=== PATIENT | female | born 1985 | race Caucasian/White ===

== ENCOUNTER 2018-01-29 09:06 | Emergency (ER) | payer MEDICAID, SELFPAY ==
[2018-01-29 09:11] VITALS: BP 133/94; PULSE 80; RESP 15; TEMP 37.1; O2SAT 98
--- NOTE | 2018-01-29 09:29 | W.ED.GENAD ---
Discharge Plan Disposition Patient Disposition: HOME Condition: Stable Discharge Details Chief Complaint: DentalOral Clinical Impression: Dental infection, Dental caries, Left facial swelling Primary Care Provider: Renetta Flores ED Provider: Ghada Romero Home Meds and New Rx's Prescriptions: New penicillin V potassium 500 mg tablet 500 mg PO QID 7 Days Qty: 28 RF: 0 Continue acetaminophen [Mapap Extra Strength] 500 MG tablet 1,000 mg PO Q6H PRN PRNRF: 0 Discharge Instructions Instructions: Dental Caries (ED) Additional Instructions: You appear to have a dental infection related to cavities and/or missing tooth filling. You do not appear to have an abscess at this time. If you develop any worsening symptoms such as fever, increased facial swelling or pain, return immediately to the emergency department. Call [facility] tomorrow morning to schedule follow-up appointment for reevaluation. Take the antibiotics until finished. Alternate Tylenol and Motrin as needed and directed for pain. Do not take the Tylenol with codeine with additional Tylenol. Do not take more than 3 g of Tylenol daily. Discharge Data Discharge Physician: Ghada Romero Medical Decision Making 32-year-old female who presents with left upper dental pain and left-sided facial swelling for the past 2 days. Relates she lost a filling in this tooth and has had a dental fracture in this tooth 1 year ago. Was being followed at [facility] but missed a recent appointment and was told she needed to follow-up somewhere else. She denies fever, difficulty swallowing, difficulty breathing. Pressure mildly hypertensive but otherwise vitals within normal limits. Afebrile. She appears nontoxic. Airway intact and speaking in full sentences. She is mildly tearful due to pain with exam. She has multiple dental caries and missing teeth throughout with tenderness to palpation near tooth #13 or 14. She has mild left-sided facial swelling. No dental abscess noted. No submandibular swelling or evidence of Fracisco's angina. She denies any recent antibiotics. Will place on a prescription for penicillin. Patient states she can go directly to pharmacy to fill this. Will send home with 2 tabs of Tylenol with codeine to take for pain. She is instructed to not take with additional Tylenol. She is instructed to call a [facility] tomorrow morning to schedule follow-up appointment for reevaluation. She is instructed to return immediately to the emergency department with any worsening or new concerning symptoms such as fever, difficulty swallowing or breathing. HPI General Mode of arrival: ambulatory. Date/Time Provider Initiated Documentation: 01/29/18 09:21. Limitations to Documentation: no limitations. Information obtained by: patient. HPI Narrative: Patient is a 32-year-old female who presents with left upper dental pain and facial swelling for the past 2 days. Patient states she lost a filling in this area proximally 1 year ago. States the tooth is fractured. She states she has been eating and drinking but mainly soft foods over the past few days. She denies any known fever, difficulty swallowing, or difficulty breathing. She has been taking Tylenol and Motrin for pain which has been helping somewhat. She denies any recent antibiotics. She states she was being seen by [facility] but recently missed an appointment and was told she could not follow-up there. States she plans on seeing eye lump on dental. Past medical history: Depression, anxiety, migraines Surgical history: , cholecystectomy, myringotomy, adenoidectomy Social history: Smokes tobacco, daily marijuana use, denies alcohol use. Medications: Denies Allergy: Denies PCP: Renetta Benjamin Related Data Home Medications Medication Instructions Recorded Confirmed acetaminophen [Mapap Extra 1,000 mg PO Q6H PRN PRN tab 06/29/16 01/29/18 Strength] penicillin V potassium 500 mg PO QID 7 Days #28 tab 01/29/18 Previous Rx's Medication Instructions Recorded acetaminophen [Mapap Extra 1,000 mg PO Q6H PRN PRN tab 06/29/16 Strength] penicillin V potassium 500 mg PO QID 7 Days #28 tab 01/29/18 Allergies Allergy/AdvReac Type Severity Reaction Status Date / Time No Known Drug Allergies Allergy Unknown none Unverified 01/29/18 09:25 General Stated Complaint: DentalOral ELISHA: 4 Review of Systems Review of Systems All systems reviewed & are unremarkable except as noted in HPI and below PFSH Medical History Anxiety Depression Migraine Social History Smoking/Tobacco Use Status: Current every day Surgical History Adenoidectomy section Cholecystectomy (06/24/16) myringotomy Exam Const General: cooperative and healthy appearing Orientation: alert and awake [facility] Head: normal to inspection Ears: hearing grossly normal bilaterally, external ears normal and TM's normal bilaterally General nose exam: external nose normal Face and sinus: edema on the left (There is mild edema noted to the left mid face and left mandible area. Edema is noted to be soft without induration or fluctuance or erythema. ) Mouth: oral mucosae normal Teeth and gingiva: poor dentition (Multiple dental caries throughout. Multiple missing teeth throughout. Area of pain is around tooth #13 or 14. There is the base of the tooth still present with large filling in center missing. There is surrounding tenderness palpation of mucosa but no discrete abscess noted. There is no bleedin) Throat: posterior oropharynx normal Eyes General: appearance normal, both eyes and all related structures Eyelids: eyelids normal Pupils: PERRL EOM: EOM intact bilaterally Neck Neck: normal visual inspection and No submandibular swelling Lymphatic: no lymphadenopathy noted Chest Chest: normal inspection of the chest Resp Effort & Inspection: normal respiratory effort and able to speak in complete sentences Cardio Rate: regular rate Skin General skin exam: no rashes or lesions noted Neuro General: alert and awake Cognition: normal cognition Speech: speech normal Gait: normal gait Motor: muscle tone normal throughout Extrem General: normal to inspection and full ROM Psych Appearance: grossly normal Mental Status: mental status grossly normal Speech and Movement: speech and movement normal Affect: normal affect Thought Process: normal Course Vital Signs Temperature 98.8 F 01/29/18 09:11 Pulse 80 01/29/18 09:11 Respiratory Rate 15 01/29/18 09:11 Blood Pressure 133/94 H 01/29/18 09:11 Pulse Oximetry 98 01/29/18 09:11 Temperature 98.8 F 01/29/18 09:11 Temperature Source Temporal Artery Scan 01/29/18 09:11 Pulse 80 01/29/18 09:11 Respiratory Rate 15 01/29/18 09:11 Respiratory Effort 01/29/18 09:19 Blood Pressure 133/94 H 01/29/18 09:11 Blood Pressure Position Sitting 01/29/18 09:11 Pulse Oximetry 98 01/29/18 09:11 Oxygen Delivery Method Room Air 01/29/18 09:11 Oxygen Flow Rate 0 01/29/18 09:11 Pain Level 6 01/29/18 09:11
--- NOTE | 2018-01-29 09:38 | ED.GENADUL_ITS ---
Discharge Plan Disposition Patient Disposition: HOME Condition: Stable Discharge Details Chief Complaint: DentalOral Clinical Impression: Dental infection, Dental caries, Left facial swelling Primary Care Provider: Renetta Flores ED Provider: Ghada Romero Home Meds and New Rx's Prescriptions: New penicillin V potassium 500 mg tablet 500 mg PO QID 7 Days Qty: 28 RF: 0 Continue acetaminophen [Mapap Extra Strength] 500 MG tablet 1,000 mg PO Q6H PRN PRNRF: 0 Discharge Instructions Instructions: Dental Caries (ED) Additional Instructions: You appear to have a dental infection related to cavities and/or missing tooth filling. You do not appear to have an abscess at this time. If you develop any worsening symptoms such as fever, increased facial swelling or pain, return immediately to the emergency department. Call [facility] tomorrow morning to schedule follow-up appointment for reevaluation. Take the antibiotics until finished. Alternate Tylenol and Motrin as needed and directed for pain. Do not take the Tylenol with codeine with additional Tylenol. Do not take more than 3 g of Tylenol daily. Discharge Data Discharge Physician: Ghada Romero Medical Decision Making 32-year-old female who presents with left upper dental pain and left-sided facial swelling for the past 2 days. Relates she lost a filling in this tooth and has had a dental fracture in this tooth 1 year ago. Was being followed at [facility] but missed a recent appointment and was told she needed to follow-up somewhere else. She denies fever, difficulty swallowing, difficulty breathing. Pressure mildly hypertensive but otherwise vitals within normal limits. Afebrile. She appears nontoxic. Airway intact and speaking in full sentences. She is mildly tearful due to pain with exam. She has multiple dental caries and missing teeth throughout with tenderness to palpation near tooth #13 or 14. She has mild left-sided facial swelling. No dental abscess noted. No submandibular swelling or evidence of Fracisco's angina. She denies any recent antibiotics. Will place on a prescription for penicillin. Patient states she can go directly to pharmacy to fill this. Will send home with 2 tabs of Tylenol with codeine to take for pain. She is instructed to not take with additional Tylenol. She is instructed to call a [facility] tomorrow morning to schedule follow- up appointment for reevaluation. She is instructed to return immediately to the emergency department with any worsening or new concerning symptoms such as fever, difficulty swallowing or breathing. HPI General Mode of arrival: ambulatory . Date/Time Provider Initiated Documentation: 01/29/18 09:21 . Limitations to Documentation: no limitations . Information obtained by: patient . HPI Narrative: Patient is a 32-year-old female who presents with left upper dental pain and facial swelling for the past 2 days. Patient states she lost a filling in this area proximally 1 year ago. States the tooth is fractured. She states she has been eating and drinking but mainly soft foods over the past few days. She denies any known fever, difficulty swallowing, or difficulty breathing. She has been taking Tylenol and Motrin for pain which has been helping somewhat. She denies any recent antibiotics. She states she was being seen by [facility] but recently missed an appointment and was told she could not follow-up there. States she plans on seeing eye lump on dental. Past medical history: Depression, anxiety, migraines Surgical history: , cholecystectomy, myringotomy, adenoidectomy Social history: Smokes tobacco, daily marijuana use, denies alcohol use. Medications: Denies Allergy: Denies PCP: Renetta Benjamin Related Data Home Medications Medication Instructions Recorded Confirmed acetaminophen [Mapap Extra 1,000 mg PO Q6H PRN PRN tab 06/29/16 01/29/18 Strength] penicillin V potassium 500 mg PO QID 7 Days #28 tab 01/29/18 Previous Rx's Medication Instructions Recorded acetaminophen [Mapap Extra 1,000 mg PO Q6H PRN PRN tab 06/29/16 Strength] penicillin V potassium 500 mg PO QID 7 Days #28 tab 01/29/18 Allergies Allergy/AdvReac Type Severity Reaction Status Date / Time No Known Drug Allergies Allergy Unknown none Unverified 01/29/18 09:25 General Stated Complaint: DentalOral ELISHA: 4 Review of Systems Review of Systems All systems reviewed & are unremarkable except as noted in HPI and below PFSH Medical History Anxiety Depression Migraine Social History Smoking/Tobacco Use Status: Current every day Surgical History Adenoidectomy section Cholecystectomy (06/24/16) myringotomy Exam Const General: cooperative and healthy appearing Orientation: alert and awake [facility] Head: normal to inspection Ears: hearing grossly normal bilaterally, external ears normal and TM's normal bilaterally General nose exam: external nose normal Face and sinus: edema on the left (There is mild edema noted to the left mid face and left mandible area. Edema is noted to be soft without induration or fluctuance or erythema. ) Mouth: oral mucosae normal Teeth and gingiva: poor dentition (Multiple dental caries throughout. Multiple missing teeth throughout. Area of pain is around tooth #13 or 14. There is the base of the tooth still present with large filling in center missing. There is surrounding tenderness palpation of mucosa but no discrete abscess noted. There is no bleedin) Throat: posterior oropharynx normal Eyes General: appearance normal, both eyes and all related structures Eyelids: eyelids normal Pupils: PERRL EOM: EOM intact bilaterally Neck Neck: normal visual inspection and No submandibular swelling Lymphatic: no lymphadenopathy noted Chest Chest: normal inspection of the chest Resp Effort & Inspection: normal respiratory effort and able to speak in complete sentences Cardio Rate: regular rate Skin General skin exam: no rashes or lesions noted Neuro General: alert and awake Cognition: normal cognition Speech: speech normal Gait: normal gait Motor: muscle tone normal throughout Extrem General: normal to inspection and full ROM Psych Appearance: grossly normal Mental Status: mental status grossly normal Speech and Movement: speech and movement normal Affect: normal affect Thought Process: normal Course Vital Signs Temperature 98.8 F 01/29/18 09:11 Pulse 80 01/29/18 09:11 Respiratory Rate 15 01/29/18 09:11 Blood Pressure 133/94 H 01/29/18 09:11 Pulse Oximetry 98 01/29/18 09:11 Temperature 98.8 F 01/29/18 09:11 Temperature Source Temporal Artery Scan 01/29/18 09:11 Pulse 80 01/29/18 09:11 Respiratory Rate 15 01/29/18 09:11 Respiratory Effort 01/29/18 09:19 Blood Pressure 133/94 H 01/29/18 09:11 Blood Pressure Position Sitting 01/29/18 09:11 Pulse Oximetry 98 01/29/18 09:11 Oxygen Delivery Method Room Air 01/29/18 09:11 Oxygen Flow Rate 0 01/29/18 09:11 Pain Level 6 01/29/18 09:11
[2018-01-29 09:46] VITALS: TEMP 37.1
== END 2018-01-29 09:55 | disposition home or self-care (01) ==
PROVIDERS: Emergency Provider Physician Assistant; PCP Nurse Practitioner
DX: R22.0 Localized swelling, mass and lump, head (principal); K04.7 Periapical abscess without sinus; K02.9 Dental caries, unspecified
CPT/HCPCS: 99283

== ENCOUNTER 2018-03-01 07:41 | Emergency (ER) | payer MEDICAID, SELFPAY ==
[2018-03-01 07:51] VITALS: BP 120/90; PULSE 69; RESP 16; TEMP 36.7; O2SAT 99
--- NOTE | 2018-03-01 08:14 | W.ED.GENAD ---
Discharge Plan Disposition Patient Disposition: HOME Condition: Good Discharge Details Chief Complaint: EarProblem Clinical Impression: Otitis media Primary Care Provider: Renetta Flores ED Provider: Scott Smallwood Home Meds and New Rx's Prescriptions: New acetaminophen [Mapap Extra Strength] 500 MG tablet 1,000 mg PO Q6H 5 Days Qty: 60 RF: 0 ibuprofen [Motrin IB] 200 MG tablet 600 mg PO Q6H 5 Days Qty: 60 RF: 0 amoxicillin 500 mg capsule 1,000 mg PO TID 7 Days Qty: 42 RF: 0 No Action acetaminophen [Mapap Extra Strength] 500 MG tablet 1,000 mg PO Q6H PRN PRNRF: 0 Discharge Instructions Instructions: Otitis Media (ED) Additional Instructions: Please take the antibiotic as directed. If you notice any worsening of your symptoms, or any new symptoms such as drainage from your ear, vomiting, diarrhea, fever, chills, shortness of breath, chest pain, numbness, weakness, or fainting , please return immediately to the emergency department for reevaluation. Please follow up with your primary care provider as soon as possible for reassessment and reevaluation. As always, it was a pleasure participating in your medical care today. Referrals: Renetta Flores [Primary Care Provider] - Medical Decision Making This is a pleasant 32-year-old female who presents with symptoms of a cough for 1 week, she does smoke, however over the last 1-2 days she has developed right ear pain slight decrease in hearing. Physical exam demonstrates notable right sided otitis media, no evidence of perforation or drainage. Lung exam is normal, vital signs are stable, no hypoxemia, tachypnea, or tachycardia. This time I feel that the patient is suffering from right otitis media, and we will start antibiotics for treatment of this. We discussed red flags for which to return the patient understands I have extensively reviewed the treatment plan and discharge instructions with the patient. I have addressed all patient concerns at this time. The patient was made aware of what symptoms to monitor for that would warrant a return to the emergency department. Discussed the plan with the patient, they demonstrate verbal understanding and agreement with our assessment and plan at this time. HPI General Date/Time Provider Initiated Documentation: 03/01/18 08:01. HPI Narrative: This is a 32-year-old female with no significant past medical history except for smoking use, no recent surgeries who presents today for evaluation of right ear pain. Patient states that she has had mild upper respiratory symptoms for the last week, with very mild cough and runny nose and congestion however over the last 1-2 days she has developed right-sided ear pain, and slight muffling of hearing in the right. She has taken ibuprofen this is slightly improved her symptoms. She denies any drainage from her ear, she denies any hemoptysis, fever, chills, chest pain, shortness of breath, headache, vision changes. She denies any other associated complaints. She denies any trauma. She denies any history of diabetes, or recent swimming. Patient denies any other complaints at this time Related Data Home Medications Medication Instructions Recorded Confirmed acetaminophen [Mapap Extra 1,000 mg PO Q6H PRN PRN tab 06/29/16 03/01/18 Strength] acetaminophen [Mapap Extra 1,000 mg PO Q6H 5 Days #60 tab 03/01/18 Strength] amoxicillin 1,000 mg PO TID 7 Days #42 cap 03/01/18 ibuprofen [Motrin Ib] 600 mg PO Q6H 5 Days #60 tab 03/01/18 Previous Rx's Medication Instructions Recorded acetaminophen [Mapap Extra 1,000 mg PO Q6H PRN PRN tab 06/29/16 Strength] acetaminophen [Mapap Extra 1,000 mg PO Q6H 5 Days #60 tab 03/01/18 Strength] amoxicillin 1,000 mg PO TID 7 Days #42 cap 03/01/18 ibuprofen [Motrin Ib] 600 mg PO Q6H 5 Days #60 tab 03/01/18 Allergies Allergy/AdvReac Type Severity Reaction Status Date / Time No Known Drug Allergies Allergy Unknown none Unverified 03/01/18 07:54 General Stated Complaint: EarProblem ELISHA: 4 Review of Systems Review of Systems All systems reviewed & are unremarkable except as noted in HPI and below Exam Narrative Exam Narrative: 1.Const: Well-nourished, Well-developed, appearing stated age 2.Eyes: PERRL, no conjunctival injection, and symmetrical lids. 3.ENT: Atraumatic external nose and ears. Moist MM. Neck: Symmetric, trachea midline, No thyromegaly. Patient demonstrates notable bulging and purulent effusion behind the right tympanic membrane, left tympanic membrane was normal. Oropharynx demonstrates no signs of erythema, edema, or tonsillar exudate. Minimal cervical lymphadenopathy. Minimal drainage in the nares, no sinus tenderness 4.CVS: +S1/S2, No murmurs or gallops. Peripheral pulses 2+ and equal in all extremities. Brisk capillary refill in all extremities. 5.RESP: Unlabored respiratory effort. Clear to auscultation bilaterally. No wheezes rales or rhonchi. No ausculatory abnormalities. 6.GI: Soft, Nontender/Nondistended, No hepatosplenomegaly. No guarding or rebound. 7.MSK: Normocephalic/Atraumatic, Extremities w/o deformity or ttp No cyanosis or clubbing, Normal movement of all extremities 8.Skin: Warm, Dry. No rashes or lesions. 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 Sensation grossly intact, no focal neurologic deficits. 10.Psych: (AAO) x3. Appropriate mood and affect Course Vital Signs Temperature 36.7 C 03/01/18 07:51 Pulse 69 03/01/18 07:51 Respiratory Rate 16 03/01/18 07:51 Blood Pressure 120/90 03/01/18 07:51 Pulse Oximetry 99 03/01/18 07:51 Temperature 36.7 C 03/01/18 07:51 Temperature Source Skin 03/01/18 07:51 Pulse 69 03/01/18 07:51 Respiratory Rate 16 03/01/18 07:51 Respiratory Effort 03/01/18 07:51 Blood Pressure 120/90 03/01/18 07:51 Blood Pressure Position Sitting 03/01/18 07:51 Pulse Oximetry 99 03/01/18 07:51 Oxygen Delivery Method Room Air 03/01/18 07:51 Oxygen Flow Rate 0 03/01/18 07:51 Pain Level 8 03/01/18 07:55
--- NOTE | 2018-03-01 08:18 | ED.GENADUL_ITS ---
Discharge Plan Disposition Patient Disposition: HOME Condition: Good Discharge Details Chief Complaint: EarProblem Clinical Impression: Otitis media Primary Care Provider: Renetta Flores ED Provider: Scott Smallwood Home Meds and New Rx's Prescriptions: New acetaminophen [Mapap Extra Strength] 500 MG tablet 1,000 mg PO Q6H 5 Days Qty: 60 RF: 0 ibuprofen [Motrin IB] 200 MG tablet 600 mg PO Q6H 5 Days Qty: 60 RF: 0 amoxicillin 500 mg capsule 1,000 mg PO TID 7 Days Qty: 42 RF: 0 No Action acetaminophen [Mapap Extra Strength] 500 MG tablet 1,000 mg PO Q6H PRN PRNRF: 0 Discharge Instructions Instructions: Otitis Media (ED) Additional Instructions: Please take the antibiotic as directed. If you notice any worsening of your symptoms, or any new symptoms such as drainage from your ear, vomiting, diarrhea , fever, chills, shortness of breath, chest pain, numbness, weakness, or fainting , please return immediately to the emergency department for reevaluation. Please follow up with your primary care provider as soon as possible for reassessment and reevaluation. As always, it was a pleasure participating in your medical care today. Referrals: Renetta Flores [Primary Care Provider] - Medical Decision Making This is a pleasant 32-year-old female who presents with symptoms of a cough for 1 week, she does smoke, however over the last 1-2 days she has developed right ear pain slight decrease in hearing. Physical exam demonstrates notable right sided otitis media, no evidence of perforation or drainage. Lung exam is normal, vital signs are stable, no hypoxemia, tachypnea , or tachycardia. This time I feel that the patient is suffering from right otitis media, and we will start antibiotics for treatment of this. We discussed red flags for which to return the patient understands I have extensively reviewed the treatment plan and discharge instructions with the patient. I have addressed all patient concerns at this time. The patient was made aware of what symptoms to monitor for that would warrant a return to the emergency department. Discussed the plan with the patient, they demonstrate verbal understanding and agreement with our assessment and plan at this time. HPI General Date/Time Provider Initiated Documentation: 03/01/18 08:01 . HPI Narrative: This is a 32-year-old female with no significant past medical history except for smoking use, no recent surgeries who presents today for evaluation of right ear pain. Patient states that she has had mild upper respiratory symptoms for the last week, with very mild cough and runny nose and congestion however over the last 1-2 days she has developed right-sided ear pain , and slight muffling of hearing in the right. She has taken ibuprofen this is slightly improved her symptoms. She denies any drainage from her ear, she denies any hemoptysis, fever, chills, chest pain, shortness of breath, headache , vision changes. She denies any other associated complaints. She denies any trauma. She denies any history of diabetes, or recent swimming. Patient denies any other complaints at this time Related Data Home Medications Medication Instructions Recorded Confirmed acetaminophen [Mapap Extra 1,000 mg PO Q6H PRN PRN tab 06/29/16 03/01/18 Strength] acetaminophen [Mapap Extra 1,000 mg PO Q6H 5 Days #60 tab 03/01/18 Strength] amoxicillin 1,000 mg PO TID 7 Days #42 cap 03/01/18 ibuprofen [Motrin Ib] 600 mg PO Q6H 5 Days #60 tab 03/01/18 Previous Rx's Medication Instructions Recorded acetaminophen [Mapap Extra 1,000 mg PO Q6H PRN PRN tab 06/29/16 Strength] acetaminophen [Mapap Extra 1,000 mg PO Q6H 5 Days #60 tab 03/01/18 Strength] amoxicillin 1,000 mg PO TID 7 Days #42 cap 03/01/18 ibuprofen [Motrin Ib] 600 mg PO Q6H 5 Days #60 tab 03/01/18 Allergies Allergy/AdvReac Type Severity Reaction Status Date / Time No Known Drug Allergies Allergy Unknown none Unverified 03/01/18 07:54 General Stated Complaint: EarProblem ELISHA: 4 Review of Systems Review of Systems All systems reviewed & are unremarkable except as noted in HPI and below Exam Narrative Exam Narrative: 1.Const: Well-nourished, Well-developed, appearing stated age 2.Eyes: PERRL, no conjunctival injection, and symmetrical lids. 3.ENT: Atraumatic external nose and ears. Moist MM. Neck: Symmetric, trachea midline, No thyromegaly. Patient demonstrates notable bulging and purulent effusion behind the right tympanic membrane, left tympanic membrane was normal. Oropharynx demonstrates no signs of erythema, edema, or tonsillar exudate. Minimal cervical lymphadenopathy. Minimal drainage in the nares, no sinus tenderness 4.CVS: +S1/S2, No murmurs or gallops. Peripheral pulses 2+ and equal in all extremities. Brisk capillary refill in all extremities. 5.RESP: Unlabored respiratory effort. Clear to auscultation bilaterally. No wheezes rales or rhonchi. No ausculatory abnormalities. 6.GI: Soft, Nontender/Nondistended, No hepatosplenomegaly. No guarding or rebound. 7.MSK: Normocephalic/Atraumatic, Extremities w/o deformity or ttp No cyanosis or clubbing, Normal movement of all extremities 8.Skin: Warm, Dry. No rashes or lesions. 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 Sensation grossly intact, no focal neurologic deficits. 10.Psych: (AAO) x3. Appropriate mood and affect Course Vital Signs Temperature 36.7 C 03/01/18 07:51 Pulse 69 03/01/18 07:51 Respiratory Rate 16 03/01/18 07:51 Blood Pressure 120/90 03/01/18 07:51 Pulse Oximetry 99 03/01/18 07:51 Temperature 36.7 C 03/01/18 07:51 Temperature Source Skin 03/01/18 07:51 Pulse 69 03/01/18 07:51 Respiratory Rate 16 03/01/18 07:51 Respiratory Effort 03/01/18 07:51 Blood Pressure 120/90 03/01/18 07:51 Blood Pressure Position Sitting 03/01/18 07:51 Pulse Oximetry 99 03/01/18 07:51 Oxygen Delivery Method Room Air 03/01/18 07:51 Oxygen Flow Rate 0 03/01/18 07:51 Pain Level 8 03/01/18 07:55
== END 2018-03-01 08:22 | disposition home or self-care (01) ==
PROVIDERS: Emergency Provider Student in an Organized Health Care Education/Training Program; PCP Nurse Practitioner
DX: H66.91 Otitis media, unspecified, right ear (principal)
CPT/HCPCS: 99283

== ENCOUNTER 2019-02-17 08:37 | Emergency (ER) | payer MEDICAID, SELFPAY ==
[2019-02-17 08:40] VITALS: BP 145/101; PULSE 65; RESP 16; TEMP 37.1; O2SAT 95
--- NOTE | 2019-02-17 08:50 | W.ED.GENAD ---
Discharge Plan Disposition Patient Disposition: HOME Condition: Good Discharge Details Chief Complaint: GenMedical Clinical Impression: Epicondylitis, lateral, Tendinitis Primary Care Provider: Renetta Flores ED Provider: Leila Denson Home Meds and New Rx's Prescriptions: New albuterol sulfate [Proventil HFA] 90 mcg/actuation HFA aerosol inhaler 2 puff IH Q6H PRN (Reason: shortness of breath or wheezing) Qty: 8 RF: 0 No Action acetaminophen [Mapap Extra Strength] 500 MG tablet 1,000 mg PO Q6H PRN PRNRF: 0 Discharge Instructions Instructions: Tendinitis (ED) Additional Instructions: Rest. Activities as tolerated. Elevate injury to prevent swelling. Ice to the area of discomfort for 15 min. 3-5 times daily. Or ice massage for 5 minutes 3-5 times daily as discussed Motrin every 8 hours with food or Tylenol every 6 hours for soreness if needed over the counter for comfort. Consider [id number] tennis elbow strap. Use wrist splint at night for 1 week as discussed Followup with orthopedic doctor as discussed if not improving in one week. Return for any worsening or concerns sooner if needed. Referrals: Indio Thapa MD [ [facility] STAFF PHYSICIAN] - Discharge Data Discharge Date/Time-TO BE ENTERED AT DEPARTURE: 02/17/19 09:13 Medical Decision Making 33-year-old patient who presents for complaints of bilateral arm pain significantly worse on the right associated with intermittent tingling and numbness worse with range of motion of the arm, relieved with rest. 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 Patient reports she is now done trimming so she will not continue the repetitive hand movements however on exam has clear findings of lateral epicondylitis with tenderness through the forearm with palpation consistent with tendinitis. Patient is counseled regarding appropriate management and care including ice massage, use of tennis elbow strap. Will provide a wrist splint for nighttime use. Patient consents only to right arm splinting. Patient encouraged follow-up with orthopedic doctor if not improving in approximately 1 week as discussed. Rice encouraged. Patient also has a cough which is been present for a few months. Patient denies any ill feeling or infectious symptoms but does have obvious wheezing on her breath sounds. Patient consents to use of an inhaler and conservative treatments at this time. Does not feel she needs any nebulizer treatments at this time. Patient advised to follow-up if not improving. The patient was stable and requested discharge. Prior to discharge, my usual and customary return precautions were reviewed with the patient - this included follow-up instructions and reasons to return to the Emergency Department if conditions worsens, does not improve as expected, or other new concerns arise. HPI General Date/Time Provider Initiated Documentation: 02/17/19 08:39. HPI Narrative: 33-year-old woman presents the ER for complaints of right arm pain and numbness. Patient reports pain and numbness from the right elbow to the fingers. Patient reports onset of symptoms approximately 1 week ago worse in the last few days. Patient also reports mild left forearm symptoms. Patient denies any injury or trauma to the arm. Patient reports she has been trimming hemp for the last 2 weeks. Patient denies neck pain associated. Patient denies pain with range of motion of neck. No ill feeling whatsoever. Patient denies any history of similar. Patient reports the numbness and tingling she is experienced in the right arm is intermittent. None at present. No swelling of the arm. No chest pain, difficulty breathing shortness of breath. Patient also complaining of a mild cough which she has had for the last 2 months which resulted after a viral cough and cold. Patient denies fever, chills or ill feeling. She reports persistent cough and occasional wheezing. No associated chest pain. Denies nasal congestion sore throat or ear pain at this time. Eating and drinking without difficulty. Related Data Home Medications Medication Instructions Recorded Confirmed acetaminophen [Mapap Extra 1,000 mg PO Q6H PRN PRN tab 06/29/16 02/17/19 Strength] albuterol sulfate [Proventil HFA] 2 puff IH Q6H PRN #8 gm 02/17/19 Previous Rx's Medication Instructions Recorded acetaminophen [Mapap Extra 1,000 mg PO Q6H PRN PRN tab 06/29/16 Strength] albuterol sulfate [Proventil HFA] 2 puff IH Q6H PRN #8 gm 02/17/19 Allergies Allergy/AdvReac Type Severity Reaction Status Date / Time No Known Drug Allergies Allergy Unknown none Unverified 02/17/19 08:51 General Stated Complaint: GenMedical ELISHA: 4 Review of Systems All systems reviewed & are unremarkable except as noted in HPI and below Constitutional Constitutional: Denies chills, Denies fever(s) and Denies headache(s) ENT Ears, Nose, Mouth, and Throat: Denies vertigo, Denies dizziness, Denies otalgia, Denies headache(s), Denies sinus pain, Denies sinus pressure and Denies sore throat Respiratory Respiratory: Reports cough and Reports wheezing Musculoskeletal Musculoskeletal: Denies joint swelling, Reports numbness and Reports radiating pain into limb Neurologic Neurologic: Denies vertigo, Denies dizziness, Denies headache(s) and Reports numbness Allergic/Immunologic Allergic/Immunologic: Reports wheezing [facility] Medical History Anxiety treated with Paroxitine. restarted 05/06/14 for recurrence of anxiety Depression Rx with Trazadone to assist sleep. Migraine after of second child. vision changes prior to H/A. On triptans prior to current preg. followed by neurology. Surgical History Adenoidectomy section X 2 Cholecystectomy (06/24/16) myringotomy Social History Smoking/Tobacco Use Status: Current every day Alcohol Intake: never Substance use type: does not use Do you feel safe at home: Yes Do you feel safe in your relationship?: Yes Exam Narrative Exam Narrative: CONST: Healthy appearing patient, in no acute distress. Well hydrated. Alert and alert. HENMT: Head nomocephalic, normal to inspection. Atraumatic. Hearing grossly normal. Right TM intact with no erythema or effusion, left TM with mild effusion no associated erythema. Mild pharyngeal erythema. EYES: General normal appearance. Alignment normal. Eyelids normal. Conjunctiva normal. NECK: Normal visual inspection. FROM. Trachea midline. No Midline tenderness. No cervical lymphadenopathy present. CHEST: Normal insepection of the chest. RESP: Normal respiratory effort. Speaking full sentences. No cough. No audible wheezing. No retractions. Breath sounds present and equal. Wheezing scattered. No rhonchi or rales. CARDIO: No JVD. No murmurs, regular rate and rhythm. MUSCULOSKELETAL: Normal Gait. FROM of all extremities. Right arm; no shoulder pain or humeral pain with palpation. Moderate tenderness at the lateral epicondyle with palpation. Mild medial epicondyle tenderness. Moderate form tenderness along the muscle. Patient with flexion extension of the wrist. Distal neurovascularly intact. Pulses intact. No open wounds. No obvious swelling. Mild left arm pain with palpation of the lateral epicondyle. Strength intact bilaterally. SKIN: Normal. Dry. No rashes. NEURO: Alert and awake. Speech clear. PSYCH: Normal affect. Cooperative. Course Vital Signs Vital signs: Vital Signs Temperature 37.1 C 02/17/19 08:40 Pulse 65 02/17/19 08:40 Respiratory Rate 16 02/17/19 08:40 Blood Pressure 145/101 H 02/17/19 08:40 Pulse Oximetry 95 02/17/19 08:40 Temperature 37.1 C 02/17/19 08:40 Temperature Source Temporal Artery Scan 02/17/19 08:40 Pulse 65 02/17/19 08:40 Respiratory Rate 16 02/17/19 08:40 Respiratory Effort Non-Labored 02/17/19 08:40 Blood Pressure 145/101 H 02/17/19 08:40 Pulse Oximetry 95 02/17/19 08:40 Oxygen Delivery Method Room Air 02/17/19 08:40 Oxygen Flow Rate 0 02/17/19 08:40 Pain Level 7 02/17/19 08:40
[2019-02-17 09:13] VITALS: RESP 20
== END 2019-02-17 09:13 | disposition home or self-care (01) ==
PROVIDERS: Emergency Provider Physician Assistant; PCP Nurse Practitioner
DX: M77.11 Lateral epicondylitis, right elbow (principal); M77.12 Lateral epicondylitis, left elbow; M67.821 Other specified disorders of synovium, right elbow; M67.822 Other specified disorders of synovium, left elbow; R05 Cough
CPT/HCPCS: 29125; 99283; 99282; L3908

== ENCOUNTER 2019-03-09 08:28 | Emergency (ER) | payer MEDICAID, SELFPAY ==
[2019-03-09 08:31] VITALS: BP 133/95; PULSE 69; RESP 18; TEMP 36.4; O2SAT 100
--- NOTE | 2019-03-09 08:42 | W.ED.GENAD ---
Discharge Plan Disposition Patient Disposition: HOME Condition: Stable Discharge Details Chief Complaint: DentalOral Clinical Impression: Broken tooth Primary Care Provider: Renetta Flores ED Provider: Cedric Garnett Home Meds and New Rx's Prescriptions: New penicillin V potassium 500 mg tablet 500 mg PO TID 10 Days Qty: 30 RF: 0 Continued acetaminophen [Mapap Extra Strength] 500 MG tablet 1,000 mg PO Q6H PRN PRNRF: 0 ibuprofen 600 mg Tablet 600 mg PO QID PRNRF: 0 albuterol sulfate [Proventil HFA] 90 mcg/actuation HFA aerosol inhaler 2 puff IH Q6H PRN (Reason: shortness of breath or wheezing) Qty: 8 RF: 0 Discharge Instructions Instructions: Acute Dental Trauma (ED) Additional Instructions: Please take penicillin as prescribed. Follow-up with dentistry on Tuesday as planned. May use Tylenol and/or ibuprofen as needed for pain. May use dental wax to provide temporary covering to the broken tooth. Return for any acute concern. Medical Decision Making 33-year-old female with broken right lower first molar, approximately tooth 19. No significant fluctuance or evidence of abscess on exam. Offered dental block which she declined. Provided a prescription for penicillin, she was given dental wax with instructions on use, and will follow-up with her dentist on Tuesday. Home care and return precautions discussed. HPI General Mode of arrival: ambulatory. Date/Time Provider Initiated Documentation: 03/09/19 08:29. Limitations to Documentation: no limitations. Information obtained by: patient. History of Present Illness 33 year old F presents to the emergency department with the chief complaint of Right lower broken tooth, described as moderate, Quality is described as dull, and is localized to the mouth. Patient reports no radiation. Patient started experiencing this day(s) and it has been constant. No relieving factors improve symptom(s), No exacerbating factors reported . Patient notes other (No drooling, change to voice.); denies fever/chills. Patient did receive the following treatments prior to arrival, none Related Data Home Medications Medication Instructions Recorded Confirmed acetaminophen [Mapap Extra 1,000 mg PO Q6H PRN PRN tab 06/29/16 03/09/19 Strength] albuterol sulfate [Proventil HFA] 2 puff IH Q6H PRN #8 gm 02/17/19 03/09/19 ibuprofen 600 mg PO QID PRN 03/09/19 03/09/19 penicillin V potassium 500 mg PO TID 10 Days #30 tab 03/09/19 Previous Rx's Medication Instructions Recorded acetaminophen [Mapap Extra 1,000 mg PO Q6H PRN PRN tab 06/29/16 Strength] albuterol sulfate [Proventil HFA] 2 puff IH Q6H PRN #8 gm 02/17/19 penicillin V potassium 500 mg PO TID 10 Days #30 tab 03/09/19 Allergies Allergy/AdvReac Type Severity Reaction Status Date / Time No Known Drug Allergies Allergy Unknown none Unverified 03/09/19 08:34 General Stated Complaint: DentalOral ELISHA: 4 Review of Systems Narrative: 6 systems reviewed and otherwise negative. [facility] Medical History Anxiety treated with Paroxitine. restarted 05/06/14 for recurrence of anxiety Depression Rx with Trazadone to assist sleep. Migraine after of second child. vision changes prior to H/A. On triptans prior to current preg. followed by neurology. Social History Smoking/Tobacco Use Status: Current every day Alcohol Intake: never Substance use type: does not use Do you feel safe at home: Yes Do you feel safe in your relationship?: Yes Exam Narrative Exam Narrative: GEN: awake, alert, oriented 3. Pleasant, well groomed, interactive. HEAD: Normocephalic, atraumatic ENT: Mucous membranes moist, oropharynx with few missing teeth. The right lower first molar, approximately tooth 19 has 2 broken cusps with exposed filling. No sniffing and buccal or lingual swelling. External ear exam unremarkable EYES: PERRL, EOMI NECK: Full ROM, no GUILLERMO, no menigismus CHEST/RESP: Nontender, clear to auscultation bilateral, no wheeze/rhonchi/rales CARDIOVASCULAR: RRR, no murmur, rub karel. 2+ Rad pulse bilateral Neuro: Grossly normal neurologic exam, conversant, interactive. Psych: Speech fluent, thoughts congruent, affect normal Course Vital Signs Vital signs: Vital Signs Temperature 36.4 C L 03/09/19 08:31 Pulse 69 03/09/19 08:31 Respiratory Rate 18 03/09/19 08:31 Blood Pressure 133/95 H 03/09/19 08:31 Pulse Oximetry 100 03/09/19 08:31 Temperature 36.4 C L 03/09/19 08:31 Temperature Source Skin 03/09/19 08:31 Pulse 69 03/09/19 08:31 Respiratory Rate 18 03/09/19 08:31 Blood Pressure 133/95 H 03/09/19 08:31 Blood Pressure Position Sitting 03/09/19 08:31 Pulse Oximetry 100 03/09/19 08:31 Oxygen Delivery Method Room Air 03/09/19 08:31 Oxygen Flow Rate 0 03/09/19 08:31 Pain Level 8 03/09/19 08:31
== END 2019-03-09 08:54 | disposition home or self-care (01) ==
PROVIDERS: Emergency Provider Emergency Medicine; PCP Nurse Practitioner
DX: K03.81 Cracked tooth (principal); F17.210 Nicotine dependence, cigarettes, uncomplicated
CPT/HCPCS: 99283

== ENCOUNTER 2019-11-06 14:55 | Outpatient (REF) | payer MEDICAID, SELFPAY ==
[2019-11-14 02:55] LABS: SARS-CoV-2 RNA Undetected (Undetected); SARS-CoV-2 Specimen Source Nasopharynx
== END 2019-11-06 15:15 ==
LOC: NCHCN 14:55
PROVIDERS: PCP Nurse Practitioner; Visit Provider Nurse Practitioner Family
DX: R05 Cough (principal)
CPT/HCPCS: U0003

== ENCOUNTER 2020-02-28 10:11 | Outpatient (REF) | payer MEDICAID, SELFPAY ==
[2020-02-28 18:23] LABS: ALT 14 U/L (14-59); AST 13 U/L (15-37); Albumin 3.9 g/dL (3.4-5.0); Alkaline Phosphatase 63 U/L (46-116); Anion Gap 9.9 mmol/L (3-11); BUN 8 mg/dL (7-18); Bilirubin, Total 0.6 mg/dL (0.2-1.0); CO2 27.1 mmol/L (21.0-32.0); CREATININE 0.81 mg/dL (0.55-1.02); Calcium 9.2 mg/dL (8.5-10.1); Chloride 104 mmol/L (98-107); Glucose 87 mg/dL (74-106); Potassium 4.4 mmol/L (3.5-5.1); Sodium 141 mmol/L (136-145); TSH (W/Ref FT4) 0.35 uIU/mL (0.36-3.74); Total Protein 7.2 g/dL (6.4-8.2)
[2020-02-28 19:25] LABS: Vitamin D 25 Total 15.5 ng/ml (30-100)
== END 2020-02-28 10:31 ==
LOC: NCHCN 10:11
PROVIDERS: PCP Nurse Practitioner; Visit Provider Nurse Practitioner Psychiatric/Mental Health
DX: F43.10 Post-traumatic stress disorder, unspecified (principal); F32.9 Major depressive disorder, single episode, unspecified
CPT/HCPCS: 80053; 82306; 84439; 84443

== ENCOUNTER 2020-06-26 15:40 | Outpatient (REF) | payer MEDICAID, SELFPAY ==
[2020-06-27 13:50] LABS: COVID-19 RT-PCR UVMMC Result Negative (Negative)
== END 2020-06-26 15:41 | disposition home or self-care (01) ==
LOC: NCHCN 15:40
PROVIDERS: PCP Nurse Practitioner; Visit Provider Nurse Practitioner Family
DX: Z20.822 Contact with and (suspected) exposure to COVID-19 (principal); J06.9 Acute upper respiratory infection, unspecified
CPT/HCPCS: U0003

== ENCOUNTER 2021-07-27 08:13 | Inpatient (IN) | payer MEDICAID, SELFPAY ==
[2021-07-27] VITALS (25 sets, daily range): BP systolic 100–165; BP diastolic 65–104; PULSE 42–78; RESP 2–22; TEMP 36.4–38.6; O2SAT 95–100
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
--- OUTSIDE RECORDS SUMMARY | 2021-07-27 08:19 | XMS_ITS | Encounter Summary ---
:1985 External Reference #:[id number] Author Reason for Visit OUD - buprenorphine follow-up - weekly*; *MAT - Telemedicine Assessment and Plan Assessment Note Telemedicine Information: This telmed (audio + visual) appointment provided a MAT prescription. Time Start: 1001; Time End: 1009 Provider Location: home; Patient Locatio n: office Telemedicine Consent Given (verbal): Y Neva is a 35 yo female with a PMH of O UD, cocaine use, depression, and PTSD who presents today for their weekly MAT visit. Current prescription is: buprenorphine/n aloxone 16mg films Initial visit: 02-02-21 Visit frequency: weekly UDS negative for illicit opioids: x1 Since Last Visit Neva was unable to rock picker her script on as pharmacy was closed. She made her films last over the weekend. Denies any other use, other than smoking any more pot. OUD: Pt denies severe/persistent cravings, wi thdrawal symptoms, or adverse effects of medication. Feeling stable on current dose. UDS from 06-08- +opiates, though Neva denied any recent use. LCMS +codeine 53 Most recent UDS 06-11-21 negative for all illicit drugs Stimulant/cocaine use use: UDS neg for cocaine x2 Denies use for over a week. Marijuana use: regular use, though tryin g to cut back on use Tobacco: 04/28 ppd Alcohol: twisted teas a couple of days a week, last drink on Tuesday, didn't finish 2nd tea Living: apartment with partner and child amos Family: [facility] shared custody with teen age d son, Neva struggles with this and feeling left out of his care; court hearing upcoming regarding unmanageable teenager status; there is a new pillowcase maker but he is being re-integrated into their house Work: no, is connecting with voc rehab Counseling: [facility] Med: no, though previous dx of ADH D; awaiting provider availability at [facility] PCP: PCP ([facility]) to restart on anxiety medications, had appointment for 04/29/21, restarted Rx for mirtazapine 7.5mg, raised to 15mg QHS; followed up with PCP, who wants him to be s een by a psychiatrist to put back on foc darion (and another med?); will be having a follow up on 06-25-21 Lab Results Last UDS result (qualitative screen): 06-11-21POS buprenorphine and NO illicit drugs Last confirmatory test result (LCMS/qu antitative): N/A due to negative UDS Last buprenorphine confirmation test re sult: Bup: 81 ng/ml & Norbup: 298 ng/ml Last LFT result: Overdue for lab work- -New lab req given Assessment The patient's current phase of OUD liz tment is: Stable maintenance, OUD, chronic use other . Interpretation of last buprenorphine co nfirmation test result: No concern Medication dose: No report of severe o r persistent cravings/withdrawal symptoms. Pt will remain at current dose The patient does meet diagnostic crit eria for opioid dependence. Plan OUD : Continue buprenorphine/nalo xone 16 mg films daily . Continue weekly visits with weekly UDS . 4d Rx provided today. Due to mix up at pharmacy, previous 4d script already in place. Treatment plan review or change include s continue current level of care . Lab Orders: Urine drug testing is ordered today wi th medical necessity as below. Confirmatory testing may be indicated for illicit substances or absence of prescribed buprenorphine UNEXPECTED results on UDS may impact t his patient's treatment plan. The following tests require confirmation via LCMS: Yes POS for AMPHETAMINE Yes POS for BENZODIAZEPINES Yes POS for COCAINE Yes POS for METHADONE Yes POS for OPIATES W/FENTANYL Yes POS for OXYCODONE Additional lab(s) requested - if indic ated, please order the following: NONE LFT will be repeated per our clinical protocol. Prescription monitoring program is [facility] . If reviewed, I have identified agents prescribed to the patient in addition to any issued by our program; the patient is counseled regarding any risk of combining sedating agents. 1. Opioid dependence unstable ? drug screen, urine ? buprenorphine 8 mg-naloxon e 2 mg sublingual film 2. Cocaine abuse unstable Discussion Note: None recorded.Patient educational handouts: No information available. Plan of Care Reminders Provider Appointments MAT - 07/30/2021 Renetta Mccoy, YOUSUF Weekly 15 9:30AM ? BH - 30 Min 08/03/2021 Paula cem Medley, 11:00AM LADC ? MAT - 08/06/[address], ENVIRONMENTAL STUDIES PROGRAM DIRECTOR Weekly 15 9:30AM ? MAT - 08/13/[address], ENVIRONMENTAL STUDIES PROGRAM DIRECTOR Weekly 15 9:30AM ? MAT - 08/20/[address], ENVIRONMENTAL STUDIES PROGRAM DIRECTOR Weekly 15 9:30AM Lab Drug 2021 [facility] Screen, Urine Referral None [...] FOR WHEEZING Medications Administered None recorded. Vitals Weight Blood Pressure 164 lbs 120/65 mm[Hg] Results Lab Results Date Name Specimen Result Interpretation Description Value Range Status Address ? 2021 Drug UR ? Amphetamines negative 1,000 [address]rella [address] [facility] Screen, NG/mL NG/mL Health: Urine [address], [place] ? ? UR ? Benzodiazapines negative 200 Final [facility] NG/mL NG/mL Health: [address], [place] ? ? UR ? Buprenorphine positive 5 Final [place] NG/mL NG/mL Health: [address], [place] ? ? UR ? Cocaine negative 150 Final [facility] Metabolite NG/mL NG/mL Health : [address], [place] ? ? UR ? Opiates negative 300 Final [facility] NG/mL NG/mL Health: [address], [place] ? ? UR ? Oxycodone negative 300 Final Rolanda da NG/mL NG/mL Health: [address], [place] ? ? UR ? Fentanyl negative 2 Final [facility] NG/mL NG/mL Health: [address], [place] ? ? UR ? Ethyl Alcohol negative 10 Final [place] mg/dL mg/dL Health: [address], [place] ? ? UR ? Methadone negative 300 Final Rolanda da Metabolite NG/mL NG/mL Health : [address], [place] ? ? UR ABNORMAL Cannabinoids positive 50 Final [facility] (THC) NG/mL NG/mL Health: [address], [place] ? ? UR ? Urine Creatinine 190.0 >20 Final [facility] mg/dL mg/dL Health: [address], [place] ? ? UR ? Urine pH 7.50 4.5-9. Final [facility] 0 Health: [address], [place] ? ? UR ? Specific [place] 1.013 1.003- Final [facility] 1.035 Health: [address], [place] Allergies None recorded. Problems Name Status Onset [...] Y recreational drugs? *Other Medical Issues None *[place] Not a What is your level of [...] with Neva *Primary Care Provider Y Notes: [facility] *Transportation Issues Yes - kept me from [...] gland Information) Functional Status Unknown. Past Encounters 2021 Opioid Dependence; Cocaine Abuse Renetta Mccoy, ENVIRONMENTAL STUDIES PROGRAM DIRECTOR: [address] [place] [phone], Ph. 06/18/2021 Opioid Dependence; Cocaine Abuse Renetta Mccoy, ENVIRONMENTAL STUDIES PROGRAM DIRECTOR: [address] [place] [phone], Ph. 06/11/2021 Opioid Dependence; Cocaine Abuse Renetta Mccoy, ENVIRONMENTAL STUDIES PROGRAM DIRECTOR: [address] [place] [phone], Ph. 06/08/2021 Opioid Dependence; Cocaine Abuse Renetta Mccoy, ENVIRONMENTAL STUDIES PROGRAM DIRECTOR: [address] [place] [phone], Ph. 06/01/2021 Opioid Dependence; Cocaine Abuse Renetta Mccoy, ENVIRONMENTAL STUDIES PROGRAM DIRECTOR: [address] [place] [address], [place] [phone], Ph. 05/25/2021 Opioid Dependence; Cocaine Abuse Renetta Mccoy, ENVIRONMENTAL STUDIES PROGRAM DIRECTOR: [address] [place] [phone], Ph. History of Present Illness Note: <div><strong> [...]
--- OUTSIDE RECORDS SUMMARY | 2021-07-27 08:19 | XMS_ITS ---
:1985 External Reference #:[id number] Author Care Team Providers Name Role Phone Mccoy, Renetta Primary Care Provider Unavailable Allergies None recorded. Medications Name Status Start Date Stop Date ? ? Aerochamber Plus Flow-Vu Active ? Not carmina ilable azithromycin 250 mg tablet Completed ? 05/25 buprenorphine 8 mg-naloxone 2 mg sublingual film Active ? Not available Place 2 films every day by sublingual route for 7 days. clonidine HCl 0.1 mg tablet Completed ? 04/27 Take 2 tablets twice a day by oral route as needed. hydrocodone 5 mg-acetaminophen 325 mg Active ? Not available tablet mirtazapine 15 mg tablet Active ? Not carmina ilable Take 1 tablet every day by oral route. mirtazapine 7.5 mg tablet Completed ? 2021 Narcan 4 mg/actuation nasal spray Active ? Not available Take 1 spray as needed by nasal route. nicotine (polacrilex) 2 mg buccal lozenge Active ? Not available Take 1 tablet every 8 hours by oral route. nicotine (polacrilex) 2 mg buccal mini lozenge Completed ? 05/25/2021 DISSOLVE 1 LOZENGE BY MOUTH EVERY 8 HOURS paroxetine 20 mg tablet Active ? Not avai lable TAKE 1 TABLET BY MOUTH EVERY DAY pramipexole 0.125 mg tablet Completed ? 04/27 Take 1 tablet 3 times a day by oral route as needed. prazosin 1 mg capsule Active ? Not availa ble prazosin 2 mg capsule Active ? Not availa ble ProAir HFA 90 mcg/actuation aerosol inhaler Active ? Not available INHALE 1 TO 2 INHALATIONS BY MOUTH EVERY 4 TO 6 HOURS NEEDED FOR WHEEZING Suboxone 12 mg-3 mg sublingual film Completed ? 05/25/2021 Suboxone 2 mg-0.5 mg sublingual film Completed ? 05/25/2021 Suboxone 4 mg-1 mg sublingual film Completed ? 05/25/2021 DISSOLVE 1 FILM UNDER THE TONGUE ONCE DAILY trazodone 50 mg tablet Completed ? 01/31/202 2 Take 1 tablet as needed by oral route at bedtime. Problems Name Status Onset Date Source ? Anxiety Active 02/02/2021 History Opioid Dependence Active 02/02/2021 History Posttraumatic Stress Disorder Active 02/02/2021 Hi story Depressive Disorder Active 02/02/2021 History Cocaine Abuse Active 03/23/2021 History Procedures Date Name Performed by ? ? Wrist Arthroscopy/surgery Information no t available ? Cholecystectomy Information not avai lable ? Delivery Information not avai lable Notes: X3 Results Lab Results Date Name Specimen Result Interpretation Description Value Range Status Address ? 07/16/2021 Drug UR ? Amphetamines negative 1,000 Estrella l [place] Screen, NG/mL NG/mL Health: [address], [place] ? ? UR ? Benzodiazapines negative 200 Final [place] NG/mL NG/mL Health: [address], [place] ? ? UR ? Buprenorphine positive 5 Final [place] NG/mL NG/mL Health: [address], [place] ? ? UR ABNORM Cocaine positive 150 Final [place] AL Metabolite NG/mL NG/mL Health : [address], [place] ? ? UR ? Opiates negative 300 Final [place] NG/mL NG/mL Health: [address], [place] ? ? UR ? Oxycodone negative 300 Final Rolanda da NG/mL NG/mL Health: [address], [place] ? ? UR ? Fentanyl negative 2 Final [place] a NG/mL NG/mL Health: [address], [place] ? ? UR ? Ethyl Alcohol negative 10 Final [place] mg/dL mg/dL Health: [address], [place] ? ? UR ? Methadone negative 300 Final Rolanda da Metabolite NG/mL NG/mL Health : [address], [place] ? ? UR ABNORM Cannabinoids positive 50 Final S avida AL (THC) NG/mL NG/mL Health: [address], [place] ? ? UR ? Urine Creatinine 213.3 mg/dL >20 F inal [place] mg/dL Health: [address], [place] ? ? UR ? Urine pH 8.10 4.5-9. Final [place] 0 Health: [address], [place] ? ? UR ? Specific [place] 1.019 1.003- Final [place] 1.035 Health: [address] [place] 07/16/2021 Cocaine UR ? Admitted Cocaine ntp ? F inal [place] Metabolite Use Health : 12 s, [address], [place], Urine [place] 07/06/2021 Drug UR ? Amphetamines negative 1,000 Estrella l [place] Screen, NG/mL NG/mL Health: 1 [address], [place] ? ? UR ? Benzodiazapines negative 200 Final [place] NG/mL NG/mL Health: [address], [place] ? ? UR ? Buprenorphine positive 5 Final [place] NG/mL NG/mL Health: [address], [place] ? ? UR ABNORM Cocaine positive 150 Final [place] AL Metabolite NG/mL NG/mL Health : [address], [place] ? ? UR ? Opiates negative 300 Final [place] NG/mL NG/mL Health: [address], [place] ? ? UR ? Oxycodone negative 300 Final Rolanda da NG/mL NG/mL Health: [address], [place] ? ? UR ABNORM Fentanyl positive 2 Final [place] a AL NG/mL NG/mL Health: [address], [place] ? ? UR ? Ethyl Alcohol negative 10 Final [place] mg/dL mg/dL Health: [address], [place] ? ? UR ? Methadone negative 300 Final Roalnda da Metabolite NG/mL NG/mL Health : [address], [place] ? ? UR ABNORM Cannabinoids positive 50 Final S avida AL (THC) NG/mL NG/mL Health: [address], [place] ? ? UR ? Urine Creatinine 105.9 mg/dL >20 F inal [place] mg/dL Health: [address], [place] ? ? UR ? Urine pH 5.60 4.5-9. Final [place] 0 Health: [address], [place] ? ? UR ? Specific [place] 1.012 1.003- Final [place] 1.035 Health: [address] [place] 07/06/2021 Cocaine UR ? Admitted Cocaine ntp ? F inal [place] Metabolite Use Health : 12 s, [address], [place], Urine [place] 07/06/2021 Opiates, UR ? 6-Acetylmorphine negative 10 Final [place] Quantitati NG/mL NG/mL Health : 12 ve, [address]rine [address], [place] ? ? UR ? Codeine negative 50 Final [place] NG/mL NG/mL Health: [address], [place] ? ? UR ? Hydrocodone negative 50 Final Sa marcia NG/mL NG/mL Health: [address], [place] ? ? UR ? Hydromorphone negative 50 Final [place] NG/mL NG/mL Health: [address], [place] ? ? UR ? Morphine negative 50 Final [place] a NG/mL NG/mL Health: [address], [place] ? ? UR ? Norhydrocodone negative 100 Final [place] NG/mL NG/mL Health: [address], [place] ? ? UR ? Fentanyl negative 20 Final [place] a NG/mL NG/mL Health: [address], [place] ? ? UR ? Norfentanyl negative 20 Final Sa marcia NG/mL NG/mL Health: [address], [place] ? ? UR ? Tramadol negative 100 Final [place] a NG/mL NG/mL Health: [address], [place] ? ? UR ? Legend abbreviation ? Final Kiko rodri s Health: [address], [place] ? ? UR ? Billing Only billing only ? Estrella garcia [place] ([id number]) Health: [address], [place] 07/06/2021 Urine ? Hcg negative ? ? V t_medical Test, _st Urine [facility]: [id number] [facility] 06/29/2021 Drug UR ? Amphetamines negative 1,000 Estrella jose [place] Screen, NG/mL NG/mL Health: [address], [place] ? ? UR ? Benzodiazapines negative 200 Final [place] NG/mL NG/mL Health: [address], [place] ? ? UR ? Buprenorphine positive 5 Final [place] NG/mL NG/mL Health: [address], [place] ? ? UR ABNORM Cocaine positive 150 Final [place] AL Metabolite NG/mL NG/mL Health : [address], [place] ? ? UR ? Opiates negative 300 Final [place] NG/mL NG/mL Health: [address], [place] ? ? UR ? Oxycodone negative 300 Final Rolanda da NG/mL NG/mL Health: [address], [place] ? ? UR ? Fentanyl negative 2 Final [place] a NG/mL NG/mL Health: [address], [place] ? ? UR ? Ethyl Alcohol negative 10 Final [place] mg/dL mg/dL Health: [address], [place] ? ? UR ? Methadone negative 300 Final Rolanda da Metabolite NG/mL NG/mL Health : [address], [place] ? ? UR ABNORM Cannabinoids positive 50 Final S avida AL (THC) NG/mL NG/mL Health: [address], [place] ? ? UR ? Urine Creatinine 24.1 mg/dL >20 Fi nal [place] mg/dL Health: [address], [place] ? ? UR ? Urine pH 6.80 4.5-9. Final [place] 0 Health: [address], [place] ? ? UR ? Specific [place] 1.004 1.003- Final [place] 1.035 Health: [address], [place] 06/29/2021 Cocaine UR ? Admitted Cocaine ntp ? F inal [place] Metabolite Use Health : 12 s, [address], ve, Urine [place] 2021 Drug UR ? Amphetamines negative 1,000 Estrella l [place] Screen, NG/mL NG/mL Health: [address], [place] ? ? UR ? Benzodiazapines negative 200 Final [place] NG/mL NG/mL Health: [address], [place] ? ? UR ? Buprenorphine positive 5 Final [place] NG/mL NG/mL Health: [address], [place] ? ? UR ? Cocaine negative 150 Final [place] Metabolite NG/mL NG/mL Health : [address], [place] ? ? UR ? Opiates negative 300 Final [place] NG/mL NG/mL Health: [address], [place] ? ? UR ? Oxycodone negative 300 Final Rolanda da NG/mL NG/mL Health: [address], [place] ? ? UR ? Fentanyl negative 2 Final [place] a NG/mL NG/mL Health: [address], [place] ? ? UR ? Ethyl Alcohol negative 10 Final [place] mg/dL mg/dL Health: [address], [place] ? ? UR ? Methadone negative 300 Final Rolanda da Metabolite NG/mL NG/mL Health : [address], [place] ? ? UR ABNORM Cannabinoids positive 50 Final S avida AL (THC) NG/mL NG/mL Health: [address], [place] ? ? UR ? Urine Creatinine 190.0 mg/dL >20 F inal [place] mg/dL Health: [address], [place] ? ? UR ? Urine pH 7.50 4.5-9. Final [place] 0 Health: [address], [place] ? ? UR ? Specific [place] 1.013 1.003- Final [place] 1.035 Health: [address], [place] 2021 Drug UR ? Buprenorphine 126.3 NG/mL 10 Final [place] Confirmati NG/mL Health : 12 on, [address], [place] ? ? UR ? Norbuprenorphine 317.3 NG/mL 10 F inal [place] NG/mL Health: [address], [place] ? ? UR ? Legend abbreviation ? Final Kiko rodri s Health: [address], [place] ? ? UR ? Billing Only billing only ? Estrella l [place] ([id number]) Health: [address], [place] 06/11/2021 Drug UR ? Amphetamines negative 1,000 Estrella l [place] Screen, NG/mL NG/mL Health: [address], [place] ? ? UR ? Benzodiazapines negative 200 Final [place] NG/mL NG/mL Health: [address], [place] ? ? UR ? Buprenorphine positive 5 Final [place] NG/mL NG/mL Health: [address], [place] ? ? UR ? Cocaine negative 150 Final [place] Metabolite NG/mL NG/mL Health : [address] ? ? UR ? Opiates negative 300 Final [place] NG/mL NG/mL Health: [address], [place] ? ? UR ? Oxycodone negative 300 Final Rolanda da NG/mL NG/mL Health: [address] ? ? UR ? Fentanyl negative 2 Final [place] a NG/mL NG/mL Health: [address], [place] ? ? UR ? Ethyl Alcohol negative 10 Final [place] mg/dL mg/dL Health: [address], [place] ? ? UR ? Methadone negative 300 Final Rolanda da Metabolite NG/mL NG/mL Health : [address], [place] ? ? UR ABNORM Cannabinoids positive 50 Final S avida AL (THC) NG/mL NG/mL Health: [address], [place] ? ? UR ? Urine Creatinine 147.4 mg/dL >20 F inal [place] mg/dL Health: [address] ? ? UR ? Urine pH 7.90 4.5-9. Final [place] 0 Health: [address], [place] ? ? UR ? Specific [place] 1.014 1.003- Final [place] 1.035 Health: [address] 06/08/2021 Drug UR ? Amphetamines negative 1,000 Estrella l [place] Screen, NG/mL NG/mL Health: 1 2 [address] ? ? UR ? Benzodiazapines negative 200 Final [place] NG/mL NG/mL Health: [address], [place] ? ? UR ? Buprenorphine positive 5 Final [place] NG/mL NG/mL Health: [address], [place] ? ? UR ? Cocaine negative 150 Final [place] Metabolite NG/mL NG/mL Health : [address], [place] ? ? UR ABNORM Opiates positive 300 Final [place] AL NG/mL NG/mL Health: [address], [place] ? ? UR ? Oxycodone negative 300 Final Rolanda da NG/mL NG/mL Health: [address], [place] ? ? UR ? Fentanyl negative 2 Final [place] a NG/mL NG/mL Health: [address], [place] ? ? UR ? Ethyl Alcohol negative 10 Final [place] mg/dL mg/dL Health: [address], [place] ? ? UR ? Methadone negative 300 Final Rolanda da Metabolite NG/mL NG/mL Health : [address], [place] ? ? UR ABNORM Cannabinoids positive 50 Final S avida AL (THC) NG/mL NG/mL Health: [address], [place] ? ? UR ? Urine Creatinine 124.0 mg/dL >20 F inal [place] mg/dL Health: [address], [place] ? ? UR ? Urine pH 6.00 4.5-9. Final [place] 0 Health: [address], [place] ? ? UR ? Specific [place] 1.017 1.003- Final [place] 1.035 Health: [address] 06/08/2021 Opiates, UR ? 6-Acetylmorphine negative 10 Final [place] Quantitati NG/mL NG/mL Health : 12 ve, Urine [address], [place] ? ? UR High Codeine 53.5 NG/mL 50 Final Rolanda da NG/mL Health: [address], [place] ? ? UR ? Hydrocodone negative 50 Final Sa marcia NG/mL NG/mL Health: [address], [place] ? ? UR ? Hydromorphone negative 50 Final [place] NG/mL NG/mL Health: [address], [place] ? ? UR ? Morphine negative 50 Final [place] a NG/mL NG/mL Health: [address], [place] ? ? UR ? Norhydrocodone negative 100 Final [place] NG/mL NG/mL Health: [address], [place] ? ? UR ? Fentanyl negative 20 Final [place] a NG/mL NG/mL Health: [address], [place] ? ? UR ? Norfentanyl negative 20 Final Sa marcia NG/mL NG/mL Health: [address], [place] ? ? UR ? Tramadol negative 100 Final [place] a NG/mL NG/mL Health: [address], [place] ? ? UR ? Legend abbreviation ? Final Kiko rodri s Health: [address], [place] ? ? UR ? Billing Only billing only ? Estrella garcia [place] ([id number]) Health: 1 [address], [place] 06/01/2021 Drug UR ? Amphetamines negative 1,000 Estrella garcia [place] Screen, NG/mL NG/mL Health: [address], [place] ? ? UR ? Benzodiazapines negative 200 Final [place] NG/mL NG/mL Health: [address], [place] ? ? UR ? Buprenorphine positive 5 Final [place] NG/mL NG/mL Health: [address], [place] ? ? UR ABNORM Cocaine positive 150 Final [place] AL Metabolite NG/mL NG/mL Health : [address], [place] ? ? UR ? Opiates negative 300 Final [place] NG/mL NG/mL Health: [address], [place] ? ? UR ? Oxycodone negative 300 Final Rolanda da NG/mL NG/mL Health: [address], [place] ? ? UR ? Fentanyl negative 2 Final [place] a NG/mL NG/mL Health: [address], [place] ? ? UR ? Ethyl Alcohol negative 10 Final [place] mg/dL mg/dL Health: [address], [place] ? ? UR ? Methadone negative 300 Final Rolanda da Metabolite NG/mL NG/mL Health : [address], [place] ? ? UR ? Urine Creatinine 71.4 mg/dL >20 Fi nal [place] mg/dL Health: [address], [place] ? ? UR ? Urine pH 5.90 4.5-9. Final [place] 0 Health: [address], [place] ? ? UR ? Specific [place] 1.008 1.003- Final [place] 1.035 Health: [address], [place] 06/01/2021 Cocaine UR ? Admitted Cocaine ntp ? F inal [place] Metabolite Use Health : 12 s, [address], [place], Urine [place] 06/01/2021 ? Hcg negative ? ? V t_medical Test, _st Urine [facility]: [address] [place] [address] 05/25/2021 Drug UR ? Amphetamines negative 1,000 Estrella l [place] Screen, NG/mL NG/mL Health: [address], [place] ? ? UR ? Benzodiazapines negative 200 Final [place] NG/mL NG/mL Health: [address], [place] ? ? UR ? Buprenorphine positive 5 Final [place] NG/mL NG/mL Health: [address], [place] ? ? UR ABNORM Cocaine positive 150 Final [place] AL Metabolite NG/mL NG/mL Health : [address], [place] ? ? UR ? Opiates negative 300 Final [place] NG/mL NG/mL Health: [address], [place] ? ? UR ? Oxycodone negative 300 Final Rolanda da NG/mL NG/mL Health: [address], [place] ? ? UR ? Fentanyl negative 2 Final [place] a NG/mL NG/mL Health: [address], [place] ? ? UR ? Ethyl Alcohol negative 10 Final [place] mg/dL mg/dL Health: [address], [place] ? ? UR ? Methadone negative 300 Final Rolanda da Metabolite NG/mL NG/mL Health : [address], [place] ? ? UR ? Urine Creatinine 108.8 mg/dL >20 F inal [place] mg/dL Health: [address], [place] ? ? UR ? Urine pH 5.80 4.5-9. Final [place] 0 Health: [address], [place] ? ? UR ? Specific [place] 1.013 1.003- Final [place] 1.035 Health: [address], [place] 05/25/2021 Cocaine UR ? Admitted Cocaine ntp ? F inal [place] Metabolite Use Health : 12 s, [address], [place], Urine [place] 05/25/2021 Urine ? Hcg negative ? ? V t_medical Test, _ Urine [facility]: [address] [place] [address] 05/18/2021 Drug UR ? Amphetamines negative 1,000 Estrella l [place] Screen, NG/mL NG/mL Health: [address], [place] ? ? UR ? Benzodiazapines negative 200 Final [place] NG/mL NG/mL Health: [address], [place] ? ? UR ? Buprenorphine positive 5 Final [place] NG/mL NG/mL Health: [address], [place] ? ? UR ABNORM Cocaine positive 150 Final [place] AL Metabolite NG/mL NG/mL Health : [address], [place] ? ? UR ? Opiates negative 300 Final [place] NG/mL NG/mL Health: [address], [place] ? ? UR ? Oxycodone negative 300 Final Rolanda da NG/mL NG/mL Health: [address], [place] ? ? UR ? Fentanyl negative 2 Final [place] a NG/mL NG/mL Health: [address], [place] ? ? UR ? Ethyl Alcohol negative 10 Final [place] mg/dL mg/dL Health: [address], [place] ? ? UR ? Methadone negative 300 Final Rolanda da Metabolite NG/mL NG/mL Health : [address], [place] ? ? UR ? Urine Creatinine 81.5 mg/dL >20 Fi nal [place] mg/dL Health: [address], [place] ? ? UR ? Urine pH 7.40 4.5-9. Final [place] 0 Health: [address], [place] ? ? UR ? Specific [place] 1.010 1.003- Final [place] 1.035 Health: [address], [place] 05/18/2021 Cocaine UR High Benzoylecgonine 209.0 NG/mL 100 Final [place] Metabolite NG/mL Health : 12 s, [address], ve, Urine [place] ? ? UR ? Legend abbreviation ? Final Kiko rodri s Health: [address], [place] ? ? UR ? Billing Only billing only ? Estrella garcia [place] ([id number]) Health: [address], [place] 05/18/2021 Drug UR ? Buprenorphine 81.8 NG/mL 20 F inal [place] Confirmati NG/mL Health : 12 on, [address], [place] ? ? UR ? Norbuprenorphine 298.6 NG/mL 50 F inal [place] NG/mL Health: [address], [place] ? ? UR ? Legend abbreviation ? Final Kiko rodri s Health: [address], [place] 05/04/2021 Drug UR ? Amphetamines negative 1,000 Estrella l [place] Screen, NG/mL NG/mL Health: [address], [place] ? ? UR ? Benzodiazapines negative 200 Final [place] NG/mL NG/mL Health: [address], [place] ? ? UR ? Buprenorphine positive 5 Final [place] NG/mL NG/mL Health: [address], [place] ? ? UR ABNORM Cocaine positive 150 Final [place] AL Metabolite NG/mL NG/mL Health : [address], [place] ? ? UR ? Opiates negative 300 Final [place] NG/mL NG/mL Health: [address], [place] ? ? UR ? Oxycodone negative 300 Final Rolanda da NG/mL NG/mL Health: [address], [place] ? ? UR ? Fentanyl negative 2 Final [place] a NG/mL NG/mL Health: [address], [place] ? ? UR ? Ethyl Alcohol negative 10 Final [place] mg/dL mg/dL Health: [address], [place] ? ? UR ? Methadone negative 300 Final Rolanda da Metabolite NG/mL NG/mL Health : [address], [place] ? ? UR ? Urine Creatinine 183.8 mg/dL >20 F inal [place] mg/dL Health: [address], [place] ? ? UR ? Urine pH 5.60 4.5-9. Final [place] 0 Health: [address], [place] ? ? UR ? Specific [place] 1.023 1.003- Final [place] 1.035 Health: [address], [place] 05/04/2021 Cocaine UR High Benzoylecgonine olr(>2000) 100 Final [place] Metabolite NG/mL NG/mL Health : 12 s, [address], [place], Urine [place] ? ? UR ? Legend abbreviation ? Final Kiko rodri s Health: [address], [place] ? ? UR ? Billing Only billing only ? Estrella l [place] ([id number]) Health: 1 [address] 04/20/2021 Drug UR ? Amphetamines negative 1,000 Estrella garcia [place] Screen, NG/mL NG/mL Health: 1 2 [address], [place] ? ? UR ? Benzodiazapines negative 200 Final [place] NG/mL NG/mL Health: [address], [place] ? ? UR ? Buprenorphine positive 5 Final [place] NG/mL NG/mL Health: [address], [place] ? ? UR ABNORM Cocaine positive 150 Final [place] AL Metabolite NG/mL NG/mL Health : [address], [place] ? ? UR ? Opiates negative 300 Final [place] NG/mL NG/mL Health: [address], [place] ? ? UR ? Oxycodone negative 300 Final Rolanda da NG/mL NG/mL Health: [address], [place] ? ? UR ABNORM Fentanyl positive 2 Final Sav[place] a AL NG/mL NG/mL Health: [address], [place] ? ? UR ? Ethyl Alcohol negative 10 Final [place] mg/dL mg/dL Health: [address], [place] ? ? UR ? Methadone negative 300 Final Rolanda da Metabolite NG/mL NG/mL Health : [address], [place] ? ? UR ? Urine Creatinine 170.2 mg/dL >20 F inal [place] mg/dL Health: [address], [place] ? ? UR ? Urine pH 8.10 4.5-9. Final [place] 0 Health: [address], [place] ? ? UR ? Specific [place] 1.016 1.003- Final [place] 1.035 Health: [address], [place] 04/20/2021 Opiates, UR ? 6-Acetylmorphine negative 10 Final [place] Quantitati NG/mL NG/mL Health : 12 ve, [address]rine [address], [place] ? ? UR ? Codeine negative 50 Final [place] NG/mL NG/mL Health: [address], [place] ? ? UR ? Hydrocodone negative 50 Final Sa marcia NG/mL NG/mL Health: [address], [place] ? ? UR ? Hydromorphone negative 50 Final [place] NG/mL NG/mL Health: [address], [place] ? ? UR ? Morphine negative 50 Final [place] a NG/mL NG/mL Health: [address], [place] ? ? UR ? Norhydrocodone negative 100 Final [place] NG/mL NG/mL Health: [address], [place] ? ? UR ? Fentanyl negative 20 Final [place] a NG/mL NG/mL Health: [address], [place] ? ? UR High Norfentanyl 236.6 NG/mL 20 Final [place] NG/mL Health: [address], [place] ? ? UR ? Tramadol negative 100 Final [place] a NG/mL NG/mL Health: [address], [place] ? ? UR ? Legend abbreviation ? Final Kiko rodri s Health: [address], [place] ? ? UR ? Billing Only billing only ? Estrella garcia [place] ([id number]) Health: [address], [place] 04/20/2021 Drug UR ? Buprenorphine 162.6 NG/mL 20 Final [place] Confirmati NG/mL Health : 12 on, [address], [place] ? ? UR ? Norbuprenorphine 588.1 NG/mL 50 F inal [place] NG/mL Health: [address], [place] ? ? UR ? Legend abbreviation ? Final Kiko rodri s Health: [address], [place] 04/20/2021 Cocaine UR ? Admitted Cocaine ntp ? F inal [place] Metabolite Use Health : 12 s, [address], [place], Urine [place] 04/13/2021 Drug UR ? Amphetamines negative 1,000 Estrella jose [place] Screen, NG/mL NG/mL Health: [address], [place] ? ? UR ? Benzodiazapines negative 200 Final [place] NG/mL NG/mL Health: [address], [place] ? ? UR ? Buprenorphine positive 5 Final [place] NG/mL NG/mL Health: [address], [place] ? ? UR ABNORM Cocaine positive 150 Final [place] AL Metabolite NG/mL NG/mL Health : [address], [place] ? ? UR ? Opiates negative 300 Final [place] NG/mL NG/mL Health: [address], [place] ? ? UR ? Oxycodone negative 300 Final Rolanda da NG/mL NG/mL Health: [address], [place] ? ? UR ABNORM Fentanyl positive 2 Final [place] a AL NG/mL NG/mL Health: [address], [place] ? ? UR ABNORM Ethyl Alcohol positive 10 Final [place] AL mg/dL mg/dL Health: [address], [place] ? ? UR ? Methadone negative 300 Final Rolanda da Metabolite NG/mL NG/mL Health : [address], [place] ? ? UR ? Urine Creatinine 67.3 mg/dL >20 Fi nal [place] mg/dL Health: [address], [place] ? ? UR ? Urine pH 6.20 4.5-9. Final [place] 0 Health: [address], [place] ? ? UR ? Specific [place] 1.007 1.003- Final [place] 1.035 Health: [address], [place] 04/13/2021 Opiates, UR ? 6-Acetylmorphine negative 10 Final [place] Quantitati NG/mL NG/mL Health : 12 ve, [address]rine [address], [place] ? ? UR ? Codeine negative 50 Final [place] NG/mL NG/mL Health: [address], [place] ? ? UR ? Hydrocodone negative 50 Final Sa marcia NG/mL NG/mL Health: [address], [place] ? ? UR ? Hydromorphone negative 50 Final [place] NG/mL NG/mL Health: [address], [place] ? ? UR ? Morphine negative 50 Final [place] a NG/mL NG/mL Health: [address], [place] ? ? UR ? Norhydrocodone negative 100 Final [place] NG/mL NG/mL Health: [address], [place] ? ? UR ? Fentanyl negative 20 Final [place] a NG/mL NG/mL Health: [address], [place] ? ? UR High Norfentanyl 63.1 NG/mL 20 Final [place] NG/mL Health: [address], [place] ? ? UR ? Tramadol negative 100 Final [place] a NG/mL NG/mL Health: [address], [place] ? ? UR ? Legend abbreviation ? Final Kiko rodri s Health: [address], [place] ? ? UR ? Billing Only billing only ? Estrella l [place] ([id number]) Health: [address], [place] 04/13/2021 Cocaine UR ? Admitted Cocaine ntp ? F inal Sav[facility] Use Health : [address], ve, Urine [place] Past Encounters 07/23/2021 Opioid Dependence; Cocaine Abuse [facility], EQUITY RESEARCH ASSOCIATE: [address] [place] [address], [place] [address], Ph. 07/16/2021 Opioid Dependence; Cocaine Abuse [facility], EQUITY RESEARCH ASSOCIATE: [address] [place] [phone], Ph. 07/06/2021 Opioid Dependence; Cocaine Abuse [facility], EQUITY RESEARCH ASSOCIATE: [address] [place] [address], [place] [address], Ph. 06/29/2021 Opioid Dependence; Cocaine Abuse [facility], EQUITY RESEARCH ASSOCIATE: [address] [place] [address], [place] [address], Ph. 2021 Opioid Dependence; Cocaine Abuse [facility], EQUITY RESEARCH ASSOCIATE: [address] [place] [address], [place] [address], Ph. 06/18/2021 Opioid Dependence; Cocaine Abuse [facility], EQUITY RESEARCH ASSOCIATE: [address] [place] [address], [place] [address], Ph. 06/11/2021 Opioid Dependence; Cocaine Abuse [facility], EQUITY RESEARCH ASSOCIATE: [address] [place] [address], [place] [address], Ph. 06/08/2021 Opioid Dependence; Cocaine Abuse [facility], EQUITY RESEARCH ASSOCIATE: [address] [place] [address], [place] [address], Ph. 06/01/2021 Opioid Dependence; Cocaine Abuse Renetta Mccoy, EQUITY RESEARCH ASSOCIATE: [address], [place] [address], Ph. 05/25/2021 Opioid Dependence; Cocaine Abuse Renetta Mccoy, EQUITY RESEARCH ASSOCIATE: [address], [place] [address], Ph. 05/18/2021 Opioid Dependence; Cocaine Abuse Renetta Mccoy, EQUITY RESEARCH ASSOCIATE: [address], [place] [address], Ph. 05/04/2021 Opioid Dependence; Cocaine Abuse Renetta Mccoy, EQUITY RESEARCH ASSOCIATE: [facility] [address], [place] [address], Ph. 04/27/2021 Opioid Dependence; Cocaine Abuse Renetta Mccoy, EQUITY RESEARCH ASSOCIATE: [facility] [address], [place] [address], Ph. 04/20/2021 Renetta Mccoy, EQUITY RESEARCH ASSOCIATE: [facility] [place] [facility] [address], Ph. 04/13/2021 Renetta Mccoy, EQUITY RESEARCH ASSOCIATE: [facility] [address], [place] [address], Ph. 04/06/2021 Renetta Mccoy, EQUITY RESEARCH ASSOCIATE: [address] [place] [address] [facility] [address], Ph. 03/30/2021 Renetta Mccoy, EQUITY RESEARCH ASSOCIATE: [address] [place] [address] [facility] [address], Ph. 03/23/2021 Renetta Mccoy, EQUITY RESEARCH ASSOCIATE: [address] [place] [address], [place] [address], Ph. 03/16/2021 Renetta Mccoy, EQUITY RESEARCH ASSOCIATE: [address] [place] [address] [facility] [address], Ph. 03/09/2021 Brandi Kuhn PA: [address] [place] [address] [place] [address], Ph. 03/02/2021 Renetta Mccoy, EQUITY RESEARCH ASSOCIATE: [address] [place] [phone], Ph. 02/23/2021 Renetta Mccoy, EQUITY RESEARCH ASSOCIATE: [address] [place] [phone], Ph. 02/16/2021 Renetta Mccoy, EQUITY RESEARCH ASSOCIATE: [address] [place] [phone], Ph. 02/09/2021 Brandi Kuhn, PA: [address] [place] [phone], Ph. 02/02/2021 Brandi Kuhn PA: [address] [place] [phone], Ph. Social History Tobacco Smoking Status Light Tobacco Smoker (1/4 pack per da y) Vaccine List Notes: counseling with manolo Ro ot every week Still trying to get in with YEHUDA ken Plan of Care Patient Instructions As part of your individualized fatoumata atment plan and program requirement, you will need to bring your correct prescription bottle and all used and unused medication and counseling verification to each appointment; > Agree to participate in counseling and bring counseling verification to each appointment; > Agree to present for random visits; > Agree to not falsify your urine specim ens. As part of your individualized fatoumata atment plan and program requirement, you will need to bring your correct prescription bottle and all used and unused medication and counseling verification to each appointment; > Agree to participate in counseling and bring counseling verification to each appointment; > Agree to present for random visits; > Agree to not falsify your urine specim ens. As part of your individualized fatoumata atment plan and program requirement, you will need to bring your correct prescription bottle and all used and unused medication and counseling verification to each appointment; > Agree to participate in counseling and bring counseling verification to each appointment; > Agree to present for random visits; > Agree to not falsify your urine specim ens. Reminders Provider Appointments None recorded. ? ? Lab None recorded. ? ? Referral None recorded. ? ? Procedures None recorded. ? ? Surgeries None recorded. ? ? Imaging None recorded. ? ? Vitals 2021 10:15AM MAT - Weekly 15 Weight Blood Pressure 164 lbs 120/65 mm[Hg] 06/08/2021 09:45AM MAT - Twice Weekly 15 Blood Pressure 118/62 mm[Hg] 06/01/2021 02:15PM MAT - Weekly 15 Blood Pressure 120/60 mm[Hg] 05/25/2021 09:45AM MAT - Weekly 15 Blood Pressure 120/62 mm[Hg] 05/04/2021 09:45AM MAT - Weekly 15 Blood Pressure 122/62 mm[Hg] 04/20/2021 Weight Blood Pressure 157 lbs 120/62 mm[Hg] 04/13/2021 Blood Pressure 120/65 mm[Hg] 03/30/2021 Blood Pressure 122/63 mm[Hg] 03/16/2021 Weight Blood Pressure 148 lbs 124/60 mm[Hg] 02/16/2021 Blood Pressure 123/62 mm[Hg] 02/09/2021 Blood Pressure 130/65 mm[Hg] 02/02/2021 Weight Blood Pressure 146 lbs 135/63 mm[Hg]
--- OUTSIDE RECORDS SUMMARY | 2021-07-27 08:19 | XMS_ITS | Encounter Summary ---
[...] their weekly MAT visit. Initial visit: 02-02-21 UDS negative for illicit opioids: x1 Current prescription is: Suboxone 16mg f ilms. Patient denies any S/E, cravings, or wit hdrawal sx at current dose. Update Since Last Visit : Last UDS + for trang. Faustino has been to the house more and seem s to be more open to talk things through; he has an appointment with his PCP. This is an improvement from last week. She's had troubles with scheduling with her PCP, but she has talked with her PCP's nurse about her medications and she does have an appointment for next Tuesday. Neva promises to get her blood work do ne today! She smoked cocaine this past week, just once - 2-3 hits. Discussed the goal of not using cocaine in the upcoming week. She thinks that she can do it, feeling like she has more support from Faustino and her sister. She becomes tearful, saying that it's nice to feel like people are reaching out to her. We discussed that we are both confident that she can stay away from cocaine the next week. She continues t o meet with Jia, and is going to requ est to check in with her twice a week. LAB RESULTS Last UDS result (qualitative screen): POS buprenorphine and NO illicit drugs +trang,+THC [...] Pt will remain at current dose PLAN Continue with counseling with Birdie Ro will schedule an appointment today. Rx : Continue Suboxone 16mg films daily [...] clinical p rotocol. Prescription monitoring program is revie wed. If applicable, I have identified agents prescribed [...] Reminders Provider Appointments MAT - 07/30/2021 Renetta Mccoy NP Weekly 15 9:30AM ? BH - 30 Min 08/03/2021 Paula Medley, 11:00AM LADC ? MAT - 08/06/[address], CITY TREASURER Weekly 15 9:30AM ? MAT - 08/13/[address], CITY TREASURER Weekly 15 9:30AM ? MAT - 08/20/[address], CITY TREASURER Weekly 15 9:30AM Lab Drug 07/23/2021 [facility] Screen, Urine Referral None [...] Y recreational drugs? *Other Medical Issues None *[place] Not a What is your level of [...] with Neva *Primary Care Provider Y Notes: [facility] *Transportation Issues Yes - kept me from [...] gland Information) Functional Status Unknown. Past Encounters 07/23/2021 Opioid Dependence; Cocaine Abuse Renetta Mccoy, CITY TREASURER: [address] [place] [phone], Ph. 07/16/2021 Opioid Dependence; Cocaine Abuse [facility], CITY TREASURER: [address] [place] [phone], Ph. 07/06/2021 Opioid Dependence; Cocaine Abuse [facility], CITY TREASURER: [address] [place] [phone], Ph. 06/29/2021 Opioid Dependence; Cocaine Abuse Totz Mccoy, CITY TREASURER: [address] [place] [phone], Ph. History of Present Illness Note: <div><strong> [...]
--- OUTSIDE RECORDS SUMMARY | 2021-07-27 08:20 | XMS_ITS ---
:1985 Author Care Team Providers Name Role Phone Mccoy, Renetta Primary Care Provider Unavailable Allergies Code Code System Name Reaction Severity Status Onset NKDA ? Medications Name Status Start Date Stop Date ? ? Aerochamber Plus Flow-Vu Completed ? 021 azithromycin 250 mg tablet Active ? Not a vailable clonidine HCl 0.1 mg tablet Active ? Not available Take 2 tablets twice a day by oral route as needed. Take as needed for anxiety, muscle aches, restlessness, sweatin g hydrocodone 5 mg-acetaminophen 325 mg Active ? Not available tablet mirtazapine 7.5 mg tablet Active ? Not av ailable Narcan 4 mg/actuation nasal spray Active ? Not available Take 1 spray as needed by nasal route. Administer as needed for opioid overdose nicotine (polacrilex) 2 mg buccal lozenge Active ? Not available Take 1 tablet every 8 hours by oral route. nicotine (polacrilex) 2 mg buccal mini lozenge Active ? Not available DISSOLVE 1 LOZENGE BY MOUTH EVERY 8 HOURS pramipexole 0.125 mg tablet Active ? Not available Take 1 tablet 3 times a day by oral route as needed. Take as needed for restless legs prazosin 1 mg capsule Active ? Not availa ble prazosin 2 mg capsule Active ? Not availa ble ProAir HFA 90 mcg/actuation aerosol inhaler Active ? Not available INHALE 1 TO 2 INHALATIONS BY MOUTH EVERY 4 TO 6 HOURS NEEDED FOR WHEEZING Suboxone 12 mg-3 mg sublingual film Active ? Not available DISSOLVE 1 FILM UNDER THE TONGUE ONCE DAILY FOR 7 DAYS Suboxone 2 mg-0.5 mg sublingual film Active ? Not available Suboxone 4 mg-1 mg sublingual film Active ? Not available DISSOLVE 1 FILM UNDER THE TONGUE ONCE DAILY Suboxone 8 mg-2 mg sublingual film Active ? Not available PLACE 2 FILMS UNDER THE TONGUE ONCE DAILY trazodone 50 mg tablet Active ? Not avail able Take 1 tablet as needed by oral route at bedtime. Problems Name Status Onset Date Source ? Anxiety Active 02/02/2021 ? Opioid Dependence Active 02/02/2021 ? Posttraumatic Stress Disorder Active 02/02/2021 ? Depressive Disorder Active 02/02/2021 ? Cocaine Abuse Active 03/23/2021 ? Procedures Date Name Performed by ? ? Cholecystectomy Information not avai lable ? Delivery Information not avai lable Notes: x3 Results Lab Results Date Name Specimen Result Interpretation Description Value Range Status Address ? 04/20/2021 Drug UR ? Amphetamines negative NG/mL 1,000 Final [facility] Screen, NG/mL Health: [address], [place] ? ? UR ? Benzodiazapines negative NG/mL 200 Final [facility] NG/mL Health: [address], [place] ? ? UR ? Buprenorphine positive NG/mL 5 F inal [facility] NG/mL Health: [address], [place] ? ? UR ABNORMA Cocaine positive NG/mL 150 Final [facility] L Metabolite NG/mL Health : [address], [place] ? ? UR ? Opiates negative NG/mL 300 Final [facility] NG/mL Health: [address], [place] ? ? UR ? Oxycodone negative NG/mL 300 Final [facility] NG/mL Health: [address], [place] ? ? UR ABNORMA Fentanyl positive NG/mL 2 Final [facility] L NG/mL Health: [address], [place] ? ? UR ? Ethyl Alcohol negative mg/dL 10 F inal [facility] mg/dL Health: [address], [place] ? ? UR ? Methadone negative NG/mL 300 Final [facility] Metabolite NG/mL Health : [address], [place] ? ? UR ? Urine Creatinine 170.2 mg/dL >20 F inal [facility] mg/dL Health: [address], [place] ? ? UR ? Urine pH 8.10 4.5-9. Final [facility] 0 Health: [address], [place] ? ? UR ? Specific [place] 1.016 1.003- Final [facility] 1.035 Health: [address], [place] 04/20/2021 ? Hcg negative ? ? V t_medical Test, _[facility]: [address] [facility] 04/13/2021 Drug UR ? Amphetamines negative NG/mL 1,000 Final [facility] Screen, NG/mL Health: [address], [place] ? ? UR ? Benzodiazapines negative NG/mL 200 Final [facility] NG/mL Health: [address], [place] ? ? UR ? Buprenorphine positive NG/mL 5 F inal [facility] NG/mL Health: [address], [place] ? ? UR ABNORMA Cocaine positive NG/mL 150 Final [facility] L Metabolite NG/mL Health : [address], [place] ? ? UR ? Opiates negative NG/mL 300 Final [facility] NG/mL Health: [address], [place] ? ? UR ? Oxycodone negative NG/mL 300 Final [facility] NG/mL Health: [address], [place] ? ? UR ABNORMA Fentanyl positive NG/mL 2 Final [facility] L NG/mL Health: [address], [place] ? ? UR ABNORMA Ethyl Alcohol positive mg/dL 10 Final [facility] L mg/dL Health: [address], [place] ? ? UR ? Methadone negative NG/mL 300 Final [facility] Metabolite NG/mL Health : [address], [place] ? ? UR ? Urine Creatinine 67.3 mg/dL >20 Fi nal [facility] mg/dL Health: [address], [place] ? ? UR ? Urine pH 6.20 4.5-9. Final [facility] 0 Health: [address], [place] ? ? UR ? Specific [place] 1.007 1.003- Final [facility] 1.035 Health: [address], [place] 04/13/2021 Opiates, UR ? 6-Acetylmorphine negative NG/mL 10 Final [facility] Quantitati NG/mL Health : [address] ve, [address], [place] ? ? UR ? Codeine negative NG/mL 50 Final [facility] NG/mL Health: [address], [place] ? ? UR ? Hydrocodone negative NG/mL 50 Fin al [facility] NG/mL Health: [address], [place] ? ? UR ? Hydromorphone negative NG/mL 50 F inal [facility] NG/mL Health: [address], [place] ? ? UR ? Morphine negative NG/mL 50 Final [facility] NG/mL Health: [address], [place] ? ? UR ? Norhydrocodone negative NG/mL 100 Final [facility] NG/mL Health: [address], [place] ? ? UR ? Fentanyl negative NG/mL 20 Final [facility] NG/mL Health: [address], [place] ? ? UR High Norfentanyl 63.1 NG/mL 20 Final [facility] NG/mL Health: [address], [place] ? ? UR ? Tramadol negative NG/mL 100 Final [facility] NG/mL Health: [address], [place] ? ? UR ? Legend abbreviations ? Final [facility] Health: [address], [place] ? ? UR ? Billing Only billing only ? Estrella l [facility] ([id number]) Health: [address], [place] 04/13/2021 Cocaine UR ? Admitted Cocaine ntp ? F inal [facility] Metabolite Use Health : [address], [address], [place], Urine [place] 03/30/2021 Drug UR ? Amphetamines negative NG/mL 1,000 Final [facility] Screen, NG/mL Health: [address], [place] ? ? UR ? Benzodiazapines negative NG/mL 200 Final [facility] NG/mL Health: [address], [place] ? ? UR ? Buprenorphine positive NG/mL 5 F inal [facility] NG/mL Health: [address], [place] ? ? UR ABNORMA Cocaine positive NG/mL 150 Final [facility] L Metabolite NG/mL Health : [address], [place] ? ? UR ? Opiates negative NG/mL 300 Final [facility] NG/mL Health: [address], [place] ? ? UR ? Oxycodone negative NG/mL 300 Final [facility] NG/mL Health: [address], [place] ? ? UR ? Fentanyl negative NG/mL 2 Final [facility] NG/mL Health: [address], [place] ? ? UR ? Ethyl Alcohol negative mg/dL 10 F inal [facility] mg/dL Health: [address], [place] ? ? UR ? Methadone negative NG/mL 300 Final [facility] Metabolite NG/mL Health : [address], [place] ? ? UR ? Urine Creatinine 136.6 mg/dL >20 F inal [facility] mg/dL Health: [address], [place] ? ? UR ? Urine pH 7.40 4.5-9. Final [facility] 0 Health: [address], [place] ? ? UR ? Specific [place] 1.014 1.003- Final [facility] 1.035 Health: [address], [place] 03/30/2021 Cocaine UR ? Admitted Cocaine ntp ? F inal [facility] Metabolite Use Health : 12 s, [address], [place], Urine [place] 03/16/2021 Drug UR ? Amphetamines negative NG/mL 1,000 Final [facility] Screen, NG/mL Health: [address], [place] ? ? UR ? Benzodiazapines negative NG/mL 200 Final [facility] NG/mL Health: [address], [place] ? ? UR ? Buprenorphine positive NG/mL 5 F inal [facility] NG/mL Health: [address], [place] ? ? UR ? Cocaine negative NG/mL 150 Final [facility] Metabolite NG/mL Health : [address], [place] ? ? UR ? Opiates negative NG/mL 300 Final [facility] NG/mL Health: [address], [place] ? ? UR ? Oxycodone negative NG/mL 300 Final [facility] NG/mL Health: [address], [place] ? ? UR ABNORMA Fentanyl positive NG/mL 2 Final [facility] L NG/mL Health: [address], [place] ? ? UR ABNORMA Ethyl Alcohol positive mg/dL 10 Final [facility] L mg/dL Health: [address], [place] ? ? UR ? Methadone negative NG/mL 300 Final [facility] Metabolite NG/mL Health : [address], [place] ? ? UR ? Urine Creatinine 119.2 mg/dL >20 F inal [facility] mg/dL Health: [address], [place] ? ? UR ? Urine pH 7.90 4.5-9. Final [facility] 0 Health: [address], [place] ? ? UR ? Specific [place] 1.013 1.003- Final [facility] 1.035 Health: [address], [place] 03/16/2021 Cocaine UR ? Admitted Cocaine ntp ? F inal [facility] Metabolite Use Health : [address], [address], [place], Urine [place] 03/16/2021 Opiates, UR ? Admitted Opiates ntp ? Final [facility] Quantitati Use Health : 12 ve, [address], [place] 03/16/2021 Drug UR ? Buprenorphine 96.7 NG/mL 10 F inal [facility] Confirmati NG/mL Health : [address] on, [address], [place] ? ? UR ? Norbuprenorphine 383.7 NG/mL 10 F inal [facility] NG/mL Health: [address], [place] ? ? UR ? Legend abbreviations ? Final [facility] Health: [address], [place] ? ? UR ? Billing Only billing only ? Estrella l [facility] ([id number]) Health: [address], [place] 03/16/2021 ? Hcg negative ? ? V t_medical Test, _[facility]: [address] [place] [address] 02/23/2021 Drug UR ? Amphetamines negative NG/mL 1,000 Final [facility] Screen, NG/mL Health: [address], [place] ? ? UR ? Benzodiazapines negative NG/mL 200 Final [facility] NG/mL Health: [address], [place] ? ? UR ? Buprenorphine positive NG/mL 5 F inal [facility] NG/mL Health: [address], [place] ? ? UR ? Cocaine negative NG/mL 150 Final [facility] Metabolite NG/mL Health : [address], [place] ? ? UR ? Opiates negative NG/mL 300 Final [facility] NG/mL Health: [address], [place] ? ? UR ? Oxycodone negative NG/mL 300 Final [facility] NG/mL Health: [address], [place] ? ? UR ABNORMA Fentanyl positive NG/mL 2 Final [facility] L NG/mL Health: [address], [place] ? ? UR ? Ethyl Alcohol negative mg/dL 10 F inal [facility] mg/dL Health: [address], [place] ? ? UR ? Methadone negative NG/mL 300 Final [facility] Metabolite NG/mL Health : [address], [place] ? ? UR ? Urine Creatinine 252.6 mg/dL >20 F inal [facility] mg/dL Health: [address], [place] ? ? UR ? Urine pH 6.00 4.5-9. Final [facility] 0 Health: [address], [place] ? ? UR ? Specific [place] 1.025 1.003- Final [facility] 1.035 Health: [address] 02/23/2021 Opiates, UR ? 6-Acetylmorphine negative NG/mL 10 Final [facility] Quantitati NG/mL Health : 12 ve, [address], [place] ? ? UR ? Codeine negative NG/mL 50 Final [facility] NG/mL Health: [address], [place] ? ? UR ? Hydrocodone negative NG/mL 50 Fin al [facility] NG/mL Health: [address], [place] ? ? UR ? Hydromorphone negative NG/mL 50 F inal [facility] NG/mL Health: [address], [place] ? ? UR ? Morphine negative NG/mL 50 Final [facility] NG/mL Health: [address], [place] ? ? UR ? Norhydrocodone negative NG/mL 100 Final [facility] NG/mL Health: [address], [place] ? ? UR High Fentanyl 77.5 NG/mL 20 Final Kiko rodri NG/mL Health: [address], [place] ? ? UR High Norfentanyl 515.0 NG/mL 20 Final [facility] NG/mL Health: [address], [place] ? ? UR ? Tramadol negative NG/mL 100 Final [facility] NG/mL Health: [address], [place] ? ? UR ? Legend abbreviations ? Final [facility] Health: [address], [place] ? ? UR ? Billing Only billing only ? Estrella l [facility] ([id number]) Health: 1 [address] 02/16/2021 Drug UR ? Amphetamines negative NG/mL 1,000 Final [facility] Screen, NG/mL Health: 1 [address], [place] ? ? UR ? Benzodiazapines negative NG/mL 200 Final [facility] NG/mL Health: [address], [place] ? ? UR ? Buprenorphine positive NG/mL 5 F inal [facility] NG/mL Health: [address], [place] ? ? UR ABNORMA Cocaine positive NG/mL 150 Final [facility] L Metabolite NG/mL Health : [address], [place] ? ? UR ? Opiates negative NG/mL 300 Final [facility] NG/mL Health: [address], [place] ? ? UR ? Oxycodone negative NG/mL 300 Final [facility] NG/mL Health: [address], [place] ? ? UR ABNORMA Fentanyl positive NG/mL 2 Final [facility] L NG/mL Health: [address], [place] ? ? UR ? Ethyl Alcohol negative mg/dL 10 F inal [facility] mg/dL Health: [address], [place] ? ? UR ? Methadone negative NG/mL 300 Final [facility] Metabolite NG/mL Health : [address], [place] ? ? UR ? Urine Creatinine 277.9 mg/dL >20 F inal [facility] mg/dL Health: [address], [place] ? ? UR ? Urine pH 8.90 4.5-9. Final [facility] 0 Health: [address], [place] ? ? UR ? Specific [place] 1.013 1.003- Final [facility] 1.035 Health: [address], [place] 02/16/2021 Drug UR ? Buprenorphine 87.0 NG/mL 20 F inal [facility] Confirmati NG/mL Health : 12 on, [address], [place] ? ? UR ? Norbuprenorphine 149.4 NG/mL 50 F inal [facility] NG/mL Health: [address], [place] ? ? UR ? 6-Acetylmorphine negative NG/mL 10 Final [facility] NG/mL Health: [address], [place] ? ? UR ? Codeine negative NG/mL 50 Final [facility] NG/mL Health: [address], [place] ? ? UR ? Hydrocodone negative NG/mL 50 Fin al [facility] NG/mL Health: [address], [place] ? ? UR ? Hydromorphone negative NG/mL 50 F inal [facility] NG/mL Health: [address], [place] ? ? UR ? Morphine negative NG/mL 50 Final [facility] NG/mL Health: [address], [place] ? ? UR ? Norhydrocodone negative NG/mL 100 Final [facility] NG/mL Health: [address], [place] ? ? UR ? Noroxycodone negative NG/mL 50 Fi nal [facility] NG/mL Health: [address], [place] ? ? UR ? Oxycodone negative NG/mL 25 Final [facility] NG/mL Health: [address], [place] ? ? UR ? Oxymorphone negative NG/mL 100 Fin al [facility] NG/mL Health: [address], [place] ? ? UR ? Fentanyl negative NG/mL 20 Final [facility] NG/mL Health: [address], [place] ? ? UR High Norfentanyl 330.0 NG/mL 20 Final [facility] NG/mL Health: [address], [place] ? ? UR High Benzoylecgonine olr(>2000) 100 Fin al [facility] NG/mL NG/mL Health: [address], [place] ? ? UR ? Amphetamine negative NG/mL 250 Fin al [facility] NG/mL Health: [address], [place] ? ? UR ? Methamphetamine negative NG/mL 250 Final [facility] NG/mL Health: [address], [place] ? ? UR ? Mda negative NG/mL 250 Final [facility] NG/mL Health: [address], [place] ? ? UR ? Alpha-hydroxyalp negative NG/mL 25 Final [facility] razolam NG/mL Health: [address], [place] ? ? UR ? 7-Aminoclonazepa negative NG/mL 40 Final [facility] m NG/mL Health: [address], [place] ? ? UR ? Diazepam negative NG/mL 50 Final [facility] NG/mL Health: [address], [place] ? ? UR ? Lorazepam negative NG/mL 50 Final [facility] NG/mL Health: [address], [place] ? ? UR ? Nordiazepam negative NG/mL 50 Fin al [facility] NG/mL Health: [address], [place] ? ? UR ? Temazepam negative NG/mL 50 Final [facility] NG/mL Health: [address], [place] ? ? UR ? Methadone negative NG/mL 250 Final [facility] NG/mL Health: [address], [place] ? ? UR ? Eddp negative NG/mL 100 Final [facility] NG/mL Health: [address], [place] ? ? UR ? Normeperidine negative NG/mL 100 F inal [facility] NG/mL Health: [address], [place] ? ? UR ? Tramadol negative NG/mL 100 Final [facility] NG/mL Health: [address], [place] ? ? UR ? Legend abbreviations ? Final [facility] Health: [address], [place] 02/09/2021 Drug UR ? Amphetamines negative NG/mL 1,000 Final [facility] Screen, NG/mL Health: 1 [address], [place] ? ? UR ? Benzodiazapines negative NG/mL 200 Final [facility] NG/mL Health: [address], [place] ? ? UR ? Buprenorphine positive NG/mL 5 F inal [facility] NG/mL Health: [address], [place] ? ? UR ? Cocaine negative NG/mL 150 Final [facility] Metabolite NG/mL Health : [address], [place] ? ? UR ? Opiates negative NG/mL 300 Final [facility] NG/mL Health: [address], [place] ? ? UR ? Oxycodone negative NG/mL 300 Final [facility] NG/mL Health: [address], [place] ? ? UR ABNORMA Fentanyl positive NG/mL 2 Final [facility] L NG/mL Health: [address], [place] ? ? UR ? Ethyl Alcohol negative mg/dL 10 F inal [facility] mg/dL Health: [address], [place] ? ? UR ? Methadone negative NG/mL 300 Final [facility] Metabolite NG/mL Health : [address], [place] ? ? UR ? Urine Creatinine 142.9 mg/dL >20 F inal [facility] mg/dL Health: [address], [place] ? ? UR ? Urine pH 5.80 4.5-9. Final [facility] 0 Health: [address], [place] ? ? UR ? Specific [place] 1.016 1.003- Final [facility] 1.035 Health: [address], [place] 02/09/2021 Opiates, UR ? 6-Acetylmorphine negative NG/mL 10 Final [facility] Quantitati NG/mL Health : 12 ve, Urine [address], [place] ? ? UR ? Codeine negative NG/mL 50 Final [facility] NG/mL Health: [address], [place] ? ? UR ? Hydrocodone negative NG/mL 50 Fin al [facility] NG/mL Health: [address], [place] ? ? UR ? Hydromorphone negative NG/mL 50 F inal [facility] NG/mL Health: [address], [place] ? ? UR ? Morphine negative NG/mL 50 Final [facility] NG/mL Health: [address], [place] ? ? UR ? Norhydrocodone negative NG/mL 100 Final [facility] NG/mL Health: [address], [place] ? ? UR High Fentanyl 46.4 NG/mL 20 Final Kiko rodri NG/mL Health: [address], [place] ? ? UR High Norfentanyl 148.8 NG/mL 20 Final [facility] NG/mL Health: [address], [place] ? ? UR ? Tramadol negative NG/mL 100 Final [facility] NG/mL Health: [address], [place] ? ? UR ? Legend abbreviations ? Final [facility] Health: [address], [place] ? ? UR ? Billing Only billing only ? Estrella l [facility] ([id number]) Health: [address], [place] 02/02/2021 Drug UR ? Amphetamines negative NG/mL 1,000 Final [facility] Screen, NG/mL Health: [address], [place] ? ? UR ? Benzodiazapines negative NG/mL 200 Final [facility] NG/mL Health: [address], [place] ? ? UR ? Buprenorphine positive NG/mL 5 F inal [facility] NG/mL Health: [address], [place] ? ? UR ? Cocaine negative NG/mL 150 Final [facility] Metabolite NG/mL Health : [address], [place] ? ? UR ? Opiates negative NG/mL 300 Final [facility] NG/mL Health: [address], [place] ? ? UR ? Oxycodone negative NG/mL 300 Final [facility] NG/mL Health: [address], [place] ? ? UR ABNORMA Fentanyl positive NG/mL 2 Final [facility] L NG/mL Health: [address], [place] ? ? UR ? Ethyl Alcohol negative mg/dL 10 F inal [facility] mg/dL Health: [address], [place] ? ? UR ? Methadone negative NG/mL 300 Final [facility] Metabolite NG/mL Health : [address], [place] ? ? UR ? Urine Creatinine 48.5 mg/dL >20 Fi nal [facility] mg/dL Health: [address], [place] ? ? UR ? Urine pH 7.10 4.5-9. Final [facility] 0 Health: [address], [place] ? ? UR ? Specific [place] 1.007 1.003- Final [facility] 1.035 Health: [address], [place] 02/02/2021 Opiates, UR ? 6-Acetylmorphine negative NG/mL 10 Final [facility] Quantitati NG/mL Health : [address] ve, [address], [place] ? ? UR ? Codeine negative NG/mL 50 Final [facility] NG/mL Health: [address], [place] ? ? UR ? Hydrocodone negative NG/mL 50 Fin al [facility] NG/mL Health: [address], [place] ? ? UR ? Hydromorphone negative NG/mL 50 F inal [facility] NG/mL Health: [address], [place] ? ? UR ? Morphine negative NG/mL 50 Final [facility] NG/mL Health: [address], [place] ? ? UR ? Norhydrocodone negative NG/mL 100 Final [facility] NG/mL Health: [address], [place] ? ? UR ? Fentanyl negative NG/mL 20 Final [facility] NG/mL Health: [address], [place] ? ? UR High Norfentanyl 50.6 NG/mL 20 Final [facility] NG/mL Health: [address], [place] ? ? UR ? Tramadol negative NG/mL 100 Final [facility] NG/mL Health: [address], [place] ? ? UR ? Legend abbreviations ? Final Sa mar[facility] Health: [address], [place] ? ? UR ? Billing Only billing only ? Estrella [place] ([id number]) Health: [address], [place] Past Encounters 04/20/2021 Opioid Dependence; Cocaine Abuse; Depres sive Disorder Renetta Mccoy, CAPTAIN OF GUARDS: [address] [place] [phone], Ph. 04/13/2021 Opioid Dependence; Cocaine Abuse; Depres sive Disorder Renetta Mccoy, [employer] OF [employer]ARDS: [address] [place] [phone], Ph. 04/06/2021 Opioid Dependence; Cocaine Abuse; Depres sive Disorder Renetta Mccoy, CAPTAIN OF GUARDS: [address] [place] [phone], Ph. 03/30/2021 Opioid Dependence; Cocaine Abuse; Depres sive Disorder Renetta Mccoy, CAP[employer] OF GUARDS: [address] [place] [phone], Ph. 03/23/2021 Opioid Dependence; Cocaine Abuse Renetta Mccoy, CAPTAIN OF GUARDS: [address] [place] [phone], Ph. 03/16/2021 Opioid Dependence Renetta Mccoy, CAPTAIN OF GUARDS: [address] [place] [phone], Ph. 03/09/2021 Opioid Dependence GABRIEL Ro: [address] [place] [address], [place] [phone], Ph. 03/02/2021 Opioid Dependence; Nicotine Dependence Renetta Mccoy, CAP[employer] OF GUARDS: [address] [place] [address], [place] [phone], Ph. 02/23/2021 Opioid Dependence; Nicotine Dependence Renetta Mccoy, [employer] OF GUARDS: [address] [place] [address], [place] [phone], Ph. 02/16/2021 Opioid Dependence; Nicotine Dependence Renetta Mccoy, [employer] OF [employer]ARDS: [address] [place] [address], [place] [phone], Ph. 02/09/2021 Opioid Dependence; Nicotine Dependence GABRIEL Ro: [address] [place] [address], [place] [phone], Ph. 02/02/2021 Opioid Dependence; Nicotine Dependence GABRIEL Ro: [address] [place] [address], [place] [phone], Ph. Social History Tobacco Smoking Status Light Tobacco Smoker (1/4 pack per da y) Vaccine List None recorded. Plan of Care Patient Instructions As part [...] to not falsify your urine specim ens. Abstain from opiates for 24 hours unless directed by provider; > If already taking buprenorphine, do not take a dose the day of the induction until you are in the office with your provider; &g t; Comfort medications were recommended. If accepted, please take as prescribed to support your ability to abstain from opiates until your buprenorphine induction; > Keep your buprenorphine RX packa ge closed until you are seen by your pro vider for induction unless otherwise directed; If you have problems abstaining from opiates, please call the office. As part of your individualized treatmen t plan and program requirement, you will need to bring your correct prescription bottle and all used and unused medication and counseling verification to each parveen ointment; > Agree to participate in cou nseling and bring counseling verification to each appointment; > Agree to present for random visits; > Agree to not falsify your urine specimens. Reminders Provider Appointments None recorded. ? ? Lab None recorded. ? ? Referral None recorded. ? ? Procedures None recorded. ? ? Surgeries None recorded. ? ? Imaging None recorded. ? ? Vitals 04/20/2021 09:45AM Weekly Medical Weight Blood Pressure 157 lbs 120/62 mm[Hg] 04/13/2021 09:30AM Weekly Medical Blood Pressure 120/65 mm[Hg] 03/30/2021 09:15AM Weekly Medical Blood Pressure 122/63 mm[Hg] 03/16/2021 01:30PM Weekly Medical Weight Blood Pressure 148 lbs 124/60 mm[Hg] 02/16/2021 10:30AM Weekly Medical Blood Pressure 123/62 mm[Hg] 02/09/2021 10:30AM Weekly Medical Blood Pressure 130/65 mm[Hg] 02/02/2021 09:00AM Initial BUP Weight Blood Pressure 146 lbs 135/63 mm[Hg]
--- OUTSIDE RECORDS SUMMARY | 2021-07-27 08:20 | XMS_ITS | Encounter Summary ---
:1985 External Reference #:[id number] Author Reason for Visit OUD - buprenorphine follow-up - weekly*; *MAT - Telemedicine Assessment and Plan Assessment Note Telemedicine Information: This telmed (audio + visual) appointment provided a MAT prescription. Time Start: 1256; Time End:102 Provider Location: home; Patient Locatio n: office Telemedicine Consent Given (verbal): Y Lab Results Last UDS Result (Qual Screen): 05-04-21 POS Buprenorphine and POS for the following illicit drugs or EtOH: +trang Last Confirmatory Test Result (LCMS/Qu ant): Quantitative levels of: benzyl 2000+ Last Buprenorphine Confirmation Test Re sult: Bup: 162 ng/ml & Norbup: 588 ng/ml Last LFT Result : needs labs Since Last Visit THIS PT IS BEING TREATED FOR OUD WITH BU PRENORPHINE AND IS SEEN WEEKLY. CURRENT PRESCRIPTION IS: buprenorphine/n aloxone 16mg films Bio/psycho/social Update: Neva is a 35y/o female with hx OUD (Rx bup/naloxone 16mg films), anxiety, depression, PTSD who presents today for her weekly visit. OUD : Initial visit: 02-02-21 Visit frequency: weekly UDS negative for illicit opioids x1 Pt denies severe/persistent cravings, wi thdrawal symptoms, or adverse effects of medication. Feeling stable on current dose. Denies illicit use this past week Cocaine use : UDS neg for cocaine x0 Was in the car with friends smoking on F riday, but has not been using herself Neva has been working hard to make shae nges to her life and routine to separate herself from cocaine and access Tobacco: 1/ ppd Alcohol: twisted teas a couple of days a week, not problematic, no urges/cravings Living: having issues in apartment, heat ing not working so using space heaters; should be fixed now Family: DCF shared custody with teen age d son, Neva struggles with this and feeling left out of his care; court hearing upcoming regarding unmanageable teenager status; there is a new expeller worker but he is being re-integrated into their house Work: no, is connecting with voc rehab Counseling: [facility] Med: no PCP: reconnecting with PCP to restart on anxiety medications, had appointment for 04/29/21, restarted Rx for mirtazapine 7.5mg QHS; follow up with PCP in 2 days Assessment The patient's current phase of treatment is Stabilization phase, OUD. 1) Interpretation of Confirmatory (LCMS) Test Result: Use of: cocaine 2) Interpretation of Last Buprenorphine Confirmation Test Result: No concern 3) Medication Dose: No report of craving s/withdrawal symptoms. Pt will remain at current dose 4) Markers of Recovery include: engageme nt in weekly visits 5) Counseling: Engaged in Counseling The patient does meet diagnostic criteri a for opioid dependence. The patient is responding to treatment w ith buprenorphine at OBOT level of care at this phase of treatment. The patient does continue to be a good c andidate for this level of care. LFT will be repeated per our clinical pr otocol. Urine drug testing is ordered today with medical necessity as below. LAB ORDERS - Confirmatory testing f or illicit substances or absence of prescribed buprenorphine. UNEXPECTED results on UDS may impact thi s patient's treatment plan. The following tests require confirmation via LCMS: Y POS for AMPHETAMINE Y POS for BENZODIAZEPINES Y POS for COCAINE Y POS for METHADONE Y POS for OPIATES W/FENTANYL Y POS for OXYCODONE ADDITIONAL LAB(S) REQUESTED - if indic ated, please order the following: NONE Plan OUD : Continue buprenorphine/naloxone 1 6mg films daily. 7d Rx provided today. Cocaine use : denies use this past week , continue with weekly UDS, offered support and encouragement Patient's visit frequency should be week ly. Frequency of UDS and confirmatory test, if applicable, should be weekly. Treatment plan review or change includes continue current level of care. Referrals made today include none. Prescription monitoring program is revtue. If reviewed, I have identified agents prescribed [...] Provider Appointments MAT - 07/30/2021 Renetta Mccoy, MOLASSES COLORING OPERATOR Weekly 15 9:30AM ? BH - 30 Min 08/03/2021 Paula Medley, 11:00AM LADC ? MAT - 08/06/[address], MOLASSES COLORING OPERATOR Weekly 15 9:30AM ? MAT - 08/13/[address], MOLASSES COLORING OPERATOR Weekly 15 9:30AM ? MAT - 08/20/[address], MOLASSES COLORING OPERATOR Weekly 15 9:30AM Lab Drug 05/18/2021 [facility], Urine Referral None [...] Interpretation Description Value Range Status Address ? 05/18/2021 Drug UR ? Amphetamines negative 1,000 [address] [facility] Screen, NG/mL NG/mL Health: Urine [address], [place] ? ? UR ? Benzodiazapines negative 200 Final [facility] NG/mL NG/mL Health: [address], [place] ? ? UR ? Buprenorphine positive 5 Final [facility] NG/mL NG/mL Health: [address], [place] ? ? UR ABNORMAL Cocaine positive 150 Final [place] Metabolite NG/mL NG/mL Health : [address], [place] ? ? UR ? Opiates negative 300 Final [facility] NG/mL NG/mL Health: [address], [place] ? ? UR ? Oxycodone negative 300 Final [place] NG/mL NG/mL Health: [address], [place] ? ? UR ? Fentanyl negative 2 Final [facility] NG/mL NG/mL Health: [address], [place] ? ? UR ? Ethyl Alcohol negative 10 Final [facility] mg/dL mg/dL Health: [address], [place] ? ? UR ? Methadone negative 300 Final [place]anda da Metabolite NG/mL NG/mL Health : [address], [place] ? ? UR ? Urine Creatinine 81.5 mg/dL >20 Fi nal [facility] mg/dL Health: [address], [place] ? ? UR ? Urine pH 7.40 4.5-9. Final [facility] 0 Health: [address], [place] ? ? UR ? Specific [place] 1.010 1.003- Final [facility] 1.035 Health: [address], [place] Allergies None recorded. Problems Name Status Onset [...] week Still trying to get in with LOYDSHASTA ken Social History Tobacco Smoking Status Light [...] with Neva *Primary Care Provider Y Notes: [facility] *Transportation Issues Yes - kept me [...] gland Information) Functional Status Unknown. Past Encounters 05/18/2021 Opioid Dependence; Cocaine Abuse Renetta Mccoy, MOLASSES COLORING OPERATOR: [address] [place] [phone], Ph. 05/04/2021 Opioid Dependence; Cocaine Abuse Renetta Mccoy, MOLASSES COLORING OPERATOR: [address] [place] [phone], Ph. 04/27/2021 Opioid Dependence; Cocaine Abuse Renetta Darius, MOLASSES COLORING OPERATOR: [address] [place] [phone], Ph. 04/20/2021 Renetta Mccoy, MOLASSES COLORING OPERATOR: [address] [place] [address], [place] [phone], Ph. History of Present Illness Note: <p>The patient reports {{doing better* doing well struggling}} since last visit and {{denies* reports}} slip or relapse.</p><p><strong>MAT HPI</strong></p><p>They {{deny* report}} cravings for opiates and {{deny* report}} opiates use since their last visit.</p><p>They {{deny report*}} cravings for other substances and {{deny* report}} other substance use since their last visit. - crack cocaine</p><p>Triggers {{are* are not}} identified and any alleviating factors to identified triggers are discussed.</p><p>Withdrawal symptoms {{are are not*}} present.</p><p><strong>MAT Administration and Program Adherence</strong></p><p>The patient {{is* is not}} compliant with prescribed buprenorphine dose and {{can* can not}} describe proper medication administration and technique.</p><p>The patient {{denies* reports}} side effects from the medication.</p><p>There {{are* are not}} other support systems in place for this patient.</p><p>There {{is is no*}} concern for diversion.</p> Review of Systems ? Comprehensive General Adult ROS* Reported By: Patient Constitutional: Constitutional: no fever, [...]
--- OUTSIDE RECORDS SUMMARY | 2021-07-27 08:20 | XMS_ITS | Encounter Summary ---
:1985 External Reference #:[id number] Author Reason for Visit *MAT - Telemedicine; OUD - buprenorphine follow-up - twice weekly* Assessment and Plan Assessment Note Telemedicine Information: This telmed (audio + visual) appointment provided a MAT prescription. Time Start: 943; Time End: 958 Provider Location: home; Patient Locatio n: office Telemedicine Consent Given (verbal): Deedee Hooks is a 35 yo female with a PMH of O UD, cocaine use, depression, and PTSD who presents today for their twice weekly MAT visit. Current prescription is: buprenorphine/n aloxone 16mg films Initial visit: 02-02-21 Visit frequency: twice weekly UDS negative for illicit opioids: x0 (+o piates, though Neva denies any recent use. LCMS pending.) Since Last Visit Neva started paroxetine and prazosin a t night this past Tuesday (2 days ago), along with her mirtazapine. She's falling asleep fine, but is waking up groggy and fatigued. She takes them around 7pm, go es to sleep around 830/900, awakens 2-3x in the night (falls back asleep), and is awake for the day by 6am. She feels fine once awake. OUD: Pt denies severe/persistent cravings, wi thdrawal symptoms, or adverse effects of medication. Feeling stable on current dose. Reports early afternoon fatigue, no othe r s/e. UDS from 2-14-22 +opiates, though Neva denies any recent use. LCMS pending. Stimulant/cocaine use use: UDS neg for cocaine x0 Denies use for over a week. Marijuana use: regular use, though tryin g to cut back on use Tobacco: 04/28 ppd Alcohol: twisted teas a couple of days a week Living: apartment with partner and child amos Family: DCF shared custody with teen age d son, Neva struggles with this and feeling left out of his care; court hearing upcoming regarding unmanageable teenager status; there is a new supervisor case loading but he is being re-integrated into their house Work: no, is connecting with voc rehab Counseling: [facility] Med: no, though previous dx of ADH D; awaiting provider availability at [facility] PCP: PCP ([facility]) to restart on anxiety medications, had appointment for 04/29/21, restarted Rx for mirtazapine 7.5mg, raised to 15mg QHS; followed up with PCP, who wants him to be s een by a psychiatrist to put back on foc darion (and another med?); will be having a follow up this week Lab Results Last UDS result (qualitative screen): 06-08-21POS buprenorphine and POS for the following illicit drugs: +opiates, +THC Last confirmatory test result (LCMS/qu antitative): N/A due to admitted use Last buprenorphine confirmation test re sult: Bup: [...] Continue weekly visits with weekly UDS . 7d Rx provided today. Treatment plan review or change include s [...] clinical protocol. Prescription monitoring program is [facility] . If reviewed, I have identified agents prescribed to the patient in addition to any issued by our program; the patient is counseled regarding any risk of combining sedating agents. 1. Opioid dependence unstable ? buprenorphine 8 mg-naloxon e 2 mg sublingual film ? drug screen, urine 2. Cocaine abuse unstable Discussion Note Education provided at today's visit included: Review of patient's individualized treatment plan; Review of program polici es: RX, visit, counseling and DATA compliance; Review medication administra tion technique; Discussion proper care of medication/safety/lock box; Counseling r e: trigger avoidance, relapse prevention and the importance of developing a sober net work; Counseling re safe sex and control; Review risk of BZD and BUP, as well as ETOH; Counseling re: Discovery & Drop out prevention in early recovery. Patient educational handouts: No information available. Plan of Care Patient Instructions As part [...] your urine specim ens. Reminders Provider Appointments MAT - 07/30/2021 Renetta Mccoy NP Weekly 15 9:30AM ? BH - 30 Min 08/03/2021 Palua Medley, 11:00AM LADC ? MAT - 08/06/[address], NP Weekly 15 9:30AM ? MAT - 08/13/[address], NP Weekly 15 9:30AM ? MAT - 08/20/[address], NP Weekly 15 9:30AM Lab Drug 06/11/2021 [facility] Screen, Urine Referral None ? ? recorded. [...] Interpretation Description Value Range Status Address ? 06/11/2021 Drug UR ? Amphetamines negative 1,[address] [facility] Screen, NG/mL NG/mL Health: Urine [address], [place] ? ? UR ? Benzodiazapines negative 200 Final [facility] NG/mL NG/mL Health: [address], [place] ? ? UR ? Buprenorphine positive 5 Final [facility] NG/mL NG/mL Health: [address], [place] ? ? UR ? Cocaine negative 150 Final [facility] Metabolite NG/mL NG/mL Health : [address], [place] ? ? UR ? Opiates negative 300 Final [facility] NG/mL NG/mL Health: [address], [place] ? ? UR ? Oxycodone negative 300 Final Rolanda da NG/mL NG/mL Health: [address], [place] ? ? UR ? Fentanyl negative 2 Final [facility] NG/mL NG/mL Health: [address], [place] ? ? UR ? Ethyl Alcohol negative 10 Final [facility] mg/dL mg/dL Health: [address], [place] ? ? UR ? Methadone negative 300 Final Rolanda da Metabolite NG/mL NG/mL Health : [address], [place] ? ? UR ABNORMAL Cannabinoids positive 50 Final [facility] (THC) NG/mL NG/mL Health: [address], [place] ? ? UR ? Urine Creatinine 147.4 >20 Final [facility] mg/dL mg/dL Health: [address], [place] ? ? UR ? Urine pH 7.90 4.5-9. Final [facility] 0 Health: [address], [place] ? ? UR ? Specific [place] 1.014 1.003- Final [facility] 1.035 Health: [address], [place] Allergies None recorded. Problems Name Status Onset [...] with Neva *Primary Care Provider Y Notes: [facility] *Transportation Issues Yes - kept [...] gland Information) Functional Status Unknown. Past Encounters 06/11/2021 Opioid Dependence; Cocaine Abuse Renetta Mccoy SENIOR MARKETING DATA ANALYST: [address] [place] [phone], Ph. 06/08/2021 Opioid Dependence; Cocaine Abuse Renetta Mccoy SENIOR MARKETING DATA ANALYST: [address] [place] [phone], Ph. 06/01/2021 Opioid Dependence; Cocaine Abuse Renetta Mccoy SENIOR MARKETING DATA ANALYST: [address] [place] [phone], Ph. 05/25/2021 Opioid Dependence; Cocaine Abuse Renetta Mccoy, SENIOR MARKETING DATA ANALYST: [address] [place] [phone], Ph. 05/18/2021 Opioid Dependence; Cocaine Abuse Renetta Mccoy, SENIOR MARKETING DATA ANALYST: [address] [place] [address], [place] [phone], Ph. History of Present Illness Note: <div><strong> This patient is here today for their follow-up MAT visit. They are being treated for OUD with buprenorphine</strong>

<strong>PLEASE SEE A & P SECTION FOR FULL [...]
--- OUTSIDE RECORDS SUMMARY | 2021-07-27 08:20 | XMS_ITS | Encounter Summary ---
[...] Lab Results Last UDS Result (Qual Screen): 06-01-21 OS Buprenorphine and POS for the following illicit drugs or EtOH: +trang Last Confirmatory Test Result (LCMS/Qu ant): N/A due to admitted use Last Buprenorphine Confirmation Test Re sult: Bup: 82 ng/ml & Norbup: 298 ng/ml Last LFT Result : needs labs Since Last Visit THIS PT IS BEING TREATED FOR OUD WITH BU PRENORPHINE AND IS SEEN WEEKLY. CURRENT PRESCRIPTION IS: buprenorphine/n aloxone 16mg films Bio/psycho/social Update: Neva is a 35y/o female with hx OUD, an xiety, depression, PTSD who presents today for her weekly visit. Neva will be started back on paroxetin e and paroxitine, though she hasn't picked up meds yet as pharmacy was closed over the weekend. OUD : Initial visit: 02-02-21 Visit frequency: weekly UDS negative for illicit opioids x4 Pt denies severe/persistent cravings, wi thdrawal symptoms, or adverse effects of medication. Feeling stable on current dose. Cocaine use : UDS neg for cocaine x0 Denies use for over a week. I know I can do it, but it's just hard. She reports having a previous dx of ADHD , previous Rxs for concerta and focalin. Tobacco: 1/4 ppd Alcohol: twisted teas a couple of days a week Living: having issues in apartment, heat ing not working so using space heaters; should be fixed now Family: DCF shared custody with teen age d son, Neva struggles with this and feeling left out of his care; court hearing upcoming regarding unmanageable teenager status; there is a new geriatric case manager but he is being re-integrated into their house Work: no, is connecting with voc rehab Counseling: [facility] Med: no, though previous dx of ADH D; awaiting provider availability at [facility] PCP: PCP ([facility]) to restart on anxiety medications, had appointment for 04/29/21, restarted Rx for mirtazapine 7.5mg, raised to 15mg QHS; followed up with PCP, who wants him to be s een by a psychiatrist to put back on foc darion (and another med?); will be having a follow up this week Assessment The patient's current phase of treatment [...] : Continue buprenorphine/naloxone 1 6mg films daily. 3d Rx provided today. Cocaine use : continue with weekly UDS, offered support and encouragement Patient's visit frequency should be twic e weekly. Frequency of UDS and confirmatory test, if applicable, should be twice weekly. Treatment plan review or change includes continue current level of care. Referrals made today include none. Prescription monitoring program is revie wed. If reviewed, I have identified agents prescribed [...] ? MAT - 08/06/[address], IMPREGNATING TANK OPERATOR Weekly 15 9:30AM ? MAT - 08/13/[address], IMPREGNATING TANK OPERATOR Weekly 15 9:30AM ? MAT - 08/20/[address], IMPREGNATING TANK OPERATOR Weekly 15 9:30AM Lab Drug 06/08/2021 [facility], Urine Referral None [...] FOR WHEEZING Medications Administered None recorded. Vitals Blood Pressure 118/62 mm[Hg] Results Lab Results Date Name Specimen Result Interpretation Description Value Range Status Address ? 06/08/2021 Drug UR ? Amphetamines negative 1,[address] [facility] Screen, NG/mL NG/mL Health: Urine [address], [place] ? ? UR ? Benzodiazapines negative 200 Final [facility] NG/mL NG/mL Health: [address], [place] ? ? UR ? Buprenorphine positive 5 Final [facility] NG/mL NG/mL Health: [address], [place] ? ? UR ? Cocaine negative 150 Final [facility] Metabolite NG/mL NG/mL Health : [address], [place] ? ? UR ABNORMAL Opiates positive 300 Final Rolanda da NG/mL NG/mL Health: [address], [place] ? ? UR ? Oxycodone negative 300 Final Rolanda da NG/mL NG/mL Health: [address], [place] ? ? UR ? Fentanyl negative 2 Final [facility] NG/mL NG/mL Health: [address], [place] ? ? UR ? Ethyl Alcohol negative 10 Final [facility] mg/dL mg/dL Health: [address], [place] ? ? UR ? Methadone negative 300 Final Rolanda da Metabolite NG/mL NG/mL Health : [address], [place] ? ? UR ABNORMAL Cannabinoids positive 50 Final [facility] (THC) NG/mL NG/mL Health: [address], [place] ? ? UR ? Urine Creatinine 124.0 >20 Final [facility] mg/dL mg/dL Health: [address], [place] ? ? UR ? Urine pH 6.00 4.5-9. Final [facility] 0 Health: [address], [place] ? ? UR ? Specific [place] 1.017 1.003- Final [facility] 1.035 Health: [address], [place] Allergies None recorded. Problems Name Status Onset [...] Still trying to get in with YEHUDA psychi suellen Social History Tobacco Smoking Status Light Tobacco [...] with Neva *[facility] Provider [facility] *Transportation Issues Yes - kept me from [...] gland Information) Functional Status Unknown. Past Encounters 06/08/2021 Opioid Dependence; Cocaine Abuse Renetta Mccoy, IMPREGNATING TANK OPERATOR: [address] [place] [phone], Ph. 06/01/2021 Opioid Dependence; Cocaine Abuse [place] Mccoy, IMPREGNATING TANK OPERATOR: [address] [place] [phone], Ph. 05/25/2021 Opioid Dependence; Cocaine Abuse [facility], IMPREGNATING TANK OPERATOR: [address] [place] [phone], Ph. 05/18/2021 Opioid Dependence; Cocaine Abuse [place] Darius, IMPREGNATING TANK OPERATOR: [address] [place] [phone], Ph. History of Present Illness Note: <div><strong> [...]
--- OUTSIDE RECORDS SUMMARY | 2021-07-27 08:20 | XMS_ITS | Encounter Summary ---
:1985 External Reference #:[id number] Author Reason for Visit OUD - buprenorphine follow-up - weekly*; *MAT - Telemedicine Assessment and Plan Assessment Note Telemedicine Information: This telmed (audio + visual) appointment provided a MAT prescription. Time Start: 954; Time End:100 Provider Location: home; Patient Locatio n: home Telemedicine Consent Given (verbal): Y Lab Results Last UDS Result (Qual Screen): 1POS Buprenorphine and POS for the following illicit drugs or EtOH: +trang, +fentanyl Last Confirmatory Test Result (LCMS/Qu ant): N/A due to admitted use Last Buprenorphine Confirmation Test Re sult: 03-16-21 Bup: 96 ng/ml & Norbup: 383 ng/ml Last LFT Result : needs labs Since Last Visit THIS PT IS BEING TREATED FOR OUD WITH BU PRENORPHINE AND IS SEEN WEEKLY. CURRENT PRESCRIPTION IS: buprenorphine/n aloxone 16mg films Bio/psycho/social Update: Neva is a 35y/o female with hx OUD (Rx bup/naloxone 16mg films), anxiety, depression, PTSD who presents today for her weekly visit. Neva is in good spirits and doing quit e well this week. Though she has had some crack use, she's feeling a lot better than she was a month ago and is pleased with her progress. She is smiling and engaged in the visit. OUD : Initial visit: 02-02-21 Visit frequency: weekly UDS negative for illicit substances x0 Pt denies severe/persistent cravings, wi thdrawal symptoms, or adverse effects of medication. Feeling stable on current dose. Denies illicit use this past week Cocaine use : crack use this past weeke nd Tobacco: 1/4 ppd Alcohol: twisted teas a [...] unmanageable teenager status; there is a new case loader operator but he is being re-integrated into their house Work: no, is connecting with voc rehab Counseling: [facility]: no PCP: reconnecting with PCP to restart on anxiety medications, had appointment for 04/29/21, restarted Rx for one of the meds (she's not sure); follow up in 2 weeks with PCP who will be taking over Assessment The patient's current phase of treatment is Stabilization phase, OUD. 1) Interpretation of Confirmatory (LCMS) Test Result: Use of: cocaine, fentanyl 2) Interpretation of Last Buprenorphine Confirmation Test [...] buprenorphine/naloxone 1 6mg films daily. 7d Rx with one refill provided today d/t clinic closure for holiday next week. Patient's visit frequency should be week ly. [...] ? MAT - 08/06/[address], TECHNICAL COMMUNICATOR Weekly 15 9:30AM ? MAT - 08/13/[address], TECHNICAL COMMUNICATOR Weekly 15 9:30AM ? MAT - 08/20/[address], TECHNICAL COMMUNICATOR Weekly 15 9:30AM Lab Drug 05/04/2021 [facility], Urine Referral None [...] Medications Administered None recorded. Vitals Blood Pressure 122/62 mm[Hg] Results Lab Results Date Name Specimen Result Interpretation Description Value Range Status Address ? 05/04/2021 Drug UR ? Amphetamines negative 1,000 [address]rella l [facility] Screen, NG/mL NG/mL Health: Urine [address], [place] ? ? UR ? Benzodiazapines negative 200 Final [facility] NG/mL NG/mL Health: [address], [place] ? ? UR ? Buprenorphine positive 5 Final [facility] NG/mL NG/mL Health: [address], [place] ? ? UR ABNORMAL Cocaine positive 150 Final [facility] Metabolite NG/mL NG/mL Health : [address], [place] ? ? UR ? Opiates negative 300 Final [facility] NG/mL NG/mL Health: [address], [place] ? ? UR ? Oxycodone negative 300 Final [facility] da NG/mL NG/mL Health: [address], [place] ? ? UR ? Fentanyl negative 2 Final [facility] a NG/mL NG/mL Health: [address], [place] ? ? UR ? Ethyl Alcohol negative 10 Final [facility] mg/dL mg/dL Health: [address], [place] ? ? UR ? Methadone negative 300 Final [facility] da Metabolite NG/mL NG/mL Health : [address], [place] ? ? UR ? Urine Creatinine 183.8 >20 Final [facility] mg/dL mg/dL Health: [address], [place] ? ? UR ? Urine pH 5.60 4.5-9. Final [facility] 0 Health: [address], [place] ? ? UR ? Specific [place] 1.023 1.003- Final [facility] 1.035 Health: [address], [place] Allergies None recorded. Problems Name Status Onset [...] Still trying to get in with YEHUDA joan ken Social History Tobacco Smoking Status Light [...] gland Information) Functional Status Unknown. Past Encounters 05/04/2021 Opioid Dependence; Cocaine Abuse Renetta Mccoy, TECHNICAL COMMUNICATOR: [address] [place] [phone], Ph. 04/27/2021 Opioid Dependence; Cocaine Abuse Renetta Mccoy, TECHNICAL COMMUNICATOR: [address] [place] [phone], Ph. 04/20/2021 Renetta Mccoy, TECHNICAL COMMUNICATOR: [address] [place] [phone], Ph. 04/13/2021 Renetta Mccoy, TECHNICAL COMMUNICATOR: [address] [place] [phone], Ph. 04/06/2021 Renetta Mccoy, TECHNICAL COMMUNICATOR: [address] [place] [phone], Ph. History of Present Illness Note: <p>The patient reports {{doing better* doing well struggling}} since last visit and {{denies* reports}} slip or relapse.</p><p><strong>MAT HPI</strong></p><p>They {{deny* report}} cravings for opiates and {{deny* report}} opiates use since their last visit.</p><p>They {{deny report*}} cravings for other substances and {{deny report*}} other substance use since their last visit. [...]
--- OUTSIDE RECORDS SUMMARY | 2021-07-27 08:20 | XMS_ITS | Encounter Summary ---
[...] Lab Results Last UDS Result (Qual Screen): 05-25-21 POS Buprenorphine and POS for the following [...] frequency: weekly UDS negative for illicit opioids x3 Pt denies severe/persistent cravings, wi thdrawal symptoms, or adverse effects of medication. Feeling stable on current dose. Cocaine use : UDS neg for cocaine x0 Last use within the past week Tobacco: 1/ ppd Alcohol: twisted teas a [...] unmanageable teenager status; there is a new supportive employment case manager but he is being re-integrated into their house Work: no, is connecting with voc rehab Counseling: [facility] Med: no PCP: PCP ([facility]) to restart on anxiety medications, had appointment [...] POS for AMPHETAMINE Y POS for BENZODIAZEPINES N POS for COCAINE - admitted use Y POS for METHADONE Y POS for OPIATES W/FENTANYL Y POS for OXYCODONE ADDITIONAL LAB(S) REQUESTED - if indic ated, please order the following: NONE Plan OUD : Continue buprenorphine/naloxone 1 6mg films daily. 7d Rx provided today. Cocaine use : continue [...] mg-naloxon e 2 mg sublingual film ? test, urine 2. Cocaine abuse unstable Discussion Note: None recorded.Patient educational handouts: No information available. Plan of Care Reminders Provider Appointments MAT - Weekly Marcus Mccoy NP 15 07/30/2021 9:30AM ? BH - 30 Min Paula Medley, 08/03/2021 LADC 11:00AM ? MAT - Weekly Aliya silvaly Mccoy, OPERATIONS MANAGER 15 08/06/2021 9:30AM ? MAT - Weekly Aliya sivlaly Mccoy, OPERATIONS MANAGER 15 08/13/2021 9:30AM ? MAT - Weekly Aliya lundberg Mccoy, OPERATIONS MANAGER 15 08/20/2021 9:30AM Lab Drug Screen, [facility] Urine 06/01/2021 ? Vt_medi cal_st Test, Urine 06/01/2021 [facility] Referral None ? ? recorded. Procedures None [...] Medications Administered None recorded. Vitals Blood Pressure 120/60 mm[Hg] Results Lab Results Date Name Specimen Result Interpretation Description Value Range Status Address ? 06/01/2021 Drug UR ? Amphetamines negative 1,000 [address] [facility] Screen, NG/mL NG/mL Health: [address], [place] ? ? UR ? Benzodiazapines negative 200 Final [facility] NG/mL NG/mL Health: [address], [place] ? ? UR ? Buprenorphine positive 5 Final [facility] NG/mL NG/mL Health: [address], [place] ? ? UR ABNORMAL Cocaine positive 150 Final [facility] da Metabolite NG/mL NG/mL Health : [address], [place] ? ? UR ? Opiates negative 300 Final [facility] NG/mL NG/mL Health: [address], [place] ? ? UR ? Oxycodone negative 300 Final [facility] da NG/mL NG/mL Health: [address], [place] ? ? UR ? Fentanyl negative 2 Final [facility] a NG/mL NG/mL Health: [address], [place] ? ? UR ? Ethyl Alcohol negative 10 Final [facility] mg/dL mg/dL Health: [address], [place] ? ? UR ? Methadone negative 300 Final [facility] da Metabolite NG/mL NG/mL Health : [address], [place] ? ? UR ? Urine 71.4 >20 Final [facility] Creatinine mg/dL mg/dL Health : [address], [place] ? ? UR ? Urine pH 5.90 4.5-9. Final [facility] 0 Health: [address], [place] ? ? UR ? Specific 1.008 1.003- Final [facility] Zoe 1.035 Health: [address], [place] 06/01/2021 ? Hcg negative ? ? V t_medical Test, Urine _[facility]: [address] [place] [address] Allergies None recorded. Problems Name Status Onset [...] year old and 7 year old f toby time with Neva *Primary Care Provider Y Notes: [facility] *Transportation Issues Yes - kept [...] gland Information) Functional Status Unknown. Past Encounters 06/01/2021 Opioid Dependence; Cocaine Abuse Renetta Mccoy, OPERATIONS MANAGER: [address] [place] [phone], Ph. 05/25/2021 Opioid Dependence; Cocaine Abuse [facility], OPERATIONS MANAGER: [address] [place] [phone], Ph. 05/18/2021 Opioid Dependence; Cocaine Abuse [facility], OPERATIONS MANAGER: [address] [place] [phone], Ph. 05/04/2021 Opioid Dependence; Cocaine Abuse [facility], OPERATIONS MANAGER: [address] [place] [phone], Ph. History of Present Illness Note: <p>The [...]
--- OUTSIDE RECORDS SUMMARY | 2021-07-27 08:20 | XMS_ITS | Encounter Summary ---
:1985 External Reference #:[id number] Author Reason for Visit OUD - buprenorphine follow-up - weekly*; *MAT - Telemedicine Assessment and Plan Assessment Note Telemedicine Information: This telmed (audio + visual) appointment provided a MAT prescription. Time Start: ; Time End: Provider Location: home; Patient Locatio n: home Telemedicine Consent Given (verbal): Y Neva is a 35 yo female with a PMH of O UD, cocaine use, depression, and PTSD who presents today for their weekly MAT visit. She is at home today with her sick daughter (negative home COVID tests). Current prescription is: buprenorphine/n aloxone 16mg films Initial visit: 02-02-21 Visit frequency: weekly UDS negative for illicit opioids: x1 Since Last Visit Neva has a headache and sore throat an d is coughing. She is home with her daughter. She continues to report fatigue, though slight improvement. Hard to tell if this is related to being up with her sick daughter. OUD: Pt denies severe/persistent cravings, wi thdrawal symptoms, or adverse effects of medication. Feeling stable on current dose. UDS from 06-08- +opiates, though Neva denied any recent use. LCMS +codeine 53 Most recent UDS 06-11-21 negative for all illicit drugs Stimulant/cocaine use use: UDS neg for cocaine x1 Denies use for over a week. Marijuana use: regular use, though tryin g to cut back on use Tobacco: 04/28 ppd Alcohol: twisted teas a couple of days a week, last drink on Tuesday, didn't finish tea Living: apartment with partner and child amos Family: DCF shared custody with teen age d son, Neva struggles with this and feeling left out of his care; court hearing upcoming regarding unmanageable teenager status; there is a new rifle case repairer but he is being re-integrated into their house Work: no, is connecting with voc rehab Counseling: [facility] Med: no, though previous dx of ADH D; awaiting provider availability at [facility] PCP: PCP ([facility]) to restart on anxiety medications, had [...] weekly UDS . 4d Rx provided today. Pt will return to clinic on Tuesday. Treatment plan review or change include s [...] sublingual film 2. Cocaine abuse unstable Discussion Note Education [...] ? MAT - 08/06/[address], YOUSUF Weekly 15 9:30AM ? MAT - 08/13/[address], YOUSUF Weekly 15 9:30AM ? MAT - 08/20/[address], TYPESETTING MACHINE TENDER Weekly 15 9:30AM Lab None ? ? recorded. Referral None ? ? recorded. Procedures None [...] Y recreational drugs? *Other Medical Issues None *Sparks Not a What is your level of [...] with Neva *Primary Care Provider Y Notes: [facility] *Transportation Issues Yes - kept me from [...] gland Information) Functional Status Unknown. Past Encounters 06/18/2021 Opioid Dependence; Cocaine Abuse Renetta Mccoy, TYPESETTING MACHINE TENDER: [address] [place] [address], [place] [phone], Ph. 06/11/2021 Opioid Dependence; Cocaine Abuse Renetta Mccoy, TYPESETTING MACHINE TENDER: [address] [place] [address], [place] [phone], Ph. 06/08/2021 Opioid Dependence; Cocaine Abuse Renetta Mccoy, TYPESETTING MACHINE TENDER: [address] [place] [address], [place] [phone], Ph. 06/01/2021 Opioid Dependence; Cocaine Abuse Renetta Mccoy, TYPESETTING MACHINE TENDER: [address] [place] [address], [place] [phone], Ph. 05/25/2021 Opioid Dependence; Cocaine Abuse Renetta Mccoy, TYPESETTING MACHINE TENDER: [address] [place] [address], [place] [phone], Ph. 05/18/2021 Opioid Dependence; Cocaine Abuse Renetta Mccoy, TYPESETTING MACHINE TENDER: [address] [place] [address], [place] [phone], Ph. History of Present Illness Note: <div><strong> [...]
--- OUTSIDE RECORDS SUMMARY | 2021-07-27 08:20 | XMS_ITS | Encounter Summary ---
:1985 External Reference #:[id number] Author Reason for Visit OUD - buprenorphine follow-up - weekly*; *MAT - Telemedicine Assessment and Plan Assessment Note Telemedicine Information: This telmed (audio + visual) appointment provided a MAT prescription. Time Start: 950; Time End:1003 Provider Location: home; Patient Locatio n: office Telemedicine Consent Given (verbal): Y Lab Results Last UDS Result (Qual Screen): 05-18-21 POS Buprenorphine and POS for the following [...] today for her weekly visit. Neva is stressed but okay today, prabha cribing struggles with her partner and unemployment and finances. It should be all set now, though there is 10 day delay. She is pleased that her rental help went through to help with [id number]. OUD : Initial visit: 02-02-21 Visit frequency: weekly UDS negative for illicit opioids x2 Pt denies severe/persistent cravings, wi thdrawal symptoms, or adverse effects of medication. Feeling stable on current dose. Cocaine use : UDS neg for cocaine x0 Last use, crack cocaine 3 days ago Neva has been working hard to make shae nges to her life and routine to separate herself from cocaine and access Tobacco: / ppd Alcohol: twisted teas a couple of days a week, not problematic, no urges/cravings Living: having issues in apartment, heat ing not working so using space heaters; should be fixed now Family: DCF shared custody with teen age d son, Neva struggles with this and feeling left out of his care; court hearing upcoming regarding unmanageable teenager status; there is a new nurse case management but he is being re-integrated into their house Work: no, is connecting with voc rehab Counseling: [facility] Med: no PCP: reconnecting with PCP ([facility]) to r ruchi on anxiety medications, had appointment for 04/29/21, restarted Rx for mirtazapine 7.5mg, raised to 15mg QHS; followed up with PCP, who wants him to be seen by a psychiatrist to put back on focalin (and another med?); will be having a two week follow up. Assessment The patient's current phase of treatment [...] Reminders Provider Appointments MAT - Weekly Marcus osei Mccoy, PROPOSAL SPECIALIST 15 07/30/2021 9:30AM ? BH - 30 Min Paula Medley, 08/03/2021 LADC 11:00AM ? MAT - Weekly Aliya erly Mccoy, PROPOSAL SPECIALIST 15 08/06/2021 9:30AM ? MAT - Weekly Aliya erly Mccoy, PROPOSAL SPECIALIST 15 08/13/2021 9:30AM ? MAT - Weekly Aliya lundberg Mccoy, PROPOSAL SPECIALIST 15 08/20/2021 9:30AM Lab Drug Screen, [facility] [employer] Urine 05/25/2021 ? Vt_medi cal_st Test, Urine 05/25/2021 [facility] Referral None ? ? recorded. Procedures [...] Medications Administered None recorded. Vitals Blood Pressure 120/62 mm[Hg] Results Lab Results Date Name Specimen Result Interpretation Description Value Range Status Address ? 05/25/2021 Drug UR ? Amphetamines negative 1,000 Estrella l [facility] Screen, NG/mL NG/mL Health: [address], [place] ? ? UR ? Benzodiazapines negative 200 Final [facility] NG/mL NG/mL Health: [address], [place] ? ? UR ? Buprenorphine positive 5 Final [facility] NG/mL NG/mL Health: [address], [place] ? ? UR ABNORMAL Cocaine positive 150 Final Rol[facility] da Metabolite NG/mL NG/mL Health : [address], [place] ? ? UR ? Opiates negative 300 Final [facility] NG/mL NG/mL Health: [address], [place] ? ? UR ? Oxycodone negative 300 Final [facility] da NG/mL NG/mL Health: [address], [place] ? ? UR ? Fentanyl negative 2 Final [facility] a NG/mL NG/mL Health: [address], [place] ? ? UR ? Ethyl Alcohol negative 10 Final [facility] mg/dL mg/dL Health: [address], [place] ? ? UR ? Methadone negative 300 Final [facility] da Metabolite NG/mL NG/mL Health : [address], [place] ? ? UR ? Urine 108.8 >20 Final [facility] Creatinine mg/dL mg/dL Health : [address], [place] ? ? UR ? Urine pH 5.80 4.5-9. Final [facility] 0 Health: [address], [place] ? ? UR ? Specific 1.013 1.003- Final [facility] [place] 1.035 Health: [address], [place] 05/25/2021 Urine ? Hcg negative ? ? V t_medical Test, _st Urine [facility]: [address] [place] [address] Allergies None recorded. Problems Name Status Onset [...] DCF *Employment None *Legal Assistance Not Required Do you use any illicit or Y recreational drugs? *Job Not Needed Training/Education/Literacy *Other Medical Issues None * Not a What is your level of alcohol Moderate consumption? *Legal Status No Legal Issues *Food Adequate Which illicit or recreational marijuana, cocaine, heroin drugs have you used? How many times per week do you 3-4 times per week Notes: twisted tea consume alcohol? *Childcare Needed N *Social Support Network Has Stable Support System *Custody of Dependent Children Full Custody Notes: One kid is shared custody (oldest 15 y ear old in foster care); 14 year old and 7 year old f ull time with Neva *Primary Care Provider Y Notes: [facility] *Transportation Issues Yes - kept [...] gland Information) Functional Status Unknown. Past Encounters 05/25/2021 Opioid Dependence; Cocaine Abuse Renetta Mccoy, PROPOSAL SPECIALIST: [address] [place] [phone], Ph. 05/18/2021 Opioid Dependence; Cocaine Abuse Renetta Mccoy, PROPOSAL SPECIALIST: [address] [place] [phone], Ph. 05/04/2021 Opioid Dependence; Cocaine Abuse Renetta Mccoy, PROPOSAL SPECIALIST: [address] [place] [phone], Ph. 04/27/2021 Opioid Dependence; Cocaine Abuse Renetta Mccoy, PROPOSAL SPECIALIST: [address] [place] [phone], Ph. History of Present Illness Note: <p>The patient reports {{doing better* doing well struggling}} since last visit and {{denies* reports}} slip or relapse.</p><p><strong>MAT HPI</strong></p><p>They {{deny* report}} cravings for opiates and {{deny* report}} opiates use since their last visit.</p><p>They {{deny* report}} cravings for other substances and {{deny report*}} [...]
--- NOTE | 2021-07-27 08:34 | W.ED.GENAD ---
Discharge Plan Disposition Patient Disposition: [facility] INPATIENT Condition: Stable Discharge Details Chief Complaint: Abd Prob Clinical Impression: Pancreatitis Admit Date/Time: 07/27/21 14:41 Admit Provider: Nelson Turner Attending Provider: Nelson Turner Primary Care Provider: Renetta Flores ED Provider: Hamilton Crowder Discharge Instructions Activity:: Activity as Tolerated Equipment/Supplies:: No Equipment Needed Diet:: As Tolerated Discharge Orders Discharge Orders: Discharge Order (Routine); Ordered 07/30/21 Ordered By: Neva Brothers Discharge Data Discharge Date/Time-TO BE ENTERED AT DEPARTURE: 07/27/21 15:32 Medical Decision Making Patient presents with abdominal pain mainly located in the right lower quadrant but patient stating diffuse pain with dry heaving. Physical exam shows tenderness and guarding to the right lower quadrant and generally ill-appearing patient but otherwise unremarkable examination. We will plan on drawing standard abdominal pain work-up labs including lipase given previous history of pancreatitis and advanced imaging. Pending results patient given IV fluids, antiemetic, and pain meds. Review of labs show an unremarkable CBC, CMP with slightly decreased potassium at 3.3, gap of 12.5, little bit elevated glucose at 151. Otherwise liver labs are normal. Lipase is 722 so suspect possible pancreatitis. Patient did state that she had 3-4 large twisted teas on Tuesday which may be contributing factor. Patient is not , urine shows ketones otherwise nondiagnostic with possible contaminated specimen. We will plan on performing CT imaging Review of CT imaging and speaking with radiologist shows a possible collapsing ovarian cyst on the right side which may be contributing to patient's right lower quadrant pain but no obvious findings of pancreatitis noted on CT. Reassessed patient's abdomen and still has point tenderness to right lower quadrant. Will plan on performing ultrasound of pelvis to rule out ovarian torsion of or other pathology otherwise main concern is pancreatitis. Pending ultrasound was noted that patient was bradycardic on monitor with heart rate in the 40s. EKG performed and shows sinus bradycardia otherwise nondiagnostic. Assessed patient in room which when she is sedate or sleepy she becomes bradycardic but as soon as she wakes up she has an increase in her heart rate. Patient denies any cardiac symptoms. We will continue to monitor. Pelvic transvaginal ultrasound performed and shows no worrisome findings. Given that lipase is 722 and patient has abdominal pain with recent alcohol intake I am concerned for acute pancreatitis. We will plan on paging hospitalist for admission and further treatment. Spoke with hospitalist in regards to admission of the patient. He agreed to have patient admitted and further treat acute pancreatitis and was made aware of bradycardia at rest. Patient is in agreement with this plan of care. Medical Records Medical records reviewed: Yes I reviewed the patient's medical records. Imaging Data Radiologic Study: Imaging: CT Scan Radiologist's impression: IMPRESSION: 1. There is an 18 x 16 x 20 millimeter enhancing finding in the right ovary which is probably a collapsing cyst. No other adnexal findings nor free fluid. 2. The appendix is difficult to locate as a distinct structure on this study but there does not appear to be obvious evidence of acute appendicitis. 3. There is a solitary 17 x 15 millimeter benign cyst in the superior pole the right kidney. No solid renal masses. 4. Gallbladder surgically absent. Biliary tree is not dilated Lab Data Lab results reviewed: Yes I reviewed the patient's lab results. Labs: Laboratory Tests Range/Units 07/27/21 07/27/21 07/27/21 08:28 08:28 08:55 WBC (4.4-10.8) 10^3/uL 9.43 RBC (3.93-5.22) 10^6/uL 4.51 Hgb (11.2-15.7) g/dL 13.4 Hct (36.0-46.0) % 40.7 MCV (80-95) fL 90.2 MCH (27.0-33.0) pg 29.7 MCHC (32.0-36.0) % 32.9 RDW (11.7-14.6) % 12.2 Plt Count (130-400) 10^3/uL 181 MPV (8.0-11.0) fL 11.1 H Immature Gran % 0.2 Neutrophils % 59.2 Lymphocytes % 33.3 Monocytes % 5.3 Eosinophils % 1.7 Basophils % 0.3 Nucleated RBC % % 0 Absolute Neutrophils (1.2-6.7) 10^3/uL 5.58 Absolute Lymphocytes (1.2-3.4) 10^3/uL 3.14 Absolute Monocytes (0.1-0.8) 10^3/uL 0.50 Absolute Eosinophils (0.0-0.7) 10^3/uL 0.16 Absolute Basophils (0.0-0.2) 10^3/uL 0.03 Sodium (136-145) mmol/L 138 Potassium (3.5-5.1) mmol/L 3.3 L Chloride (98-107) mmol/L 101 Carbon Dioxide (21.0-32.0) mmol/L 24.5 Anion Gap (3-11) mmol/L 12.5 H BUN (7-18) mg/dL 9 Creatinine (0.55-1.02) mg/dL 0.9 Estimated GFR/1.73 m2 (mL/min/1.73m2) >= 60.00 Glucose (74-106) mg/dL 151 H Calcium (8.5-10.1) mg/dL 9.1 Magnesium (1.8-2.4) mg/dL 1.8 Total Bilirubin (0.2-1.0) mg/dL 0.4 AST (15-37) U/L 16 ALT (14-59) U/L 17 Alkaline Phosphatase (46-116) U/L 79 Total Protein (6.4-8.2) g/dL 7.7 Albumin (3.4-5.0) g/dL 3.9 Lipase (73-393) U/L 722 H Urine Color (Yellow) Yellow Urine Clarity (Clear) Cloudy Urine pH (5-8) >= 9.0 H Ur Specific [place] (1.005-1.025) 1.015 Urine Protein (Negative) mg/dL 100 H Urine Ketones (Negative) mg/dL 40 H Urine Blood (Negative) Negative Urine Nitrite (Negative) Negative Urine Bilirubin (Negative) Negative Urine Urobilinogen (Up TO 0.2) EU/dL 0.2 Ur Leukocyte Esterase (Negative) Trace H Urine RBC (0-2) HPF Negative Urine WBC (0-5) HPF 0-2 Ur Epithelial Cells (Negative) HPF Many Urine Crystals (Negative) HPF Negative Urine Bacteria (Negative) HPF Few Urine Casts (Negative) LPF Negative Urine Mucus (Negative) Negative Ur Culture Indicated? No/Sq. Contamination Urine Glucose (Negative) mg/dL Negative COVID-19 Source SARS-CoV-2 (PCR) (Negative) Range/Units 07/27/21 13:15 WBC (4.4-10.8) 10^3/uL RBC (3.93-5.22) 10^6/uL Hgb (11.2-15.7) g/dL Hct (36.0-46.0) % MCV (80-95) fL MCH (27.0-33.0) pg MCHC (32.0-36.0) % RDW (11.7-14.6) % Plt Count (130-400) 10^3/uL MPV (8.0-11.0) fL Immature Gran % Neutrophils % Lymphocytes % Monocytes % Eosinophils % Basophils % Nucleated RBC % % Absolute Neutrophils (1.2-6.7) 10^3/uL Absolute Lymphocytes (1.2-3.4) 10^3/uL Absolute Monocytes (0.1-0.8) 10^3/uL Absolute Eosinophils (0.0-0.7) 10^3/uL Absolute Basophils (0.0-0.2) 10^3/uL Sodium (136-145) mmol/L Potassium (3.5-5.1) mmol/L Chloride (98-107) mmol/L Carbon Dioxide (21.0-32.0) mmol/L Anion Gap (3-11) mmol/L BUN (7-18) mg/dL Creatinine (0.55-1.02) mg/dL Estimated GFR/1.73 m2 (mL/min/1.73m2) Glucose (74-106) mg/dL Calcium (8.5-10.1) mg/dL Magnesium (1.8-2.4) mg/dL Total Bilirubin (0.2-1.0) mg/dL AST (15-37) U/L ALT (14-59) U/L Alkaline Phosphatase (46-116) U/L Total Protein (6.4-8.2) g/dL Albumin (3.4-5.0) g/dL Lipase (73-393) U/L Urine Color (Yellow) Urine Clarity (Clear) Urine pH (5-8) Ur Specific [place] (1.005-1.025) Urine Protein (Negative) mg/dL Urine Ketones (Negative) mg/dL Urine Blood (Negative) Urine Nitrite (Negative) Urine Bilirubin (Negative) Urine Urobilinogen (Up TO 0.2) EU/dL Ur Leukocyte Esterase (Negative) Urine RBC (0-2) HPF Urine WBC (0-5) HPF Ur Epithelial Cells (Negative) HPF Urine Crystals (Negative) HPF Urine Bacteria (Negative) HPF Urine Casts (Negative) LPF Urine Mucus (Negative) Ur Culture Indicated? Urine Glucose (Negative) mg/dL COVID-19 Source Nasal/Nares SARS-CoV-2 (PCR) (Negative) Negative HPI General Mode of arrival: ambulatory. Date/Time Provider Initiated Documentation: 07/27/21 08:23. Limitations to Documentation: no limitations. Information obtained by: patient, RN notes reviewed and old records reviewed. History of Present Illness 36 year old F presents to the emergency department with the chief complaint of Diffuse abdominal pain, described as moderate, with intensity rated at 8. Quality is described as aching and sharp, and is localized to the abdomen. Patient reports no radiation. Patient started experiencing this day(s) (1) and it has been constant. improves with No relieving factors improve symptom(s), No exacerbating factors reported . Patient notes fever/chills, loss of appetite and nausea/vomiting. Patient did receive the following treatments prior to arrival, none Related Data Home Medications Medication Instructions Recorded Confirmed acetaminophen 500 mg tablet (Mapap 1,000 mg PO Q6H PRN PRN tab 06/29/16 07/31/21 Extra Strength) ibuprofen 600 mg tablet 600 mg PO QID PRN 03/09/19 07/31/21 buprenorphine 8 mg-naloxone 2 mg 2 film SUBLINGUAL DAILY 07/27/21 07/31/21 sublingual film (Suboxone) paroxetine HCl 20 mg tablet 20 mg PO DAILY 07/27/21 07/31/21 prazosin 2 mg capsule 2 mg PO HS PRN PRN 07/27/21 07/31/21 promethazine 25 mg rectal 25 mg PA Q6H PRN #12 ea 07/31/21 suppository Previous Rx's Medication Instructions Recorded acetaminophen 500 mg tablet (Mapap 1,000 mg PO Q6H PRN PRN tab 06/29/16 Extra Strength) promethazine 25 mg rectal 25 mg PA Q6H PRN #12 ea 07/31/21 suppository Allergies Allergy/AdvReac Type Severity Reaction Status Date / Time No Known Drug Allergies Allergy Unknown none Unverified 07/31/21 08:20 General Stated Complaint: Abd Prob ELISHA: 3 Review of Systems Constitutional Constitutional: Reports chills, Reports fever(s) (Subjective) and Reports poor appetite Cardiovascular Cardiovascular: Denies chest pain and Denies dyspnea Respiratory Respiratory: Denies cough and Denies dyspnea Gastrointestinal Gastrointestinal: Reports as per HPI, Reports abdominal pain, Denies melena, Denies change in bowel habits, Denies constipation, Denies diarrhea, Reports nausea and Reports vomiting Genitourinary Genitourinary: Denies hematuria, Denies urinary incontinence, Denies urinary hesitancy and Denies urinary urgency Integumentary/Breasts Skin/Breast: Denies rash PFSH All Active Problems (Updated 07/31/21 @ 15:47 by Hamilton Crowder, [employer]) Abdominal pain (Acute) Nausea & vomiting (Acute) Discharged to home (Acute) Ovarian cyst (Acute) Previous delivery, delivered (Acute 06/12/14) Outcome of delivery, single liveborn (Acute 06/12/14) Encounter for sterilization (Acute 06/12/14) Depression with anxiety (Chronic) Headache (Chronic) H/O surgical procedure (Chronic) a. two previous C-sections Gestational thrombocytopenia (Acute 06/12/14) Pancreatitis (Acute) Medical History Anxiety treated with Paroxitine. restarted 05/06/14 for recurrence of anxiety Depression Rx with Trazadone to assist sleep. Migraine after of second child. vision changes prior to H/A. On triptans prior to current preg. followed by neurology. Surgical History Adenoidectomy section X 2 Cholecystectomy (06/24/16) myringotomy Previous section (04/22/14) S/P tubal ligation Family History Father Diabetes Stroke age 57 Mother No problems noted. Brother No problems noted. Sister No problems noted. Social History Smoking/Tobacco Use Status: Current every day Smoking risk assessment performed?: Yes Alcohol Intake: current Substance use type: does not use Do you feel safe at home: Yes Do you feel safe in your relationship?: Yes Female Reproductive History Menstrual Date of last menstrual period: 07/13/21 Exam Const General: cooperative, acute distress moderate, anxious and ill appearing acutely Orientation: alert, awake and oriented x3 Resp Effort & Inspection: normal respiratory effort and able to speak in complete sentences Auscultation: clear to auscultation bilaterally Cardio Rate: regular rate Rhythm: regular rhythm Heart Sounds: S1 normal and S2 normal GI Palpation: soft, no hepatosplenomegaly, not firm, guarding in the RLQ, no masses, no pulsatile masses, not rigid, no splenomegaly and tender Auscultation: hypoactive bowel sounds Back/Spine/Pelvis Back: no CVA tenderness Neuro General: patient alert, patient awake, patient oriented x3, gait normal and moves all extremities Course Vital Signs Vital signs: Vital Signs Temperature 36.4 C L 07/27/21 08:20 Pulse 65 07/27/21 08:20 Blood Pressure 100/71 07/27/21 08:20 Pulse Oximetry 100 07/27/21 08:20 Temperature 36.4 C L 07/27/21 08:20 Temperature Source Temporal Artery Scan 07/27/21 08:20 Pulse 65 07/27/21 08:20 Respiratory Effort Non-Labored 07/27/21 08:28 Blood Pressure 100/71 07/27/21 08:20 Blood Pressure Position Supine 07/27/21 08:20 Pulse Oximetry 100 07/27/21 08:20 Oxygen Delivery Method Room Air 07/27/21 08:20 Oxygen Flow Rate 0 07/27/21 08:20 PAWSS Have you Been Recently Intoxicated or Drunk Within the Last 30 days?: No Have you Ever Experienced Previous Episodes of Alcohol Withdrawal?: No Have you ever Experienced Withdrawal Seizures?: No Have you ever Experienced Delirium Tremens(DT)s?: No Have you ever undergone Alcohol Rehabilitation Treatment (i.e, inpt ot outpatient treatment programs)?: No Have you ever Experienced Blackouts?: No Have you ever Combined Alcohol with other Downers within the last 90 days?: No Have you ever Combined Alcohol with any other Substance of Abuse during the last 90 days?: No Positive Blood Alcohol level on Presentation? [PCS.BAL]: No Evidence of Increased Autonomic Activity (i.e. HR>120, tremor, sweating, agitation, nausea)?: No Result: 0
[2021-07-27] MEDS: Normal Saline 1,000 ML 1000 ML IV (08:40)
[2021-07-27 08:48] LABS: Abs Immature Grans 0.02 10^3/uL (0.0-0.06); Absolute Basophil Count 0.03 10^3/uL (0.0-0.2); Absolute Eosinophil Count 0.16 10^3/uL (0.0-0.7); Absolute Lymphocyte Count 3.14 10^3/uL (1.2-3.4); Absolute Neutrophil Count 5.58 10^3/uL (1.2-6.7); Basophils % 0.3; Eosinophils % 1.7; HCT 40.7 % (36.0-46.0); HGB 13.4 g/dL (11.2-15.7); Immature Grans % 0.2; Lymphocytes % 33.3; MCH 29.7 pg (27.0-33.0); MCHC 32.9 % (32.0-36.0); MCV 90.2 fL (80-95); MPV 11.1 fL (8.0-11.0); Monocytes % 5.3; Neutrophils % 59.2; Nucleated RBC 0 %; Platelet Count 181 10^3/uL (130-400); RBC 4.51 10^6/uL (3.93-5.22); RDW 12.2 % (11.7-14.6); RDW-SD 39.8 fL; WBC 9.43 10^3/uL (4.4-10.8)
[2021-07-27] MEDS: HYDROmorphone 2 MG/ML VIAL 1 MG IVP (08:52)
[2021-07-27] MEDS: Ondansetron 4 MG/2 ML VIAL IVP ×2 (08:52→22:39)
--- NOTE | 2021-07-27 09:00 | DI.CT_ITS ---
Exam(s) CT ABDOMEN PELVIS W EXAM: CT ABDOMEN PELVIS W CLINICAL HISTORY: RLQ pain. TECHNIQUE: Imaging Protocol: Axial computed tomography images with coronal and sagittal reformatted images were created and reviewed CONTRAST MATERIAL: Intravenous: Omnipaque 100cc Oral: None COMPARISON: No exams were available for comparison FINDINGS: VISUALIZED LUNG BASES: No nodules nor pleural effusions evident. ABDOMEN: There is no ascites. LIVER: There are no focal hepatic lesions evident . GALLBLADDER/BILIARY: The gallbladder surgically absent. CBD is not dilated. PANCREAS: No evidence of pancreatic mass nor dilatation of the pancreatic duct. SPLEEN: Spleen is not enlarged. No obvious intrasplenic lesions. Splenic and portal veins are paten t. ADRENALS: There are no significant adrenal masses. KIDNEYS:There is a benign cyst in the superior pole of the right kidney which measures 1.7 x 1.5 cm. No other significant focal renal findings. No solid renal masses. No calculi nor hydronephrosis.. ABDOMINAL AORTA: Abdominal aorta is not enlarged. LYMPH NODES:There is no retroperitoneal nor paraaortic adenopathy. ABDOMINAL WALL: No evidence of significant anterior abdominal wall nor inguinal hernia. GI: There is no evidence of bowel obstruction, free air, nor abscess. PELVIS: Limitation: There is some motion artifact in the pelvis GI: The appendix is difficult to locate.No evidence of sigmoid diverticulitis. LYMPH NODES: There is no intrapelvic nor inguinal adenopathy. REPRODUCTIVE: There is an enhancing 1.8 x 1.6 by 2.0 cm finding in what appears to be the right ovary . This is probably a crenated in ovarian cyst. No other right adnexal findings. Left ovary unremar kable. Uterus size is age-appropriate. There is no free fluid in the pelvis. URINARY BLADDER: No calculi nor obvious masses evident OSSEOUS: No significant osseous lesions. IMPRESSION: 1. There is an 18 x 16 x 20 millimeter enhancing finding in the right ovary which is probably a colla psing cyst. No other adnexal findings nor free fluid. 2. The appendix is difficult to locate as a distinct structure on this study but there does not appea r to be obvious evidence of acute appendicitis. 3. There is a solitary 17 x 15 millimeter benign cyst in the superior pole the right kidney. No grace d renal masses. 4. Gallbladder surgically absent. Biliary tree is not dilated Report called by myself to ER position RADIATION DOSE DELIVERED: 885.75mGy.cm Total DLP DATA REPOSITORY: All CT scans at this facility are submitted to the National Radiology Data Registry (NRDR) Dose Index Registry (DIR) with the [employer] ([employer]). RADIATION OPTIMIZATION: All CT scans at this facility use at least one of these dose optimization te chniques: automated exposure control; mA and/or kV adjustment per patient size (includes targeted exa ms where dose is matched to clinical indication); or iterative reconstruction.
[2021-07-27 09:13] LABS: ALT 17 U/L (14-59); AST 16 U/L (15-37); Albumin 3.9 g/dL (3.4-5.0); Alkaline Phosphatase 79 U/L (46-116); Anion Gap 12.5 mmol/L (3-11); BUN 9 mg/dL (7-18); Bilirubin, Total 0.4 mg/dL (0.2-1.0); CO2 24.5 mmol/L (21.0-32.0); CREATININE 0.9 mg/dL (0.55-1.02); Calcium 9.1 mg/dL (8.5-10.1); Chloride 101 mmol/L (98-107); Glucose 151 mg/dL (74-106); Lipase 722 U/L (73-393); Magnesium 1.8 mg/dL (1.8-2.4); Potassium 3.3 mmol/L (3.5-5.1); Sodium 138 mmol/L (136-145); Total Protein 7.7 g/dL (6.4-8.2)
[2021-07-27 09:15] LABS: Bilirubin Negative (Negative); Blood Negative (Negative); Clarity Cloudy (Clear); Glucose Negative (Negative); Ketones 40 mg/dL (Negative); Leukocyte Esterase Trace (Negative); Nitrite Negative (Negative); Specific Gravity 1.015 (1.005-1.025); Urobilinogen 0.2 EU/dL (Up TO 0.2); pH >= 9.0 (5-8)
[2021-07-27 09:28] LABS: Bacteria Few HPF (Negative); C & S Indicated? No/Sq. Contamination; Casts Negative LPF (Negative); Crystals Negative HPF (Negative); Epithelial Cells Many HPF (Negative); Mucus Negative (Negative); RBC Negative HPF (0-2); WBC 0-2 HPF (0-5)
[2021-07-27] MEDS: Omnipaque 350 MG/ML 100 ML BTL IJ (09:28)
--- NOTE | 2021-07-27 10:00 | DI.US_ITS ---
Exam(s) US PELVIS EXAM: US PELVIS CLINICAL HISTORY: RLQ pain TECHNIQUE: Ultrasound of the pelvis was performed transabdominally. The patient apparently refused transvaginal study. COMPARISON: CT CT ABDOMEN PELVIS W from 07/27/2021 FINDINGS: UTERUS: Nongravid and anteverted Measures 11 cm length x 4 cm AP x 5 cm wide. There are no uterine fibroids. Endometrial thickness measures 9-10 mm. There is no fluid in the endometrial canal. CERVIX: There are no obvious nabothian cysts. RIGHT OVARY: Measures 3.4 x 3.5 x 2.9 cm. There is a 2 x 1.8 cm cyst in the left ovary which appears partially exophytic. No free fluid. LEFT OVARY: Measures 3.4 x 3.5 x 2.9 cm No significant cysts nor masses evident in the left ovary. CUL-DE-SAC: No free fluid evident. IMPRESSION: 1. Normal appearing uterus and age-appropriate endometrium. 2. Two centimetres cyst in left ovary. 3. No free fluid evident in the adnexal regions and cul-de-sac. Please note that this patient refused transvaginal ultrasound examination. Therefore correlation wit h findings on the recent CT scan is somewhat difficult DATA REPOSITORY:
--- NOTE | 2021-07-27 11:15 | RT.EKG_ITS ---
APPROVED REPORT Exam: Resting ECG Reason for Exam: Bradycardia Patient Location: E HR:59 bpm ECG Measurements Heart Rate 59 AXIS CO 164 P 68 QRSd 86 QRS 67 QT 440 T 35 QTc 437 Conclusion Sinus bradycardia...rate< 60 no STEMI I have reviewed and interpreted ECG and agree with software generated interpretation.
[2021-07-27 13:22] LABS: Source Nasal/Nares
[2021-07-27 14:22] LABS: COVID-19 PCR Negative (Negative)
--- NOTE | 2021-07-27 15:39 | HPE_ITS ---
Date of service: 07/27/21 Time of Service: 15:39 Assessment and Plan Assessment and plan (1) Pancreatitis: Status: Acute Assessment and plan: Possibly related to recent alcohol ingestion although the patient tends to minimize the amount of drinking that she does. She reportedly had only 2-3 twisted ice teas on Tuesday and reportedly only has a couple of drinks per week. Patient has a remote history of pancreatitis associated with gallstones for which she underwent ERCP and subsequent cholecystectomy in 2017. I will get an MRCP in the morning to evaluate her pancreatic duct and common bile duct. If this is negative then we will treat this as an acute pancreatitis secondary to alcohol use. Continue gentle IV fluid hydration as she does appear to be somewhat dehydrated. Need to avoid aggressive overhydration as this could increase her intra-abdominal pressures. Treat her with analgesics and antiemetics. If she spikes a fever tonight that she should have blood cultures and put her on imipenem or ertapenem empirically. However CT finding of her pancreas is reassuring as there is no cyst or pseudocyst and no peripancreatic fluid collection. (2) Ovarian cyst: Status: Acute Assessment and plan: We will ask ELE[employer] WINDING MACHINE TENDER to consult regarding her ovarian cyst. This is probably a fu nctional cyst. Patient status post tubal ligation but still has periods and her last menstrual period was 2 weeks ago therefore she is probably midcycle and currently ovulating. Review of Systems Constitutional Constitutional: Reports chills, Denies fever(s) and Reports poor appetite Eyes Eyes: Reports system reviewed and no additional complaints, except as documented ENT Ears, Nose, Mouth, and Throat: Reports system reviewed and no additional complaints, except as documented Cardiovascular Cardiovascular: Reports system reviewed and no additional complaints, except as documented Respiratory Respiratory: Reports system reviewed and no additional complaints, except as documented Gastrointestinal Gastrointestinal: Reports abdominal pain, Denies diarrhea, Reports nausea, Reports vomiting (yellow bile) and Denies hematemesis Genitourinary Genitourinary: Reports system reviewed and no additional complaints, except as documented Musculoskeletal Musculoskeletal: Reports system reviewed and no additional complaints, except as documented Integumentary/Breasts Skin/Breast: Reports system reviewed and no additional complaints, except as documented Neurologic Neurologic: Reports system reviewed and no additional complaints, except as documented Endocrine Endocrine: Reports system reviewed and no additional complaints, except as documented Hematologic/Lymphatic Hematologic/Lymphatic: Reports system reviewed and no additional complaints, except as documented PFSH All Active Problems (Updated 07/27/21 @ 19:24 by Nelson Turner) Ovarian cyst (Acute) Previous delivery, delivered (Acute 06/12/14) Outcome of delivery, single liveborn (Acute 06/12/14) Encounter for sterilization (Acute 06/12/14) Depression with anxiety (Chronic) Headache (Chronic) H/O surgical procedure (Chronic) a. two previous C-sections Gestational thrombocytopenia (Acute 06/12/14) Pancreatitis (Acute) Medical History (Updated 07/27/21 @ 19:24 by Nelson Turner) Anxiety treated with Paroxitine. restarted 05/06/14 for recurrence of anxiety Depression Rx with Trazadone to assist sleep. Migraine after of second child. vision changes prior to H/A. On triptans prior to current preg. followed by neurology. Surgical History (Updated 07/27/21 @ 19:16 by Nelson Turner) Adenoidectomy section X 2 Cholecystectomy (06/24/16) myringotomy Previous section (04/22/14) S/P tubal ligation Family History (Updated 07/27/21 @ 19:20 by Nelson Turner) Father Diabetes Stroke age 57 Mother No problems noted. Brother No problems noted. Sister No problems noted. Social History Smoking/Tobacco Use Status: Current every day Smoking risk assessment performed?: Yes Alcohol Intake: current Substance use type: does not use Do you feel safe at home: Yes Do you feel safe in your relationship?: Yes Female Reproductive History Menstrual control method: permanent sterilization (s/p tubal ligation) Meds Allergies and Home Medications Allergies Allergy/AdvReac Type Severity Reaction Status Date / Time No Known Drug Allergies Allergy Unknown none Unverified 03/09/19 08:34 Home Medications Medication Instructions Recorded Confirmed Type acetaminophen 500 mg tablet (Mapap 1,000 mg PO Q6H PRN PRN tab 06/29/16 03/09/19 Rx Extra Strength) ibuprofen 600 mg tablet 600 mg PO QID PRN 03/09/19 03/09/19 History buprenorphine 8 mg-naloxone 2 mg 2 film SUBLINGUAL DAILY 07/27/21 07/27/21 History sublingual film (Suboxone) paroxetine HCl 20 mg tablet 20 mg PO DAILY 07/27/21 07/27/21 History prazosin 2 mg capsule 2 mg PO HS PRN PRN 07/27/21 07/27/21 History Exam Narrative Exam Narrative: Young white female lying in bed trying to rest. She opens her eyes and answers me appropriately. She is alert and oriented. HEENT dry mucous membranes of her mouth teeth are in fair repair she does have some missing incisors in her lower jaw. No exudate. Neck is supple no JVD normal carotid pulses Lungs with scattered inspiratory and expiratory wheezing. Heart is regular without murmur rub or gallop. Abdomen is soft mildly tender in the epigastrium without rebound tenderness or guarding no palpable masses no bruits no ascitic fluid wave. Lower extremities without peripheral cyanosis or edema. She has a Yoruba tattoo in the right lower lateral tibia. Results Imaging Abdomen CT scan report/results: report reviewed (IMPRESSION: 1. There is an 18 x 16 x 20 millimeter enhancing finding in the right ovary which is probably a collapsing cyst. No other adnexal findings nor free fluid. 2. The appendix is difficult to locate as a distinct structure on this study but there does not appear to be obvious evidence of a) Abdominal ultrasound report/results: report reviewed Imaging Studies: FINDINGS: UTERUS: Nongravid and anteverted Measures 11 cm length x 4 cm AP x 5 cm wide. There are no uterine fibroids. Endometrial thickness measures 9-10 mm. There is no fluid in the endometrial canal. CERVIX: There are no obvious nabothian cysts. RIGHT OVARY: Measures 3.4 x 3.5 x 2.9 cm. There is a 2 x 1.8 cm cyst in the left ovary which appears partially exophytic.? No free fluid. LEFT OVARY: Measures 3.4 x 3.5 x 2.9 cm No significant cysts nor masses evident in the left ovary. CUL-DE-SAC: No free fluid evident. IMPRESSION: 1. Normal appearing uterus and age-appropriate endometrium. 2. Two centimetres cyst in left ovary. 3. No free fluid evident in the adnexal regions and cul-de-sac. Please note that this patient refused transvaginal ultrasound examination.? The refore correlation with findings on the recent CT scan is somewhat difficult Labs Result diagrams: 07/27/21 08:28 07/27/21 08:28 Labs: Laboratory Results - last 24 hr 07/27/21 07/27/21 07/27/21 08:28 08:28 08:55 WBC 9.43 RBC 4.51 Hgb 13.4 Hct 40.7 MCV 90.2 MCH 29.7 MCHC 32.9 RDW 12.2 Plt Count 181 MPV 11.1 H Immature Gran % 0.2 Neutrophils % 59.2 Lymphocytes % 33.3 Monocytes % 5.3 Eosinophils % 1.7 Basophils % 0.3 Nucleated RBC % 0 Absolute Neutrophils 5.58 Absolute Lymphocytes 3.14 Absolute Monocytes 0.50 Absolute Eosinophils 0.16 Absolute Basophils 0.03 Sodium 138 Potassium 3.3 L Chloride 101 Carbon Dioxide 24.5 Anion Gap 12.5 H BUN 9 Creatinine 0.9 Estimated GFR/1.73 m2 >= 60.00 Glucose 151 H Calcium 9.1 Magnesium 1.8 Total Bilirubin 0.4 AST 16 ALT 17 Alkaline Phosphatase 79 Total Protein 7.7 Albumin 3.9 Lipase 722 H Urine Color Yellow Urine Clarity Cloudy Urine pH >= 9.0 H Ur Specific [place] 1.015 Urine Protein 100 H Urine Ketones 40 H Urine Blood Negative Urine Nitrite Negative Urine Bilirubin Negative Urine Urobilinogen 0.2 Ur Leukocyte Esterase Trace H Urine RBC Negative Urine WBC 0-2 Ur Epithelial Cells Many Urine Crystals Negative Urine Bacteria Few Urine Casts Negative Urine Mucus Negative Ur Culture Indicated? No/Sq. Contamination Urine Glucose Negative COVID-19 Source SARS-CoV-2 (PCR) 07/27/21 13:15 WBC RBC Hgb Hct MCV MCH MCHC RDW Plt Count MPV Immature Gran % Neutrophils % Lymphocytes % Monocytes % Eosinophils % Basophils % Nucleated RBC % Absolute Neutrophils Absolute Lymphocytes Absolute Monocytes Absolute Eosinophils Absolute Basophils Sodium Potassium Chloride Carbon Dioxide Anion Gap BUN Creatinine Estimated GFR/1.73 m2 Glucose Calcium Magnesium Total Bilirubin AST ALT Alkaline Phosphatase Total Protein Albumin Lipase Urine Color Urine Clarity Urine pH Ur Specific [place] Urine Protein Urine Ketones Urine Blood Urine Nitrite Urine Bilirubin Urine Urobilinogen Ur Leukocyte Esterase Urine RBC Urine WBC Ur Epithelial Cells Urine Crystals Urine Bacteria Urine Casts Urine Mucus Ur Culture Indicated? Urine Glucose COVID-19 Source Nasal/Nares SARS-CoV-2 (PCR) Negative Last Vital Signs Temp 36.6 C 07/27/21 15:27 Pulse 45 L 07/27/21 15:27 Resp 14 07/27/21 15:27 BP 140/90 07/27/21 15:27 Pulse Ox 99 07/27/21 15:27 PAWSS Have you Been Recently Intoxicated or Drunk Within the Last 30 days?: No Have you Ever Experienced Previous Episodes of Alcohol Withdrawal?: No Have you ever Experienced Withdrawal Seizures?: No Have you ever Experienced Delirium Tremens(DT)s?: No Have you ever undergone Alcohol Rehabilitation Treatment (i.e, inpt ot ou tpatient treatment programs)?: No Have you ever Experienced Blackouts?: No Have you ever Combined Alcohol with other Downers within the last 90 days?: No Have you ever Combined Alcohol with any other Substance of Abuse during the last 90 days?: No Positive Blood Alcohol level on Presentation? [PCS.BAL]: No Evidence of Increased Autonomic Activity (i.e. HR>120, tremor, sweating, agitation, nausea)?: No Result: 0
[2021-07-27] MEDS: Normal Saline Flush 10 ML SYR IVP ×3 (16:22→22:39)
[2021-07-27] MEDS: Lactated Ringers 1,000 ML 100 ML IV (16:22)
[2021-07-27] MEDS: POTASSIUM CHLORIDE 10 MEQ/100 ML BAG 100 MEQ IVPB ×2 (19:52→21:46)
[2021-07-27] MEDS: Levalbuterol 1.25 MG/3 ML UPD VIAL UPD (20:12)
[2021-07-27] MEDS: Enoxaparin 40 MG/0.4 ML SYR SC (20:13)
[2021-07-27] MEDS: ACETAMINOPHEN 1,000 MG/100 ML BTL 400 MG IVPB (21:12)
[2021-07-27 22:27] LABS: Lab Add On Test DONE
[2021-07-27] MEDS: HYDROmorphone 2 MG/ML SYR IVP (22:39)
[2021-07-27 22:42] LABS: Calculated LDL 144 mg/dL (<100); Cholesterol 218 mg/dL (<200); HDL Cholesterol 55 mg/dL (40-60); Triglyceride 96 mg/dL (<150)
[2021-07-27] MEDS: IMIPENEM/CILASTATIN 1,000 MG in Normal Saline 250 ML 250 MG IVPB (23:25)
[2021-07-28] VITALS (11 sets, daily range): BP systolic 103–160; BP diastolic 67–101; PULSE 52–92; RESP 2–20; TEMP 36.3–37.7; O2SAT 96–100
[2021-07-28 06:37] LABS: Abs Immature Grans 0.03 10^3/uL (0.0-0.06); Absolute Basophil Count 0.02 10^3/uL (0.0-0.2); Absolute Eosinophil Count 0.01 10^3/uL (0.0-0.7); Absolute Lymphocyte Count 2.36 10^3/uL (1.2-3.4); Absolute Monocyte Count 0.63 10^3/uL (0.1-0.8); Absolute Neutrophil Count 7.14 10^3/uL (1.2-6.7); Basophils % 0.2; Eosinophils % 0.1; HCT 34.1 % (36.0-46.0); HGB 11.2 g/dL (11.2-15.7); Immature Grans % 0.3; Lymphocytes % 23.2; MCHC 32.8 % (32.0-36.0); MCV 91.4 fL (80-95); Monocytes % 6.2; Nucleated RBC 0 %; Platelet Count 152 10^3/uL (130-400); RBC 3.73 10^6/uL (3.93-5.22); RDW 12.8 % (11.7-14.6); RDW-SD 42.3 fL; WBC 10.19 10^3/uL (4.4-10.8)
[2021-07-28 06:43] LABS: ALT 14 U/L (14-59); AST 11 U/L (15-37); Albumin 2.8 g/dL (3.4-5.0); Alkaline Phosphatase 61 U/L (46-116); Anion Gap 9.2 mmol/L (3-11); BUN 6 mg/dL (7-18); Bilirubin, Total 0.3 mg/dL (0.2-1.0); CO2 24.8 mmol/L (21.0-32.0); CREATININE 0.6 mg/dL (0.55-1.02); Calcium 7.7 mg/dL (8.5-10.1); Chloride 107 mmol/L (98-107); Glucose 122 mg/dL (74-106); Magnesium 1.7 mg/dL (1.8-2.4); Potassium 3.7 mmol/L (3.5-5.1); Sodium 141 mmol/L (136-145); Total Protein 5.9 g/dL (6.4-8.2)
[2021-07-28] MEDS: IMIPENEM/CILASTATIN 1,000 MG in Normal Saline 250 ML 250 MG IVPB ×3 (06:48→22:11)
[2021-07-28] MEDS: Levalbuterol 1.25 MG/3 ML UPD VIAL UPD ×3 (07:24→20:07)
[2021-07-28] MEDS: Normal Saline Flush 10 ML SYR IVP ×5 (08:37→21:47)
--- NOTE | 2021-07-28 11:35 | DI.MRI_ITS ---
Exam(s) MR ABDOMEN WO EXAM: MR ABDOMEN WO CLINICAL HISTORY: pancreatitis TECHNIQUE: Multiplanar multisequence MRA of the Abdomen was performed. COMPARISON: CT CT ABDOMEN PELVIS W from 07/27/2021 FINDINGS: Liver: Unremarkable. Pancreas: Unremarkable. Gallbladder and Bile Ducts: The patient is status post cholecystectomy. There is no biliary ductal d ilatation. No filling defects are seen in the bile ducts. Adrenals: Unremarkable. Kidneys: There is a simple cyst in the superior pole of the right kidney. No follow-up is recommende d. Spleen: Unremarkable. Bowel: Unremarkable. Aorta: Unremarkable. Soft Tissues: Unremarkable. Bone: Unremarkable. Lymph Nodes: Unremarkable. Ascites: There is a trace amount of free fluid in the abdomen. IMPRESSION: 1. Unremarkable appearance of the pancreas. 2. Trace amount of free fluid in the abdomen. 3. No evidence of biliary ductal dilatation. No filling defects are seen in the bile ducts. DATA REPOSITORY:
--- NOTE | 2021-07-28 11:44 | PDOC.CMIN ---
- If Service Date Differs Date of service: 07/28/21 Time of Service: 11:44 Care Management Initial Assess REASON FOR HOSPITALIZATION:: Acute pancreatitis PAST MEDICAL HISTORY/PAST SURGICAL HISTORY:: Medical History (Updated 07/27/21 @ 19:24 by Nelson Turner). Anxiety. treated with Paroxitine. restarted 05/06/14 for recurrence of anxiety. Depression. Rx with Trazadone to assist sleep. Migraine. after of second child. vision changes prior to H/A. On triptans prior to current preg. followed by neurology. Surgical History (Updated 07/27/21 @ 19:16 by Nelson Turner). Adenoidectomy. section. X 2. Cholecystectomy (06/24/16). myringotomy. Previous section (04/22/14). S/P tubal ligation PREVIOUS FUNCTIONAL STATUS/SOCIAL/FAMILY SUPPORTS:: Neva resides locally with her boyfriend, Faustino and their three children. She reports one of the children is outside of the home at this time but will be returning in September. Their two daughter are 7 and 10 years old. Neva does not currently work, but she states that Faustino does. She identifies no areas of concern or additional supports or services needed at this time. Neva is independent at baseline. CURRENT FUNCTIONAL STATUS:: Neva remains on Med/Surg with gentle IVF, analgesics and antiemetics per MD for pancreatitis. She is up independently at this time. Neva was lying in bed when CM met with her, she was pleasant in interaction and shared no concerns at this time. She remains NPO. ADVANCE DIRECTIVES:: None on file. Has patient been provided with info about the portal/API?: Yes Did the patient sign up for the portal?: No CODE STATUS:: Full Code INSURANCE COVERAGE / FINANCIAL ISSUES:: Medicaid CURRENT HOME/COMMUNITY SERVICES/EQUIPMENT:: No current services or equipment. PRIMARY CARE PHYSICIAN:: Renetta Flores POTENTIAL DISCHARGE NEEDS:: Follow up appointments. PATIENT/FAMILY EDUCATION NEEDS:: Review discharge instructions, discuss [facility] Me [employer]. ANTICIPATED BARRIERS TO DISCHARGE:: None identified. TRANSPORTATION:: Via private vehicle with her boyfriend. PLAN:: Neva continues to be closely monitored and treated. CM continues to follow. She will follow up with her community providers, her plan of care as prescribed and transport via private vehicle with her boyfriend.
--- NOTE | 2021-07-28 16:00 | W.PM.PROGNOT ---
Date of Service Date of service: 07/28/21 Time of Service: 13:30 Assessment and Plan Assessment and plan (1) Pancreatitis: Status: Acute Assessment and plan: ETOH related pancreatitis MRCP: ?Unremarkable appearance of the pancreas;Trace amount of free fluid in the abdomen;no evidence of biliary ductal dilatation.?No filling defects are seen in the bile ducts.? will treat this as an acute pancreatitis secondary to alcohol use Ascites: There is a trace amount of free fluid in the abdomen; avoiding aggressive overhydration. If advanced diet is well tolerated, IVF will be stopped. Temperature 99.5 & 99.7: On imipenem; Blood cultures from last night still pending. (2) Pain: Status: Acute Assessment and plan: Will continue PRN Hydromorphone regimen for pain management (3) DVT prophylaxis: Status: Acute Assessment and plan: Pt is on Enoxaparin (4) Nausea & vomiting: Status: Acute Assessment and plan: Last vomiting episode was last night Will continue PRN antiemetic regimen for nausea and vomiting Subjective Subjective Patient reports: feels better, still having pain (tolerable 4/10), pain is less, voiding w/o difficulty, flatus, no bowel movement, afebrile and other (tolerating ice chips.); denies nausea, vomiting or shortness of breath Exam Narrative Exam Narrative: Patient is alert and oriented. HEENT dry mucous membranes; IVF in progress. Const General: cooperative and no acute distress [facility] Head: normal to inspection, normocephalic and atraumatic Eyes General: appearance normal, both eyes and all related structures Neck Neck: normal visual inspection and full ROM Chest Chest: normal inspection of the chest Resp Auscultation: clear to auscultation bilaterally Cardio Rhythm: regular rhythm Heart Sounds: S1 normal and S2 normal Pulses: radial pulses present and dorsalis pedis present GI Inspection: normal to inspection Palpation: soft, no guarding and tender in the epigastrum and in the LUQ Auscultation: normoactive bowel sounds Other: Voiding QS Skin General skin exam: no rashes or lesions noted Neuro General: patient alert, patient oriented x3, gait normal and moves all extremities Cognition: normal cognition Speech: speech normal Gait: normal gait Motor: muscle tone normal throughout Extrem General: normal to inspection and full ROM Psych Appearance: grossly normal Mental Status: mental status grossly normal Speech and Movement: speech and movement normal Mood: congruent mood Affect: sad Attitude: cooperative Objective Last Vital Signs Temp 99.5 F 07/28/21 15:15 Pulse 56 L 07/28/21 15:15 Resp 14 07/28/21 15:40 BP 154/101 H 07/28/21 15:15 Pulse Ox 96 07/28/21 15:40 Laboratory Results - last 24 hr 07/27/21 07/27/21 07/28/21 08:28 08:28 06:25 WBC RBC Hgb Hct MCV MCH MCHC RDW Plt Count MPV Immature Gran % Neutrophils % Lymphocytes % Monocytes % Eosinophils % Basophils % Nucleated RBC % Absolute Neutrophils Absolute Lymphocytes Absolute Monocytes Absolute Eosinophils Absolute Basophils Sodium 141 Potassium 3.7 Chloride 107 Carbon Dioxide 24.8 Anion Gap 9.2 BUN 6 L Creatinine 0.6 D Estimated GFR/1.73 m2 >= 60.00 Glucose 122 H Calcium 7.7 L Magnesium 1.7 L Total Bilirubin 0.3 AST 11 L ALT 14 Alkaline Phosphatase 61 Total Protein 5.9 L Albumin 2.8 L Triglycerides 96 Total Cholesterol 218 H LDL Cholesterol, Calc 144 H HDL Cholesterol 55 Add-On Test Request DONE 07/28/21 06:25 WBC 10.19 RBC 3.73 L Hgb 11.2 D Hct 34.1 L MCV 91.4 MCH 30.0 MCHC 32.8 RDW 12.8 Plt Count 152 MPV 11.0 Immature Gran % 0.3 Neutrophils % 70.0 Lymphocytes % 23.2 Monocytes % 6.2 Eosinophils % 0.1 Basophils % 0.2 Nucleated RBC % 0 Absolute Neutrophils 7.14 H Absolute Lymphocytes 2.36 Absolute Monocytes 0.63 Absolute Eosinophils 0.01 Absolute Basophils 0.02 Sodium Potassium Chloride Carbon Dioxide Anion Gap BUN Creatinine Estimated GFR/1.73 m2 Glucose Calcium Magnesium Total Bilirubin AST ALT Alkaline Phosphatase Total Protein Albumin Triglycerides Total Cholesterol LDL Cholesterol, Calc HDL Cholesterol Add-On Test Request PAWSS Have you Been Recently Intoxicated or Drunk Within the Last 30 days?: No Have you Ever Experienced Previous Episodes of Alcohol Withdrawal?: No Have you ever Experienced Withdrawal Seizures?: No Have you ever Experienced Delirium Tremens(DT)s?: No Have you ever undergone Alcohol Rehabilitation Treatment (i.e, inpt ot outpatient treatment programs)?: No Have you ever Experienced Blackouts?: No Have you ever Combined Alcohol with other Downers within the last 90 days?: No Have you ever Combined Alcohol with any other Substance of Abuse during the last 90 days?: No Positive Blood Alcohol level on Presentation? [PCS.BAL]: No Evidence of Increased Autonomic Activity (i.e. HR>120, tremor, sweating, agitation, nausea)?: No Result: 0
[2021-07-28] MEDS: Ondansetron 4 MG/2 ML VIAL IVP ×2 (16:07→20:07)
[2021-07-28] MEDS: HYDROmorphone 2 MG/ML SYR IVP (16:14)
[2021-07-28] MEDS: ACETAMINOPHEN 1,000 MG/100 ML BTL 400 MG IVPB (18:18)
[2021-07-28] MEDS: HYDROmorphone 2 MG/ML SYR 0.5 MG IVP (20:07)
[2021-07-28] MEDS: Lactated Ringers 1,000 ML 100 ML IV (23:48)
[2021-07-29] VITALS (12 sets, daily range): BP systolic 117–187; BP diastolic 72–114; PULSE 47–77; RESP 5–18; TEMP 37.5–38; O2SAT 95–100
[2021-07-29] MEDS: Normal Saline Flush 10 ML SYR IVP ×4 (01:36→13:26)
[2021-07-29] MEDS: HYDROmorphone 2 MG/ML SYR 0.5 MG IVP ×4 (01:36→19:29)
[2021-07-29] MEDS: IMIPENEM/CILASTATIN 1,000 MG in Normal Saline 250 ML 250 MG IVPB (05:51)
[2021-07-29] MEDS: Levalbuterol 1.25 MG/3 ML UPD VIAL UPD ×4 (07:20→19:29)
[2021-07-29] MEDS: Lactated Ringers 1,000 ML 100 ML IV ×2 (09:07→22:25)
[2021-07-29] MEDS: ACETAMINOPHEN 1,000 MG/100 ML BTL 400 MG IVPB ×2 (09:10→16:50)
[2021-07-29 10:07] LABS: Lactate 1.3 mmol/L (0.6-1.4)
[2021-07-29 10:12] LABS: Eosinophils % 0.1; HCT 32.7 % (36.0-46.0); HGB 10.9 g/dL (11.2-15.7); Lymphocytes % 23.9; MCH 30.5 pg (27.0-33.0); MCHC 33.3 % (32.0-36.0); MCV 91.6 fL (80-95); MPV 11.1 fL (8.0-11.0); Monocytes % 5.6; Neutrophils % 69.2; Platelet Count 139 10^3/uL (130-400); RBC 3.57 10^6/uL (3.93-5.22); RDW 12.8 % (11.7-14.6); RDW-SD 41.8 fL; WBC 9.17 10^3/uL (4.4-10.8)
[2021-07-29 10:13] LABS: Abs Immature Grans 0.09 10^3/uL (0.0-0.06); Absolute Basophil Count 0.02 10^3/uL (0.0-0.2); Absolute Eosinophil Count 0.01 10^3/uL (0.0-0.7); Absolute Lymphocyte Count 2.19 10^3/uL (1.2-3.4); Absolute Monocyte Count 0.51 10^3/uL (0.1-0.8); Absolute Neutrophil Count 6.35 10^3/uL (1.2-6.7); Basophils % 0.2; Nucleated RBC 0 %
[2021-07-29 10:25] LABS: ALT 19 U/L (14-59); AST 16 U/L (15-37); Alkaline Phosphatase 51 U/L (46-116); Anion Gap 7.6 mmol/L (3-11); BUN 6 mg/dL (7-18); Bilirubin, Total 0.4 mg/dL (0.2-1.0); CO2 25.4 mmol/L (21.0-32.0); CREATININE 0.7 mg/dL (0.55-1.02); Chloride 106 mmol/L (98-107); Glucose 103 mg/dL (74-106); Lipase 105 U/L (73-393); Potassium 3.4 mmol/L (3.5-5.1); Sodium 139 mmol/L (136-145)
[2021-07-29 10:53] LABS: Procalcitonin < 0.1 ng/mL
--- NOTE | 2021-07-29 11:44 | PGE_ITS ---
Date of Service Date of service: 07/29/21 Time of Service: 11:44 Assessment and Plan Assessment and plan (1) Pancreatitis: Status: Acute Assessment and plan: likely d/t etoh. pain increased today. will make NPO again, fluids restarted. continue pain management, add toradol. afebrile, antibiotics discontinued yesterday. Blood cultures negative to date. repeat labs today unremarkable, will repeat in am. MRCP: ?Unremarkable appearance of the pancreas;Trace amount of free fluid in the abdomen;no evidence of biliary ductal dilatation.?No filling defects are seen in the bile ducts.? (2) Pain: Status: Acute Assessment and plan: Will continue PRN APAP and Hydromorphone regimen for pain management, add toradol. made NPO now in setting of increasing pain (3) DVT prophylaxis: Status: Acute Assessment and plan: Pt is on Enoxaparin (4) Nausea & vomiting: Status: Acute Assessment and plan: Will continue PRN antiemetic regimen for nausea and vomiting (5) Discharge planning issues: Status: Acute Assessment and plan: plan to discharge to home with no services alcohol cessation discussed and outpatient resources will be offered. discussed with Dr Hutchison Subjective Subjective Patient reports: still having pain, voiding w/o difficulty, bowel movement and afebrile; denies tolerating liquids well, tolerating a regular diet or shortness of breath Interval history since last seen: pain is worse after having clear liquids for breakfast. no fever. Exam Const General: cooperative, in distress moderate, disheveled and ill appearing acutely Nutritional Appearance: overweight Orientation: alert, awake and oriented x3 HENMT Head: normal to inspection and normocephalic Mouth: oral mucosae normal and moist mucous membranes abnormal (dry lips and muc albino) Resp Effort & Inspection: normal respiratory effort Auscultation: clear to auscultation bilaterally Cardio Rate: regular rate Rhythm: regular rhythm GI Inspection: normal to inspection and obesity Palpation: soft, not firm, no guarding, no masses and tender in the epigastrum Auscultation: normal bowel sounds Skin General skin exam: no rashes or lesions noted Neuro General: patient alert, patient awake and patient oriented x3 Extrem General: normal to inspection, full ROM and no pedal edema Objective Last Vital Signs Temp 37.5 C 07/29/21 11:28 Pulse 59 L 07/29/21 11:28 Resp 18 04/06/22 11:28 BP 117/72 07/29/21 11:28 Pulse Ox 95 07/29/21 11:28 Laboratory Results - last 24 hr 07/29/21 07/29/21 07/29/21 10:00 10:00 10:00 WBC 9.17 RBC 3.57 L Hgb 10.9 L Hct 32.7 L MCV 91.6 MCH 30.5 MCHC 33.3 RDW 12.8 Plt Count 139 MPV 11.1 H Immature Gran % 1.0 Neutrophils % 69.2 Lymphocytes % 23.9 Monocytes % 5.6 Eosinophils % 0.1 Basophils % 0.2 Nucleated RBC % 0 Absolute Neutrophils 6.35 Absolute Lymphocytes 2.19 Absolute Monocytes 0.51 Absolute Eosinophils 0.01 Absolute Basophils 0.02 VBG Lactate Sodium 139 Potassium 3.4 L Chloride 106 Carbon Dioxide 25.4 Anion Gap 7.6 BUN 6 L Creatinine 0.7 Estimated GFR/1.73 m2 >= 60.00 Glucose 103 Calcium 8.0 L Total Bilirubin 0.4 AST 16 ALT 19 Alkaline Phosphatase 51 C-Reactive Protein 0.40 H Total Protein 6.0 L Albumin 3.0 L Lipase 105 Procalcitonin 07/29/21 07/29/21 10:00 10:00 WBC RBC Hgb Hct MCV MCH MCHC RDW Plt Count MPV Immature Gran % Neutrophils % Lymphocytes % Monocytes % Eosinophils % Basophils % Nucleated RBC % Absolute Neutrophils Absolute Lymphocytes Absolute Monocytes Absolute Eosinophils Absolute Basophils VBG Lactate 1.3 Sodium Potassium Chloride Carbon Dioxide Anion Gap BUN Creatinine Estimated GFR/1.73 m2 Glucose Calcium Total Bilirubin AST ALT Alkaline Phosphatase C-Reactive Protein Total Protein Albumin Lipase Procalcitonin < 0.1 PAWSS Have you Been Recently Intoxicated or Drunk Within the Last 30 days?: No Have you Ever Experienced Previous Episodes of Alcohol Withdrawal?: No Have you ever Experienced Withdrawal Seizures?: No Have you ever Experienced Delirium Tremens(DT)s?: No Have you ever undergone Alcohol Rehabilitation Treatment (i.e, inpt ot outpatient treatment programs)?: No Have you ever Experienced Blackouts?: No Have you ever Combined Alcohol with other Downers within the last 90 days?: No Have you ever Combined Alcohol with any other Substance of Abuse during the last 90 days?: No Positive Blood Alcohol level on Presentation? [PCS.BAL]: No Evidence of Increased Autonomic Activity (i.e. HR>120, tremor, sweating, agitati on, nausea)?: No Result: 0
[2021-07-29] MEDS: Ketorolac 15 MG/ML VIAL IVP ×2 (11:59→17:50)
[2021-07-29] MEDS: Ondansetron 4 MG/2 ML VIAL IVP (13:35)
--- NOTE | 2021-07-29 13:56 | PDOC.CMPRO ---
- If Service Date Differs Date of service: 07/29/21 Time of Service: 13:57 Care Management Progress Note S/O:Neva was sitting up in bed when CM met with her. She readily engaged with CM and was pleasant and cooperative. Yesterday Neva was allowed a regular diet but did not tolerate it well, with an increase in pain and nausea. She has been made NPO again. Neva expressed that she is disappointed as she had hoped to be able to go home soon. She also indicated that she is a bit bored so CM provided her with a coloring book, crayons and puzzle books which she appreciated. A: Neva is a 36 year old woman admitted on 07/27/21 with pancreatitis P: Neva will likely be discharged home with no new services and follow up with her community providers. She will transport via private vehicle with family. CM will continue to provide support to Neva and assess for discharge concerns.
[2021-07-29 20:28] LABS: HCT 34.8 % (36.0-46.0); HGB 11.6 g/dL (11.2-15.7); MCH 30.3 pg (27.0-33.0); MCHC 33.3 % (32.0-36.0); MCV 90.9 fL (80-95); Platelet Count 150 10^3/uL (130-400); RBC 3.83 10^6/uL (3.93-5.22); RDW 12.7 % (11.7-14.6); RDW-SD 42.3 fL; WBC 9.62 10^3/uL (4.4-10.8)
[2021-07-29 20:33] LABS: Lactate 1.6 mmol/L (0.6-1.4)
[2021-07-29] MEDS: HYDROmorphone 2 MG/ML SYR 1 MG IVP (23:26)
[2021-07-30] VITALS (10 sets, daily range): BP systolic 128–180; BP diastolic 76–116; PULSE 49–70; RESP 1–18; TEMP 37.3–37.6; O2SAT 97–99
--- NOTE | 2021-07-30 | DI.RAD_ITS ---
Exam(s) XR CHEST 2V PA LATERAL EXAM: XR CHEST 2V PA LATERAL CLINICAL HISTORY: fever TECHNIQUE: 2D digital imaging was performed of the chest. Two images were obtained. PA and lateral views were obtained. COMPARISON: No exams were available for comparison FINDINGS: MEDIASTINUM: Normal. HEART: Normal. PULMONARY VASCULATURE: Normal. LUNGS: There is a linear infiltrate in the right lung base. PLEURAL SPACE: No pleural effusion or pneumothorax. BONE:Within normal limits for the patient's age. OTHER FINDINGS:Normal. IMPRESSION: Linear infiltrate in the right lung base. This may represent atelectasis, scarring or pneumonia. Pl ease correlate clinically. DATA REPOSITORY: RADIATION DOSE DELIVERED:
[2021-07-30] MEDS: Ketorolac 15 MG/ML VIAL IVP (03:20)
[2021-07-30] MEDS: HYDROmorphone 2 MG/ML SYR 1 MG IVP ×2 (04:44→08:02)
[2021-07-30 07:07] LABS: Abs Immature Grans 0.05 10^3/uL (0.0-0.06); Absolute Basophil Count 0.03 10^3/uL (0.0-0.2); Absolute Eosinophil Count 0.01 10^3/uL (0.0-0.7); Absolute Lymphocyte Count 2.15 10^3/uL (1.2-3.4); Absolute Monocyte Count 0.54 10^3/uL (0.1-0.8); Absolute Neutrophil Count 6.49 10^3/uL (1.2-6.7); Basophils % 0.3; Eosinophils % 0.1; HGB 11.8 g/dL (11.2-15.7); Immature Grans % 0.5; Lymphocytes % 23.2; MCH 30.6 pg (27.0-33.0); MCHC 33.7 % (32.0-36.0); MCV 90.9 fL (80-95); MPV 11.4 fL (8.0-11.0); Monocytes % 5.8; Neutrophils % 70.1; Nucleated RBC 0 %; Platelet Count 158 10^3/uL (130-400); RBC 3.85 10^6/uL (3.93-5.22); RDW 12.7 % (11.7-14.6); RDW-SD 41.9 fL; WBC 9.27 10^3/uL (4.4-10.8)
[2021-07-30 07:27] LABS: ALT 29 U/L (14-59); AST 25 U/L (15-37); Albumin 3.3 g/dL (3.4-5.0); Alkaline Phosphatase 50 U/L (46-116); Anion Gap 7.6 mmol/L (3-11); BUN 7 mg/dL (7-18); Bilirubin, Total 0.6 mg/dL (0.2-1.0); C-Reactive Protein 0.29 mg/dL (0.0-0.3); CO2 26.4 mmol/L (21.0-32.0); CREATININE 0.7 mg/dL (0.55-1.02); Calcium 8.3 mg/dL (8.5-10.1); Chloride 104 mmol/L (98-107); Glucose 88 mg/dL (74-106); Lipase 344 U/L (73-393); Potassium 3.2 mmol/L (3.5-5.1); Sodium 138 mmol/L (136-145); Total Protein 6.2 g/dL (6.4-8.2)
[2021-07-30 07:58] LABS: Lab Add On Test DONE
[2021-07-30] MEDS: Pantoprazole 40 MG VIAL IVP (08:02)
[2021-07-30] MEDS: Lactated Ringers 1,000 ML 100 ML IV (08:06)
[2021-07-30 08:08] LABS: Magnesium 1.9 mg/dL (1.8-2.4)
[2021-07-30] MEDS: Levalbuterol 1.25 MG/3 ML UPD VIAL UPD ×3 (08:10→16:04)
[2021-07-30] MEDS: POTASSIUM CHLORIDE 20 MEQ/100 ML BAG 50 MEQ IVPB ×2 (08:53→11:48)
--- NOTE | 2021-07-30 09:25 | PDOC.CMPRO ---
- If Service Date Differs Date of service: 07/30/21 Time of Service: 09:25 Care Management Progress Note S/O: Neva was sitting up in bed when CM met with her. She readily engaged with CM and was pleasant and cooperative. Neva remains NPO as she did not tolerate diet advancements and continues to have increased pain per MD. Neva expressed disappointment as she had hoped to be able to go home soon. She also indicated that she is a bit bored so CM provided her with a coloring book, crayons and puzzle books which she appreciated. A: Neva is a 36 year old woman admitted on 07/27/21 with pancreatitis P: Neva will likely be discharged home with no new services and follow up with her community providers. She will transport via private vehicle with family. CM will continue to provide support to Neva and assess for discharge concerns.
[2021-07-30] MEDS: PARoxetine 20 MG TAB PO (11:25)
[2021-07-30] MEDS: Buprenorphine/Naloxone 8 mg/2 mg FILM 2 EACH SL (11:25)
--- NOTE | 2021-07-30 11:28 | W.PM.PROGNOT ---
Assessment and Plan Assessment and plan (1) Pancreatitis: Status: Acute Assessment and plan: ETOH related pancreatitis MRCP: ?was negative .? pancreatitis secondary to alcohol use pain with PO intake: PPI added to regimen Will resume diet as tolerated Temperature 99.1 , was on Imipenem but discontinued re: blood cultures are negative X 48 hours. Will recheck CBC in AM. Potassium replacement completed today; will recheck CMP in AM (2) Pain: Status: Acute Assessment and plan: Pain has decreased since last night and no discomfort. Will stop PRN Hydromorphone regimen for pain management. Will continue acetaminophen 650 PO or Per rectally every 8 hours as needed Will continue Ketorolac 15 mg IVP every 6 hours PRN (3) DVT prophylaxis: Status: Acute Assessment and plan: Pt is on Enoxaparin Pt is also ambulating in the room (4) Nausea & vomiting: Status: Acute Assessment and plan: Last nausea episode last night Will continue PRN antiemetic regimen for nausea. (5) Discharged to home: Status: Acute Assessment and plan: Probable discharge in 24 hours once resolution of symptoms, regular diet tolerated and pain controlled. Subjective Subjective Patient reports: tolerating liquids well, voiding w/o difficulty, flatus, bowel movement and fever (last night; resolved this AM. Tylenol IV given for fever last night.); denies still having pain, diarrhea, nausea, vomiting or shortness of breath Interval history since last seen: Patient reports being a little bit hungry and not having had breakfast yet.She reports feeling better this morning. Exam Narrative Exam Narrative: Patient is alert and oriented. Sitting comfortably in bed. Const General: cooperative and no acute distress Nutritional Appearance: overweight Orientation: alert, awake and oriented x3 HENMT Head: normal to inspection and normocephalic Mouth: oral mucosae normal and moist mucous membranes abnormal (dry lips and mucosa) Eyes General: appearance normal, both eyes and all related structures Alignment and Position: alignment normal and position normal Neck Neck: normal visual inspection and full ROM Chest Chest: normal inspection of the chest Resp Effort & Inspection: normal respiratory effort Auscultation: diminished lung sounds bilaterally in the lower lung araya (resolved after performing IS at max resistance.) Cardio Rate: regular rate Rhythm: regular rhythm Heart Sounds: S1 normal and S2 normal Pulses: radial pulses present and dorsalis pedis present GI Inspection: normal to inspection and obesity Palpation: soft, not firm, no guarding, no masses and nontender Auscultation: normal bowel sounds and normoactive bowel sounds Skin General skin exam: no rashes or lesions noted Neuro General: patient alert, patient awake, patient oriented x3, gait normal, moves all extremities and no focal motor deficits Cognition: normal cognition Speech: speech normal Gait: normal gait Motor: muscle tone normal throughout Extrem General: normal to inspection, full ROM and no pedal edema Psych Appearance: grossly normal Mental Status: mental status grossly normal Speech and Movement: speech and movement normal Mood: congruent mood Affect: sad Attitude: cooperative Objective Last Vital Signs Temp 99.1 F 07/30/21 07:29 Pulse 59 L 07/30/21 07:29 Resp 16 07/30/21 07:29 BP 144/90 H 07/30/21 07:29 Pulse Ox 98 07/30/21 07:29 Laboratory Results - last 24 hr 07/29/21 07/29/21 07/30/21 20:15 20:15 06:40 WBC 9.62 RBC 3.83 L Hgb 11.6 Hct 34.8 L MCV 90.9 MCH 30.3 MCHC 33.3 RDW 12.7 Plt Count 150 MPV 11.0 Immature Gran % Neutrophils % Lymphocytes % Monocytes % Eosinophils % Basophils % Nucleated RBC % Absolute Neutrophils Absolute Lymphocytes Absolute Monocytes Absolute Eosinophils Absolute Basophils VBG Lactate 1.6 H Sodium 138 Potassium 3.2 L Chloride 104 Carbon Dioxide 26.4 Anion Gap 7.6 BUN 7 Creatinine 0.7 Estimated GFR/1.73 m2 >= 60.00 Glucose 88 Calcium 8.3 L Magnesium Total Bilirubin 0.6 AST 25 ALT 29 Alkaline Phosphatase 50 C-Reactive Protein 0.29 Total Protein 6.2 L Albumin 3.3 L Lipase Add-On Test Request 07/30/21 07/30/21 07/30/21 06:40 06:40 06:40 WBC 9.27 RBC 3.85 L Hgb 11.8 Hct 35.0 L MCV 90.9 MCH 30.6 MCHC 33.7 RDW 12.7 Plt Count 158 MPV 11.4 H Immature Gran % 0.5 Neutrophils % 70.1 Lymphocytes % 23.2 Monocytes % 5.8 Eosinophils % 0.1 Basophils % 0.3 Nucleated RBC % 0 Absolute Neutrophils 6.49 Absolute Lymphocytes 2.15 Absolute Monocytes 0.54 Absolute Eosinophils 0.01 Absolute Basophils 0.03 VBG Lactate Sodium Potassium Chloride Carbon Dioxide Anion Gap BUN Creatinine Estimated GFR/1.73 m2 Glucose Calcium Magnesium Total Bilirubin AST ALT Alkaline Phosphatase C-Reactive Protein Total Protein Albumin Lipase 344 Add-On Test Request DONE 07/30/21 06:40 WBC RBC Hgb Hct MCV MCH MCHC RDW Plt Count MPV Immature Gran % Neutrophils % Lymphocytes % Monocytes % Eosinophils % Basophils % Nucleated RBC % Absolute Neutrophils Absolute Lymphocytes Absolute Monocytes Absolute Eosinophils Absolute Basophils VBG Lactate Sodium Potassium Chloride Carbon Dioxide Anion Gap BUN Creatinine Estimated GFR/1.73 m2 Glucose Calcium Magnesium 1.9 Total Bilirubin AST ALT Alkaline Phosphatase C-Reactive Protein Total Protein Albumin Lipase Add-On Test Request PAWSS Have you Been Recently Intoxicated or Drunk Within the Last 30 days?: No Have you Ever Experienced Previous Episodes of Alcohol Withdrawal?: No Have you ever Experienced Withdrawal Seizures?: No Have you ever Experienced Delirium Tremens(DT)s?: No Have you ever undergone Alcohol Rehabilitation Treatment (i.e, inpt ot outpatient treatment programs)?: No Have you ever Experienced Blackouts?: No Have you ever Combined Alcohol with other Downers within the last 90 days?: No Have you ever Combined Alcohol with any other Substance of Abuse during the last 90 days?: No Positive Blood Alcohol level on Presentation? [PCS.BAL]: No Evidence of Increased Autonomic Activity (i.e. HR>120, tremor, sweating, agitation, nausea)?: No Result: 0
--- NOTE | 2021-07-30 15:27 | CHAPLAIN ---
Neva was sitting up in bed when I visited. She is hoping she may be discharged today if she is able to eat dinner okay. She said she had some soup for lunch. He mom was planning to come up and visit Neva, but was waiting to hear if Neva might be discharged. Neva was pleasant and easily engaged in a conversation.
--- NOTE | 2021-07-30 17:46 | DSE_ITS ---
Date of service: 07/30/21 Time of Service: 17:47 DS: Diagnosis Discharge Diagnosis (1) Pancreatitis: Status: Acute (2) Pain: Status: Acute (3) Nausea & vomiting: Status: Acute Discharge Plan Disposition Patient Disposition: HOME Condition: Stable Discharge Details Reason For Visit: Acute Pancreatitis Admit Date/Time: 07/27/21 14:41 Admit Provider: Nelson Turner Attending Provider: Nelson Turner Primary Care Provider: Renetta Flores Hospital Course Hospital Course: This is a 36 year old female with history of pancreatitis, s/p cholecystectomy, chronic suboxone use, who presented to ED with abdominal pain after drinking 4 large twisted teas (alcohol). Her workup in the ED showed lipase of 700, with normal CT. She was admitted to med/surg for IV fluids, pain management and antiemetics. she was admitted on imipenem which was discontinued after normal procalcitonin no fevers and normal white count and no evidence of abscess unremarkable pancreas and no evidence of biliary ductal dilatation on MRCP her pain improved and diet advanced. She was made NPO again and Dilaudid dose increased. She had max temp of 38. chest xray normal with no respiratory symptoms. Her pain resolved with Dilaudid and abdominal exam normalized. Her diet was advanced, she was restarted on home medications. she remained medically stable and pain free. Her labs rechecked and unremarkable with normal WBC, CPR normalizing and normal lipase. Her abdominal exam is soft and non tender to palpation. She is safe for discharge and is being discharged to home with no services. She received her 2 films of suboxone today 07/30/21. We can provide a last dose letter if necessary. She was advised to avoid alcohol discussed with Dr Hutchison Cycl[facility] Meds and New Rx's Prescriptions: Continued acetaminophen [Mapap Extra Strength] 500 MG tablet 1,000 mg PO Q6H PRN PRN0RF ibuprofen 600 mg Tablet 600 mg PO QID PRN0RF paroxetine HCl 20 mg tablet 20 mg PO DAILY 0RF Label Comments: TAKE 1 TABLET BY MOUTH EVERY DAY prazosin 2 mg capsule 2 mg PO HS PRN PRN0RF buprenorphine-naloxone [Suboxone] 8-2 mg film 2 film sublingual DAILY 0RF Label Comments: TAKE 2 FILMS UNDER THE TONGUE ONCE DAILY Discharge Instructions Instructions: Pancreatitis (DC) Additional Instructions: resume your home medication your last dose of suboxone 8 mg 2 films was administered today 07/30/2021 you should avoid alcohol as it is a cause of pancreatitis and can reoccur if you continue to drink alcohol Stand Alone Forms: Nursing Discharge Form Referrals: Renetta Flores [Primary Care Provider] - (call for an appointment in the next 2 weeks ) Activity:: Activity as Tolerated Equipment/Supplies:: No Equipment Needed Diet:: As Tolerated Discharge Orders Discharge Orders: Discharge Order (Routine); Ordered 07/30/21 Ordered By: Neva Brothers DS: Summary Time Spent with Patient providing and/or coordinating discharge services: Greater than 30 minutes Status at Discharge Functional status at discharge: independent ambulation Overall status at discharge: patient is back to baseline Mental Status: mental status grossly normal Speech and Movement: speech and movement normal Mood: congruent mood Affect: normal affect Exam Const General: cooperative Nutritional Appearance: overweight Orientation: alert, awake and oriented x3 HENMT Head: normal to inspection and normocephalic Mouth: oral mucosae normal Resp Effort & Inspection: normal respiratory effort Auscultation: clear to auscultation bilaterally Cardio Rate: regular rate Rhythm: regular rhythm GI Inspection: normal to inspection and obesity Palpation: soft, no guarding and no masses Auscultation: normal bowel sounds Skin General skin exam: no rashes or lesions noted Neuro General: patient alert, patient awake and patient oriented x3 Extrem General: normal to inspection, full ROM and no pedal edema Psych Mental Status: mental status grossly normal Speech and Movement: speech and movement normal Mood: congruent mood Affect: normal affect DS: Data Vitals/I&O Vitals and I&O: Vital Signs Temperature 37.4 C 07/30/21 14:55 Temperature Source Tympanic 07/30/21 14:55 Pulse 70 07/30/21 16:04 Pulse Rhythm Regular 07/30/21 09:36 Pulse 48 L 07/27/21 13:10 Respiratory Rate 16 07/30/21 16:04 Respiratory Effort 07/30/21 09:36 Respiratory Depth Normal 07/30/21 09:36 Respiratory Pattern Normal 07/30/21 09:36 Blood Pressure 147/91 H 07/30/21 14:55 Blood Pressure Mean 104 07/27/21 12:01 Blood Pressure Position Supine 07/27/21 08:20 Pulse Oximetry 98 07/30/21 16:04 Oxygen Delivery Method Room Air 07/30/21 16:04 Oxygen Flow Rate 0 07/30/21 16:04 Pain Level 0 07/30/21 14:55 Comment 07/30/21 07:29 Intake & Output 07/29/21 07/30/21 07/30/21 23:59 11:59 23:59 Intake Total 1000 / 1.667 1068.333 / 1068.333 0 / 1068.333 Output Total 900 / 1300 1125 / 1500 375 / 1500 Balance 100 / 921.667 -56.667 / -431.667 -375 / -431.667 Weight 74.1 kg Intake: IV 1000 / 2041.667 1068.333 / 1068.333 Oral 0 / 0 Output: Urine 900 / 1300 1125 / 1500 375 / 1500 Other: Urine Color Dark Enma Dark Enma Pale Yellow Urine Appearance Clear Clear Clear Urine Odor Normal Normal Stool Size Moderate Stool Characteristics Soft Formed Voiding Methods Toilet Toilet Toilet Data Completed and Pending Labs on day of discharge: Labs from last 24 hours 07/30/21 07/30/21 07/30/21 06:40 06:40 06:40 WBC RBC Hgb Hct MCV MCH MCHC RDW Plt Count MPV Immature Gran % Neutrophils % Lymphocytes % Monocytes % Eosinophils % Basophils % Nucleated RBC % Absolute Neutrophils Absolute Lymphocytes Absolute Monocytes Absolute Eosinophils Absolute Basophils VBG Lactate Sodium Potassium Chloride Carbon Dioxide Anion Gap BUN Creatinine Estimated GFR/1.73 m2 Glucose Calcium Magnesium 1.9 Total Bilirubin AST ALT Alkaline Phosphatase C-Reactive Protein Total Protein Albumin Lipase 344 Add-On Test Request DONE 07/30/21 07/30/21 07/29/21 06:40 06:40 20:15 WBC 9.27 9.62 RBC 3.85 L 3.83 L Hgb 11.8 11.6 Hct 35.0 L 34.8 L MCV 90.9 90.9 MCH 30.6 30.3 MCHC 33.7 33.3 RDW 12.7 12.7 Plt Count 158 150 MPV 11.4 H 11.0 Immature Gran % 0.5 Neutrophils % 70.1 Lymphocytes % 23.2 Monocytes % 5.8 Eosinophils % 0.1 Basophils % 0.3 Nucleated RBC % 0 Absolute Neutrophils 6.49 Absolute Lymphocytes 2.15 Absolute Monocytes 0.54 Absolute Eosinophils 0.01 Absolute Basophils 0.03 VBG Lactate Sodium 138 Potassium 3.2 L Chloride 104 Carbon Dioxide 26.4 Anion Gap 7.6 BUN 7 Creatinine 0.7 Estimated GFR/1.73 m2 >= 60.00 Glucose 88 Calcium 8.3 L Magnesium Total Bilirubin 0.6 AST 25 ALT 29 Alkaline Phosphatase 50 C-Reactive Protein 0.29 Total Protein 6.2 L Albumin 3.3 L Lipase Add-On Test Request 07/29/21 20:15 WBC RBC Hgb Hct MCV MCH MCHC RDW Plt Count MPV Immature Gran % Neutrophils % Lymphocytes % Monocytes % Eosinophils % Basophils % Nucleated RBC % Absolute Neutrophils Absolute Lymphocytes Absolute Monocytes Absolute Eosinophils Absolute Basophils VBG Lactate 1.6 H Sodium Potassium Chloride Carbon Dioxide Anion Gap BUN Creatinine Estimated GFR/1.73 m2 Glucose Calcium Magnesium Total Bilirubin AST ALT Alkaline Phosphatase C-Reactive Protein Total Protein Albumin Lipase Add-On Test Request 07/29/21 20:24 Blood Blood Culture - Pending 07/29/21 20:15 Blood Blood Culture - Pending Preliminary micro results at discharge 07/27/21 21:20 Blood Culture - Preliminary Blood NO GROWTH 48 HOURS 07/27/21 21:20 Blood Culture - Preliminary Blood NO GROWTH 48 HOURS 07/29/21 20:24 Blood Culture - Pending Blood 07/29/21 20:15 Blood Culture - Pending Blood [facility] All Active Problems (Updated 07/30/21 @ 12:25 by Alea Frausto) Discharged to home (Acute) Discharge planning issues (Acute) Nausea & vomiting (Acute) Pain (Acute) DVT prophylaxis (Acute) Ovarian cyst (Acute) Previous delivery, delivered (Acute 06/12/14) Outcome of delivery, single liveborn (Acute 06/12/14) Encounter for sterilization (Acute 06/12/14) Depression with anxiety (Chronic) Headache (Chronic) H/O surgical procedure (Chronic) a. two previous C-sections Gestational thrombocytopenia (Acute 06/12/14) Pancreatitis (Acute) Medical History (Updated 07/30/21 @ 12:25 by Alea Frausto) Anxiety treated with Paroxitine. restarted 05/06/14 for recurrence of anxiety Depression Rx with Trazadone to assist sleep. Migraine after of second child. vision changes prior to H/A. On triptans prior to current preg. followed by neurology. Surgical History (Updated 07/27/21 @ 19:16 by Nelson Turner) Adenoidectomy section X 2 Cholecystectomy (06/24/16) myringotomy Previous section (04/22/14) S/P tubal ligation Family History (Updated 07/27/21 @ 19:20 by Nelson Turner) Father Diabetes Stroke age 57 Mother No problems noted. Brother No problems noted. Sister No problems noted. Social History Smoking/Tobacco Use Status: Current every day Smoking risk assessment performed?: Yes Alcohol Intake: current Substance use type: does not use Do you feel safe at home: Yes Do you feel safe in your relationship?: Yes Female Reproductive History Menstrual control method: permanent sterilization (s/p tubal ligation)
== END 2021-07-30 18:14 | disposition home or self-care (01) | DRG 440 ==
LOC: ER 09:01 → MS 15:38
PROVIDERS: Family Medicine; Internal Medicine; Nurse Practitioner Acute Care; Admitting Provider Internal Medicine; Emergency Provider Nurse Practitioner Family; PCP Nurse Practitioner; Visit Provider Internal Medicine
DX: K85.20 Alcohol induced acute pancreatitis without necrosis or infection (principal); F41.8 Other specified anxiety disorders; G43.909 Migraine, unspecified, not intractable, without status migrainosus; F17.210 Nicotine dependence, cigarettes, uncomplicated; N83.292 Other ovarian cyst, left side; Z79.899 Other long term (current) drug therapy
CPT/HCPCS: 36415; 80053; 80061; 81025; 83690; 84145; 85027; 87040; 87635; 93005; 96361; 96374; 96375; 99284; 99285; J1650; 71046; 74177; 74181; 76856; 81003; 81015; 83605; 83735; 85025; 86140; 93010; 94640; 99222; 99232; 99233; 99239; J0131; J0743; J1170; J1885; J2405; J3480; J3490; J7614

== ENCOUNTER 2021-07-28 04:38 | Outpatient (CLI) | payer MEDICAID, SELFPAY | END 2021-07-28 04:39 | disposition home or self-care (01) | LOC: LBO 04:38 | PROVIDERS: PCP Nurse Practitioner; Visit Provider Nurse Practitioner Gerontology ==

== ENCOUNTER 2021-07-31 08:11 | Emergency (ER) | payer MEDICAID, SELFPAY ==
[2021-07-31 08:15] VITALS: BP 120/103; PULSE 54; RESP 17; TEMP 36.6; O2SAT 99
--- NOTE | 2021-07-31 08:30 | DI.CT_ITS ---
Exam(s) CT ABDOMEN PELVIS W EXAM: CT ABDOMEN PELVIS W CLINICAL HISTORY: Hx Pancreatitis, Abd pain, Vomiting. TECHNIQUE: Imaging Protocol: Axial computed tomography images with coronal and sagittal reformatted images were created and reviewed CONTRAST MATERIAL: Intravenous: Omnipaque 100cc Oral: None COMPARISON: CT CT ABDOMEN PELVIS W from 07/27/2021 FINDINGS: VISUALIZED LUNG BASES: Are now mild benign-appearing increased markings in the posterior basal segmen t of the right lower lobe, not present 4 days ago.. No large infiltrate at this level and no pleural effusion. ABDOMEN: There is no ascites in the upper abdomen. There is, however, some free fluid-ascites in the dependen t aspect of the [id number]-sac region now evident. LIVER: There are no focal hepatic lesions evident . GALLBLADDER/BILIARY: Gallbladder is again noted to be surgically absent. CBD is not dilated. CBD is not dilated. PANCREAS: No evidence of pancreatic mass nor dilatation of the pancreatic duct. No CT evidence of pa ncreatitis. SPLEEN: Spleen is not enlarged. No obvious intrasplenic lesions. Splenic and portal veins are paten t. ADRENALS: There are no significant adrenal masses. KIDNEYS:There is a benign cyst again noted in superior pole of the right kidney. No solid renal mass es. No calculi nor hydronephrosis.. ABDOMINAL AORTA: Abdominal aorta is not enlarged. LYMPH NODES:There is no retroperitoneal nor paraaortic adenopathy. ABDOMINAL WALL: No evidence of significant anterior abdominal wall nor inguinal hernia. GI: There is no evidence of bowel obstruction, free air, nor abscess. PELVIS: GI: Appendix is again difficult to visualize as a separate structure. No evidence of obvious appendi citis.No evidence of sigmoid diverticulitis. LYMPH NODES: There is no intrapelvic nor inguinal adenopathy. REPRODUCTIVE: Uterus unremarkable. Previously described peripherally enhancing cyst in the right ova ry measuring 2 cm is unchanged. Slightly smaller cyst is also evident in the left ovary, unchanged. URINARY BLADDER: No calculi nor obvious masses evident OSSEOUS: No significant osseous lesions. IMPRESSION: 1. Compared to the prior CT scan of 07/27/2021 (4 days ago) there is now a small amount of free fluid in the dependent aspect of the pelvis. There is no prominent generalized ascites. No peripancreati c fluid nor peripancreatic streaking. 2. Ovarian cysts are again noted, similar to previous. No new significant adnexal findings. RADIATION DOSE DELIVERED: 929.01mGy.cm Total DLP DATA REPOSITORY: All CT scans at this facility are submitted to the National Radiology Data Registry (NRDR) Dose Index Registry (DIR) with the [employer] ([employer]). RADIATION OPTIMIZATION: All CT scans at this facility use at least one of these dose optimization te chniques: automated exposure control; mA and/or kV adjustment per patient size (includes targeted exa ms where dose is matched to clinical indication); or iterative reconstruction.
--- NOTE | 2021-07-31 08:33 | W.ED.GENAD ---
Discharge Plan Disposition Patient Disposition: HOME Condition: Stable Discharge Details Clinical Impression: Ovarian cyst, Abdominal pain, Nausea & vomiting Primary Care Provider: Renetta Flores ED Provider: Ira Li Home Meds and New Rx's Prescriptions: New promethazine 25 mg suppository 25 mg MD Q6H PRN (Reason: nausea and vomiting) Qty: 12 0RF Continued acetaminophen [Mapap Extra Strength] 500 MG tablet 1,000 mg PO Q6H PRN PRN0RF ibuprofen 600 mg Tablet 600 mg PO QID PRN0RF paroxetine HCl 20 mg tablet 20 mg PO DAILY 0RF Label Comments: TAKE 1 TABLET BY MOUTH EVERY DAY prazosin 2 mg capsule 2 mg PO HS PRN PRN0RF buprenorphine-naloxone [Suboxone] 8-2 mg film 2 film sublingual DAILY 0RF Label Comments: TAKE 2 FILMS UNDER THE TONGUE ONCE DAILY Discharge Instructions Instructions: Ovarian Cyst (ED), Acute Nausea and Vomiting (ED), Abdominal Pain (ED) Additional Instructions: Please take the Suboxone as previously prescribed. Take the antinausea medications as prescribed. Follow up with primary care provider in 3-5 days. Return to ED sooner if any worsening or concerns. Increase oral fluids. Please take Ibuprofen with food every 4-6 hours as needed for pain and swelling. Referrals: Renetta Flores [Primary Care Provider] - 3 days Discharge Data Discharge Date/Time-TO BE ENTERED AT DEPARTURE: 07/31/21 12:20 Medical Decision Making 36-year-old female presents to the ER with chief complaint of abdominal cramping which is diffuse and stabbing and vomiting which is gotten worse since being released from the hospital on 07/30/21 for alcoholic pancreatitis Per EMS report she was started on Suboxone on discharge, denies any EtOH she did have toast this morning. Patient was given 100 mcg of fentanyl and Zofran prior to arrival. Work-up ordered including lipase CT abdomen pelvis with IV contrast. Patient has had an abdominal MRI 2 days ago which showed some trace free fluid in the peritoneal cavity. Due to patient's increased abdominal pain and vomiting will reCT her. Patient was on Dilaudid in the hospital and then was placed back on her Suboxone which she reports she has been taking for over a year upon discharge. She also received fentanyl 100 mcg prior to arrival via EMS. Will order a milligram of Ativan for her blood pressure. I am concerned that this may be narcotic withdrawal due to patient administration of Dilaudid while in the hospital and then plan back on Suboxone upon discharge to home and then also given fentanyl via EMS, however will work-up to rule out any worsening of the pancreatitis or any intraabdominal acute abnormality. 08 53: Informed by lab that patient does have some leukocytosis white blood cell count 14.59 yesterday white blood cells was approximately 9. Absolute neutrophils 11.60, sodium 138, potassium 3.4, glucose 115, magnesium 1.7 09 21: Patient reevaluation, she reports feeling much better after the lorazepam and additional Zofran, blood pressure still elevated at 159/109 she is having 100% on room air heart rate 56. Clonidine 0.1 mg p.o. ordered. Patient resting in bed however when entering the room patient begins to moan and dry heaving in the emesis bag. Patient ambulatory to bathroom with minimal assistance. CT abdomen pelvis is largely unchanged except for some trace free fluid in the lower pelvis of unknown etiology. However patient does have history of ovarian cyst and this could be a previous ruptured ovarian cyst. I did discuss possible ultrasound for further evaluation of abdomen, evaluate pelvis however patient declines at this time. Patient was given promethazine here in the department to go. Instructed to continue taking the Suboxone as previously prescribed. Instructed to follow-up with ECP. Discuss strict return instructions. Of note patient reported to housekeeping staff upon discharge that she is going to go somewhere else to get pain medication. This text was generated using [employer] dictation system, please disregard any oddities of phrase or misspellings. Medical Records Medical records reviewed: Yes I reviewed the patient's medical records. Imaging Data Radiologic Study: Imaging: CT Scan Radiologist's impression: ABDOMEN: There is no ascites in the upper abdomen.? There is, however, some free fluid-ascites in the dependent aspect of the disxak-ywr-jx-sac region now evident. LIVER: There are no focal hepatic lesions evident .? GALLBLADDER/BILIARY: Gallbladder is again noted to be surgically absent.? CBD is not dilated.? CBD is not dilated. PANCREAS: No evidence of pancreatic mass nor dilatation of the pancreatic duct.? No CT evidence of pancreatitis. SPLEEN: Spleen is not enlarged.? No obvious intrasplenic lesions.? Splenic and portal veins are patent. ADRENALS: There are no significant adrenal masses. KIDNEYS:There is a benign cyst again noted in superior pole of the right kidney.? No solid renal masses.? No calculi nor hydronephrosis.. ABDOMINAL AORTA: Abdominal aorta is not enlarged. LYMPH NODES:There is no retroperitoneal nor paraaortic adenopathy. ABDOMINAL WALL: No evidence of significant anterior abdominal wall nor inguinal hernia. GI: There is no evidence of bowel obstruction, free air, nor abscess. PELVIS:? GI: Appendix is again difficult to visualize as a separate structure.? No evidence of obvious appendicitis.No evidence of sigmoid diverticulitis. LYMPH NODES: There is no intrapelvic nor inguinal adenopathy. REPRODUCTIVE: Uterus unremarkable.? Previously described peripherally enhancing cyst in the right ovary measuring 2 cm is unchanged.? Slightly smaller cyst is also evident in the left ovary, unchanged. URINARY BLADDER: No calculi nor obvious masses evident OSSEOUS: No significant osseous lesions. IMPRESSION: 1. Compared to the prior CT scan of 07/27/2021 (4 days ago) there is now a small amount of free fluid in the dependent aspect of the pelvis.? There is no prominent generalized ascites.? No peripancreatic fluid nor peripancreatic streaking. 2. Ovarian cysts are again noted, similar to previous.? No new significant adnexal findings. Lab Data Lab results reviewed: Yes I reviewed the patient's lab results. HPI General Date/Time Provider Initiated Documentation: 07/31/21 08:16. Information obtained by: patient, EMS, RN notes reviewed and old records reviewed. HPI Narrative: 36-year-old female presents to the ER with chief complaint of abdominal cramping which is diffuse and stabbing and vomiting which is gotten worse since being released from the hospital on 07/30/21 for alcoholic pancreatitis Per EMS report she was started on Suboxone on discharge, denies any EtOH she did have toast this morning. Patient was given 100 mcg of fentanyl and Zofran prior to arrival. Related Data Home Medications Medication Instructions Recorded Confirmed acetaminophen 500 mg tablet (Mapap 1,000 mg PO Q6H PRN PRN tab 06/29/16 07/31/21 Extra Strength) ibuprofen 600 mg tablet 600 mg PO QID PRN 03/09/19 07/31/21 buprenorphine 8 mg-naloxone 2 mg 2 film SUBLINGUAL DAILY 07/27/21 07/31/21 sublingual film (Suboxone) paroxetine HCl 20 mg tablet 20 mg PO DAILY 07/27/21 07/31/21 prazosin 2 mg capsule 2 mg PO HS PRN PRN 07/27/21 07/31/21 promethazine 25 mg rectal 25 mg MD Q6H PRN #12 ea 07/31/21 suppository Previous Rx's Medication Instructions Recorded acetaminophen 500 mg tablet (Mapap 1,000 mg PO Q6H PRN PRN tab 06/29/16 Extra Strength) promethazine 25 mg rectal 25 mg MD Q6H PRN #12 ea 07/31/21 suppository Allergies Allergy/AdvReac Type Severity Reaction Status Date / Time No Known Drug Allergies Allergy Unknown none Unverified 07/31/21 08:20 General Stated Complaint: Abd Prob ELISHA: 3 Review of Systems All systems reviewed & are unremarkable except as noted in HPI and below Gastrointestinal Gastrointestinal: Reports abdominal pain, Denies diarrhea, Reports nausea and Reports vomiting Genitourinary Genitourinary: Reports system reviewed and no additional complaints, except as documented (Reports stress incontinence when she vomits) PFSH All Active Problems (Updated 07/31/21 @ 15:47 by Hamilton Crowder, YOUSUF) Abdominal pain (Acute) Nausea & vomiting (Acute) Discharged to home (Acute) Ovarian cyst (Acute) Previous delivery, delivered (Acute 06/12/14) Outcome of delivery, single liveborn (Acute 06/12/14) Encounter for sterilization (Acute 06/12/14) Depression with anxiety (Chronic) Headache (Chronic) H/O surgical procedure (Chronic) a. two previous C-sections Gestational thrombocytopenia (Acute 06/12/14) Pancreatitis (Acute) Medical History Anxiety treated with Paroxitine. restarted 05/06/14 for recurrence of anxiety Depression Rx with Trazadone to assist sleep. Migraine after of second child. vision changes prior to H/A. On triptans prior to current preg. followed by neurology. Surgical History Adenoidectomy section X 2 Cholecystectomy (06/24/16) myringotomy Previous section (04/22/14) S/P tubal ligation Family History Father Diabetes Stroke age 57 Mother No problems noted. Brother No problems noted. Sister No problems noted. Social History Smoking/Tobacco Use Status: Current every day Smoking risk assessment performed?: Yes Alcohol Intake: current Substance use type: does not use Do you feel safe at home: Yes Do you feel safe in your relationship?: Yes Female Reproductive History Menstrual control method: permanent sterilization (s/p tubal ligation) Exam Narrative Exam Narrative: Constitutional: Alert and oriented x3. Appears stated age. Appears anxious and in pain. Head: Normocephalic, no trauma. Eyes: Pupils PERRL, Red reflex noted, EOM's intact. Eyelids symmetrical without lesions, discharge, or swelling. ENT: Bilateral TM's WNL, External ear normal to inspection, no mastoid TTP, swelling, or erythema, Nasal turbinates WNL, no nasal discharge. Normal dentition, Posterior pharynx WNL, no exudate. Chest: RRR, Normal S1, S2, distal pulses intact. Hypertensive 120/103, 169/154 Resp: Lungs clear to auscultation bilaterally, no wheezes, rales, or rhonchi. Abdomen: Soft, distended, tenderness left upper quadrant and diffuse sharp. Musculoskeletal: Normal gait, 5/5 strength to all four extremities. Skin: No suspicious rashes or lesions. Capillary refill less than 2 sec. Neurologic: Cranial nerves II-XII intact. Alert and oriented x 3. Motor: No deficits noted. Sensory: Intact bilaterally all 4 extremities. Reflexes: DTR's intact bilaterally.. Hematologic/Lymphatic: No ecchymosis, no lymphadenopathy. Course Vital Signs Vital signs: Vital Signs Temperature 36.6 C 07/31/21 08:15 Pulse 54 L 07/31/21 08:15 Respiratory Rate 17 07/31/21 08:15 Blood Pressure 120/103 H 07/31/21 08:15 Pulse Oximetry 99 07/31/21 08:15 Temperature 36.6 C 07/31/21 08:15 Temperature Source Oral 07/31/21 08:15 Pulse 54 L 07/31/21 08:15 Respiratory Rate 17 07/31/21 08:15 Respiratory Effort 07/31/21 08:15 Blood Pressure 120/103 H 07/31/21 08:15 Blood Pressure Position Sitting 07/31/21 08:15 Pulse Oximetry 99 07/31/21 08:15 Pain Level 10 07/31/21 08:15
[2021-07-31 08:46] LABS: Abs Immature Grans 0.07 10^3/uL (0.0-0.06); Absolute Eosinophil Count 0.12 10^3/uL (0.0-0.7); Absolute Lymphocyte Count 2.01 10^3/uL (1.2-3.4); Basophils % 0.3; Eosinophils % 0.8; HCT 35.3 % (36.0-46.0); Immature Grans % 0.5; Lymphocytes % 13.8; MCH 29.8 pg (27.0-33.0); MCV 87.6 fL (80-95); MPV 10.9 fL (8.0-11.0); Monocytes % 5.1; Neutrophils % 79.5; Nucleated RBC 0 %; Platelet Count 182 10^3/uL (130-400); RBC 4.03 10^6/uL (3.93-5.22); RDW 12.6 % (11.7-14.6); RDW-SD 39.6 fL
[2021-07-31 08:49] LABS: Absolute Basophil Count 0.04 10^3/uL (0.0-0.2); Absolute Monocyte Count 0.74 10^3/uL (0.1-0.8)
[2021-07-31 08:53] LABS: WBC 14.59 10^3/uL (4.4-10.8)
[2021-07-31 08:54] LABS: Lipase 161 U/L (73-393); Magnesium 1.7 mg/dL (1.8-2.4)
[2021-07-31] MEDS: Normal Saline 1,000 ML 1000 ML IV (08:54)
[2021-07-31] MEDS: LORazepam 2 MG/ML VIAL 1 MG IVP (08:54)
[2021-07-31 08:58] LABS: ETHANOL BLOOD < 3.0 mg/dL (<10)
[2021-07-31 08:59] LABS: ALT 30 U/L (14-59); AST 24 U/L (15-37); Albumin 3.6 g/dL (3.4-5.0); Alkaline Phosphatase 52 U/L (46-116); BUN 9 mg/dL (7-18); Bilirubin, Total 0.5 mg/dL (0.2-1.0); CREATININE 0.8 mg/dL (0.55-1.02); Calcium 8.6 mg/dL (8.5-10.1); Chloride 105 mmol/L (98-107); Glucose 115 mg/dL (74-106); Potassium 3.4 mmol/L (3.5-5.1); Sodium 138 mmol/L (136-145); Total Protein 6.6 g/dL (6.4-8.2)
[2021-07-31] MEDS: Ondansetron 4 MG/2 ML VIAL IVP (08:59)
[2021-07-31] MEDS: cloNIDine 0.1 MG TAB PO (09:43)
[2021-07-31 09:48] LABS: Bilirubin Negative (Negative); Blood Negative (Negative); Clarity Clear (Clear); Glucose Negative (Negative); Ketones Trace mg/dL (Negative); Leukocyte Esterase Negative (Negative); Nitrite Negative (Negative); Specific Gravity 1.025 (1.005-1.025); pH 8.5 (5-8)
[2021-07-31 10:01] LABS: *AMPHETAMINES SCREEN URINE Negative (Negative); *BARBITURATES SCREEN URINE Negative (Negative); *BENZODIAZEPINES SCREEN URINE Negative (Negative); Cannabinoids THC Positive (Negative); Cocaine Screen,Urine Negative (Negative); METHADONE URINE SCREEN Negative (Negative); OPIATES URINE SCREEN Negative (Negative)
[2021-07-31] MEDS: Omnipaque 350 MG/ML 100 ML BTL IJ (10:03)
[2021-07-31 10:04] LABS: Tricyclic Antidepressants Negative (Negative)
--- NOTE | 2021-08-01 10:30 | NUR.NOTE ---
referral to [facility] for ruptured ovarian cyst/abd pain appt within 1 week per shashank.
== END 2021-07-31 12:20 | disposition home or self-care (01) ==
PROVIDERS: Emergency Provider Registered Nurse Emergency; PCP Nurse Practitioner
DX: R10.9 Unspecified abdominal pain (principal); N83.201 Unspecified ovarian cyst, right side; R11.2 Nausea with vomiting, unspecified
CPT/HCPCS: 36415; 80053; 80307; 83690; 96361; 96374; 96375; 99285; 74177; 80320; 81003; 83735; 85025; 99284; J2060; J2405; J3490

== ENCOUNTER 2021-12-18 01:23 | Outpatient (CLI) | payer MEDICAID, SELFPAY ==
[2021-12-18 14:30] LABS: Abs Immature Grans 0.02 10^3/uL (0.0-0.06); Absolute Basophil Count 0.04 10^3/uL (0.0-0.2); Absolute Eosinophil Count 0.18 10^3/uL (0.0-0.7); Absolute Lymphocyte Count 2.99 10^3/uL (1.2-3.4); Absolute Monocyte Count 0.36 10^3/uL (0.1-0.8); Absolute Neutrophil Count 4.49 10^3/uL (1.2-6.7); Basophils % 0.5; Eosinophils % 2.2; HCT 39.8 % (36.0-46.0); HGB 13.7 g/dL (11.2-15.7); Immature Grans % 0.2; MCH 30.4 pg (27.0-33.0); MCHC 34.4 % (32.0-36.0); MCV 88 fL (80-95); MPV 10.8 fL (8.0-11.0); Monocytes % 4.5; Neutrophils % 55.6; Platelet Count 190 10^3/uL (130-400); RDW-SD 38.7 fL; WBC 8.08 10^3/uL (4.4-10.8)
[2021-12-18 15:45] LABS: ALT 20 U/L (14-59); AST 18 U/L (15-37); Albumin 3.7 g/dL (3.4-5.0); Alkaline Phosphatase 56 U/L (46-116); Anion Gap 8.3 mmol/L (3-11); BUN 11 mg/dL (7-18); Bilirubin, Total 0.3 mg/dL (0.2-1.0); CO2 27.7 mmol/L (21.0-32.0); CREATININE 0.8 mg/dL (0.55-1.02); Chloride 102 mmol/L (98-107); GGT 11 U/L (5-55); Glucose 88 mg/dL (74-106); Potassium 3.6 mmol/L (3.5-5.1); Sodium 138 mmol/L (136-145); Total Protein 7.5 g/dL (6.4-8.2)
[2021-12-19 09:19] LABS: HIV-1/2 Ag & Ab Screen Negative (Negative)
[2021-12-21 10:03] LABS: Hepatitis B Surface Ab Positive (See Note)
[2021-12-21 10:29] LABS: Hepatitis B Surface Ag Negative (Negative)
[2021-12-21 11:07] LABS: Hepatitis C Ab w Rflx HCV PCR Negative (Negative)
[2021-12-21 11:17] LABS: Hep B Core Antibody Negative (Negative)
[2021-12-21 11:23] LABS: Hep A Total Ab w Rflx IgM Negative (Negative)
[2021-12-23 12:42] LABS: HCV RNA Qualitative Undetected (Undetected)
[2021-12-23 20:04] LABS: HCV Genotype Undetected (Undetected)
== END 2021-12-18 01:24 | disposition home or self-care (01) ==
LOC: LBO 01:24
PROVIDERS: PCP Nurse Practitioner; Visit Provider Nurse Practitioner Gerontology
DX: F11.20 Opioid dependence, uncomplicated (principal); Z11.4 Encounter for screening for human immunodeficiency virus [HIV]; Z11.59 Encounter for screening for other viral diseases
CPT/HCPCS: 36415; 80053; 86704; 86706; 86709; 86803; 87340; 87389; 87522; 82977; 85025; 87521

== ENCOUNTER 2022-03-22 14:59 | Emergency (ER) | payer MEDICAID, SELFPAY ==
[2022-03-22 15:01] VITALS: BP 150/88; PULSE 62; RESP 18; TEMP 36.7; O2SAT 100
[2022-03-22] MEDS: Fluorescein STRIPS 100/BOX 1 MG OP (16:00)
[2022-03-22] MEDS: Tetracaine 0.5% 4 ML BTL OP (16:00)
--- NOTE | 2022-03-22 16:01 | W.ED.GENAD ---
Discharge Plan Disposition Patient Disposition: Home Condition: Stable Discharge Details Clinical Impression: Abrasion of sclera of right eye Primary Care Provider: Renetta Flores ED Provider: Ghada Romero Home Meds and New Rx's Prescriptions: Continued acetaminophen [Mapap Extra Strength] 500 MG tablet 1,000 mg PO Q6H PRN PRN0RF ibuprofen 600 mg Tablet 600 mg PO QID PRN paroxetine HCl 20 mg tablet 20 mg PO DAILY Label Comments: TAKE 1 TABLET BY MOUTH EVERY DAY prazosin 2 mg capsule 2 mg PO HS PRN PRN buprenorphine-naloxone [Suboxone] 8-2 mg film 2 film sublingual DAILY Label Comments: TAKE 2 FILMS UNDER THE TONGUE ONCE DAILY promethazine 25 mg suppository 25 mg OR Q6H PRN (Reason: nausea and vomiting) Qty: 12 0RF Discharge Instructions Instructions: Corneal Abrasion (ED) Additional Instructions: You have an abrasion of the sclera which is the white part of your eye. You were given instructions for corneal abrasion but there was no corneal abrasion noted today on exam but this will give you further information regarding abrasions in your eye. Apply the erythromycin ointment to your right eye 4 times daily for the next 5 to 7 days. Call [facility] tomorrow to schedule a follow-up appointment for reevaluation within the next week. Return immediately to the emergency department if you develop any worsening or new concerning symptoms. Referrals: [facility] [Outside] Discharge Data Discharge Date/Time-TO BE ENTERED AT DEPARTURE: 03/22/22 16:24 Discharge Physician: Ghada Romero Medical Decision Making 36-year-old female presents with right eye pain after poking herself in the eye when bending over and her eye hit a wire basket. She states the wire basket is still intact denies any known foreign bodies. Tetanus up-to-date. Patient appears slightly uncomfortable but nontoxic. She has right eye conjunctival injection and tearing. Full inspection of the eye including eyelid eversion negative for obvious foreign body. Upon fluorescein staining there are 2 linear areas of fluorescein uptake at the 3 o'clock position of the sclera just lateral to the medial canthus. There is no obvious corneal abrasion. PERRLA. EOMI. She was given erythromycin ointment to go. She was advised to follow-up with [facility]. Usual and customary return precautions given prior to discharge. Medical Records Medical records reviewed: Yes I reviewed the patient's medical records. Sign Out No HPI General Mode of arrival: ambulatory. Date/Time Provider Initiated Documentation: 03/22/22 15:43. Limitations to Documentation: no limitations. Information obtained by: patient. HPI Narrative: Pt is a 36yo F who presents to the ED right eye pain after poking herself in the eye with a wire basket at home this morning. She states the wire was still intact. She initially thought there was something in her eye but upon inspection did not notice any foreign bodies. She does not wear contacts. She denies any blurry vision or yellow discharge. She states her tetanus is up-to-date. Related Data Home Medications Medication Instructions Recorded Confirmed acetaminophen 500 mg tablet (Mapap 1,000 mg PO Q6H PRN PRN 06/29/16 07/31/21 Extra Strength) ibuprofen 600 mg tablet 600 mg PO QID PRN 03/09/19 07/31/21 buprenorphine 8 mg-naloxone 2 mg 2 film sublingual DAILY 07/27/21 07/31/21 sublingual film (Suboxone) paroxetine HCl 20 mg tablet 20 mg PO DAILY 07/27/21 07/31/21 prazosin 2 mg capsule 2 mg PO HS PRN PRN 07/27/21 07/31/21 promethazine 25 mg rectal 25 mg OR Q6H PRN nausea and 07/31/21 suppository vomiting #12 ea Previous Rx's Medication Instructions Recorded acetaminophen 500 mg tablet (Mapap 1,000 mg PO Q6H PRN PRN 06/29/16 Extra Strength) promethazine 25 mg rectal 25 mg OR Q6H PRN nausea and 07/31/21 suppository vomiting #12 ea Allergies Allergy/AdvReac Type Severity Reaction Status Date / Time No Known Drug Allergies Allergy Unknown none Unverified 07/31/21 08:20 General Stated Complaint: EyeProblem ELISHA: 4 Review of Systems All systems reviewed & are unremarkable except as noted in HPI and below Constitutional Constitutional: Reports as per HPI, Denies chills and Denies fever(s) Eyes Eyes: Reports eye pain ENT Ears, Nose, Mouth, and Throat: Denies dizziness, Denies sore throat and Denies throat swelling Cardiovascular Cardiovascular: Denies chest pain and Denies dyspnea Respiratory Respiratory: Denies cough and Denies dyspnea Gastrointestinal Gastrointestinal: Denies abdominal pain, Denies diarrhea and Denies vomiting Genitourinary Genitourinary: Denies hematuria and Denies dysuria Musculoskeletal Musculoskeletal: Denies back pain and Denies numbness Integumentary/Breasts Skin/Breast: Denies lesions and Denies rash Neurologic Neurologic: Denies dizziness, Denies localized weakness and Denies numbness Allergic/Immunologic Allergic/Immunologic: Denies throat swelling PFSH All Active Problems (Updated 03/22/22 @ 16:14 by Ghada Romero DO) Abrasion of sclera of right eye (Acute) Discharged to home (Acute) Ovarian cyst (Acute) Previous delivery, delivered (Acute 06/12/14) Outcome of delivery, single liveborn (Acute 06/12/14) Encounter for sterilization (Acute 06/12/14) Depression with anxiety (Chronic) Headache (Chronic) H/O surgical procedure (Chronic) a. two previous C-sections Gestational thrombocytopenia (Acute 06/12/14) Pancreatitis (Acute) Medical History Anxiety treated with Paroxitine. restarted 05/06/14 for recurrence of anxiety Depression Rx with Trazadone to assist sleep. Migraine after of second child. vision changes prior to H/A. On triptans prior to current preg. followed by neurology. Surgical History Adenoidectomy section X 2 Cholecystectomy (06/24/16) myringotomy Previous section (04/22/14) S/P tubal ligation Family History Father Diabetes Stroke age 57 Mother No problems noted. Brother No problems noted. Sister No problems noted. Social History Smoking/Tobacco Use Status: Current every day Tobacco Type: cigarettes Smoking risk assessment performed?: Yes Alcohol Intake: current Substance use type: does not use Do you feel safe at home: Yes Do you feel safe in your relationship?: Yes Female Reproductive History Menstrual control method: permanent sterilization (s/p tubal ligation) Exam Const General: cooperative, healthy appearing and no acute distress Orientation: alert, awake and oriented x3 HENMT Head: normal to inspection Mouth: oral mucosae normal Eyes General: appearance normal, both eyes and all related structures Periorbital: periorbital findings normal Conjunctivae: conjunctival abnormality right conjunctival injection diffuse Sclera: scleral abnormality right (2 linear areas of fluorescein uptake at 3 oclock position of sclera just lateral to medial canthus.) Neck Neck: normal visual inspection Resp Effort & Inspection: normal respiratory effort and able to speak in complete sentences Cardio Rate: regular rate Skin General skin exam: no rashes or lesions noted Neuro General: patient alert, patient awake and patient oriented x3 Motor: muscle tone normal throughout Extrem General: normal to inspection and full ROM Psych Appearance: grossly normal Affect: normal affect Course Vital Signs Vital signs: Vital Signs Temperature 98.1 F 03/22/22 15:01 Pulse 62 03/22/22 15:01 Respiratory Rate 18 03/22/22 15:01 Blood Pressure 150/88 H 03/22/22 15:01 Pulse Oximetry 100 03/22/22 15:01 Temperature 98.1 F 03/22/22 15:01 Temperature Source Oral 03/22/22 15:01 Pulse 62 03/22/22 15:01 Respiratory Rate 18 03/22/22 15:01 Respiratory Effort 03/22/22 15:03 Blood Pressure 150/88 H 03/22/22 15:01 Pulse Oximetry 100 03/22/22 15:01 Oxygen Delivery Method Room Air 03/22/22 15:01 Oxygen Flow Rate 0 03/22/22 15:01 PAWSS Have you Been Recently Intoxicated or Drunk Within the Last 30 days?: No Have you Ever Experienced Previous Episodes of Alcohol Withdrawal?: No Have you ever Experienced Withdrawal Seizures?: No Have you ever Experienced Delirium Tremens(DT)s?: No Have you ever undergone Alcohol Rehabilitation Treatment (i.e, inpt ot outpatient treatment programs)?: No Have you ever Experienced Blackouts?: No Have you ever Combined Alcohol with other Downers within the last 90 days?: No Have you ever Combined Alcohol with any other Substance of Abuse during the last 90 days?: No Result: 0
[2022-03-22] MEDS: Erythromycin Ophth Oint 3.5 GM TUBE OU (16:24)
== END 2022-03-22 16:24 | disposition home or self-care (01) ==
PROVIDERS: Emergency Provider Physician Assistant; PCP Nurse Practitioner
DX: S05.8X1A Other injuries of right eye and orbit, initial encounter (principal); W26.8XXA Contact with other sharp object(s), not elsewhere classified, initial encounter
CPT/HCPCS: 99283

== ENCOUNTER 2022-12-14 21:36 | Emergency (ER) | payer MEDICAID, SELFPAY ==
[2022-12-14 21:40] VITALS: BP 128/93; PULSE 96; RESP 20; TEMP 36.8; O2SAT 99
--- NOTE | 2022-12-14 21:45 | DI.CT_ITS ---
Exam(s) CT ABDOMEN PELVIS WO EXAM: CT ABDOMEN PELVIS WO CLINICAL HISTORY: right flank pain. TECHNIQUE: Imaging Protocol: Axial computed tomography images with coronal and sagittal reformatted images were created and reviewed. COMPARISON: CT CT ABDOMEN PELVIS W from 07/31/2021 FINDINGS: ABDOMEN: Lung Bases: Normal where visualized. Liver: Normal density. No measurable mass. Gallbladder and biliary tract: Status post cholecystectomy. Pancreas: Normal density, no abnormal calcifications or inflammatory process. Spleen: Normal. Kidneys: Normal size, contour and axis.No radiodense stones or obstructive uropathy. No masses seen. Adrenal glands: No mass is seen. Lymph nodes: Within normal limits. Abdominal Aorta: Abdominal portion non-dilated. PELVIS: Bladder:Symmetric distention, no gross wall thickening. Bowel: No obstruction or bowel wall thickening. Appendix is unremarkable. Peritoneal cavity: No ascites, collection or mesenteric inflammatory response. No free air. Reproductive organs: Unremarkable as visualized. Bones: Within normal limits. Soft Tissues: Within normal limits. IMPRESSION: 1. No evidence of nephrolithiasis or hydronephrosis. 2. No acute abdominal or pelvic process. RADIATION DOSE DELIVERED: 994.54mGy.cm Total DLP DATA REPOSITORY: All CT scans at this facility are submitted to the National Radiology Data Registry (NRDR) Dose Index Registry (DIR) with the [employer] (A[employer]). RADIATION OPTIMIZATION: All CT scans at this facility use at least one of these dose optimization te chniques: automated exposure control; mA and/or kV adjustment per patient size (includes targeted exa ms where dose is matched to clinical indication); or iterative reconstruction.
[2022-12-14 22:38] LABS: Abs Immature Grans 0.06 10^3/uL (0.0-0.06); Absolute Eosinophil Count 0.27 10^3/uL (0.0-0.7); Basophils % 0.6; Eosinophils % 1.9; HCT 41.6 % (36.0-46.0); HGB 14.1 g/dL (11.2-15.7); Immature Grans % 0.4; Lymphocytes % 34.5; MCH 31.4 pg (27.0-33.0); MCHC 33.9 % (32.0-36.0); MCV 93 fL (80-95); MPV 9.9 fL (8.0-11.0); Neutrophils % 56.6; Platelet Count 255 10^3/uL (130-400); RBC 4.49 10^6/uL (3.93-5.22); RDW 11.8 % (11.7-14.6); RDW-SD 40.1 fL; WBC 14.28 10^3/uL (4.4-10.8)
[2022-12-14 22:39] LABS: Absolute Basophil Count 0.09 10^3/uL (0.0-0.2); Absolute Lymphocyte Count 4.93 10^3/uL (1.2-3.4); Absolute Monocyte Count 0.86 10^3/uL (0.1-0.8); Absolute Neutrophil Count 8.08 10^3/uL (1.2-6.7)
[2022-12-14 22:39] LABS: Bilirubin Negative (Negative); Blood Trace-lysed (Negative); Clarity Clear (Clear); Glucose Negative (Negative); Ketones Negative (Negative); Leukocyte Esterase Negative (Negative); Nitrite Negative (Negative); Specific Gravity 1.015 (1.005-1.025); Urobilinogen 0.2 mg/dL (Up to 0.2)
[2022-12-14 22:52] LABS: Bacteria Rare HPF (Negative); C & S Indicated? No/Sq. Contamination; Crystals Negative HPF (Negative); Epithelial Cells Many HPF (Negative); Mucus Negative (Negative); RBC 0-2 HPF (0-2)
[2022-12-14 22:57] LABS: ALT 14 U/L (14-59); AST 18 U/L (15-37); Albumin 3.7 g/dL (3.4-5.0); Alkaline Phosphatase 85 U/L (46-116); Anion Gap 8.9 mmol/L (3-11); BUN 11 mg/dL (7-18); Bilirubin, Total 0.5 mg/dL (0.2-1.0); CO2 28.1 mmol/L (21.0-32.0); CREATININE 0.8 mg/dL (0.55-1.02); Calcium 9.3 mg/dL (8.5-10.1); Chloride 100 mmol/L (98-107); Estimated GFR 97.26 (mL/min/1.73m2); Glucose 108 mg/dL (74-106); Lipase 46 U/L (16-77); Potassium 3.5 mmol/L (3.5-5.1); Sodium 137 mmol/L (136-145); Total Protein 7.9 g/dL (6.4-8.2)
[2022-12-15] MEDS: ACETAMINOPHEN 1,000 MG/100 ML BTL 400 MG IVPB (00:13)
--- NOTE | 2022-12-15 00:32 | W.ED.GENAD ---
Discharge Plan Disposition Patient Disposition: Home Discharge Details Clinical Impression: Acute flank pain, Pneumonia Primary Care Provider: DOUGLAS OHUSTON ED Provider: Erna Joya Home Meds and New Rx's Prescriptions: New doxycycline hyclate 100 mg tablet 100 mg PO BID Qty: 18 0RF Continued acetaminophen [Mapap Extra Strength] 500 MG tablet 1,000 mg PO Q6H PRN PRN0RF ibuprofen 600 mg Tablet 600 mg PO QID PRN buprenorphine-naloxone [Suboxone] 8-2 mg film 2 film sublingual DAILY Patient Comments: TAKE 2 FILMS UNDER THE TONGUE ONCE DAILY Discharge Instructions Instructions: Flank Pain (ED) Additional Instructions: Take ibuprofen and Tylenol as needed for pain Take antibiotics as prescribed Follow-up with your primary care physician Please have your urinalysis rechecked by your primary care physician Return earlier should you have new or worsening complaints Referrals: DOUGLAS HOUSTON, ACCOUNT EXECUTIVE SALES REPRESENTATIVE [Primary Care Provider] - Discharge Data Discharge Date/Time-TO BE ENTERED AT DEPARTURE: 12/15/22 01:12 Medical Decision Making This 37-year-old female presents with right flank pain She states the pain started 2 days ago. She denies any dysuria or frequency. She denies any chest pain or shortness of breath Urinalysis does not show evidence of acute abnormality, negative test Labs with mild leukocytosis at 14,000, will order CT abdomen and pelvis for further evaluation, no right upper quadrant tenderness appreciated on exam, no rebound or guarding, tearful in room secondary to pain Tylenol administered CT abdomen and pelvis shows many findings, however I think the pertinent findings the patient is 750 cc of urine in her bladder which is distended, I I spoke regarding a Zaragoza catheter with patient, she is adamantly refusing this She states she has to work I did asked patient to use the restroom and we will perform postvoid residual, if she continues to retain I suspect she will need a Zaragoza catheter, if she declines at the very least we get straight cath and place the patient on Flomax with urology follow-up, I will sign the patient out to Dr. Smallwood pending postvoid residual and reassessment Of note, I do not see any evidence of pain or swelling in patient's upper thighs HPI General Date/Time Provider Initiated Documentation: 12/14/22 21:48. HPI Narrative: This 37-year-old female presents with right-sided flank pain since Tuesday. She states intermittent pain that is now constant. Denies dysuria or frequency. Denies any trauma. Denies chance of . Related Data Home Medications Medication Instructions Recorded Confirmed acetaminophen 500 mg tablet (Mapap 1,000 mg PO Q6H PRN PRN 06/29/16 12/14/22 Extra Strength) ibuprofen 600 mg tablet 600 mg PO QID PRN 03/09/19 12/14/22 buprenorphine 8 mg-naloxone 2 mg 2 film sublingual DAILY 07/27/21 12/14/22 sublingual film (Suboxone) doxycycline hyclate 100 mg tablet 100 mg PO BID #18 tabs 12/15/22 Previous Rx's Medication Instructions Recorded acetaminophen 500 mg tablet (Mapap 1,000 mg PO Q6H PRN PRN 06/29/16 Extra Strength) doxycycline hyclate 100 mg tablet 100 mg PO BID #18 tabs 12/15/22 Allergies Allergy/AdvReac Type Severity Reaction Status Date / Time No Known Drug Allergies Allergy Unknown none Unverified 07/31/21 08:20 General Stated Complaint: FlankPain ELISHA: 3 PFSH All Active Problems (Updated 12/15/22 @ 01:03 by GABRIEL Ho) Acute flank pain (Acute) Pneumonia (Acute) Discharged to home (Acute) Ovarian cyst (Acute) Previous delivery, delivered (Acute 06/12/14) Outcome of delivery, single liveborn (Acute 06/12/14) Encounter for sterilization (Acute 06/12/14) Depression with anxiety (Chronic) Headache (Chronic) H/O surgical procedure (Chronic) a. two previous C-sections Gestational thrombocytopenia (Acute 06/12/14) Pancreatitis (Acute) Medical History Anxiety treated with Paroxitine. restarted 05/06/14 for recurrence of anxiety Depression Rx with Trazadone to assist sleep. Migraine after of second child. vision changes prior to H/A. On triptans prior to current preg. followed by neurology. Surgical History Adenoidectomy section X 2 Cholecystectomy (06/24/16) myringotomy Previous section (04/22/14) S/P tubal ligation Family History Father Diabetes Stroke age 57 Mother No problems noted. Brother No problems noted. Sister No problems noted. Social History Smoking/Tobacco Use Status: Current every day Tobacco Type: cigarettes Smoking risk assessment performed?: Yes Alcohol Intake: current Substance use type: does not use Do you feel safe at home: Yes Do you feel safe in your relationship?: Yes Female Reproductive History Menstrual control method: permanent sterilization (s/p tubal ligation) Course Vital Signs Vital signs: Vital Signs Temperature 36.8 C 12/14/22 21:40 Pulse 96 H 12/14/22 21:40 Respiratory Rate 20 12/14/22 21:40 Blood Pressure 128/93 H 12/14/22 21:40 Pulse Oximetry 99 12/14/22 21:40 Temperature 36.8 C 12/14/22 21:40 Temperature Source Oral 12/14/22 21:40 Pulse 96 H 12/14/22 21:40 Respiratory Rate 20 12/14/22 21:40 Blood Pressure 128/93 H 12/14/22 21:40 Blood Pressure Position Sitting 12/14/22 21:40 Pulse Oximetry 99 12/14/22 21:40 Oxygen Delivery Method Room Air 12/14/22 21:40 Oxygen Flow Rate 0 12/14/22 21:40 Pain Level 7 12/14/22 21:40 Lab/Test Results Lab/Test Results: Laboratory Tests Range/Units 12/14/22 12/14/22 12/14/22 22:29 22:30 22:30 WBC (4.4-10.8) 10^3/uL 14.28 H RBC (3.93-5.22) 10^6/uL 4.49 Hgb (11.2-15.7) g/dL 14.1 Hct (36.0-46.0) % 41.6 MCV (80-95) fL 93 MCH (27.0-33.0) pg 31.4 MCHC (32.0-36.0) % 33.9 RDW (11.7-14.6) % 11.8 Plt Count (130-400) 10^3/uL 255 MPV (8.0-11.0) fL 9.9 Immature Gran % 0.4 Neutrophils % 56.6 Lymphocytes % 34.5 Monocytes % 6.0 Eosinophils % 1.9 Basophils % 0.6 Nucleated RBC % (0.0-0.3) % 0.0 Absolute Neutrophils (1.2-6.7) 10^3/uL 8.08 H Absolute Lymphocytes (1.2-3.4) 10^3/uL 4.93 H Absolute Monocytes (0.1-0.8) 10^3/uL 0.86 H Absolute Eosinophils (0.0-0.7) 10^3/uL 0.27 Absolute Basophils (0.0-0.2) 10^3/uL 0.09 Sodium (136-145) mmol/L 137 Potassium (3.5-5.1) mmol/L 3.5 Chloride (98-107) mmol/L 100 Carbon Dioxide (21.0-32.0) mmol/L 28.1 Anion Gap (3-11) mmol/L 8.9 BUN (7-18) mg/dL 11 Creatinine (0.55-1.02) mg/dL 0.8 Est GFR (CKD-EPI 2020) (mL/min/1.73m2) 97.26 Glucose (74-106) mg/dL 108 H Calcium (8.5-10.1) mg/dL 9.3 Total Bilirubin (0.2-1.0) mg/dL 0.5 AST (15-37) U/L 18 ALT (14-59) U/L 14 Alkaline Phosphatase (46-116) U/L 85 Total Protein (6.4-8.2) g/dL 7.9 Albumin (3.4-5.0) g/dL 3.7 Lipase (16-77) U/L 46 Urine Color (Yellow) Yellow Urine Clarity (Clear) Clear Urine pH (5-8) 7.0 Ur Specific Connelly (1.005-1.025) 1.015 Urine Protein (Negative) mg/dL Negative Urine Ketones (Negative) mg/dL Negative Urine Blood (Negative) Trace-lysed H Urine Nitrite (Negative) Negative Urine Bilirubin (Negative) Negative Urine Urobilinogen (Up to 0.2) mg/dL 0.2 Ur Leukocyte Esterase (Negative) Negative Urine RBC (0-2) HPF 0-2 Urine WBC (0-5) HPF 3-5 Ur Epithelial Cells (Negative) HPF Many Urine Crystals (Negative) HPF Negative Urine Bacteria (Negative) HPF Rare Urine Mucus (Negative) Negative Ur Culture Indicated? No/Sq. Contamination Urine Glucose (Negative) mg/dL Negative POC- Test(urine) Negative
[2022-12-15] MEDS: Doxycycline Hyclate 100 MG, 2 CAPS/BTL PO (01:11)
--- NOTE | 2022-12-15 01:13 | DI.VRAD_ITS ---
PROCEDURE INFORMATION: Exam: CT Abdomen And Pelvis Without Contrast Exam date and time: 12/15/2022 12:32 AM Age: 37 years old Clinical indication: Pain; Other: Flank; Prior surgery; Surgery date: 6+ months; Surgery type: Cholecystectomy, tubal ligation TECHNIQUE: Imaging protocol: Computed tomography of the abdomen and pelvis without contrast. Radiation optimization: All CT scans at this facility use at least one of these dose optimization techniques: automated exposure control; mA and/or kV adjustment per patient size (includes targeted exams where dose is matched to clinical indication); or iterative reconstruction. COMPARISON: CT ABDOMEN PELVIS W 07/31/2021 9:57 AM FINDINGS: Liver: Normal. No mass. Gallbladder and bile ducts: Status post cholecystectomy. Pancreas: Normal. No ductal dilation. Spleen: Normal. No splenomegaly. Adrenal glands: Normal. No mass. Kidneys and ureters: Normal. No hydronephrosis. Stomach and bowel: Unremarkable. No obstruction. No mucosal thickening. Appendix: No evidence of appendicitis. Intraperitoneal space: Unremarkable. No free air. No significant fluid collection. Vasculature: Unremarkable. No abdominal aortic aneurysm. Lymph nodes: Unremarkable. No enlarged lymph nodes. Urinary bladder: Unremarkable as visualized. Reproductive: Unremarkable as visualized. Bones/joints: Unremarkable. No acute fracture. Soft tissues: Unremarkable. IMPRESSION: No acute finding. Dictated and Authenticated by: Last Mack MD. Ordering:JUAN C Umanzor MD
== END 2022-12-15 01:12 | disposition home or self-care (01) ==
PROVIDERS: Emergency Provider Physician Assistant; PCP Nurse Practitioner Family
DX: R10.9 Unspecified abdominal pain (principal); J18.9 Pneumonia, unspecified organism; F17.210 Nicotine dependence, cigarettes, uncomplicated
CPT/HCPCS: 80053; 81025; 83690; 96374; 99284; 74176; 81003; 81015; 85025; 99283; J0131

== ENCOUNTER 2022-12-25 10:54 | Emergency (ER) | payer MEDICAID, SELFPAY ==
[2022-12-25 11:02] VITALS: BP 120/87; PULSE 67; RESP 22; TEMP 36.9; O2SAT 98
--- NOTE | 2022-12-25 11:45 | DI.CT_ITS ---
Exam(s) CT CHEST/ABD/PEL W EXAM: CT CHEST/ABD/PEL W CLINICAL HISTORY: Hx, Right side PnA, LUQ abd PAin, N/V/D TECHNIQUE: Imaging Protocol: Axial computed tomography images with coronal and sagittal reformatted images were created and reviewed CONTRAST MATERIAL: Intravenous: Omnipaque 350 contrast volume:100 mL Oral: No COMPARISON: CT CT ABDOMEN PELVIS WO from 12/15/2022 FINDINGS: CHEST: Tracheobronchial tree: Patent where visualized. Pulmonary parenchyma: No consolidation or dominant measurable mass. No architectural distortion. Visualized thyroid gland: There is a 1 cm hypodense nodule in the right lobe of the thyroid gland. N onemergent thyroid ultrasound is recommended. Mediastinum and Moni: No dominant adenopathy or fluid collection. The esophagus is unremarkable. Pleura: No effusion or pneumothorax. Heart: The heart is not dilated. No coronary artery calcifications are seen. No pericardial effusion. Pulmonary arteries: Due to bolus timing there is limited evaluation of the pulmonary arteries. No ma in or central pulmonary embolus is seen. Aorta: Thoracic aorta non-dilated. Mild atherosclerosis. Lymph nodes: Within normal limits. Soft tissues: Unremarkable. Bones:Within normal limits for the patient's age. ABDOMEN: Liver: Normal density. No measurable mass. Portal, Superior Mesenteric, and Splenic Veins: Unremarkable. Gallbladder and Biliary Tract: Status post cholecystectomy. No significant biliary ductal dilatation . Pancreas: Normal density, no abnormal calcifications or inflammatory process. Spleen: Normal. Adrenals: No masses seen. Kidneys: Normal size, contour and axis. No radiodense stones or obstructive uropathy. Stable right re nal cyst. No follow-up is recommended. Abdominal Aorta: Abdominal portion non-dilated. Atherosclerosis. Bowel: No obstruction or bowel wall thickening. No evidence of appendicitis. Peritoneal Cavity: No ascites, collection or mesenteric inflammatory response. No free air. Lymph Nodes: Within normal limits. Bones: Within normal limits for the patient's age. Soft Tissues: Unremarkable. PELVIS: Bladder: There is mild bladder wall thickening. This may be due to underdistention of the urinary bl adder. No inflammatory changes are seen around the bladder. Reproductive Organs: Unremarkable as visualized. Lymph Nodes: Within normal limits. Bones: Within normal limits. IMPRESSION: 1. No acute pulmonary process. 2. No acute finding in the abdomen and pelvis. Unexpected findings RADIATION DOSE DELIVERED: 1,029.12mGy.cm Total DLP DATA REPOSITORY: All CT scans at this facility are submitted to the National Radiology Data Registry (NRDR) Dose Index Registry (DIR) with the [employer] ([employer]). RADIATION OPTIMIZATION: All CT scans at this facility use at least one of these dose optimization te chniques: automated exposure control; mA and/or kV adjustment per patient size (includes targeted exa ms where dose is matched to clinical indication); or iterative reconstruction.
--- NOTE | 2022-12-25 11:55 | ED.GENADUL_ITS ---
Discharge Plan Disposition Patient Disposition: Home Condition: Stable Discharge Details Clinical Impression: Gastroenteritis Primary Care Provider: DOUGLAS HOUSTON ED Provider: Ira Li Home Meds and New Rx's Prescriptions: New ondansetron 4 mg tablet,disintegrating 4 mg PO Q8H PRN (Reason: nausea and vomiting) 4 Days Qty: 9 0RF Rx Instructions: Take 1 tablet up to 3 times daily as needed for nausea and vomiting 20 minutes prior to meals. No Action acetaminophen [Mapap Extra Strength] 500 MG tablet 1,000 mg PO Q6H PRN PRN0RF ibuprofen 600 mg Tablet 600 mg PO QID PRN buprenorphine-naloxone [Suboxone] 8-2 mg film 2 film sublingual DAILY Patient Comments: TAKE 2 FILMS UNDER THE TONGUE ONCE DAILY doxycycline hyclate 100 mg tablet 100 mg PO BID Qty: 18 0RF Discharge Instructions Instructions: Gastroenteritis (ED) Additional Instructions: Labs show no infection at this time, no evidence of pancreatitis. You do have a nodule on your thyroid please follow-up with this with your primary care provider. A TSH was added onto your labs. Please take the nausea medication as directed. Continue taking the doxycycline as previously prescribed. Follow up with primary care provider in 3-5 days. Return to ED sooner if any worsening or concerns. Increase oral fluids. Referrals: DOUGLAS HOUSTON, LEAD FURNACE OPERATOR [Primary Care Provider] - 5 days Discharge Data Discharge Date/Time-TO BE ENTERED AT DEPARTURE: 12/25/22 14:41 Medical Decision Making 37-year-old female presents to the ER with chief complaint of nausea vomiting for the last 2 days. Patient was seen here last week was diagnosed with pneumonia and went home on doxycycline which she is still taking. She does have a history of choledocholithiasis and pancreatitis. She reports some intermittent left upper quadrant abdominal pain she is still having some right flank pain. She does have some inspiratory wheezes on exam. She denies any diarrhea dysuria. She is clammy on initial presentation. She does have bilious emesis in her vomit bag. Past medical history includes anxiety depression migraine, surgical history includes cholecystectomy tubal ligation and adenoidectomy. She does take Suboxone film daily she reports that she did take it earlier today kept it down as long as possible and then began vomiting. She endorses marijuana and occasional alcohol the last alcohol was 4 days ago. Work-up ordered including CBC CMP lipase urine urinalysis and a liter of saline and Zofran. CT chest abdomen pelvis ordered to evaluate previous pneumonia rule out pancreatitis. She was seen here in December 14 and had a white blood cell count of 14.28 with a left shift, CMP was within normal limits and lipase within normal limits at that time. She did not follow-up with PCP since being seen here. She did have trace blood in her urinalysis at that time. TSH with refractory T4 added on labs, encourage patient to follow-up with her PCP. Was given Zofran to go here in the department. No evidence for pancreatitis. See CT results below. Patient improved remained hemodynamically stable throughout the remainder of her stay. Encouraged her to continue taking the previously prescribed antibiotics and follow-up with PCP. This text was generated using Snaptivaation system, please disregard any oddities of phrase or misspellings. Medical Records Medical records reviewed: Yes I reviewed the patient's medical records. Imaging Data Radiologic Study: Imaging: CT Scan Radiologist's impression: CT ABDOMEN PELVIS WO 12/15/2022 12:32 AM FINDINGS: Thyroid: Low-attenuation nodule right thyroid lobe measures 1 x 0.8 cm. Recommend nonemergent ultrasound. Lungs: Unremarkable. No consolidation. No masses. Pleural spaces: Unremarkable. No pneumothorax. No pleural effusion. Heart: Unremarkable. No cardiomegaly. No pericardial effusion. Lymph nodes: Unremarkable. No enlarged lymph nodes. Vasculature: Unremarkable. No aortic aneurysm.? Bones/joints: Unremarkable. No acute fracture. Soft tissues: Unremarkable. IMPRESSION: Low-attenuation nodule right thyroid lobe measures 1 x 0.8 cm. Recommend nonemergent ultrasound. Lab Data Lab results reviewed: Yes I reviewed the patient's lab results. Labs: Laboratory Tests Range/Units 12/25/22 12/25/22 12/25/22 12:10 12:10 12:10 WBC (4.4-10.8) 10^3/uL 10.78 RBC (3.93-5.22) 10^6/uL 4.52 Hgb (11.2-15.7) g/dL 14.2 Hct (36.0-46.0) % 41.3 MCV (80-95) fL 91 MCH (27.0-33.0) pg 31.4 MCHC (32.0-36.0) % 34.4 RDW (11.7-14.6) % 11.7 Plt Count (130-400) 10^3/uL 223 MPV (8.0-11.0) fL 10.4 Immature Gran % 0.4 Neutrophils % 75.1 Lymphocytes % 18.4 Monocytes % 4.5 Eosinophils % 1.3 Basophils % 0.3 Nucleated RBC % (0.0-0.3) % 0.0 Absolute Neutrophils (1.2-6.7) 10^3/uL 8.10 H Absolute Lymphocytes (1.2-3.4) 10^3/uL 1.98 Absolute Monocytes (0.1-0.8) 10^3/uL 0.49 Absolute Eosinophils (0.0-0.7) 10^3/uL 0.14 Absolute Basophils (0.0-0.2) 10^3/uL 0.03 Sodium (136-145) mmol/L 140 Potassium (3.5-5.1) mmol/L 4.0 Chloride (98-107) mmol/L 104 Carbon Dioxide (21.0-32.0) mmol/L 23.8 Anion Gap (3-11) mmol/L 12.2 H BUN (7-18) mg/dL 13 Creatinine (0.55-1.02) mg/dL 0.8 Est GFR (CKD-EPI 2020) (mL/min/1.73m2) 97.26 Glucose (74-106) mg/dL 108 H Calcium (8.5-10.1) mg/dL 9.1 Magnesium (1.8-2.4) mg/dL 2.0 Total Bilirubin (0.2-1.0) mg/dL 0.7 AST (15-37) U/L 18 ALT (14-59) U/L 16 Alkaline Phosphatase (46-116) U/L 89 Total Protein (6.4-8.2) g/dL 7.9 Albumin (3.4-5.0) g/dL 3.9 Lipase (16-77) U/L 68 TSH (0.36-3.74) uIU/mL Urine Color (Yellow) Urine Clarity (Clear) Urine pH (5-8) Ur Specific [place] (1.005-1.025) Urine Protein (Negative) mg/dL Urine Ketones (Negative) mg/dL Urine Blood (Negative) Urine Nitrite (Negative) Urine Bilirubin (Negative) Urine Urobilinogen (Up to 0.2) mg/dL Ur Leukocyte Esterase (Negative) Urine RBC (0-2) HPF Urine WBC (0-5) HPF Ur Epithelial Cells (Negative) HPF Urine Crystals (Negative) HPF Urine Bacteria (Negative) HPF Urine Casts (Negative) LPF Urine Mucus (Negative) Ur Culture Indicated? Urine Glucose (Negative) mg/dL Add-On Test Request DONE Range/Units 12/25/22 12/25/22 12:10 13:01 WBC (4.4-10.8) 10^3/uL RBC (3.93-5.22) 10^6/uL Hgb (11.2-15.7) g/dL Hct (36.0-46.0) % MCV (80-95) fL MCH (27.0-33.0) pg MCHC (32.0-36.0) % RDW (11.7-14.6) % Plt Count (130-400) 10^3/uL MPV (8.0-11.0) fL Immature Gran % Neutrophils % Lymphocytes % Monocytes % Eosinophils % Basophils % Nucleated RBC % (0.0-0.3) % Absolute Neutrophils (1.2-6.7) 10^3/uL Absolute Lymphocytes (1.2-3.4) 10^3/uL Absolute Monocytes (0.1-0.8) 10^3/uL Absolute Eosinophils (0.0-0.7) 10^3/uL Absolute Basophils (0.0-0.2) 10^3/uL Sodium (136-145) mmol/L Potassium (3.5-5.1) mmol/L Chloride (98-107) mmol/L Carbon Dioxide (21.0-32.0) mmol/L Anion Gap (3-11) mmol/L BUN (7-18) mg/dL Creatinine (0.55-1.02) mg/dL Est GFR (CKD-EPI 2020) (mL/min/1.73m2) Glucose (74-106) mg/dL Calcium (8.5-10.1) mg/dL Magnesium (1.8-2.4) mg/dL Total Bilirubin (0.2-1.0) mg/dL AST (15-37) U/L ALT (14-59) U/L Alkaline Phosphatase (46-116) U/L Total Protein (6.4-8.2) g/dL Albumin (3.4-5.0) g/dL Lipase (16-77) U/L TSH (0.36-3.74) uIU/mL 0.87 Urine Color (Yellow) Yellow Urine Clarity (Clear) Clear Urine pH (5-8) 5.5 Ur Specific [place] (1.005-1.025) <= 1.005 Urine Protein (Negative) mg/dL Negative Urine Ketones (Negative) mg/dL Trace H Urine Blood (Negative) Large H Urine Nitrite (Negative) Negative Urine Bilirubin (Negative) Negative Urine Urobilinogen (Up to 0.2) mg/dL 0.2 Ur Leukocyte Esterase (Negative) Negative Urine RBC (0-2) HPF >50 H Urine WBC (0-5) HPF 0-2 Ur Epithelial Cells (Negative) HPF Many Urine Crystals (Negative) HPF Negative Urine Bacteria (Negative) HPF Rare Urine Casts (Negative) LPF Negative Urine Mucus (Negative) Negative Ur Culture Indicated? No/Sq. Contamination Urine Glucose (Negative) mg/dL Negative Add-On Test Request HPI General Mode of arrival: ambulatory . Date/Time Provider Initiated Documentation: 12/25/22 11:29 . Limitations to Documentation: no limitations . Information obtained by: patient, RN notes reviewed and old records reviewed . HPI Narrative: 37-year-old female presents to the ER with chief complaint of nausea vomiting for the last 2 days. Patient was seen here last week was diagnosed with pneumonia and went home on doxycycline which she is still taking. She does have a history of choledocholithiasis and pancreatitis. She reports some intermittent left upper quadrant abdominal pain she is still having some right flank pain. She does have some inspiratory wheezes on exam. She denies any diarrhea dysuria. She is clammy on initial presentation. She does have bilious emesis in her vomit bag. Past medical history includes anxiety depression migraine, surgical history includes cholecystectomy tubal ligation and adenoidectomy. She does take Suboxone film daily she reports that she did take it earlier today kept it down as long as possible and then began vomiting. She endorses marijuana and occasional alcohol the last alcohol was 4 days ago. Related Data Home Medications Medication Instructions Recorded Confirmed acetaminophen 500 mg tablet (Mapap 1,000 mg PO Q6H PRN PRN 06/29/16 12/25/22 Extra Strength) ibuprofen 600 mg tablet 600 mg PO QID PRN 03/09/19 12/25/22 buprenorphine 8 mg-naloxone 2 mg 2 film sublingual DAILY 07/27/21 12/25/22 sublingual film (Suboxone) doxycycline hyclate 100 mg tablet 100 mg PO BID #18 tabs 12/15/22 12/25/22 ondansetron 4 mg disintegrating 4 mg PO Q8H PRN nausea and 12/25/22 tablet vomiting 4 days #9 tabs Previous Rx's Medication Instructions Recorded acetaminophen 500 mg tablet (Mapap 1,000 mg PO Q6H PRN PRN 06/29/16 Extra Strength) doxycycline hyclate 100 mg tablet 100 mg PO BID #18 tabs 12/15/22 ondansetron 4 mg disintegrating 4 mg PO Q8H PRN nausea and 12/25/22 tablet vomiting 4 days #9 tabs Allergies Allergy/AdvReac Type Severity Reaction Status Date / Time No Known Drug Allergies Allergy Unknown none Unverified 07/31/21 08:20 General Stated Complaint: Nausea/Vomit/Diar ELISHA: 3 Review of Systems All systems reviewed & are unremarkable except as noted in HPI and below Gastrointestinal Gastrointestinal: Reports as per HPI, Reports abdominal pain, Reports nausea and Reports vomiting Genitourinary Genitourinary: Denies difficulty voiding, Denies dysuria and Denies pelvic pain PFSH All Active Problems (Updated 12/25/22 @ 14:24 by Ira Li, LEAD FURNACE OPERATOR) Acute flank pain (Acute) Pneumonia (Acute) Gastroenteritis (Acute) Discharged to home (Acute) Ovarian cyst (Acute) Previous delivery, delivered (Acute 06/12/14) Outcome of delivery, single liveborn (Acute 06/12/14) Encounter for sterilization (Acute 06/12/14) Depression with anxiety (Chronic) Headache (Chronic) H/O surgical procedure (Chronic) a. two previous C-sections Gestational thrombocytopenia (Acute 06/12/14) Pancreatitis (Acute) Medical History Anxiety treated with Paroxitine. restarted 05/06/14 for recurrence of anxiety Depression Rx with Trazadone to assist sleep. Migraine after of second child. vision changes prior to H/A. On triptans prior to current preg. followed by neurology. Surgical History Adenoidectomy section X 2 Cholecystectomy (06/24/16) myringotomy Previous section (04/22/14) S/P tubal ligation Family History Father Diabetes Stroke age 57 Mother No problems noted. Brother No problems noted. Sister No problems noted. Social History Smoking/Tobacco Use Status: Current every day Tobacco Type: cigarettes Smoking risk assessment performed?: Yes Alcohol Intake: current Alcohol Intake frequency: a few times a week Drug use: Occasionally Substance use type: marijuana Housing: apartment Do you feel safe at home: Yes Do you feel safe in your relationship?: Yes Female Reproductive History Menstrual control method: permanent sterilization (s/p tubal ligation) Exam Narrative Exam Narrative: Constitutional: Alert and oriented x3. Appears stated age. Normal body habitus. She is clammy Head: Normocephalic, no trauma. Eyes: Pupils PERRL, Red reflex noted, EOM's intact. Eyelids symmetrical without lesions, discharge, or swelling. ENT: Bilateral TM's WNL, External ear normal to inspection, no mastoid TTP, swelling, or erythema, Nasal turbinates WNL, no nasal discharge. Normal dentition, Posterior pharynx WNL, no exudate. Chest: RRR, Normal S1, S2, distal pulses intact. Resp: Lungs clear to auscultation bilaterally, no wheezes, rales, or rhonchi. Abdomen: Soft, non-distended, Normoactive bowel sounds all 4 quads. Tender with palpation, midepigastric area, Right CVA tenderness with palpation. Musculoskeletal: Normal gait, 5/5 strength to all four extremities. Skin: No suspicious rashes or lesions. Capillary refill less than 2 sec. Neurologic: Cranial nerves II-XII intact. Alert and oriented x 3. Motor: No deficits noted. Sensory: Intact bilaterally all 4 extremities. Reflexes: DTR's intact bilaterally.. Hematologic/Lymphatic: No ecchymosis, no lymphadenopathy. Course Vital Signs Vital signs: Vital Signs Temperature 36.9 C 12/25/22 11:02 Pulse 67 12/25/22 11:02 Respiratory Rate 22 12/25/22 11:02 Blood Pressure 120/87 12/25/22 11:02 Pulse Oximetry 98 12/25/22 11:02 Temperature 36.9 C 12/25/22 11:02 Temperature Source Temporal Artery Scan 12/25/22 11:02 Pulse 67 12/25/22 11:02 Respiratory Rate 12/25/22 11:02 Blood Pressure 120/87 12/25/22 11:02 Blood Pressure Position Sitting 12/25/22 11:02 Pulse Oximetry 98 12/25/22 11:02 Oxygen Delivery Method Room Air 12/25/22 11:02 Oxygen Flow Rate 0 12/25/22 11:02 Pain Level 7 12/25/22 11:02
[2022-12-25] MEDS: Normal Saline 1,000 ML 1000 ML IV (12:19)
[2022-12-25] MEDS: Ondansetron 4 MG/2 ML VIAL IVP (12:20)
[2022-12-25 12:21] LABS: Abs Immature Grans 0.04 10^3/uL (0.0-0.06); Absolute Basophil Count 0.03 10^3/uL (0.0-0.2); Absolute Eosinophil Count 0.14 10^3/uL (0.0-0.7); Absolute Lymphocyte Count 1.98 10^3/uL (1.2-3.4); Absolute Monocyte Count 0.49 10^3/uL (0.1-0.8); Basophils % 0.3; Eosinophils % 1.3; HCT 41.3 % (36.0-46.0); HGB 14.2 g/dL (11.2-15.7); Immature Grans % 0.4; Lymphocytes % 18.4; MCH 31.4 pg (27.0-33.0); MCHC 34.4 % (32.0-36.0); MCV 91 fL (80-95); MPV 10.4 fL (8.0-11.0); Monocytes % 4.5; Neutrophils % 75.1; Platelet Count 223 10^3/uL (130-400); RBC 4.52 10^6/uL (3.93-5.22); RDW 11.7 % (11.7-14.6); RDW-SD 39.1 fL; WBC 10.78 10^3/uL (4.4-10.8)
[2022-12-25] MEDS: Normal Saline - Diluent 50 ML VIAL IJ (12:37)
[2022-12-25] MEDS: Omnipaque 350 MG/ML 100 ML BTL IJ (12:38)
[2022-12-25 12:41] LABS: ALT 16 U/L (14-59); AST 18 U/L (15-37); Albumin 3.9 g/dL (3.4-5.0); Alkaline Phosphatase 89 U/L (46-116); Anion Gap 12.2 mmol/L (3-11); BUN 13 mg/dL (7-18); Bilirubin, Total 0.7 mg/dL (0.2-1.0); CO2 23.8 mmol/L (21.0-32.0); CREATININE 0.8 mg/dL (0.55-1.02); Calcium 9.1 mg/dL (8.5-10.1); Chloride 104 mmol/L (98-107); Estimated GFR 97.26 (mL/min/1.73m2); Glucose 108 mg/dL (74-106); Lipase 68 U/L (16-77); Sodium 140 mmol/L (136-145); Total Protein 7.9 g/dL (6.4-8.2)
[2022-12-25 13:11] LABS: Bilirubin Negative (Negative); Blood Large (Negative); Clarity Clear (Clear); Glucose Negative (Negative); Ketones Trace mg/dL (Negative); Leukocyte Esterase Negative (Negative); Nitrite Negative (Negative); Specific Gravity <= 1.005 (1.005-1.025); Urobilinogen 0.2 mg/dL (Up to 0.2); pH 5.5 (5-8)
[2022-12-25 13:19] LABS: Epithelial Cells Many HPF (Negative); RBC >50 HPF (0-2); WBC 0-2 HPF (0-5)
[2022-12-25 13:20] LABS: Bacteria Rare HPF (Negative); C & S Indicated? No/Sq. Contamination; Casts Negative LPF (Negative); Crystals Negative HPF (Negative); Mucus Negative (Negative)
--- NOTE | 2022-12-25 13:40 | DI.VRAD_ITS ---
PROCEDURE INFORMATION: Exam: CT Chest With Contrast; Diagnostic Exam date and time: 12/25/2022 12:34 PM Age: 37 years old Clinical indication: Abdominal pain; Other: Right side pna TECHNIQUE: Imaging protocol: Diagnostic computed tomography of the chest with contrast. COMPARISON: CT ABDOMEN PELVIS WO 12/15/2022 12:32 AM FINDINGS: Thyroid: Low-attenuation nodule right thyroid lobe measures 1 x 0.8 cm. Recommend nonemergent ultrasound. Lungs: Unremarkable. No consolidation. No masses. Pleural spaces: Unremarkable. No pneumothorax. No pleural effusion. Heart: Unremarkable. No cardiomegaly. No pericardial effusion. Lymph nodes: Unremarkable. No enlarged lymph nodes. Vasculature: Unremarkable. No aortic aneurysm. Bones/joints: Unremarkable. No acute fracture. Soft tissues: Unremarkable. IMPRESSION: Low-attenuation nodule right thyroid lobe measures 1 x 0.8 cm. Recommend nonemergent ultrasound. PROCEDURE INFORMATION: Exam: CT Abdomen And Pelvis With Contrast Exam date and time: 12/25/2022 12:34 PM Age: 37 years old Clinical indication: Abdominal pain; Other: Right side pna TECHNIQUE: Imaging protocol: Computed tomography of the abdomen and pelvis with contrast. COMPARISON: CT ABDOMEN PELVIS WO 12/15/2022 12:32 AM FINDINGS: Liver: Normal. No mass. Gallbladder and bile ducts: Previous cholecystectomy. Pancreas: Normal. No ductal dilation. Spleen: Normal. No splenomegaly. Adrenal glands: Normal. No mass. Kidneys and ureters: Simple cortical renal cyst superior pole right kidney measures 1.5 x 1.8 cm. No hydronephrosis. Stomach and bowel: Unremarkable. No obstruction. No mucosal thickening. Appendix: No evidence of appendicitis. Intraperitoneal space: Unremarkable. No free air. No significant fluid collection. Vasculature: Unremarkable. No abdominal aortic aneurysm. Lymph nodes: Unremarkable. No enlarged lymph nodes. Urinary bladder: Unremarkable as visualized. Reproductive: Unremarkable as visualized. Bones/joints: Unremarkable. No acute fracture. Soft tissues: Unremarkable. IMPRESSION: No acute findings. Dictated and Authenticated by: Sona Salazar MD. Ordering:WESTON Roth MD
[2022-12-25] MEDS: Ondansetron O.D.T. 4 MG TABEF, 3 TABS/BTL PO (14:35)
[2022-12-25 14:39] VITALS: BP 128/85; PULSE 55; RESP 17; TEMP 36.6; O2SAT 98
[2022-12-25 14:44] LABS: Lab Add On Test DONE
[2022-12-25 15:05] LABS: TSH (W/Ref FT4) 0.87 uIU/mL (0.36-3.74)
== END 2022-12-25 14:41 | disposition home or self-care (01) ==
PROVIDERS: Emergency Provider Registered Nurse Emergency; PCP Nurse Practitioner Family
DX: R11.2 Nausea with vomiting, unspecified (principal); K52.9 Noninfective gastroenteritis and colitis, unspecified; E04.1 Nontoxic single thyroid nodule; Z90.49 Acquired absence of other specified parts of digestive tract
CPT/HCPCS: 74177; 80053; 81025; 83690; 96361; 96374; 99285; 71260; 81003; 81015; 83735; 84443; 85025; 99284; J2405; J3490

== ENCOUNTER 2023-03-09 03:11 | Outpatient (CLI) | payer MEDICAID, SELFPAY ==
[2023-03-09 17:01] LABS: ALT 21 U/L (14-59); AST 22 U/L (15-37); GGT 30 U/L (5-55)
== END 2023-03-09 03:12 | disposition home or self-care (01) ==
LOC: LBO 03:11
PROVIDERS: PCP Nurse Practitioner Family; Visit Provider Nurse Practitioner Gerontology
DX: F11.20 Opioid dependence, uncomplicated (principal)
CPT/HCPCS: 36415; 82977; 84450; 84460

== ENCOUNTER 2024-04-12 13:45 | Emergency (ER) | payer MEDICAID, SELFPAY ==
[2024-04-12 14:06] VITALS: BP 161/95; PULSE 58; RESP 16; O2SAT 99
--- NOTE | 2024-04-12 14:24 | ED.GENADUL_ITS ---
Discharge Plan Disposition Patient Disposition: Home Condition: Fair Discharge Details Clinical Impression: Nausea and vomiting Primary Care Provider: DOUGLAS HOUSTON ED Provider: Grace Newell Home Meds and New Rx's Prescriptions: No Action buprenorphine-naloxone [Suboxone] 8-2 mg film 2 film sublingual DAILY Patient Comments: TAKE 2 FILMS UNDER THE TONGUE ONCE DAILY Discharge Instructions Instructions: Nausea and vomiting in adults Additional Instructions: You were seen in the emergency department today for nausea and vomiting. You had a reassuring laboratory workup and a negative CT scan. Unfortunately we are sometimes unable to determine the cause of symptoms here in the emergency department, and you are desiring to go home and follow-up with your primary care provider. This is reasonable but I do recommend that you come back to the emergency department if your symptoms worsen, you are unable to maintain your hydration, or have any other concerns. Thank you for allowing us to be part of your care. HPI General Mode of arrival: ambulatory . Date/Time Provider Initiated Documentation: 04/12/24 14:07 . Limitations to Documentation: no limitations . Information obtained by: patient, family and old records reviewed . HPI Narrative: HPI: This is a 38-year-old female patient with a past medical history significant for gallstone pancreatitis status postcholecystectomy, history of opioid use on Suboxone maintenance therapy, and a history of tubal ligation who is presenting for evaluation of abdominal pain with nausea and vomiting. The patient's symptoms started last night, she feels general discomfort specifically around her periumbilical area but is having a difficult time localizing to one specific spot. She has had nausea with vomiting, no hematemesis, that has been fairly consistent over the night and day. She did have a bowel movement today, states that she had some diarrhea. She has not tried any medications for management of her symptoms, states that she just does not feel right, is feeling hot and cold. She denies dysuria, vaginal discharge. Exam: Gen: Awake and alert, appears acutely uncomfortable HEENT: Non-icteric sclera Neck: Supple Lungs: No apparent respiratory distress, normal respiratory effort. CV: Appears well perfused, strong distal pulses Abdomen: Non-distended, soft, tender to palpation in the periumbilical area without rigidity, rebound, guarding MSK: Moves 4 extremities without apparent limitation in ROM Skin: Visualized skin without rashes, cyanosis. Neuro: No obvious focal deficits or facial asymmetry. Speaks in full, clear sentences. Psych: Appropriate for situation. MDM: This is a 38-year-old female patient presenting for evaluation of abdominal pain with nausea and vomiting. My differential includes but is not limited to pancreatitis, choledocholithiasis, appendicitis, diverticulitis, bowel obstruction. Considered PUD/GERD, patient without significant risk factors for aortic pathology or mesenteric ischemia. Considered urinary tract infection, pyelonephritis, nephrolithiasis. The patient is not experiencing any vaginal sy mptoms to suggest PID/TOA. Status post tubal ligation making related complaints much less likely. Considered gastroenteritis. We will obtain laboratory studies to include CBC, CMP, magnesium, troponin, and lipase. I will provide the patient with Tylenol and Toradol as initial symptomatic management given her chronic Suboxone usage. We will obtain a CT abdomen pelvis to better characterize any abnormalities. When able to patient will provide a urine sample. ED Course: I reviewed the patient's laboratory studies, which show a mild leukocytosis without anemia or thrombocytopenia, chemistry panel without significant metabolic or electrolyte derangement, kidney injury, or evidence of liver disease. Lipase is low, troponin was negative. CT scan reviewed by myself, no evidence for abnormalities which might explain the patient's symptoms. I did provide her with an additional dose of medication, to include droperidol and Benadryl, which the patient reports helped a little bit. On reevaluation the patient endorses following up her Suboxone today, and she is concerned that she may be in withdrawal due to missing that medication. For this reason I will provide her with a repeat dose of 16 mg which is her home dose. -The patient was only able to tolerate half of the dose, one 8 mg film of Suboxone, and had recurrent nausea with vomiting. She reports that she did not see the film in her emesis. She does not want to trial another dose. The patient states that she wants to be discharged home given her reassuring workup so that she can lay on the couch and hope that she improves over time. I did have a shared decision-making conversation with the patient regarding the benefits of staying in the hospital for ongoing symptom management, but at this time she does have capacity and this would not be deemed an AGAINST MEDICAL ADVICE discharge given her reassuring and complete workup. I did pet counselor the patient that while she does not have any sign of dehydration today that she needs to be mindful of her oral intake, and return to care if she has vomiting that prevents her from maintaining her hydration. She will also call her primary care provider in the morning to schedule reassessment appointment. At this time, the patient has had a full medical evaluation and is safe for discharge to home. They are hemodynamically stable, ambulatory. They are under standing of the follow-up plan and return precautions. They left our facility without incident. Grace Newell MD Related Data Home Medications ?Medication ?Instructions ?Recorded ?Confirmed buprenorphine 8 mg-naloxone 2 mg 2 film sublingual DAILY 07/27/21 04/12/24 sublingual film (Suboxone) Allergies Allergy/AdvReac Type Severity Reaction Status Date / Time No Known Drug Allergies Allergy Unknown none Verified 04/12/24 14:05 General Stated Complaint: Nausea/Vomit/Diar ELISHA: 3 Course Vital Signs Vital signs: Vital Signs Pulse 58 L 04/12/24 14:06 Respiratory Rate 16 04/12/24 14:06 Blood Pressure 161/95 H 04/12/24 14:06 Pulse Oximetry 99 04/12/24 14:06 Temperature Source Oral 04/12/24 14:06 Pulse 58 L 04/12/24 14:06 Respiratory Rate 16 04/12/24 14:06 Blood Pressure 161/95 H 04/12/24 14:06 Blood Pressure Position Sitting 04/12/24 14:06 Pulse Oximetry 99 04/12/24 14:06 Oxygen Delivery Method Room Air 04/12/24 14:06 Oxygen Flow Rate 0 04/12/24 14:06 Pain Level 9 04/12/24 14:06 Comment Umbilical area. 04/12/24 14:06 Medical Decision Making Quality:SDOH Health Related Social Needs: No Data to Display PFSH All Active Problems (Updated 04/12/24 @ 16:22 by Grace Newell MD) Nausea and vomiting (Acute) Discharged to home (Acute) Ovarian cyst (Acute) Previous delivery, delivered (Acute 06/12/14) Outcome of delivery, single liveborn (Acute 06/12/14) Encounter for sterilization (Acute 06/12/14) Depression with anxiety (Chronic) Headache (Chronic) H/O surgical procedure (Chronic) a. two previous C-sections Gestational thrombocytopenia (Acute 02/18/15) Pancreatitis (Acute) Medical History Anxiety treated with Paroxitine. restarted 05/06/14 for recurrence of anxiety Depression Rx with Trazadone to assist sleep. Migraine after of second child. vision changes prior to H/A. On triptans prior to current preg. followed by neurology. Surgical History Adenoidectomy section X 2 Cholecystectomy (06/24/16) myringotomy Previous section (04/22/14) S/P tubal ligation Family History Father Diabetes Stroke age 57 Mother No problems noted. Brother No problems noted. Sister No problems noted. Social History Smoking/Tobacco Use Status: Current every day Tobacco Type: cigarettes Smoking risk assessment performed?: Yes Alcohol Intake: current Alcohol Intake frequency: a few times a week Drug use: Occasionally Substance use type: marijuana Housing: apartment Do you feel safe at home: Yes Do you feel safe in your relationship?: Yes Female Reproductive History Menstrual control method: permanent sterilization (s/p tubal ligation)
[2024-04-12 14:37] LABS: Abs Immature Grans 0.05 10^3/uL (0.0-0.06); Absolute Basophil Count 0.05 10^3/uL (0.0-0.2); Absolute Eosinophil Count 0.08 10^3/uL (0.0-0.7); Absolute Lymphocyte Count 2.77 10^3/uL (1.2-3.4); Absolute Monocyte Count 0.52 10^3/uL (0.1-0.8); Absolute Neutrophil Count 9.11 10^3/uL (1.2-6.7); Basophils % 0.4 %; Eosinophils % 0.6 %; HCT 41.9 % (36.0-46.0); HGB 14.7 g/dL (11.2-15.7); Immature Grans % 0.4 %; MCH 32.7 pg (27.0-33.0); MCHC 35.1 % (32.0-36.0); MCV 93 fL (80-95); MPV 9.8 fL (8.0-11.0); Monocytes % 4.1 %; Neutrophils % 72.5 %; Platelet Count 289 10^3/uL (130-400); RBC 4.49 10^6/uL (3.93-5.22); RDW 11.8 % (11.7-14.6); RDW-SD 40.5 fL; WBC 12.57 10^3/uL (4.4-10.8)
[2024-04-12] MEDS: Ondansetron 4 MG/2 ML VIAL IVP (14:37)
[2024-04-12] MEDS: ACETAMINOPHEN 1,000 MG/100 ML BAG 400 MG IVPB (14:37)
[2024-04-12] MEDS: Ketorolac 15 MG/ML VIAL IVP (14:41)
[2024-04-12 15:03] LABS: ALT 36 U/L (14-59); AST 34 U/L (15-37); Albumin 3.9 g/dL (3.4-5.0); Alkaline Phosphatase 86 U/L (46-116); BUN 6 mg/dL (7-18); Bilirubin, Total 0.52 mg/dL (0.2-1.0); Calcium 9.2 mg/dL (8.5-10.1); Chloride 105 mmol/L (98-107); Estimated GFR 73.95 (mL/min/1.73m2); Glucose 150 mg/dL (74-106); Lipase 69 U/L (<78); Potassium 3.7 mmol/L (3.5-5.1); Sodium 143 mmol/L (136-145); Total Protein 7.7 g/dL (6.4-8.2)
[2024-04-12] MEDS: Omnipaque 350 MG/ML 100 ML BTL 75 ML IJ (15:03)
[2024-04-12 15:04] LABS: Troponin I < 4 ng/L (<or=51)
[2024-04-12] MEDS: Normal Saline - Diluent 50 ML VIAL IJ (15:04)
--- NOTE | 2024-04-12 15:14 | DI.CT_ITS ---
Exam(s) CT ABDOMEN PELVIS W EXAM: CT ABDOMEN PELVIS W CLINICAL HISTORY: Periumbilical abd pain, N/V TECHNIQUE: Imaging Protocol: Axial computed tomography images with coronal and sagittal reformatted images were created and reviewed. CONTRAST MATERIAL: Intravenous: Omnipaque 350 Contrast volume:75 mL Oral: No COMPARISON: CT CT CHEST/ABD/PEL W from 12/25/2022 FINDINGS: ABDOMEN: Lung Bases: No acute abnormality. Liver: There is decreased attenuation of the liver consistent with fatty infiltration. The liver is enlarged. No measurable mass. Portal, Superior Mesenteric, and Splenic Veins: Unremarkable. Gallbladder and Biliary Tract: No radiodense calculus or dilation. Pancreas: Normal density, no abnormal calcifications or inflammatory process. Spleen: Normal. Adrenals: No masses seen. Kidneys: Normal size, contour and axis. No radiodense stones or obstructive uropathy. There is a simp le cyst in the right kidney. No follow-up is recommended. Abdominal Aorta: Abdominal portion non-dilated. Atherosclerotic calcification is present. Bowel: No obstruction or bowel wall thickening. No evidence of appendicitis. Peritoneal Cavity: No ascites, collection or mesenteric inflammatory response. No free air. Lymph Nodes: Within normal limits. Bones: Within normal limits for the patient's age. Soft Tissues: There is a small fat containing umbilical hernia. PELVIS: Bladder: The urinary bladder is incompletely distended but grossly unremarkable. Reproductive Organs: Unremarkable as visualized. Lymph Nodes: Within normal limits. Bones: Within normal limits for the patient's age. IMPRESSION: No acute abdominal or pelvic process. RADIATION DOSE DELIVERED: 496.53mGy.cm Total DLP DATA REPOSITORY: All CT scans at this facility are submitted to the National Radiology Data Registry (NRDR) Dose Index Registry (DIR) with the [employer] (ACR). RADIATION OPTIMIZATION: All CT scans at this facility use at least one of these dose optimization te chniques: automated exposure control; mA and/or kV adjustment per patient size (includes targeted exa ms where dose is matched to clinical indication); or iterative reconstruction.
[2024-04-12] MEDS: diphenhydrAMINE 50 MG/ML VIAL 25 MG IVP (15:22)
[2024-04-12] MEDS: Droperidol 5 MG/2 ML VIAL 1.25 MG IVP (15:24)
--- OUTSIDE RECORDS SUMMARY | 2024-04-12 15:35 | XMS_ITS | Encounter Summary ---
Author Organization [facility] [place] [address] Care Team Providers Care Store Sales Manager Name Role Phone Leila Birchdawit Mancilla APRN Primary Care Provider [phone]- [phone] Encounter Details Date Type Department Care Team (Latest Contact Info) Description 01/15/2014 9:34 AM EDT - 01/15/2014 11:59 PM EDT Hospital Encounter [place] [address] CL[address]IC, DR BENSON Charles, Luis Stein, [facility] [address] [place] [address] Discharge Disposition: Home Social History Tobacco Use Types Packs/Day Years Used Date Smoking Tobacco: Never Smokeless Tobacco: Never Alcohol Use Standard Drinks/Week Comments No 0 (1 standard drink = 0.6 oz pur e alcohol) Comments Yes Sex and Gender Information Value Date Recorded Sex Assigned at Not on file Gender Identity Not on file Sexual Orientation Not on file documented as of this encounter Medications at Time of Discharge Medication Sig Dispensed Refills Start Date End Date citalopram (CELEXA) 10 mg Tablet Take 10 mg by mouth daily. [id number] Tablet Take by mouth. documented as of this encounter Plan of Treatment Not on file documented as of this encounter Procedures Procedure Name Priority Date/Time Associated Diagnosis Comments US OB DETAILED MORPHOLOGY Routine 01/15/2014 10:40 AM EDT documented in this encounter Results * US OB Targeted Morphology (01/15/2014 10:40 AM EDT) Anatomical Region Laterality Modality Pelvis, Abdomen Ultrasound 01/15/2014 10:4 0 AM EDT Narrative 01/15/2014 10:45 AM EDT OBSTETRICS REPORT ?(Signed Final 01/15/2014 10:44 ? am) Patient Info ID #: ? [id number] ?: ??[birth year] (28 yrs) Name: ? LOBO ARCHIBALD ? Visit Date: 01/15/2014 10:38 am Performed By Performed By: ?Gris Bird RDMS Attending: ? Dave Khan MD ??Casandra Referred By: ? LUIS CHARLES CN Service(s) Provided ??[facility] - Targeted Morphology - Genetics - ? [id number] ??[id number] Indications ??+QUAD FOR DS, JUAN 2.24.15 OB History Blood Type: ?? A+ ? Height: ??5'1 ?? Weight: ?? 180.5 ? BMI: ??34.1 : ?3 Living: ? 2 Evaluation Num Of Fetuses: ? 1 Heart ? 148 Rate(bpm): Cardiac Activity: ?? Observed, normal rhythm Presentation: ? Variable Placenta: ? Anterior P. Cord Insertion: ??Within Normal Limits Amniotic Fluid TERESA FV: ?Normal -------- Biometry -------- BPD: ?34.4 ??mm ?G. Age: ?? 16w 4d OFD: ?52.1 ??mm HC: ?139.3 ??mm ?G. Age: ?? 17w 2d AC: ?111.1 ??mm ?G. Age: ?? 16w 6d FL: ? 25.2 ??mm ?G. Age: ?? 17w 5d HUM: ?23.6 ??mm ?G. Age: ?? 17w 2d CER: ?17.3 ??mm ?G. Age: ?? 17w 2d NFT: ? 3.2 ??mm NB: ? 4.54 ??mm LV: ?7.2 ??mm CM: ?3.4 ??mm CI: ?66.0 ??% ? 70 - 86 FL/HC: ? 18.1 ??% ? 15.8 - 18 HC/AC: ? 1.25 ?1.07 - 1.29 FL/BPD: ?73.3 ??% FL/AC: ? 22.7 ??% ? Est. FW: ? 188 ?? gm ? 0 lb 7 oz Gestational Age LMP: ? 18w 0d ?Date: ??09/11/13 ? JUAN: ?? 06/18/14 U/S Today: ? 17w 1d ?JUAN: ?? 06/24/14 Best: ?18w 0d ?? Det. By: ??LMP ??(09/11/13) ?JUAN: ?? 06/18/14 Targeted Anatomy Central Nervous System Calvarium: ?Within Normal Limits Intracranial: ? Within Normal Limits Lat. Ventricles: ?Within Normal Limits Cerebellum: ? Within Normal Limits Choroid Plexus: ? Within Normal Limits Cisterna Magna: ? Within Normal Limits Spine Cervical: ? Visualized Thoracic: ? Visualized Lumbar: ? Visualized Sacral: ? Visualized Head/Neck Face: ? Within Normal Limits Nuchal Fold: ?Within Normal Limits Thorax Four Chamber: ? Within Normal Limits Cardiac Motion: ? Normal Rhythm R Outflow Tract: ?Visualized L Outflow Tract: ?Visualized Cardiac [place]: ? Visualized Diaphragm: ?Visualized Abdomen Ventral Wall: ? Visualized Stomach: ?Visualized Lt Kidney: ?Visualized Rt Kidney: ?Visualized Bladder: ?Visualized Extremities Lt Humerus: ? Within Nomal Limits Rt Humerus: ? Within Normal Limits Lt Forearm: ? Within Normal Limits Rt Forearm: ? Within Normal Limits Lt Hand: ?Within Normal Limits Rt Hand: ?Within Normal Limits Lt Femur: ? Within Normal Limits Rt Femur: ? Within Normal Limits Lt Lower Leg: ? Within Normal Limits Rt Lower Leg: ? Within Normal Limits Lt Foot: ?Visualized Rt Foot: ?Visualized Other Umbilical Cord: ? 3 vessel cord Cord Insertion: ? WIthin Normal Limits Comment: ? Nasal Bone: Visualized Doppler - Uterine Artery Right S/D Ratio: ? RI: ?PI: ?%Tile Left S/D Ratio: ?RI: ?PI: ?%Tile Cervix Uterus Adnexa Left Ovary Visualized Right Ovary Visualized Impression 2nd Trimester - Targeted Morphology- Summary Single intrauterine with a gestational age of 18w 0d based on LMP. Composite age based on the current ultrasound alone is 17w 1d. Amniotic fluid volume is normal. Current growth parameters are consistent indicating normal growth. ??Detailed anatomic evaluation was performed and no structural abnormalities are noted. I ??viewed the images and agree with the above interpretation. ?Dave Khan MD Electronically Signed Final Report ?? 01/15/2014 10:44 am Procedure Note Dave Khan MD - 01/15/2014 OBSTETRICS REPORT (Signed Final 01/15/2014 10:44 am) Patient Info ID #: [id number] : [birth year] (28 yrs) Name: LOBO ARCHIBALD Visit Date: 01/15/2014 10:38 am Performed By Performed By: Gris Bird RDMS Attending: Dave Khan MD Referred By: LUIS CHARLES [facility] Service(s) Provided [facility] - Targeted Morphology - Genetics - [phone] [id number] Indications +QUAD FOR DS, JUAN 06.18.14 OB History Blood Type: A+ Height: 5'1 Weight: 180.5 BMI: 34.1 : 3 Livin Evaluation Num Of Fetuses: 1 Heart 148 Rate(bpm): Cardiac Activity: Observed, normal rhythm Presentation: Variable Placenta: Anterior P. Cord Insertion: Within Normal Limits Amniotic Fluid TERESA FV: Normal -------- Biometry -------- BPD: 34.4 mm G. Age: 16w 4d OFD: 52.1 mm HC: 139.3 mm G. Age: 17w 2d AC: 111.1 mm G. Age: 16w 6d FL: 25.2 mm G. Age: 17w 5d HUM: 23.6 mm G. Age: 17w 2d CER: 17.3 mm G. Age: 17w 2d NFT: 3.2 mm NB: 4.54 mm LV: 7.2 mm CM: 3.4 mm CI: 66.0 % 70 - 86 FL/HC: 18.1 % 15.8 - 18 HC/AC: 1.25 1.07 - 1.29 FL/BPD: 73.3 % FL/AC: 22.7 % 20 - 24 Est. FW: 188 gm 0 lb 7 oz Gestational Age LMP: 18w 0d Date: 09/11/13 JUAN: 06/18/14 U/S Today: 17w 1d JUAN: 06/24/14 Best: 18w 0d Det. By: LMP (09/11/13) JUAN: 06/18/14 Targeted Anatomy Central Nervous System Calvarium: Within Normal Limits Intracranial: Within Normal Limits Lat. Ventricles: Within Normal Limits Cerebellum: Within Normal Limits Choroid Plexus: Within Normal Limits Cisterna Magna: Within Normal Limits Spine Cervical: Visualized Thoracic: Visualized Lumbar: Visualized Sacral: Visualized Head/Neck Face: Within Normal Limits Nuchal Fold: Within Normal Limits Thorax Four Chamber: Within Normal Limits Cardiac Motion: Normal Rhythm R Outflow Tract: Visualized L Outflow Tract: Visualized Cardiac [place]: Visualized Diaphragm: Visualized Abdomen Ventral Wall: Visualized Stomach: Visualized Lt Kidney: Visualized Rt Kidney: Visualized Bladder: Visualized Extremities Lt Humerus: Within Nomal Limits Rt Humerus: Within Normal Limits Lt Forearm: Within Normal Limits Rt Forearm: Within Normal Limits Lt Hand: Within Normal Limits Rt Hand: Within Normal Limits Lt Femur: Within Normal Limits Rt Femur: Within Normal Limits Lt Lower Leg: Within Normal Limits Rt Lower Leg: Within Normal Limits Lt Foot: Visualized Rt Foot: Visualized Other Umbilical Cord: 3 vessel cord Cord Insertion: WIthin Normal Limits Comment: Nasal Bone: Visualized Doppler - Uterine Artery Right S/D Ratio: RI: PI: %Tile Left S/D Ratio: RI: PI: %Tile Cervix Uterus Adnexa Left Ovary Visualized Right Ovary Visualized Impression 2nd Trimester - Targeted Morphology- Summary Single intrauterine with a gestational age of 18w 0d based on LMP. Composite age based on the current ultrasound alone is 17w 1d. Amniotic fluid volume is normal. Current growth parameters are consistent indicating normal growth. Detailed anatomic evaluation was performed and no structural abnormalities are noted. I viewed the images and agree with the above interpretation. Dave Khan MD Electronically Signed Final Report 01/15/2014 10:44 am Luis Charles CNM IMG US OB ORDE JESS documented in this encounter Visit Diagnoses Not on filedocumented in this encounter Care Teams Store Sales Manager Relationship Specialty Start Date End Date Umu Birhc, [facility] [address] [place] [address] PCP - General 01/08/14 06/24/16 documented as of this encounter
--- OUTSIDE RECORDS SUMMARY | 2024-04-12 15:35 | XMS_ITS | Encounter Summary ---
Author Organization [facility] Address [address] [place] [address] Care Team Providers Care Water Regulator And Valve Repairer Name Role Phone Unavailable Primary Care Provider Unavailabl e Encounter Details Date Type Department Care Team (Late st Contact Info) Description 04/05/2005 Results Only [facility] conversion [address] [place] [address] Denny Miller CNM [address] [id number] Social History Tobacco Use Types Packs/Day Years Used Date Smoking Tobacco: Never Assessed Comments Unknown Sex and Gender Information Value Date Recorded Sex Assigned at Not on file Legal Sex Female 18:36 EST Gender Identity Not on file Sexual Orientation Not on file documented as of this encounter Plan of Treatment Not on file documented as of this encounter Procedures Procedure Name Priority Date/Time Associated Diagnosis Comments HPV DETECTION, HIGH RISK TYPES Routine 04/05/2005 10:40 EST CYTOPATHOLOGY Routine 04/05/2005 0:00 EST documented in this encounter Results * HUMAN PAPILLOMA VIRUS DNA TEST (04/05/2005 10:40 EST) Specimen Description Cervix, ThinPrep vial [facility] Result Positive for one or more of HPV types 16,18,31,33,35 ,39,45,51,52,5 6,58,59, or 68. These high/intermedi ate risk HPV types are associated with dysplasia and some cervical cancers. [facility] Report Status Final [id number] [facility] 04/05/2005 10:4 0 EST 04/09/2005 10:40 EST us Denny Miller CNDwayne MICROBIOLOGY - GENERAL ORDERABLE S Final Result [facility] [address] [place] [address] * CYTOPATHOLOGY (04/05/2005 0:00 EST) Pathology Report: CYTOPATHOLOGY REPORT Reports generated via electronic interface contain original data; however they are lacking the format of the original report. Caution should be taken when reading/interpreti ng unformatted reports. Name: ? LOBO ARCHIBALD ? Accession #: ? [id number] : ? 1985 (Age: 19) ??F ?Collect Date: ? 04/05/2005 Location: ? [facility] ? Receive Date: ? 04/06/2005 Provider: ?DENNY MILLER CNM Copy to: ? Specimen/Source: ?ThinPrep Pap Test, Cervix/Endocervix, processed on [employer] ThinPrep Imaging System, with manual evaluation Last Menstrual Period: ? 02/03/05 Menstrual/Pregnanc y Status: ? Other: ? HPVDX - HPV testing requested regardless of diagnosis on current ThinPrep Pap test. ? SPECIMEN ADEQUACY ? Satisfactory for Evaluation - transformation zone component present GENERAL CATEGORIZATION ? Epithelial Cell Abnormality INTERPRETATION ? Squamous Cell Abnormality - Low grade squamous intraepithelial lesion (LSIL). Shift in olivia present suggestive of bacterial vaginosis. EDUCATIONAL NOTES/RECOMMENDATI ONS ? [facility] recommends following the 2001 Consensus Guidelines for the Management of Women with Cervical Cytological Abnormalities (IHSAN,2002;287:212 0-9). Management algorithms have been distributed by [facility] and are available online at www.ASCCP.org. ? Document reviewed and electronically signed by: ? ENMANUEL NEUMANN MD ? Report Date: ??04/08/2005 13:13 End of Report [facility] 04/05/2005 04/06/2005 us Denny Miller CNM PATHOLOGY ORDERABLES Final Resul t [facility] [address] [place] [address] documented in this encounter Visit Diagnoses Not on filedocumented in this encounter
--- OUTSIDE RECORDS SUMMARY | 2024-04-12 15:35 | XMS_ITS | Encounter Summary ---
Author Organization [facility] Address [address] [place] [address] Care Team Providers Care Sports Clerk Name Role Phone Arlyn Rodriguez CHIEF NURSE ANESTHETIST Primary Care Provider Encounter Details Date Type Department Care Team (Late st Contact Info) Description 09/24/2013 Results Only [facility] Laboratory Services - [facility] [place] [place] [address] [place], [place] [address] Sindy Jerry, [facility] [address] [place] [address] Social History Tobacco Use Types Packs/Day Years [...] Procedure Name Priority Date/Time Associated Diagnosis Comments PAP TEST- RESULT ONLY Routine 09/24/2013 0:00 EDT documented in this encounter Results * PAP TEST- RESULT ONLY (09/24/2013 0:00 EDT) Pathology Report: CYTOPATHOLOGY REPORT Reports generated via electronic interface contain original data; however they are lacking the format of the original report. Caution should be taken when reading/interpreti ng unformatted reports. Name: ? LOBO ARCHIBALD ? Accession #: ? [id number] : ? 1985 (Age: 28) ??F ?Collect Date: ? 09/24/2013 Location: ? [facility] ? Receive Date: ? 09/25/2013 Provider: ?SINDY JERRY MEDICAID BILLING SPECIALIST Copy to: ?OSCAR SHEPPARD CHIEF NURSE ANESTHETIST ? Specimen/Source: ?Pap Test, Cervix/Endocervix, ThinPrep Imaging System with manual evaluation Last Menstrual Period: ? 09/12/2013 Hormonal/Contracep tive Status: ? Yes: OE PATCH Previous Gynecologic Pathology: ? LSIL: 03/29, 05/01 HPV: + 03/29 Other: ? Additional clinical information: WNL 08/2012 ? SPECIMEN ADEQUACY ? Satisfactory for Evaluation - transformation zone component absent GENERAL CATEGORIZATION ? Negative for Intraepithelial Lesion or Malignancy INTERPRETATION ? Shift in [place] present suggestive of bacterial vaginosis. ? Document reviewed and electronically signed by: ? RUCHI Talavera(ASCP) ? Report Date: ??10/01/2013 13:59 End of Report [facility] 09/24/2013 09/25/2013 us Sindy Jerry MEDICAID BILLING SPECIALIST PATHOLOGY ORDERABLES Final R esult [facility] [address] [place] [address] documented in this encounter Visit Diagnoses Not on filedocumented in this encounter Care Teams Sports Clerk Relationship Specialty Start Date End Date Arlyn Rodriguez NP [facility] [address] [place] [phone] PCP - General 01/27/10 06/12/14 documented as of this encounter
--- OUTSIDE RECORDS SUMMARY | 2024-04-12 15:35 | XMS_ITS | Encounter Summary ---
Author Organization [facility] Address [address] [place] [address] Care Team Providers Care Evaluation Specialist Name Role Phone Unavailable Primary Care Provider Unavailabl e Encounter Details Date Type Department Care Team (Late st Contact Info) Description 09/26/2008 Orders Only [facility] Laboratory Services - [facility] ([facility] [place] [address] [place], [place] [phone] Sindy Jerry, [facility] [address] [place] [phone] Social History Tobacco Use Types Packs/Day [...] Procedure Name Priority Date/Time Associated Diagnosis Comments CYTOPATHOLOGY Routine 09/26/2008 0:00 EDT documented in this encounter Results * CYTOPATHOLOGY (09/26/2008 0:00 EDT) Pathology Report: CYTOPATHOLOGY REPORT ? Reports generated via electronic interface contain original data; ? however they are lacking the format of the original report. ? Caution should be taken when reading/interpreti ng unformatted reports. ? Name: ? LOBO ARCHIBALD ? Accession #: ? [id number] ? : ? 1985 (Age: 23) ??F ?Collect Date: ? 09/26/2008 ? Location: ? [facility] ? Receive Date: ? 09/27/2008 ? Provider: ?SINDY GENE SEWER CONNECTOR ? Copy to: ? Specimen/Source: ?Pap Test, Cervix/Endocervix, ThinPrep Imaging System ? with manual evaluation ? Last Menstrual Period: ? 05/26/09 ? Previous Gynecologic Pathology: ? LSIL: 12/05 & 01/07 ? HPV: + 12/05 ? Treatment History: ? Cervical biopsy: Endocurettage ? Other: ? HPVA - HPV testing requested if ASC-US on the current ThinPrep Pap test. ? SPECIMEN ADEQUACY ? Satisfactory for Evaluation ? - transformation zone component absent ? GENERAL CATEGORIZATION ? Negative for Intraepithelial Lesion or Malignancy ? Document reviewed and electronically signed by: ? Lynan George, CT(ASCP) ? Report Date: ??10/03/2008 14:18 ? End of Report ? [facility] 09/26/2008 09/27/2008 us Sindy Jerry SEWER CONNECTOR PATHOLOGY ORDERABLES Final R esult [facility] [address] [place] [address] documented in this encounter Visit Diagnoses Not on filedocumented in this encounter
--- OUTSIDE RECORDS SUMMARY | 2024-04-12 15:35 | XMS_ITS | Encounter Summary ---
Author Organization [facility] Address [address] [place] [address] Care Team Providers Care Engineering Instructor Name Role Phone Arlyn Rodriguez MAINTENANCE SUPERVISOR MECHANICAL Primary Care Provider Encounter Details Date Type Department Care Team (Late st Contact Info) Description 01/26/2010 Results Only [facility] Laboratory Services - [facility] ([facility] [address] [place], [place] [address] Sindy Jerry, [facility] [address] [place] [address] Social History Tobacco Use Types [...] Priority Date/Time Associated Diagnosis Comments CYTOPATHOLOGY Routine 01/26/2010 0:00 EDT documented in this encounter Results * CYTOPATHOLOGY (01/26/2010 0:00 EDT) Pathology Report: CYTOPATHOLOGY REPORT ? Reports generated via electronic interface contain original data; ? however they are lacking the format of the original report. ? Caution should be taken when reading/interpreti ng unformatted reports. ? Name: ? LOBO ARCHIBALD ? Accession #: ? [id number] ? : ? 1985 (Age: 24) ??F ?Collect Date: ? 01/26/2010 ? Location: ? [facility] ? Receive Date: ? 01/27/2010 ? Provider: ?SINDY GENE PAPER DELIVERER ? Copy to: ? Specimen/Source: ?Pap Test, Cervix/Endocervix, ThinPrep Imaging System ? with manual evaluation ? Last Menstrual Period: ? 08/20/10 ? Previous Gynecologic Pathology: ? LSIL: 12/05 & 01/07 ? HPV: + 12/05 ? Other: ? HPVA - HPV testing requested if ASC-US on the current ThinPrep Pap test. ? SPECIMEN ADEQUACY ? Satisfactory for Evaluation ? - transformation zone component present ? GENERAL CATEGORIZATION ? Negative for Intraepithelial Lesion or Malignancy ? INTERPRETATION ? Shift in ol[place] present suggestive of bacterial vaginosis. ? Document reviewed and electronically signed by: ? Abel Lacey, CT(ASCP) ? Report Date: ??01/30/2010 12:02 ? End of Report ? [facility] 01/26/2010 01/27/2010 us Sindy Jerry PAPER DELIVERER PATHOLOGY ORDERABLES Final R esult [facility] [address] [place] [address] documented in this encounter Visit Diagnoses Not on filedocumented in this encounter Care Teams Engineering Instructor Relationship Specialty Start Date End Date Arlyn Rodriguez NP [address] [place] [phone] PCP - General 01/27/10 06/12/14 documented as of this encounter
--- OUTSIDE RECORDS SUMMARY | 2024-04-12 15:35 | XMS_ITS | Encounter Summary ---
Author Organization [facility] Address [facility] [place] [address] Care Team Providers Care Repairer Welding Equipment Name Role Phone Renetta Flores ANNA MARIE Primary Care Provider Reason for Visit * Auth/Cert Specialty Diagnoses / Procedures Referred By Margaret rebollar Referred To Contact Diagnoses CARIES,FX TEETH Procedures PRO REMOVAL ERUPTED TOOTH WITH ELEVATION OF MUCOPERIOSTEAL FLAP SURGICAL EXTRACTIONS REQUIRING ELEVATION OF MUCOPERIOSTEAL FLAP AND REMOVAL OF BONE OR SECTION OF TOOTH (WRVU 1.09) Referral ID Status Reason Start Date Expiration Date Visits Re quested Visits Authorized [id number] 1 1 Encounter Details Date Type Department Care Team (Late st Contact Info) Description 05/21/2019 7:30 AM EST - 05/21/2019 8:45 AM EST Surgery [place] [address] Nemesio Campuzano MD [facility] [address] SURGICAL EXTRACTIONS REQUIRING ELEVATION OF MUCOPERIOSTEAL FLAP AND REMOVAL OF BONE OR SECTION OF TOOTH (WRVU 1.09) Social History Tobacco Use Types Packs/Day Years Used Date Smoking Tobacco: Every Day Cigarettes Smokeless Tobacco: Never Alcohol Use Standard Drinks/Week Comments No 0 (1 standard drink = 0.6 oz pur e alcohol) Sex and Gender Information Value Date Recorded Sex Assigned at Not on file Gender Identity Not on file Sexual Orientation Not on file documented as of this encounter Last Filed Vital Signs Vital Sign Reading Time Taken Comments Blood Pressure 137/93 05/21/2019 6:57 AM EST Pulse 65 05/21/2019 6:57 AM EST Temperature 36.6 ??C (97.9 ??F) 05/21/2019 6:57 AM ES T Respiratory Rate 18 05/21/2019 6:57 AM EST Oxygen Saturation 99% 05/21/2019 6:57 AM EST Inhaled Oxygen Concentration - - Weight 71.7 kg (158 lb) 05/21/2019 6:57 AM EST Height 154.9 cm (5' 1) 05/21/2019 6:57 AM EST Body Mass Index 29.85 05/21/2019 6:57 AM EST documented in this encounter Discharge Instructions * Discharge Instructions* Trish Bliss RN - 05/21/2019 7:31 AM EST At 0645 am you received 1000 mg of acetaminophen- Your next dose should not be taken before 8 hourshave passed. Next dose not before- 2:45PM You should not take more than a total of 3000 mg of acetaminophen in a 24 hour period. General Anesthesia Discharge Instructions Go home and rest. You may be sleepy for several hours. Take it easy as sudden position changes may cause nausea and/or dizziness. Use caution on stairs. Do not smoke if you are alone. Follow a light to regular diet as tolerated today. If nausea occurs, start with clear liquids, and progress slowly to a regular diet. Do not drive, operate machinery, drink alcoholic beverages or make any legal decisions after havinggeneral anesthesia. The medications given change your reaction time and alter your judgement. IV site -- slight redness is normal, you can use warm compresses. If tenderness and redness increases or foul drainage occurs, please contact your M.D. Patients who have had endotracheal tubes/LMA (tubes used by the anesthesia staff to ensure a safe airway during your operation) may have a sore throat. This is normal and cold liquids or soothing lozenges will help ease this discomfort. Narcotic pain medications can cause constipation, please ask the surgeons office what they recommend for prevention of this. Some non-pharmaceutical means of constipation prevention include increasing intake of fluids, eating more fruits and vegetables as well as fruit juices. If you are uncomfortable and/or unable to urinate within 8 hours of discharge and it is before 5 pm, call your physician. If it is after 5pm go to the closest emergency room or call the hospital burr machine operator at [phone] and ask for physician on air talent covering for your physician. Questions or problems after 5pm or on a weekend: Call the [facility] burr machine operator at and ask for the physician on air talent covering for your doctor. * Patient Instructions* Nemesio Campuzano MD - 05/21/2019 7:13 AM EST On the Day of Surgery: DO NOT rinse your mouth, smoke, or use a straw when drinking. Any of these could cause you to bleed more. You should remain at home, rest, and avoid alcoholic beverages. Discomfort: It is not uncommon for you to have some discomfort following a surgical procedure. Thisdiscomfort may last for three days or more. Pain relievers such as ibuprofen or Tylenol may be taken - 2 tablets every 3 to 4 hours as needed. If a narcotic is prescribed, take this only as needed. Narcotic drugs may cause nausea. DO NOT take them on an empty stomach, and DO NOT drive or consume alcohol while on narcotics. If prescribed Vicodin, usual dosage is 1- 2 tablets every 4-6 hours as needed for pain. Total daily dosage SHOULD NOT EXCEED 8 tablets. Other discomforts you may experience include: slight earache, sore throat, numbness or tingling in the lips or chin, aches in other teeth, and tightness of the jaw muscles. Bleeding: It is normal for the extraction site to bleed post-operatively. If bleeding continues, place gauze directly over the socket and bite down gently, but firmly, for 20 minutes. Repeat this process as needed. If bleeding is heavy, keep head elevated or sit upright, avoid exercise, hot liquids, smoking, and drinking from straws. If the bleeding does not stop with pressure, try a lukewarm, damp tea bag in place of the gauze foranother 20 minutes. The tea bag will help to form blood clots and stop the bleeding. If bleeding continues, call your doctor. Swelling: To reduce immediate swelling after your procedure, apply an ice pack, with pressure, to the face over the area of the procedure. Ice should be applied for 15-20 minutes at a time, for the first 24 hours. After 24 hours, a moist warm compress may be helpful. Most swelling will occur -51 hours following the procedure. Mouth Rinse: Vigorous mouth washing may cause bleeding to begin again if clots are not formed. DO NOT RINSE on the day of surgery. Begin rinsing one day after the procedure very gently with warm saltwater (1/2 teaspoon per 8 oz. warm water). Continue rinsing 3-6 times a day for several days. This will keep surgical sites clean and will help with healing. Diet: It is best to eat light, soft foods, and drink plenty of liquids following a surgical procedure. Foods like, yogurt, pasta, eggs, soups, and ice cream are good choices. Avoid hot liquids for 24hours after tooth extraction. Avoid foods that are difficult to chew. Once chewing becomes easier, you may return to your normal diet. In General: If stitches are used, they will dissolve or unravel in about three days to one week. Avoid strenuous exercise, such as jogging and contact sports for at least one week following surgery. Swelling is usually most extensive 24- 48 hours following surgery, and usually takes 4-5 days to subside. Sockets can take 4-6 weeks to heal, and often heal from the inside out. It may take 10-14 days before you feel like your normal self again. The Oral Surgery staff can be reached during office hours at [phone]. If you have questions atnight or on weekends, Dr. Campuzano can be reached at [phone]. documented in this encounter Medications at Time of Discharge Medication Sig Dispensed Refills Start Date End Date HYDROcodone-acetaminoph en (Ettrick) 5-325 mg Tablet Take 1 tablet by mouth every 4 hours as needed for Pain for up to 15 doses. 15 tablet 05/21/2019 prazosin (Minipress) 1 mg Capsule Take 1 mg by mouth nightly. Started on this on 05/08/2019 for depression 05/08/2019 citalopram (CELEXA) 10 mg Tablet Take 10 mg by mouth daily. Szokzebg-Px-Tfz-Fe-FA Tablet Take by mouth. documented as of this encounter Progress Notes * Kayla Frye RN - 05/21/2019 9:53 AM EST Discharge instructions and medications reviewed with patient and Boyfriend Faustino.Instruted in use ofgauze pads to control bleeding. All questions answered and written copy sent home with patient.Voided prior to discharge. Patient ambulated to car for discharge accompanied by [facility] staff member. documented in this encounter H&P Notes * Nemesio Campuzano MD - 05/21/2019 7:10 AM EST Patient Name: Neva Shields Patient Age: 33 y.o. Birthdate: 1985 Admit date: 05/21/2019 Attending Physician: Nemesio Campuzano MD INTERVAL H&P CC: carious teeth S: Neva Shields's condition is unchanged since H&P originally performed. Denies any new ED visits, hospitalizations, trauma, or new events. Has been overall doing well. History reviewed. No pertinent past medical history. Past Surgical History: Procedure Laterality Date ??? SECTION x 2 ??? PRO ERCP,DIAGNOSTIC N/A 06/25/2016 ERCP performed by Danial De La Paz MD at [facility] No Known Allergies No current facility-administered medications on file prior to encounter. Current Outpatient Medications on File Prior to Encounter Medication Sig Dispense Refill ??? prazosin (Minipress) 1 mg Capsule Take 1 mg by mouth nightly. Started on this on 05/08/2019 for depression ??? citalopram (CELEXA) 10 mg Tablet Take 10 mg by mouth daily. ??? Fvkbhhhm-Hb-Fij-Fe-FA Tablet Take by mouth. Family History Problem Relation Age of Onset ??? Down Syndrome Father of Baby Relative FOVicente's paternal half-brother Social History Socioeconomic History ??? Marital status: Single Spouse name: Not on file ??? Number of children: Not on file ??? Years of education: Not on file ??? Highest education level: Not on file Occupational History ??? Not on file Social Needs ??? Financial resource strain: Not on file ??? Food insecurity Worry: Not on file Inability: Not on file ??? Transportation needs Medical: Not on file Non-medical: Not on file Tobacco Use ??? Smoking status: Current Every Day Smoker Packs/day: 0.25 ??? Smokeless tobacco: Never Used Substance and Sexual Activity ??? Alcohol use: No ??? Drug use: Yes Types: Marijuana Comment: a couple times a week ??? Sexual activity: Yes Partners: Male Lifestyle ??? Physical activity Days per week: Not on file Minutes per session: Not on file ??? Stress: Not on file Relationships ??? Social connections Talks on phone: Not on file Gets together: Not on file Attends latter-day service: Not on file Active member of club or organization: Not on file Attends meetings of clubs or organizations: Not on file Relationship status: Not on file ??? Intimate partner violence Fear of current or ex partner: Not on file Emotionally abused: Not on file Physically abused: Not on file Forced sexual activity: Not on file Other Topics Concern ??? Not on file Social History Narrative ??? Not on file Review of Systems: Constitutional: denies fever, chills Skin: denies any new growths orrashes HEENT: denies head ache,no recent upper respiratory sx Resp: denies any SOB, WALTER CV: No CP, no palpitations GI: denies abd pain, vomiting : denies dysuria, hematuria PV: denies past DVT, claudication MS: denies joint pain, swelling Neuro: denies weakness, numbness Heme/Lymph: denies bruising, bleeding Endo: no troubles with sugar, denies fatigue O: Patient Vitals for the past 24 hrs: BP Temp Temp src Pulse Resp SpO2 Height Weight 05/21/19 0657 (!) 137/93 36.6 ??C (97.9 ??F) Temporal 65 18 99 % 154.9 cm (5' 1) 71.7 kg (158 lb) NAD, A&Ox3 Non-labored respirations, clear to auscultation bilaterally Regular rate and rhythm, no murmur on auscultation Site marked AP: 33 y.o. female with CARIES,FX TEETH. - After extensive discussion of the risks, benefits, and alteratives of surgical intervention, the patient consented to proceed with surgery. - IV antibiotics ordered - Proceed to OR for: Procedure(s): SURGICAL EXTRACTIONS REQUIRING ELEVATION OF MUCOPERIOSTEAL FLAP AND REMOVAL OF BONE OR SECTION OF TOOTH (WRVU 1.09) No flowsheet data found. [place] PDMP QUERY DATE: 05/21/19 Risk Assessment Category: Low Neva Shields is getting a prescription opioid for the treatment of acute post- operative pain related to the surgical procedure during this encounter. Pt has been advised to take the smallest dose possible to control pain and as the pain improves to take smaller doses and increase the time betweendoses. In addition to this medication, pt was educated on the non-opioid pain medications that can be taken for adjunct treatment of pain. Non-pharmacological treatments were also discussed that include but not limited to ice, elevation, and activity modification as appropriate. The Acute Opioid Therapy Informed Consent form has been completed during this encounter and sent tomedical records for scanning to chart. No future appointments. Nemesio Campuzano DMD, MD crystal gazer documented in this encounter Miscellaneous Notes * Op Note - Nemesio Campuzano MD - 05/21/2019 8:52 AM EST [facility] [place] Patient Name: Neva Shields : [id number] MR#: [id number] Case Date: 05/21/2019 Surgeon: Surgeon(s) and Role: * Nemesio Campuzano MD - Primary Preoperative diagnosis: CARIES,FX TEETH Postoperative diagnosis: CARIES,FX TEETH Procedure(s) (LRB): SURGICAL EXTRACTIONS REQUIRING ELEVATION OF MUCOPERIOSTEAL FLAP AND REMOVAL OF BONE OR SECTION OF TOOTH (WRVU 1.09) (Bilateral) Anesthesia: General Estimated Blood Loss: * No values recorded between 05/21/2019 7:51 AM and 05/21/2019 8:50 AM * Specimens removed during surgery: None Drains: * No LDAs found * Surgical Closure: Primary Closure - skin incision is completely closed without any wires, francesco, drains or other devices Disposition: awakened from anesthesia, extubated and taken to the recovery room in a stable condition, having suffered no apparent untoward event. Condition: doing well without problems (Please see the Surgical Encounter Summary for any Implant and Specimen details pertinent to this patient.) HPI/Surgical Indications: carious teeth Procedure Description: Neva Shields was brought to the operating room and placed under general anesthesia via nasoendotracheal tube. Appropriate monitors were placed and the patient's position was checked and all prominent bony locations padded. The patient was then prepped and draped in the standard fashion for behavioral sciences department chair. The oral cavity was suctioned and an oral pharyngeal pack was placed. 8 cc's of 1% Xylocaine with 1-200,000 epinephrine was used to infiltrate the surgical sites. Surgical extractions involving incision and reflection of mucoperiostuem and removal of bone or division of teeth with the [employer] drill were performed on teeth: 5, 12, 13, 24, 25 and 31. Extraction sites were all curetted and irrigated and gelfoam applied. Mucoperiosteum was coapted with interupted 3-0 chromic suture. Good hemostasis was noted. No evidence of injury to the sinuses or inferior alveolar nerve noted. The oral cavity was then carefully suctioned and the oral pharyngeal pack was removed. An oral gastric tube was passed to empty the stomach. The patient was awakened, extubated and brought to the recovery room in satisfactory condition having tolerated the procedure well with a minimum of blood loss. Infection Bundle used? No Attestation: Case Date: 05/21/2019 I performed this procedure without the involvement of a resident. NEMESIO CAMPUZANO MD 05/21/2019 documented in this encounter Plan of Treatment Not on file documented as of this encounter Procedures Procedure Name Priority Date/Time Associated Diagnosis Comments SURGICAL EXTRACTIONS REQUIRING ELEVATION OF MUCOPERIOSTEAL FLAP AND REMOVAL OF BONE OR SECTION OF TOOTH (WRVU 1.09) 05/21/2019 7:31 AM EST CARIES,FX TEETH documented in this encounter Visit Diagnoses Not on filedocumented in this encounter Administered Medications Inactive Administered Medications - up to 3 most recent administrations Medication Order MAR Action Action Date Dose Rate Site acetaminophen (Tylenol) tablet 1,000 mg 1,000 mg, Oral, ONCE, 1 dose, On Tue05/21/19 at 0715, Administer with SIP of H2O only., Day of Surgery (Day of Procedure), Routine Given 05/21/2019 6:57 AM EST 1,000 mg cefTRIAXone (ROCEPHIN) 1 g vial attach to sodium chloride 0.9% 50 mL Mini-Bag Plus 1 g, Intravenous, EVERY 24 HOURS SCHEDULED (Daily), First dose (after last modification) on Tue05/21/19 at 0745, Until Discontinued, Administer over 30 Minutes, Attach to 50 mL sodium chloride 0.9% Mini-Bag Plus , Indication for (Active or Suspected): Prophylaxis New Bag 05/21/2019 7:45 AM EST 1 g gelatin adsorbable (GELFOAM) sponge ONCE PRN, Starting on Tue05/21/19 at 0808, Until Tue05/21/19 at 1209, Intra-Operative (Intra-Procedure) Given 05/21/2019 8:08 AM EST 2 each 19- Surgical Site hydrocortisone 1 % ointment ONCE PRN, Starting on Tue05/21/19 at 0758, Until Tue05/21/19 at 1209, Intra-Operative (Intra-Procedure) Given 05/21/2019 7:58 AM EST 1 Tube 19- Surgical Site ibuprofen (Advil;Motrin) tablet 800 mg 800 mg, Oral, EVERY 8 HOURS PRN, Starting on Tue05/21/19 at 0714, Until Tue05/21/19 at 1209, Pain, May be given concomitantly with other analgesia. If both acetaminophen and ibuprofen ordered, please give acetaminophen first for pain. If pain not relieved in 30 minutes may administer ibuprofen, if ordered. Administer orally with milk or food to minimize GI irritation., Routine Given 05/21/2019 9:41 AM EST 800 mg lactated ringers infusion 1,000 mL, at 100 mL/hr, Intravenous, CONTINUOUS, Starting on Tue05/21/19 at 0715, Until Tue05/21/19 at 1005, Day of Surgery (Day of Procedure) New Bag 05/21/2019 7:10 AM EST 1,000 mLs 100 mL/hr lidocaine-EPINEPHrine 1 %-1:100,000 injection ONCE PRN, Starting on Tue05/21/19 at 0758, Until Tue05/21/19 at 1209, Intra-Operative (Intra-Procedure), Routine Given 05/21/2019 7:58 AM EST 7 mLs 19- Surgical Site metroNIDAZOLE (FLAGYL) 500 mg in sodium chloride 0.9% 100 mL 500 mg, Intravenous, EVERY 8 HOURS SCHEDULED, First dose on Tue05/21/19 at 0730, Until Discontinued, Administer over 30 Minutes, Indication for (Active or Suspected): Prophylaxis Given 05/21/2019 7:45 AM EST 500 mg documented in this encounter Active and Recently Administered Medications Times are shown in EST. Scheduled Medication Order 05/19/2019 05/20/2019 05/21/2019 acetaminophen (Tylenol) tablet 1,000 mg (COMPLETED) 1,000 mg, Oral, ONCE, 1 dose, On Tue05/21/19 at 0715, Administer with SIP of H2O only., Day of Surgery (Day of Procedure), Routine 0657 (Given - Provid er: Trish Bliss RN) cefTRIAXone (ROCEPHIN) 1 g vial attach to sodium chloride 0.9% 50 mL Mini-Bag Plus 1 g, Intravenous, EVERY 24 HOURS SCHEDULED (Daily), First dose (after last modification) on Tue05/21/19 at 0745, Until Discontinued, Administer over 30 Minutes, Attach to 50 mL sodium chloride 0.9% Mini-Bag Plus , Indication for (Active or Suspected): Prophylaxis 0745 (New Bag - Prov ider: Steven Khan) metroNIDAZOLE (FLAGYL) 500 mg in sodium chloride 0.9% 100 mL 500 mg, Intravenous, EVERY 8 HOURS SCHEDULED, First dose on Tue05/21/19 at 0730, Until Discontinued, Administer over 30 Minutes, Indication for (Active or Suspected): Prophylaxis 0745 (Given - Provid er: Steven Khan) Continuous Medication Order 05/19/2019 05/20/2019 05/21/2019 lactated ringers infusion 1,000 mL, at 100 mL/hr, Intravenous, CONTINUOUS, Starting on Tue05/21/19 at 0745, Until Tue05/21/19 at 1209 0745 (Due) lactated ringers infusion (CANCELED) 1,000 mL, at 100 mL/hr, Intravenous, CONTINUOUS, Starting on Tue05/21/19 at 0715, Until Tue05/21/19 at 1005, Day of Surgery (Day of Procedure) 0710 (New Bag - Prov ider: Trish Bliss RN)0758 (Anesthesia Volume Adjustment - Provider: Steven Khan) PRN Medication Order 05/19/2019 05/20/2019 05/21/2019 acetaminophen (Tylenol) tablet 500 mg 500 mg, Oral, EVERY 4 HOURS PRN, Starting on Tue05/21/19 at 0714, Until Tue05/21/19 at 1209, Pain, May be given concomitantly with other analgesia. If both acetaminophen and ibuprofen ordered, please give acetaminophen first for pain. If pain not relieved in 30 minutes may administer ibuprofen, if ordered. Maximum dose of acetaminophen is 4000 mg from all sources in 24 hours., Routine gelatin adsorbable (GELFOAM) sponge (CANCELED) ONCE PRN, Starting on Tue05/21/19 at 0808, Until Tue05/21/19 at 1209, Intra-Operative (Intra-Procedure) 0808 (Given - Provid er: Nemesio Campuzano MD) HYDROcodone-acetaminophen (Ettrick) 5-325 mg per tablet 1-2 tablet 1-2 tablet, Oral, EVERY 4 HOURS PRN, Starting on Tue05/21/19 at 0714, Until Tue05/21/19 at 1209, Pain, Maximum dose of acetaminophen is 4000 mg from all sources in 24 hours. , Routine hydrocortisone 1 % ointment (CANCELED) ONCE PRN, Starting on Tue05/21/19 at 0758, Until Tue05/21/19 at 1209, Intra-Operative (Intra-Procedure) 0758 (Given - Provid er: Nemesio Campuzano MD) ibuprofen (Advil;Motrin) tablet 800 mg 800 mg, Oral, EVERY 8 HOURS PRN, Starting on Tue05/21/19 at 0714, Until Tue05/21/19 at 1209, Pain, May be given concomitantly with other analgesia. If both acetaminophen and ibuprofen ordered, please give acetaminophen first for pain. If pain not relieved in 30 minutes may administer ibuprofen, if ordered. Administer orally with milk or food to minimize GI irritation., Routine 0941 (Given - Provid er: Kayla Frye RN) lidocaine-EPINEPHrine 1 %-1:100,000 injection (CANCELED) ONCE PRN, Starting on Tue05/21/19 at 0758, Until Tue05/21/19 at 1209, Intra-Operative (Intra-Procedure), Routine 0758 (Given - Provid er: Nemesio Campuzano MD) documented in this encounter Care Teams Repairer Welding Equipment Relationship Specialty Start Date End Date Renetta Flores, FIBERGLASS BOAT MAKER [address] [facility] [place] [address] PCP - General Family Medicine 06/25/16 documented as of this encounter
--- OUTSIDE RECORDS SUMMARY | 2024-04-12 15:35 | XMS_ITS | Encounter Summary ---
Author Organization [facility] Address [address] [place] [address] Care Team Providers Care Cutter Grinder Name Role Phone Unavailable Primary Care Provider Unavailabl e Encounter Details Date Type Department Care Team (Late st Contact Info) Description 12/14/2006 Results Only [facility] [address] [place] [address] Denny Miller CNM [address] [phone] Social History Tobacco Use Types Packs/Day Years [...] Priority Date/Time Associated Diagnosis Comments CYTOPATHOLOGY Routine 12/14/2006 0:00 EDT documented in this encounter Results * CYTOPATHOLOGY (12/14/2006 0:00 EDT) Pathology Report: CYTOPATHOLOGY REPORT Reports generated via electronic interface contain original data; however they are lacking the format of the original report. Caution should be taken when reading/interpreti ng unformatted reports. Name: ? LOBO ARCHIBALD ? Accession #: ? [id number] : ? 1985 (Age: 21) ??F ?Collect Date: ? 12/14/2006 Location: ? [facility] ? Receive Date: ? 12/15/2006 Provider: ?PAOLOMadeleine MILLER CNM Copy to: ? Specimen/Source: ?ThinPrep Pap Test, Cervix/Endocervix, processed on [employer] ThinPrep Imaging System, with manual evaluation Last Menstrual Period: ? 10/14/06 Previous Gynecologic Pathology: ? LSIL: 04/05/05 and 05/09/06 HPV: 04/05/05 Treatment History: ? Colposcopy: 06/03/06 endo. currettage scant benign endocervical mucosa Other: ? HPVA - HPV testing requested if ASC-US on the current ThinPrep Pap test. ? SPECIMEN ADEQUACY ? Satisfactory for Evaluation - transformation zone component present GENERAL CATEGORIZATION ? Negative for Intraepithelial Lesion or Malignancy INTERPRETATION ? Reactive cellular changes associated with inflammation present (includes repair). ? Document reviewed and electronically signed by: ? Chaya Huang MD ? Report Date: ??12/21/2006 15:40 End of Report [facility] 12/14/2006 12/15/2006 us Denny Miller CNM PATHOLOGY ORDERABLES Final Resul t [facility] [address] [place] [address] documented in this encounter Visit Diagnoses Not on filedocumented in this encounter
--- OUTSIDE RECORDS SUMMARY | 2024-04-12 15:35 | XMS_ITS | Encounter Summary ---
Author Organization [facility] Address [address] [place] [address] Care Team Providers Care Cargo Inspector Name Role Phone Unavailable Primary Care Provider Unavailtracey e Encounter Details Date Type Department Care Team (Late st Contact Info) Description 05/09/2006 Results Only [facility] conversion [address] [place] [address] Sindy Jerry, [facility] [address] [place] [phone] Social History Tobacco Use Types Packs/Day [...] Priority Date/Time Associated Diagnosis Comments CYTOPATHOLOGY Routine 05/09/2006 0:00 EST documented in this encounter Results * CYTOPATHOLOGY (05/09/2006 0:00 EST) Pathology Report: CYTOPATHOLOGY REPORT Reports generated via electronic interface contain original data; however they are lacking the format of the original report. Caution should be taken when reading/interpreti ng unformatted reports. Name: ? LOBO ARCHIBALD ? Accession #: ? [id number] : ? 1985 (Age: 20) ??F ?Collect Date: ? 05/09/2006 Location: ? [facility] ? Receive Date: ? 05/10/2006 Provider: ?SINDY JERRY FUEL VERIFICATION TECHNICIAN Copy to: ? Specimen/Source: ?ThinPrep Pap Test, Cervix/Endocervix, processed on [facility] ThinPrep Imaging System, with manual evaluation Last Menstrual Period: ? Hormonal/Contracep tive Status: ? Oral contraceptives Previous Gynecologic Pathology: ? LSIL: 04/05/05 HPV: + Other: ? HPVA - HPV testing requested if ASC-US on the current ThinPrep Pap test. Additional clinical information: delivery 11/24/05 ? SPECIMEN ADEQUACY ? Satisfactory for Evaluation - transformation zone component present GENERAL CATEGORIZATION ? Epithelial Cell Abnormality INTERPRETATION ? Squamous Cell Abnormality - Low grade squamous intraepithelial lesion (LSIL). EDUCATIONAL NOTES/RECOMMENDATI ONS ? [facility] recommends following the 2001 Consensus Guidelines for the Management of Women with Cervical Cytological Abnormalities (IHSAN,2002;287:212 0-9). Management algorithms have been distributed by [facility] and are available online at www.ASCCP.org. ? Document reviewed and electronically signed by: ? CHRIS DENG MD ? Report Date: ??05/12/2006 12:47 End of Report [facility] 05/09/2006 05/10/2006 us Sindy Jerry FUEL VERIFICATION TECHNICIAN PATHOLOGY ORDERABLES Final R esult [facility] [address] [place] [address] documented in this encounter Visit Diagnoses Not on filedocumented in this encounter
--- OUTSIDE RECORDS SUMMARY | 2024-04-12 15:35 | XMS_ITS | Encounter Summary ---
Author Organization [facility] Address [address] [place] [address] Care Team Providers Care Skiver Blockers Name Role Phone Unavailable Primary Care Provider Unavailabl e Encounter Details Date Type Department Care Team (Late st Contact Info) Description 06/03/2006 Results Only [facility] conversion [address] [place] [address] Arlyn Dueñas MD [address] [place] [address] [place] [address] Social History Tobacco Use Types Packs/Day Years [...] Name Priority Date/Time Associated Diagnosis Comments SURGICAL PATHOLOGY Routine 06/03/2006 0:00 EST documented in this encounter Results * SURGICAL PATHOLOGY (06/03/2006 0:00 EST) Pathology Report: SURGICAL PATHOLOGY REPORT Reports generated via electronic interface contain original data; however they are lacking the format of the original report. Caution should be taken when reading/interpreti ng unformatted reports. Name: ? LOBO ARCHIBALD ? Accession #: ? [id number] ? : ? 1985 (Age: 20) ??F ? Collect Date: ? 06/03/2006 ? Location: ? [facility] ? Receive Date: ? 06/04/2006 ? Provider: ARLYN DUEÑAS MD Copy to: ARLYN JAMES BRAILLE TEACHER ? Final Pathologic Diagnosis: ? Endocervix, curettage: - Scant benign endocervical mucosa. ??See comment. Comment: ? Multiple levels have been examined, revealing only scant benign endocervical mucosa. ??The referring Pap test ([id number]) has been reviewed, confirming the presence of low grade squamous intraepithelial lesion (LSIL) on the Pap test. ??The origin of the dysplastic cells seen on the Pap test is not identified in the current specimen. ??(Dr. Landaverde)/[facility] Document reviewed and electronically signed by: ROZ LANDAVERDE MD Report ??Date: 06/07/2006 15:17 By the signature above, the attending physician certifies that he/she has personally conducted a gross and/or microscopic examination of the described specimens and rendered or confirmed the above diagnosis. Specimen(s) Received: ? ECC Clinical History: ? [id number]; LSIL Gross Description: ? Received in formalin labelled Pelow and ECC is a 0.1 x 0.1 x less than 0.1 cm aggregate of translucent mucus. ??The specimen is submitted in toto in one cassette. ??(Mi Moran)/[facility] End of Report [facility] 06/03/2006 06/04/2006 4:2 5 EST us Arlyn Dueñas MD PATHOLOGY ORDERABLES Final Resu lt [facility] [address] [place] [address] documented in this encounter Visit Diagnoses Not on filedocumented in this encounter
--- OUTSIDE RECORDS SUMMARY | 2024-04-12 15:35 | XMS_ITS | Encounter Summary ---
Author Organization [facility] Address [facility] [place] [address] Care Team Providers Care Medical Physicist Name Role Phone Umu Birch Laurent THRASHER Primary Care Provider [phone] Encounter Details Date Type Department Care Team (Latest Contact Info) Description 06/24/2016 - 06/24/2016 12:04 AM EST Hospital Encounter Radiology Library at [facility] [place] [address] Hugo Sousa MD [facility] [place] [address] Pain Discharge Disposition: Home Social History Tobacco Use [...] Tablet Take 10 mg by mouth daily. Glqwmwtr-Fw-Nuh-Fe-FA Tablet Take by mouth. documented as of this encounter Plan of Treatment Not on file documented as of this encounter Procedures Procedure Name Priority Date/Time Associated Diagnosis Comments FILM LIBRARY STORAGE ONLY DX GI STUDY Routine 06/24/2016 12:00 AM EST Pain documented in this encounter Results * Film Library- Storage Only DX GI Study (06/24/2016 12:00 AM EST) Narrative RAD - 06/25/2016 9:02 AM EST This exam is for storage only and is auto-finalizing. Hugo Sousa MD IMG FILM LIBRARY ORD ERABLES [place], [place] documented in this encounter Visit Diagnoses Diagnosis Pain Generalized pain documented in this encounter Care Teams Medical Physicist Relationship Specialty Start Date End Date Umu Birch APRN [facility] [address] [place] [address] PCP - General 01/08/14 06/24/16 documented as of this encounter
--- OUTSIDE RECORDS SUMMARY | 2024-04-12 15:35 | XMS_ITS | Encounter Summary ---
Author Organization [facility] Address [place] [address] Care Team Providers Care Roller Mechanic Name Role Phone Lisalio Renetta THRASHER Primary Care Provider Reason for Visit * Consultation (Routine) - Closed Specialty Diagnoses / Procedures Referred By Margaret rebollar Referred To Contact Maxillofacial Surgery Diagnoses evaluate # 5,12,13,[id number] for extractions Augustus Calderon, [place] [address] [facility] [address] [place] [phone] Referral ID Status Reason Start Date Expiration Date Visits Re quested Visits Authorized [id number] Closed 01/18/2019 01/18/2020 1 1 Encounter Details Date Type Department Care Team (Late st Contact Info) Description 04/12/2019 10:00 AM EST Office Visit [place]ill[place] [address] Nemesio Campuzano MD [facility] ORAL AND [place] [address] Caries involving multiple surfaces of tooth Social History Tobacco Use Types Packs/Day Years [...] Sign Reading Time Taken Comments Blood Pressure - - Pulse - - Temperature - - Respiratory Rate - - Oxygen Saturation - - Inhaled Oxygen Concentration - - Weight 72.6 kg (160 lb) 04/12/2019 10:24 AM EST Height 154.9 cm (5' 1) 04/12/2019 10:24 AM EST Body Mass Index 30.23 04/12/2019 10:24 AM EST documented in this encounter Progress Notes * Nemesio Campuzano MD - 04/12/2019 10:00 AM EST Images from the original note were not included. Oral & Maxillofacial Surgery Extraction Consult Neva Shields is a 33 y.o. female who is referred to us by Dr. Augustus Calderon for consultation regarding dental extractions. A complete history of the Neva 's symptoms and physical signs were reviewed with attention to initial findings and progression, pain, bleeding, swelling, lumps, bumps, drainage, dysphagia, odynophagia, paresthesia, dysarthria and systemic effects. Pertinent notations from today's history: ?? Attempted extractions in dental office with IV sedation and he could not proceed with extractions due to medication not taking effect and she could not tolerate ?? Question if marijuana use had some effect on the other medication ?? She has not been using marijuana over the last few months ?? Some dental pain in the lower teeth off and on since November ?? Had facial trauma as child and had not surgery ?? No partials or mouthguard ?? Last antibiotic for teeth for was 02.10 ?? History of anxiety. No medications currently ?? Past Medical and Dental History: No past medical history on file. There is no problem list on file for this patient. ??? citalopram (CELEXA) 10 mg Tablet ??? Jliulipk-Iz-Epn-Fe-FA Tablet No Known Allergies ROS with attention to cardiac, pulmonary, hepatic, renal, neurologic and dermatologic systems reviewed with relevant findings as noted. Physical Exam: Extraoral exam conducted including facial symmetry, sensory and motor function, alertness and appropriateness to questions and commands, range of jaw motion, TMJ function and skeletal architecture. Neck exam conducted with attention to normal musculature, vasculature and potential adenopathy. Intraoral exam including evaluation of tongue surface and consistency, floor of mouth, buccal and labial mucosa as well as maxillary and mandibular vestibules, hard and soft palate including soft palate elevation and oropharynx as well as dentition, dental arches, occlusion and salivary flow. Pertinent and remarkable findings include: Good range of mandibular motion No facial asymmetry Soft palate elevates symmetrically Oropharynx is unremarkable Fractured teeth # 5, 12, 13, 31 Displaced #24 and 25 lower incisors Edge to edge occulusion with crossbite Fistula lateral to tooth #13 Dorsal and ventral aspect of tongue Anterior FOM is unremarkable Shotty cervical adenopathy left greater and right Radiographic Examination: Carious and fractured teeth as noted. Impression: Caries involving multiple surfaces of teeth. Fractured teeth. Recommendations and Plans: OSC 1 hour. #5, 12, 13, 31, 24, 25. Her previous IV sedation attempt at her dentist in January, was not tolerable for the patient and procedure could not be completed at his office and she was referred her for consult and OSC general anesthesia discussion. Consents signed today. Anticipated benefits and potential risks of the surgical intervention discussed were carefully reviewed with the patient and escort including but not limited to bleeding, infection, soft tissue dehiscence, delayed wound healing, nerve paresthesias and palsies, sinus injuries, injuries to adjacent tissues both hard and soft and possible need for additional surgery. Questions regarding the proposedintervention were encouraged and answered. Time Statement: Thirty minutes was spent with the patient greater than 26 minutes of which includeddirect discussion regarding the clinical and radiographic findings where indicated, the potential diagnoses and a review of the natural history as well as treatment alternatives, their benefits and at tendant risks. Neva was given an opportunity to ask questions and instructed to contact us if further questions arise following the consultation. Lio Sotomayor CST is the acting scribe today for Dr. Campuzano. All work documented was performed by Dr. Campuzano. Lio Campuzano performed the above scribed service and agree with the accuracy of the note. documented in this encounter Plan of Treatment Not on file documented as of this encounter Visit Diagnoses Diagnosis Caries involving multiple surfaces of tooth Other dental caries documented in this encounter Care Teams Roller Mechanic Relationship Specialty Start Date End Date Renetta Flores, ANNA MARIE [address] [place] [address] PCP - General Family Medicine 06/25/16 documented as of this encounter
--- OUTSIDE RECORDS SUMMARY | 2024-04-12 15:35 | XMS_ITS | Encounter Summary ---
Author Organization [facility] [place] [address] Care Team Providers Care Informatics Educator Name Role Phone Renetta Flores APRN Primary Care Provider Encounter Details Date Type Department Care Team (Late st Contact Info) Description 06/25/2016 Telephone [place] [address] Jaiden Altman MD [facility] DR [place] [address] Social History Tobacco Use Types Packs/Day Years Used Date Smoking Tobacco: Never Smokeless Tobacco: Never Alcohol Use Standard Drinks/Week Comments No 0 (1 standard drink = 0.6 oz pur e alcohol) Sex and Gender Information Value Date Recorded Sex Assigned at Not on file Gender Identity Not on file Sexual Orientation Not on file documented as of this encounter Miscellaneous Notes * Telephone Encounter - Jaiden Altman - 06/25/2016 8:30 AM EST Transfer Center Call: Called by Dr. Valdovinos at [facility] in regards to Ms. Shields with a request for ERCP for presumed CBD stone. S/P CCY for acute cholecystits on 06/24. Introp cholangiogram with non obstructing CBD stone. Today Tbili want .3 -->1.7, elevated Alk phospho (value not available). AST 100-->500, ALT 100-->500. Patient presently NPO, not on anticoagulation, HD stable and afebrile. Patient will come for ahere and back ERCP. OSH will send labs and imaging. documented in this encounter Plan of Treatment Not on file documented as of this encounter Visit Diagnoses Not on filedocumented in this encounter Care Teams Informatics Educator Relationship Specialty Start Date End Date Renetta Flores, [employer] [address] [place] [address] PCP - General Family Medicine 06/25/16 documented as of this encounter
--- OUTSIDE RECORDS SUMMARY | 2024-04-12 15:35 | XMS_ITS | Encounter Summary ---
Author Organization [facility] Address [address] [place] [address] Care Team Providers Care Web Analytics Specialist Name Role Phone Renetta Flores YOUSUF Primary Care Provider Encounter Details Date Type Department Care Team ([facility] st Contact Info) Description 12/18/2021 Lab Requisition [facility] Pathology & Laboratory Medicine - [facility] [address], [place] [id number] Outr Resulting Lab, Provider Social History Tobacco Use Types Packs/Day Years Used Date Smoking Tobacco: Never Assessed Interpersonal Safety Answer Date Record ed Physically Hurt Never 11/25/2019 Verbally Threaten Not on file 11/25/2019 Comments Unknown Sex and Gender Information Value Date Recorded Sex Assigned at Not on file Legal Sex Female 18:36 EST Gender Identity Not on file Sexual Orientation Not on file documented as of this encounter Plan of Treatment Not on file documented as of this encounter Procedures Procedure Name Priority Date/Time Associated Diagnosis Comments HIV 1/2 ANTIGEN AND ANTIBODY, 4TH GENERATION Routine 12/18/2021 14:11 EDT documented in this encounter Results * HIV 1/2 ANTIGEN AND ANTIBODY, 4TH GENERATION (12/18/2021 14:11 EDT) HIV 1 and 2 Antibody/p24 Antigen, 4th Generation Negative Negative 12/19/2021 9:15 EDT [facility] Comment:If acute HIV-1 infec tion is suspected in a high risk patient, submit plasma specimen for HIV-1 RNA quantitation test. Blood VENOUS BLOOD / Unknown 12/18/2021 14:11 EDT 12/18/2021 21:24 EDT Narrative [facility] - 12/19/2021 9:15 EDT Fourth Generation assay performed on the Siemens [employer] Insightaur XPT. us Provider Outr Resulting Lab IMMUNOLOGY AND SEROL OGY ORDERABLES Final Result [facility] [address] [place] [address] documented in this encounter Visit Diagnoses Not on filedocumented in this encounter Care Teams Web Analytics Specialist Relationship Specialty Start Date End Date Renetta Flores NP [address] [place] [address] PCP - General 06/29/16 documented as of this encounter
--- OUTSIDE RECORDS SUMMARY | 2024-04-12 15:35 | XMS_ITS | Encounter Summary ---
Author Organization [facility] Address [address] [place] [address] Care Team Providers Care Tail Sawyer Name Role Phone Renetta Flores DELIVERY REP Primary Care Provider [phone] Encounter Details Date Type Department Care Team ([facility] st Contact Info) Description 12/21/2021 Lab Requisition [facility] Pathology & Laboratory Medicine - [facility] [address] [place], [place] [id number] Outr Resulting Lab, Provider Social History Tobacco [...] Procedure Name Priority Date/Time Associated Diagnosis Comments HCV RNA DETECT QUANT Routine 12/18/2021 14:11 EDT documented in this encounter Results * HCV RNA DETECT QUANT (12/18/2021 14:11 EDT) HCV RNA Qualitative Undetected Undetected 12/23/2021 12:36 EDT [facility] Blood VENOUS BLOOD / Unknown 12/18/2021 14:11 EDT 12/22/2021 17:09 EDT Narrative [facility] - 12/23/2021 12:36 EDT The quantification range of this assay is 15 IU/mL to 100,000,000 IU/mL. Testing was performed using the Paula HCV test ([employer] with the paula [id number] System. us Provider Outr Resulting Lab CHEMISTRY & BLOOD GA S ORDERABLES Final Result [facility] [address] [place] [address] documented in this encounter Visit Diagnoses Not on filedocumented in this encounter Care Teams Tail Sawyer Relationship Specialty Start Date End Date Renetta Flores NP [address] [place] [address] PCP - General 06/29/16 documented as of this encounter
--- OUTSIDE RECORDS SUMMARY | 2024-04-12 15:35 | XMS_ITS | Encounter Summary ---
[place] [address] Care Team Providers Care Museum Technician Name Role Phone Renetta Flores ANNA MARIE Primary Care Provider Reason for Visit * Auth/Cert Specialty Diagnoses / Procedures Referred By Margaret rebollar Referred To Contact Diagnoses Back & Forth Choledocholithasis Procedures PRO ERCP,DIAGNOSTIC ERCP Referral ID Status Reason Start Date Expiration Date Visits Re quested Visits Authorized [id number] 1 1 Encounter Details Date Type Department Care Team (Late st Contact Info) Description 06/25/2016 2:50 PM EST Anesthesia [place] [address] Randell Panchal MD Britton, Melissa P, CRNA [facility] DR [place] [address] Anesthesia Record Procedure Summary Procedure Name Responsible Anesthesiologist Anesthesia Start Time Anesthesia Stop Time ERCP (WRVU 5.85) (Trunk) Randell Panchal MD 06/25/16 1450 06/25/16 1551 Events Date Time Event Comment 06/25/2016 1429 1450 AN Verify 1450 Start 1450 An Start Data 1454 An Induction 1455 An Intubation 1456 Anesthesia Ready 1545 Extubation/LMA Out 1545 an stop data 1551 Recovery or ICU Handoff Annette ent care was transferred to the destination unit staff after review of the patient's medical history, current anesthetic/surgical status and plan, according to the Provider Handoff Checklist. 1551 Stop Meds Name Total Propofol 300 mg Propofol INF 477.9 mg glucagon injection 1 mg 0.5 mg Succinylcholine 60 mg lactated ringers infusion 500 mL * Agents Name O2 * Blood No blood administrations on file. Lines, Drains, and Airways Type Details Placement Removal ETT Mask Ventilation: Ea sy (1); ETT Type: Cuffed, Oral; ETT Size: 7 mm; Mac Blade: 3; Notes: Pre-O2, Stylette, Cricoid Pressure; Attempts: 2; Laryngoscopy Grade: 1; ETT Placement Verified By: Auscultation, Capnometry, Visual; Secured at Teeth: 22 cm; Inserted by: RODERICK Jaimes; Removal Date: 06/25/16; Removal Time: 1545 06/25/16 1500 by Sona Jaimes CRNA 06/25/16 1545 by Sona Jaimes CRNA documented in this encounter Social History Tobacco Use Types Packs/Day Years Used Date Smoking Tobacco: Never Smokeless Tobacco: Never Alcohol Use Standard Drinks/Week Comments No 0 (1 standard drink = 0.6 oz pur e alcohol) Sex and Gender Information Value Date Recorded Sex Assigned at Not on file Gender Identity Not on file Sexual Orientation Not on file documented as of this encounter OR Notes * Anesthesia Postprocedure Evaluation - Randell Panchal MD - 06/27/2016 2:47 PM EST [facility]esthesiology Post-procedure Note Patient: Neva Shields Procedure Summary Date Anesthesia Start Anesthesia Stop Room / Location 06/25/16 1450 1551 [facility] END[facility] 2 / [facility] END[facility] Procedure Diagnosis Surgeon Responsible Provider ERCP (N/A Trunk) (Back & Forth ; Choledocholithasis ) Danial De La Paz MD [place], James R, MD All Anesthesia Providers: Anesthesiologist: Randell Panchal MD PAYROLL AND BENEFITS COORDINATOR: Sona Jaimes CRNA Last (1hr) Vitals: BP Temp Pulse Resp SpO2 Patient Location: PACU/[facility] Level of Consciousness: Awake and Alert Pain Management: Satisfactory Analgesia PONV: None Cardiovascular Status: At Baseline Respiratory Status: At Baseline Postoperative Fluid Status: Intravascular EUvolemia Possible Anesthetic Complications: NONE apparent at time of evaluation Final Primary Anesthesia Type: General (The anesthetic type performed was the same as planned.) Comments: * Anesthesia Preprocedure Evaluation - Randell Panchal MD - 06/25/2016 2:22 PM EST Pre-Anesthesia Evaluation for: Neva Shields a 31 y.o. female. Procedure(s): ERCP There are no active problems to display for this patient. No past medical history on file. Past Surgical History Procedure Laterality Date ??? section x 2 Social History Substance Use Topics ??? Smoking status: Never Smoker ??? Smokeless tobacco: Never Used ??? Alcohol use No History Drug Use ??? Yes ??? Special: Marijuana Comment: a couple times a week No Known Allergies Medications: MAR and/or home medications have been reviewed. Physical Exam: Vitals: 06/25/16 1357 BP: 114/84 Pulse: 50 Resp: 18 There is no height or weight on file to calculate BMI. Airway Assessment: Mallampati: II TM distance: >3 FB Neck ROM: full Cardiovascular Assessment: Rhythm: regular Rate: normal Pulmonary Assessment: breath sounds clear to auscultation Dental Assessment: - normal exam Misc Assessment: Patient is wearing No contact(s). IV access: Peripheral line Anesthesia Plan: ASA 2 general, with a(n) intravenous induction Patient is a 31 y/o F here today for ERCP. PMH: CS x3 S/p lap juan carlos Patient is appropriately NPO. No history of problems with anesthesia. No family history of anesthesia related problems. Allergies reviewed Plan: GA with ETT IV access Standard ASA monitors PONV prophylaxis Risks and benefits discussed. All of patient questions answered. Patient understands and agrees to proceed as planned. Region - Other Informed Consent: Anesthetic plan and risks discussed with patient. Plan discussed with PAYROLL AND BENEFITS COORDINATOR. PAT Staff Note documented in this encounter Plan of Treatment Not on file documented as of this encounter Visit Diagnoses Not on filedocumented in this encounter Administered Medications Inactive Administered Medications - up to 3 most recent administrations Medication Order MAR Action Action Date Dose Rate Site glucagon (human recombinant) injection SolR PRN, Starting on Tue06/25/16 at 1510, Until Tue06/25/16 at 1555, Low blood sugar, Anesthesia Intra-op, Routine Given 06/25/2016 3:10 PM EST 0.5 mg lactated ringers infusion 50 mL/hr, Intravenous, CONTINUOUS, Starting on Tue06/25/16 at 1415, Until Tue06/25/16 at 1652, Endoscopy (Day of Procedure) New Bag 06/25/2016 4:29 PM EST 50 mL/hr 50 mL/hr New Bag 06/25/2016 2:50 PM EST propofol (DIPRIVAN) 10 mg/mL bolus injection (Anesthesia) PRN, Starting on Tue06/25/16 at 1454, Until Tue06/25/16 at 1555, Anesthesia Intra-op Given 06/25/2016 2:56 PM EST 150 mg Given 06/25/2016 2:54 PM EST 150 mg propofol (DIPRIVAN) infusion CONTINUOUS PRN, Starting on Tue06/25/16 at 1456, Until Tue06/25/16 at 1555, Anesthesia Intra-op, Routine Rate/Dose Change 06/25/2016 3:23 PM EST 100 mcg/kg/min 48.6 mL/hr Rate/Dose Change 06/25/2016 3:15 PM EST 175 mcg/kg/min 85. 1 mL/hr New Bag 06/25/2016 2:56 PM EST 200 mcg/kg/min 97.2 mL/h r succinylcholine (ANECTINE) injection PRN, Starting on Tue06/25/16 at 1455, Until Tue06/25/16 at 1555, Anesthesia Intra-op, Routine Given 06/25/2016 2:55 PM EST 60 mg documented in this encounter Care Teams Museum Technician Relationship Specialty Start Date End Date Renetta Flores, LAW WRITER [address] [place] [address] PCP - General Family Medicine 06/25/16 documented as of this encounter
--- OUTSIDE RECORDS SUMMARY | 2024-04-12 15:35 | XMS_ITS | Encounter Summary ---
Author Organization [facility] Address [address] [place] [address] Care Team Providers Care Shoe Maker Name Role Phone Umu Birch PATIENT SAFETY ATTENDANT Primary Care Provider [phone] Encounter Details Date Type Department Care Team (Late st Contact Info) Description 06/24/2016 Results Only [facility] [[email or web address]] [phone] Marta Ogden, DO [address] [place] [address] Social History Tobacco Use Types Packs/Day Years [...] Date/Time Associated Diagnosis Comments SURGICAL PATHOLOGY Routine 06/24/2016 10 :11 EST documented in this encounter Results * SURGICAL PATHOLOGY (06/24/2016 10:11 EST) Pathology Report: SURGICAL PATHOLOGY REPORT Reports generated via electronic interface contain original data; however they are lacking the format of the original report. Caution should be taken when reading/interpret ing unformatted reports. Name: ? LOBO ARCHIBALD ? Accession #: ? [id number] ? : ? 1985 (Age: 31) ??F ? Collect Date: ? 06/24/2016 ? Location: ? [facility] ? Receive Date: ? 06/25/2016 ? Provider: MARTA OGDEN DO Copy to: FELECIA UPTON PATIENT SAFETY ATTENDANT ? Final Pathologic Diagnosis: GALLBLADDER, CHOLECYSTECTOMY: - Acute on chronic cholecystitis with mild cholesterolosis. - Cholelithiasis. Document reviewed and electronically signed by: TOYIN DAY MD Report ??Date: 06/29/2016 12:11 By the signature above, the attending physician certifies that he/she has personally conducted a gross and/or microscopic examination of the described specimens and rendered or confirmed the above diagnosis. Specimen(s) Received: Gallbladder Clinical History: Acute cholecystitis Gross Description: ? Received in normal saline labelled with proper patient identification (initials P, N) and gallbladder is an intact gallbladder (8.5 x 2.0 x 1.5 cm) with a segment of cystic duct (0.3 cm in length x 0.3 cm in diameter). ? The serosa is cervantes-white and smooth, with focal punctate hemorrhages on the fundic surface. The mucosa is green and velvety and the wall is 0.4 cm in thickness. The cystic duct lumen is patent. The cystic duct margin is inked blue. Multiple yellow choleliths are present, measuring 2.0 x 2.0 x 0.3 cm in aggregate. ? Two national account representative sections and the inked en face cystic duct margin are submitted in 1. Dr. Hanley 06/25/2016 10:49 AM End of Report [facility] 06/24/2016 10:1 1 EST 06/25/2016 10:11 EST us Marta Ogden DO PATHOLOGY ORDERABLES Final Res ult [facility] [address] [place] [address] documented in this encounter Visit Diagnoses Not on filedocumented in this encounter Care Teams Shoe Maker Relationship Specialty Start Date End Date Umu Birch, YOUSUF [address] [place] [id number] PCP - General 06/13/14 06/28/16 documented as of this encounter
--- OUTSIDE RECORDS SUMMARY | 2024-04-12 15:35 | XMS_ITS | Encounter Summary ---
Author Organization [facility] [place] [address] Care Team Providers Care Sales And Catering Coordinator Name Role Phone Renetta Flores APRN Primary Care Provider [phone] Reason for Visit * Auth/Cert Specialty Diagnoses / Procedures Referred By Margaret rebollar Referred To Contact Diagnoses Back & Forth Choledocholithasis Procedures PRO ERCP,DIAGNOSTIC ERCP Referral ID Status Reason Start Date Expiration Date Visits Re quested Visits Authorized [id number] 1 1 Encounter Details Date Type Department Care Team (Latest Contact Info) Description 06/25/2016 1:45 PM EST - 06/25/2016 4:52 PM EST Hospital Encounter [place] [address] Calin Santoyo MD [facility] [place] [address] Discharge Disposition: Another HCF/Not Defined Social History Tobacco Use Types Packs/Day Years [...] Sign Reading Time Taken Comments Blood Pressure 131/99 06/25/2016 3:52 PM EST Pulse 73 06/25/2016 3:52 PM EST Temperature - - Respiratory Rate 16 06/25/2016 3:52 PM EST Oxygen Saturation 99% 06/25/2016 3:52 PM EST Inhaled Oxygen Concentration - - Weight - - Height - - Body Mass Index - - documented in this encounter Discharge Instructions * Discharge Instructions* Xin Montgomery, RN - 06/25/2016 3:54 PM EST Upper Endoscopic Ultrasound ( EUS) &/or Endoscopic Retrograde Cholangiopancreatography ( ERCP) EUS- a test to look for problems in the stomach, liver, gallbladder, and other organs- ERCP-when it is suspected that the bile or pancreatic ducts are blocked. After the test you may feel more gassy than usual. This normal Activity Because of the sedation that you received Your judgement and reaction time are affected ?? Go home and rest quietly for the remainder of the day. You may resume your normal activities tomorrow. ?? Change from one position to the next slowly. You may lose your balance unexpectedly ?? Be careful on stairs, as you may be unsteady on your feet. FOR THE NEXT 24 HRS ?? DO NOT DRIVE OR OPERATE ANY MACHINERY ?? DO NOT DRINK ALCOHOLIC BEVERAGES ?? DO NOT SIGN LEGAL DOCUMENTS ?? If you are a smoker: DO NOT SMOKE WHILE YOU ARE ALONE Diet ?? Start with liquids and progress to small portions of foods that are least likely to upset your stomach. Be gentle with what you choose to start with. Avoid gas producing foods for the next few days ?? Drink plenty of fluids ( unless your doctor has told you not to) Medicines you You may have a sore throat for a day or two after the test. You may use ice chips, popsicles, nanb-vjc-dwzlvcr throat lozenges or sprays that may help numb your throat. IV SITE-- slight redness or tenderness is normal, you can use warm compresses if you get concerned.If the tenderness +/or redness increases or foul drainage and a red streak occurs, please contact your PCP immediately. When should call for help? Call 911 anytime you think you may need emergency care. For example, call if: You passed out ( lost consciousness) You cough up blood You vomit blood that looks like coffee grounds You pass maroon or very bloody stools Call you Doctor now You have trouble swallowing Throat, chest, abdominal pain that worsens after taking a dose of pain medicine Bloody or dark stools Vomit and are unable to hold fluids Fever Watch closely for any changes in your health, and be sure to contact your doctor if: Your throat still hurts after a day or two You do not get better as expected Tuesday-Tuesday Same Day Endo [phone]-8p Otherwise contact [phone] and ask to speak to the residential electrician physical education teacher The patient reports understanding discharge instructions documented in this encounter Medications at Time of Discharge Medication Sig Dispensed Refills Start Date End Date citalopram (CELEXA) 10 mg Tablet Take 10 mg by mouth daily. Kebztyet-Zr-Hoy-Fe-FA Tablet Take by mouth. documented as of this encounter Progress Notes * Sona Grissom RN - 06/25/2016 4:38 PM EST Patient report given to Yoli NEAL at [facility]. Patient alert an oriented. documented in this encounter Miscellaneous Notes * Consult Note - Jaiden Altman - 06/25/2016 2:34 PM EST Gastroenterology and Hepatology Pre-Procedure History and Physical Exam Procedure: ERCP: Indication: Choledocholithiasis There is no problem list on file for this patient. EXAM: HEENT: Airway examined, oropharynx clear Mallampati Score: II (soft palate, uvula, fauces visible) LUNGS: Clear to auscultation HEART: Regular rate and rhythm, normal S1, S2 ABDOMEN: Normal bowel sounds, soft, non tender, non distended, A/P Proceed with the planned endoscopic procedure. ASA 2 - Patient with mild systemic disease with no functional limitations Sedation Plan: anesthesia Risks and benefits of the procedure explained to the patient. Consent signed. Electronically signed by: Jaiden Altman Gastroenterology Fellow [facility] Pager [phone] 06/25/2016 documented in this encounter Plan of Treatment Not on file documented as of this encounter Procedures Procedure Name Priority Date/Time Associated Diagnosis Comments XR ERCP Routine 06/25/2016 5:28 PM EST ERCP (WRVU 5.85) 06/25/2016 2:43 PM EST Back & Forth Choledocholithasis documented in this encounter Results * XR ERCP (06/25/2016 5:28 PM EST) Narrative RAD - 06/25/2016 5:28 PM EST See PACS for result report. Calin Santoyo MD IMG FILM LIBRARY OR DERYour Policy Manager [place], [place] documented in this encounter Visit Diagnoses Not on filedocumented in this encounter Administered Medications Inactive Administered Medications - up to 3 most recent administrations Medication Order MAR Action Action Date Dose Rate Site fentaNYL (PF) 50 mcg/mL 2mL syringe 50 mcg, Intravenous, EVERY 5 MIN PRN, Pain, for 5-10 pain score, Starting on Tue06/25/16 at 1559, Until Tue06/25/16 at 1652, for 5-10 pain score Hold for respiratory rate less than 10 per minute. Maximum dose: 250 mcg over one hour., PACU Recovery Given 06/25/2016 4:40 PM EST 50 mcg Given 06/25/2016 4:13 PM EST 50 mcg lactated ringers infusion 50 mL/hr, Intravenous, CONTINUOUS, Starting on Tue06/25/16 at 1415, Until Tue06/25/16 at 1652, Endoscopy (Day of Procedure) New Bag 06/25/2016 4:29 PM EST 50 mL/hr 50 mL/hr New Bag 06/25/2016 2:50 PM EST documented in this encounter Active and Recently Administered Medications Times are shown in EST. Continuous Medication Order 06/23/2016 06/24/2016 06/25/2016 lactated ringers infusion (CANCELED) 50 mL/hr, Intravenous, CONTINUOUS, Starting on Tue06/25/16 at 1415, Until Tue06/25/16 at 1652, Endoscopy (Day of Procedure) 1450 (New Bag - Prov ider: Sona Jaimes CRNA)1530 (Anesthesia Volume Adjustment - Provider: Sona Jaimes CRNA)1629 (New Bag - Provider: Jason Brown RN) PRN Medication Order 06/23/2016 06/24/2016 06/25/2016 EPINEPHrine injection solution (CANCELED) ONCE PRN, Starting on Tue06/25/16 at 1529, Until Tue06/25/16 at 1852, Intra-Operative (Intra-Procedure), Routine 1529 (Given - Provid er: Danial De La Paz MD) fentaNYL (PF) 50 mcg/mL 2mL syringe (CANCELED)(Linked Group 1) 50 mcg, Intravenous, EVERY 5 MIN PRN, Pain, for 5-10 pain score, Starting on Tue06/25/16 at 1559, Until Tue06/25/16 at 1652, for 5-10 pain score Hold for respiratory rate less than 10 per minute. Maximum dose: 250 mcg over one hour., PACU Recovery 1613 (Given - Provid er: Xin Montgomery RN)1640 (Given - Provider: Xin Montgomery RN) indomethacin (INDOCIN) suppository (CANCELED) ONCE PRN, Starting on Tue06/25/16 at 1508, Until Tue06/25/16 at 1852, Intra-Operative (Intra-Procedure), Routine 1508 (Given - Provid er: Kendra Forrest RN) Linked Groups Order Group 1: fentaNYL (PF) 50 mcg/mL 2mL syringe (CANCELED) 25 mcg, Intravenous, EVERY 5 MIN PRN, Pain, for 1-4 pain score, Starting on Tue06/25/16 at 1559, Until Tue06/25/16 at 1652, for 1-4 pain score Hold for respiratory rate less than 10 per minute. Maximum dose: 250 mcg over one hour., PACU Recovery Or fentaNYL (PF) 50 mcg/mL 2mL syringe (CANCELED)Jump to med 50 mcg, Intravenous, EVERY 5 MIN PRN, Pain, for 5-10 pain score, Starting on Tue06/25/16 at 1559, Until Tue06/25/16 at 1652, for 5-10 pain score Hold for respiratory rate less than 10 per minute. Maximum dose: 250 mcg over one hour., PACU Recovery documented in this encounter Care Teams Sales And Catering Coordinator Relationship Specialty Start Date End Date Rneetta Flores, COMPUTER GRAPHIC ARTIST [address] [place] [address] PCP - General Family Medicine 06/25/16 documented as of this encounter
--- OUTSIDE RECORDS SUMMARY | 2024-04-12 15:35 | XMS_ITS | Encounter Summary ---
Author Organization [facility] Address [address] [place] [address] Care Team Providers Care Community Relations Coordinator Name Role Phone Arlyn Rodriguez TOPPER PRESS OPERATOR AUTOMATIC Primary Care Provider [phone] Encounter Details Date Type Department Care Team (Late st Contact Info) Description 05/11/2007 Results Only [facility] conversion [address] [place] [address] Denny Swanson CNM [facility] [place], [place] [id number] Social History Tobacco Use Types Packs/Day Years [...] Priority Date/Time Associated Diagnosis Comments CYTOPATHOLOGY Routine 05/11/2007 0:00 EST documented in this encounter Results * CYTOPATHOLOGY (05/11/2007 0:00 EST) Pathology Report: CYTOPATHOLOGY REPORT Reports generated via electronic interface contain original data; however they are lacking the format of the original report. Caution should be taken when reading/interpreti ng unformatted reports. Name: ? LOBO ARCHIBALD ? Accession #: ? [id number] : ? 1985 (Age: 21) ??F ?Collect Date: ? 05/11/2007 Location: ? [facility] ? Receive Date: ? 05/12/2007 Provider: ?DENNY GARCIAM Copy to: ? Specimen/Source: ?ThinPrep Pap Test, Cervix/Endocervix, processed on [employer] ThinPrep Imaging System, with manual evaluation Last Menstrual Period: ? 03/16/07 Menstrual/Pregnanc y Status: ? Previous Gynecologic Pathology: ? LSIL: 03/29 & 05/01 HPV: + 03/29 Treatment History: ? Cervical biopsy: Endo curettage scant benign endocx. mucosa Other: ? Additional clinical information: 11/29 neg pap HPVA - HPV testing requested if ASC-US on the current ThinPrep Pap test. ? SPECIMEN ADEQUACY ? Satisfactory for Evaluation - transformation zone component present GENERAL CATEGORIZATION ? Negative for Intraepithelial Lesion or Malignancy INTERPRETATION ? Shift in olivia present suggestive of bacterial vaginosis. ? Document reviewed and electronically signed by: ? RUCHI Gooden(ASCP) ? Report Date: ??05/18/2007 08:05 End of Report TRAVON LIN 05/11/2007 05/12/2007 us Denny Swanson CNM PATHOLOGY ORDERABLES Final Resul t [facility] [address] [place] [address] documented in this encounter Visit Diagnoses Not on filedocumented in this encounter Care Teams Community Relations Coordinator Relationship Specialty Start Date End Date Arlyn Rodriguez, YOUSUF [facility] [address] [place] [address] PCP - General 01/27/10 06/12/14 documented as of this encounter
--- OUTSIDE RECORDS SUMMARY | 2024-04-12 15:35 | XMS_ITS | Clinical Summary ---
Author Organization [facility] Address [facility] [place] [address] Care Team Providers Care First Breaker Feeder Name Role Phone Renetta Flores APRN Primary Care Provider Allergies No known active allergies Medications Medication Sig Dispensed Refills Start Date End Date Status citalopram (CELEXA) 10 mg Tablet Take 10 mg by mouth daily. Active Gptkuzrq-Aa-Fbk-Fe- FA Tablet Take by mouth. Active prazosin (Minipress) 1 mg Capsule Take 1 mg by mouth nightly. Started on this on 05/08/2019 for depression 05/08/2019 Active HYDROcodone-acetami nophen ([place]) 5-325 mg Tablet Take 1 tablet by mouth every 4 hours as needed for Pain for up to 15 doses. 15 tablet 05/21/2019 Active Active Problems No known active problems Family History Medical History Relation Comments Down Syndrome Father of Baby Relative FOVicente's jeff puentes half-brother Relation Status Comments Father of Baby Relative Social History Tobacco Use Types Packs/Day Years Used Date Smoking Tobacco: Every Day Cigarettes Smokeless Tobacco: Never Alcohol Use Standard Drinks/Week Comments No 0 (1 standard drink = 0.6 oz pur e alcohol) Sex and Gender Information Value Date Recorded Sex Assigned at Not on file Gender Identity Not on file Sexual Orientation Not on file Last Filed Vital Signs Vital Sign Reading Time Taken Comments Blood Pressure 142/100 05/21/2019 9:45 AM EST Pulse 63 05/21/2019 9:45 AM EST Temperature 36.5 ??C (97.7 ??F) 05/21/2019 9:01 AM ES T Respiratory Rate 16 05/21/2019 9:45 AM EST Oxygen Saturation 98% 05/21/2019 9:45 AM EST Inhaled Oxygen Concentration - - Weight 71.7 kg (158 lb) 05/21/2019 6:57 AM EST Height 154.9 cm (5' 1) 05/21/2019 6:57 AM EST Body Mass Index 29.85 05/21/2019 6:57 AM EST Plan of Treatment Health Maintenance Due Date Last Done Comments HIV screen 2003 Hepatitis C Screening 2003 Lipid Screening 2003 Hepatitis B vaccine (0-59 yrs) (1) 2004 Tetanus/Diphtheria/Pertussis Vaccines (1 - Tdap) 06/22 HPV test 2015 PAP Smear 2015 Covid-19 Vaccine ( - season) 2023 Influenza (Flu) vaccine (1 o f 1 - Influenza standard series) 12/25/2023 Advance Directives * Full Code (Latest Code Status on File) Date Activated Date Inactivated Comments 06/25/2016 2:30 PM 06/25/2016 6:52 PM Question Answer Comments Does patient have capacity to make decision: Yes Care Teams First Breaker Feeder Relationship Specialty Start Date End Date Renetta Flores APRN [address] [place] [address] PCP - General Family Medicine 06/25/16
--- OUTSIDE RECORDS SUMMARY | 2024-04-12 15:35 | XMS_ITS | Encounter Summary ---
Author Organization [facility] Address [address] [place] [address] Care Team Providers Care Farmer Vegetable Name Role Phone Renetta Flores SUSPENDER CUTTER Primary Care Provider [phone] Encounter Details Date Type Department Care Team ([facility] Contact Info) Description 06/26/2020 Lab Requisition [facility] Pathology & Laboratory Medicine - [facility] [address], [place] [id number] Outr Resulting Lab, Provider Social History Tobacco [...] Procedure Name Priority Date/Time Associated Diagnosis Comments ZZCOVID-19 TEST [facility] PCR Today 06/26/2020 9:30 EST COVID-19 TESTING Routine 06/26/2020 9:30 EST documented in this encounter Results * COVID-19 TEST [facility] PCR (06/26/2020 9:30 EST) Swab ENTIRE NASOPHARYNX / Unknown 06/26/2020 9:30 EST 06/26/2020 20:50 EST us Provider Outr Resulting Lab MICROBIOLOGY - GENER AL ORDERABLES Final Result [facility] [address] [place] [address] * COVID-19 TESTING (06/26/2020 9:30 EST) COVID-19 rt-PCR Result Negative Negative 06/27/2020 13:46 EST [facility] Comment: This test has not been FDA cleared or approved. This test has been authorized by FDA under an EUA for use by authorized laboratories. This test has been authorized only for detection of nucleic acid from 2019-nCoV, not for any other viruses or pathogens. This test is only authorized for the duration of the declaration that circumstances exist justifying the authorization of emergency use of in vitro diagnostic tests for detection and/or diagnosis of 2019-nCoV under section 564(b)(1) of Act, 21 U.S.C ?? 360bbb-3(b) (1), unless the authorization is terminated or revoked sooner. Negative results do not preclude 2019-nCoV infection and should not be used as the sole basis for treatment or other patient management decisions. Negative results must be combined with clinical observations, patient history, and epidemiological information. Testing was performed using the paula SARS-CoV-2 assay ([employer] on the Paula 6800 System Performing Lab Paula 6800 [facility] Lab 06/27/2020 13:46 EST [facility] Swab 06/26/2020 9:30 EST 06/26/2020 20:50 EST us Provider Outr Resulting Lab MICROBIOLOGY - GENER AL ORDERABLES Final Result [facility] [address] [place] [address] documented in this encounter Visit Diagnoses Not on filedocumented in this encounter Care Teams Farmer Vegetable Relationship Specialty Start Date End [place] [address] [address] PCP - General 06/29/16 documented as of this encounter
--- OUTSIDE RECORDS SUMMARY | 2024-04-12 15:35 | XMS_ITS | Encounter Summary ---
Author Organization [facility] Address [address] [place] [address] Care Team Providers Care Scalder Name Role Phone Arlyn Rodriguez CARDIAC NURSE Primary Care Provider [phone] Encounter Details Date Type Department Care Team (Late st Contact Info) Description 09/21/2012 Results Only [facility] Services - [facility] ([facility]) [address], [place] [address] Sindy Jerry, [facility] [address] [place] [address] Social History Tobacco Use Types [...] Diagnosis Comments PAP TEST- RESULT ONLY Routine 09/21/2012 0:00 EDT documented in this encounter Results * PAP TEST- RESULT ONLY (09/21/2012 0:00 EDT) Pathology Report: CYTOPATHOLOGY REPORT Reports generated via electronic interface contain original data; however they are lacking the format of the original report. Caution should be taken when reading/interpreti ng unformatted reports. Name: ? LOBO ARCHIBALD ? Accession #: ? [id number] : ? 1985 (Age: 27) ??F ?Collect Date: ? 09/21/2012 Location: ? [facility] ? Receive Date: ? 09/22/2012 Provider: ?SINDY JERRY FIRE ALARM DISPATCHER Copy to: ?AMNA BURT MD ? Specimen/Source: ?Pap Test, Cervix/Endocervix, ThinPrep Imaging System with manual evaluation Last Menstrual Period: ? 07/12/2012 Hormonal/Contracep tive Status: ? Oral contraceptives: extended cycle ? SPECIMEN ADEQUACY ? Satisfactory for Evaluation - transformation zone component present GENERAL CATEGORIZATION ? Negative for Intraepithelial Lesion or Malignancy ? Document reviewed and electronically signed by: ? RUCHI Ramirez(ASCP) ? Report Date: ??09/28/2012 08:43 End of Report [facility] 09/21/2012 09/22/2012 us Sindy Jerry FIRE ALARM DISPATCHER PATHOLOGY ORDERABLES Final R esult [facility] [address] [place] [address] documented in this encounter Visit Diagnoses Not on filedocumented in this encounter Care Teams Scalder Relationship Specialty Start Date End Date Arlyn Rodriguez NP [address] [place] [id number] PCP - General 01/27/10 06/12/14 documented as of this encounter
--- OUTSIDE RECORDS SUMMARY | 2024-04-12 15:35 | XMS_ITS | Encounter Summary ---
[place] [address] Care Team Providers Care Solidworks Drafter Name Role Phone Umu Birch APRN Primary Care Provider [phone] Encounter Details Date Type Department Care Team (Late st Contact Info) Description 01/15/2014 10:45 AM EDT Office Visit Obstetric[place] [address] Sarmad Khan MD [facility] DR OBSTETRICS [place] [address] Abnormal maternal serum screening test (Primary Dx) Social History Tobacco Use Types Packs/Day Years [...] Sign Reading Time Taken Comments Blood Pressure 132/82 01/15/2014 9:42 AM EDT Pulse - - Temperature - - Respiratory Rate - - Oxygen Saturation - - Inhaled Oxygen Concentration - - Weight 84.1 kg (185 lb 6.4 oz) 01/15/2014 9:42 A M EDT Height - - Body Mass Index - - documented in this encounter Progress Notes * Sarmad Khan MD - 01/15/2014 11:13 AM EDT Diagnosis/Maternal Medicine Consult Note Neva Shields is a 28 y.o. year old female who is at 18w0d gestation. She is seen in consultation at the request of Rand Moy CNM for evaluation of anatomy due to increased risk of trisomy 21 on aneuploidy screen (1:143). She was seen today for maternal- medicine consultation, ultrasound evaluation and genetic counseling with Alejandra Donis MS. Review of Systems Constitutional:feels well Movement: normal Contractions: none Leaking: None Bleeding: None There are no active problems to display for this patient. No past medical history on file. Past Surgical History Procedure Date ??? section x 2 No family history on file. Social History Occupational History ??? Not on file. Social History Main Topics ??? Smoking status: Never Smoker ??? Smokeless tobacco: Never Used ??? Alcohol Use: No ??? Drug Use: No ??? Sexually Active: Yes -- Male partner(s) OB History Grav Para Term Abortions TAB SAB Ect Mult Living 3 2 2 2 # Outc Date GA Lbr Gelacio/2nd Wgt Sex Del Anes PTL Lv 1 CUR 2 TRM CS 3 TRM CS Current Outpatient Prescriptions Medication Sig Dispense Refill ??? citalopram (CELEXA) 10 mg Tablet Take 10 mg by mouth daily. ??? Muemmtsy-Rq-Lae-Fe-FA Tablet Take by mouth. No Known Allergies Ultrasound Date: 01/15/2014 Amniotic fluid volume normal Presentation variable Placenta anterior Growth appropriate for gestational age anatomy appears within normal limits Physical Exam BP 132/82 Wt 84.097 kg (185 lb 6.4 oz) General: alert, well appearing, in no apparent distress, oriented to person, place and time, overweight HEENT: normocephalic, atraumatic Abdomen: Gravid, soft, nontender Neurologic:alert, oriented, normal speech, no focal findings or movement disorder noted Psychiatric: Affect is Appropriate. Assessment and Recommendations: 28 y.o. year old female at 18w0d weeks gestation, referred for counseling regarding elevated risk of trisomy 21. The patient was counseled as to her risk of aneuploidy and the possibility of definitive diagnosis by amniocentesis. The limitations of serum screening and ultrasound in predicting aneuploidy, and risk of loss due to amniocentesis were also discussed. I reviewed the ultrasound findings with the patient and her , and the usefulness of ultrasound as a genetic screening tool. Normal anatomy decreases the risk of trisomy 21. We discussed the option of diagnostic testing with amniocentesis. I explained that amniocentesis only counts chromosomes and looks for large pieces that are missing or duplicated or rearranged. Amniocentesis will not diagnose cerebral palsy, autism, learning disabilities or single gene defects. I reviewed the option of maternal serum cell free DNA testing. This is a directed analysis ofisolated cell-free DNA from maternal blood which measures the relative proportion of chromosomes. It is intended to aid in the risk determination of trisomies 13, 18, and 21. The patient opted for no further testing. I appreciate the opportunity to be involved in this patients care, and am available if further questions should arise. Sarmad KHAN MD 01/15/2014 Cc: Rand Moy CN[address] [facility] [place] [address] , with copy of ultrasound report documented in this encounter Plan of Treatment Not on file documented as of this encounter Visit Diagnoses Diagnosis Abnormal maternal serum screening test- Primary Abnormal findings on screening documented in this encounter Care Teams Solidworks Drafter Relationship Specialty Start Date End Date Umu Birch APRN [facility] [address] [place] [address] PCP - General 01/08/14 06/24/16 documented as of this encounter
--- OUTSIDE RECORDS SUMMARY | 2024-04-12 15:35 | XMS_ITS | Encounter Summary ---
[place] [address] Care Team Providers Care Drafter Seismograph Name Role Phone Renetta Flores APRN Primary Care Provider Encounter Details Date Type Department Care Team (Late st Contact Info) Description 05/01/2019 Telephone [place]ill[place] [address] Jovanna Jarquin Social History Tobacco Use Types Packs/Day Years [...] encounter Miscellaneous Notes * Telephone Encounter - Jovanna Jarquin - 05/01/2019 11:50 AM EST Ejmanolo, Patient is scheduled to have surgery on 05/21/2019 and the packet has been mailed to the verified address on file. Follow up appointment is as follows: f/u not indicated Thank you!! documented in this encounter Plan of Treatment Not on file documented as of this encounter Visit Diagnoses Not on filedocumented in this encounter Care Teams Drafter Seismograph Relationship Specialty Start Date End Date Renetta Flores APRN [address] [place] [address] PCP - General Family Medicine 06/25/16 documented as of this encounter
--- OUTSIDE RECORDS SUMMARY | 2024-04-12 15:35 | XMS_ITS | Encounter Summary ---
Author Organization [facility] Address [address] [place] [address] Care Team Providers Care Electrophysiology Scientist Name Role Phone Arlyn Rodriguez PIPE INSULATOR HELPER Primary Care Provider Encounter Details Date Type Department Care Team (Late st Contact Info) Description 06/12/2014 Results Only [facility] [phone] Stephania Boyer MD [address] [place] [address] Social History Tobacco Use Types Packs/Day Years [...] Date/Time Associated Diagnosis Comments SURGICAL PATHOLOGY Routine 06/12/2014 20 :05 EST documented in this encounter Results * SURGICAL PATHOLOGY (06/12/2014 20:05 EST) Pathology Report: SURGICAL PATHOLOGY REPORT Reports generated via electronic interface contain original data; however they are lacking the format of the original report. Caution should be taken when reading/interpret ing unformatted reports. Name: ? LOBO ARCHIBALD ? Accession #: ? [id number] ? : ? 1985 (Age: 28) ??F ? Collect Date: ? 06/12/2014 ? Location: ? [facility] ? Receive Date: ? 06/12/2014 ? Provider: STEPHANIA BOYER MD Copy to: OSCAR SHEPPARD NP ? Final Pathologic Diagnosis: SPECIMEN LABELED LEFT DISTAL FALLOPIAN TUBE: - ??Fallopian tube no significant pathologic features. - ??Complete cross section identified. Document reviewed and electronically signed by: GIULIANO MERRITT MD Report ??Date: 06/16/2014 15:01 By the signature above, the attending physician certifies that he/she has personally conducted a gross and/or microscopic examination of the described specimens and rendered or confirmed the above diagnosis. Specimen(s) Received: Left distal fallopian tube Clinical History: 39+ week IUP, desires permanent sterilization Gross Description: ? Received in formalin labelled with proper patient identification (initials P, N) and left distal fallopian tube is a fimbriated fallopian tube (3.3 cm in length x 0.9 cm in diameter), without associated ovary. ??The serosa is cervantes-purple and smooth. ??Sectioning reveals a cervantes-white, slightly torturous cut surface with a pinpoint lumen throughout. ??Two cross sections and one longitudinal section of the fimbriated end are submitted in 1. Itzel Schaffer 06/13/2014 12:23 PM End of Report [facility] 06/12/2014 20:0 5 EST 06/12/2014 20:05 EST us Stephania Boyer MD PATHOLOGY ORDERABLES Final Resu lt [facility] [address] [place] [address] documented in this encounter Visit Diagnoses Not on filedocumented in this encounter Care Teams Electrophysiology Scientist Relationship Specialty Start Date End Date Arlyn Rodriguez NP [facility] [address] [place] [address] PCP - General 01/27/10 06/12/14 documented as of this encounter
--- OUTSIDE RECORDS SUMMARY | 2024-04-12 15:35 | XMS_ITS | Clinical Summary ---
Author Organization [facility] Address [address] [place] [address] Care Team Providers Care Smoked Meat Preparer Name Role Phone TatydanielRenetta nichols YOUSUF Primary Care Provider [phone] Social History Tobacco Use Types Packs/Day Years Used Date Smoking Tobacco: Never Assessed Interpersonal Safety Answer Date Record ed Physically Hurt Never 11/25/2019 Verbally Threaten Not on file 11/25/2019 Comments Unknown Sex and Gender Information Value Date Recorded Sex Assigned at Not on file Legal Sex Female 18:36 EST Gender Identity Not on file Sexual Orientation Not on file Plan of Treatment Health Maintenance Due Date Last Done Comments Hepatitis B Vaccine (1 of 3 - 19+ 3-dose series) 2004 COVID-19 Vaccine ( season) 2023 Hepatitis C Screen Completed 12/18/2021, 12/18/2021 Procedures Procedure Name Priority Date/Time Associated Diagnosis Comments HEPATITIS C AB W REFLEX TO HCV RNA BY PCR Routine 12/18/2021 14:11 EDT from Last 3 Months or Most Recently Relevant to Health Maintenance Results * HEPATITIS C AB W REFLEX TO HCV RNA BY PCR (12/18/2021 14:11 EDT) Hep C Antibody Negative Negative 12/21/2021 11:02 EDT [facility] Blood VENOUS BLOOD / Unknown 12/18/2021 14:11 EDT 12/18/2021 21:24 EDT us Provider Outr Resulting Lab CHEMISTRY & BLOOD GA S ORDERABLES Final Result [facility] [address] [place] [address] from Last 3 Months or Most Recently Relevant to Health Maintenance Insurance MEDICAID [place] Care Teams Smoked Meat Preparer Relationship Specialty Start Date End Date Renetta Flores NP [address] [place] [address] PCP - General 06/29/16
--- OUTSIDE RECORDS SUMMARY | 2024-04-12 15:35 | XMS_ITS | Encounter Summary ---
Author Organization [facility] Address [address] [place] [address] Care Team Providers Care Turbo Generator Oiler Name Role Phone Renetta Flores YOUSUF Primary Care Provider [phone] Encounter Details Date Type Department Care Team ([facility] st Contact Info) Description 12/18/[address] [facility] Pathology & Laboratory Medicine - [facility] [address], [place] [address] Outr Resulting Lab, Provider Social History Tobacco [...] RNA BY PCR Routine 12/18/2021 14:11 EDT HEPATITIS A TOTAL ANTIBODY W REFLEX Routine 12/18/2021 14:11 EDT HEPATITIS B CORE ANTIBODY (TOTAL) Routine 12/18/2021 14:11 EDT HEPATITIS B SURFACE ANTIBODY Routine 12/18/2021 14:11 EDT HEPATITIS B SURFACE ANTIGEN Routine 12/18/2021 14:11 EDT documented in this encounter Results * HEPATITIS B SURFACE ANTIBODY (12/18/2021 14:11 EDT) Hep B Surface Ab, Quantitative 28.0 See Note mIU/mL 12/21/2021 9:57 EDT [facility] Comment: Reference Range for Hep B Surface Ab, Quant: Positive: >= 10.0 mIU/mL Negative: ??< 10.0 mIU/mL Patient is presumed to be immune to infection with Hepatitis B Virus. Hep B Surface Ab, Qualitative Positive See Note 12/21/2021 9:57 EDT [facility] Comment: Reference Range for Hep B Surface Ab, Qual: Unvaccinated: ??Negative Vaccinated: ??Positive Blood VENOUS BLOOD / Unknown 12/18/2021 14:11 EDT 12/18/2021 21:24 EDT us Provider Outr Resulting Lab CHEMISTRY & BLOOD GA S ORDERABLES Final Result Performing Organization Address [facility] Co de Phone Number [facility] [address] [place] [address] * HEPATITIS B CORE ANTIBODY (TOTAL) (12/18/2021 14:11 EDT) Pathologist [facility] Hepatitis B Core Ab, Total Negative Negative 12/21/2021 11:12 EDT [facility] Blood VENOUS BLOOD / Unknown 12/18/2021 14:11 EDT 12/18/2021 21:24 EDT us Provider Outr Resulting Lab CHEMISTRY & BLOOD GA S ORDERABLES Final Result [facility] [address] [place] [address] * HEPATITIS B SURFACE ANTIGEN (12/18/2021 14:11 EDT) Pathologist [facility] Hep B Surface Ag Negative Negative 12/21/2021 10:25 EDT [facility] Blood VENOUS BLOOD / Unknown 12/18/2021 14:11 EDT 12/18/2021 21:24 EDT us Provider Outr Resulting Lab CHEMISTRY & BLOOD GA S ORDERABLES Final Result Performing Organization Address [facility]/ZIP Co de Phone Number [facility] [address] [place] [address] * HEPATITIS C AB W REFLEX TO HCV RNA BY PCR (12/18/2021 14:11 EDT) Hep C Antibody Negative Negative 12/21/2021 11:02 EDT [facility] Blood VENOUS BLOOD / Unknown 12/18/2021 14:11 EDT 12/18/2021 21:24 EDT us Provider Outr Resulting Lab CHEMISTRY & BLOOD GA S ORDERABLES Final Result Performing Organization Address [facility] Co de Phone Number [facility] [address] [place] [address] * HEPATITIS A TOTAL ANTIBODY W REFLEX (12/18/2021 14:11 EDT) Hepatitis A Antibody, Total Negative Negative 12/21/2021 11:18 EDT [facility] Blood VENOUS BLOOD / Unknown 12/18/2021 14:11 EDT 12/18/2021 21:24 EDT Narrative [facility] - 12/21/2021 11:18 EDT The result of this assay can be falsely elevated (Positive) due to the consumption of Biotin. us Provider Outr Resulting Lab CHEMISTRY & BLOOD GA S ORDERABLES Final Result Performing Organization Address [facility] Co de Phone Number [facility] [address] [place] [address] documented in this encounter Visit Diagnoses Not on filedocumented in this encounter Care Teams Turbo Generator Oiler Relationship Specialty Start Date End Date Renetta Flores NP [address] [place] [address] PCP - General 06/29/16 documented as of this encounter
--- OUTSIDE RECORDS SUMMARY | 2024-04-12 15:35 | XMS_ITS | Encounter Summary ---
[place] [address] Care Team Providers Care Cloud Architect Name Role Phone Renetta Flores ANNA MARIE Primary Care Provider [phone] Reason for Visit * Auth/Cert Specialty Diagnoses / Procedures Referred By Margaret rebollar Referred To Contact Diagnoses CARIES,FX TEETH Procedures PRO REMOVAL ERUPTED TOOTH WITH ELEVATION OF MUCOPERIOSTEAL FLAP SURGICAL EXTRACTIONS REQUIRING ELEVATION OF MUCOPERIOSTEAL FLAP AND REMOVAL OF BONE OR SECTION OF TOOTH (WRVU 1.09) Referral ID Status Reason Start Date Expiration Date Visits Re quested Visits Authorized [id number] 1 1 Encounter Details Date Type Department Care Team (Late st Contact Info) Description 05/21/2019 7:34 AM EST Anesthesia Event [facility] [place] [address] Ijeoma Aiken DO Duprat, Chloe N, MD [facility] DR ANESTHESIOLOGY [place] [address] Anesthesia Record Procedure Summary Procedure Name Responsible Anesthesiologist Anesthesia Start Time Anesthesia Stop Time SURGICAL EXTRACTIONS REQUIRING ELEVATION OF MUCOPERIOSTEAL FLAP AND REMOVAL OF BONE OR SECTION OF TOOTH (WRVU 1.09) (Bilateral: Mouth) Ijeoma Aiken DO 05/21/19 0734 05/21/19 0859 Events Date Time Event Comment 05/21/2019 0651 0734 AN Verify 0734 Start 0734 An Start Data 0738 An Induction 0741 An Intubation 0745 Anesthesia Ready 0858 Extubation/LMA Out 0858 an stop data 0858 Recovery or ICU Handoff Annette ent care was transferred to the destination unit staff after review of the patient's medical history, current anesthetic/surgical status and plan, according to the Provider Handoff Checklist. 0859 Stop Meds Name Total Midazolam 2 mg fentaNYL 50 mcg IV Lidocaine 50 mg Propofol 20 mg Ondansetron 8 mg Dexamethasone 8 mg Neostigmine 2 mg Glycopyrrolate 0.4 mg metroNIDAZOLE (FLAGYL) 500 mg in sodium chloride 0.9% 100 mL 500 mg cefTRIAXone (ROCEPHIN) 1 g v ial attach to sodium chloride 0.9% 50 mL Mini-Bag Plus 1 g Ketorolac 15 mg lactated ringers infusion 400 mL * Agents Name O2 Air N2O Sevoflurane (et) * Blood No blood administrations on file. Lines, Drains, and Airways Type Details Placement Removal Incision 05/21/19; gum; 12/21 (LDA cleanup utility RA#[id number]); 1715 (LDA cleanup utility RA#[id number]) 05/21/19 0000 by Elidia Mccoy RN 12/21/21 1715 by Hiren Marroquin (RETIRED) Peripheral IV Line - Single Lumen 05/21/19; 0709; metacarpal vein (top of hand), left; no longer indicated, removed per policy/procedure; 05/21/19; 0953 05/21/19 0709 by Trish Bliss RN 05/21/19 0953 by Kayla Frye, RN ETT Mask Ventilation: Ea sy (1); ETT Type: Cuffed, Nasal, CAROLEE; ETT Size: 6.5 mm; Mac Blade: 3; Notes: Asleep, Pre-O2; Attempts: 1; Laryngoscopy Grade: 1; ETT Placement Verified By: Auscultation, Capnometry, Visual; Inserted by: ricardo; Removal Date: 05/21/19; Removal Time: 0805/21/19 0746 by Steven Khan MD 05/21/19 0858 by Steven Khan MD documented in this encounter Social History Tobacco [...] OR Notes * Anesthesia Postprocedure Evaluation - Ijeoma Aiken DO - 05/21/2019 4:53 PM EST Department of Anesthesiology Post-procedure Note Patient: Neva Shields Procedure Summary Date: 05/21/19 Room / Location: [address] Anesthesia Start: 733 Anesthesia Stop: 858 Procedure: SURGICAL EXTRACTIONS REQUIRING ELEVATION OF MUCOPERIOSTEAL FLAP AND REMOVAL OF BONE OR SECTION OF TOOTH (WRVU 1.09) (Bilateral Mouth) Diagnosis: (CARIES,FX TEETH) Surgeon: Nemesio Campuzano MD Responsible Provider: Ijeoma Aiken DO Anesthesia Type: general ASA Status: 2 All Anesthesia Providers: Anesthesiologist: Ijeoma Aiken DO Macroeconomics Professor: Steven Khan MD Vitals Value Taken Time BP 142/100 05/21/2019 9:45 AM Temp 36.5 ??C (97.7 ??F) 05/21/2019 9:01 AM Pulse 63 05/21/2019 9:45 AM Resp 16 05/21/2019 9:45 AM SpO2 98 % 05/21/2019 9:45 AM Pain Level 4 05/21/2019 9:45 AM Patient Location: PACU/[facility] Level of Consciousness: Awake and Alert Pain Management: Satisfactory Analgesia PONV: None Cardiovascular Status: At Baseline and Hemodynamically Stable Respiratory Status: At Baseline and Room Air Postoperative Fluid Status: Intravascular EUvolemia Possible Anesthetic Complications: NONE apparent at time of evaluation Final Primary Anesthesia Type: General (The anesthetic type performed was the same as planned.) Comments: Ijeoma Aiken DO * Anesthesia Preprocedure Evaluation - Ijeoma Aiken DO - 05/18/2019 3:41 PM EST Pre-Anesthesia Evaluation for: Neva Shields a 33 y.o. female. Procedure(s): SURGICAL EXTRACTIONS REQUIRING ELEVATION OF MUCOPERIOSTEAL FLAP AND REMOVAL OF BONE OR SECTION OF TOOTH (WRVU 1.09) There are no active problems to display for this patient. No past medical history on file. Past Surgical History: Procedure Laterality Date ??? SECTION x 2 ??? PRO ERCP,DIAGNOSTIC N/A 06/25/2016 ERCP performed by Danial De La Paz MD at [facility] Social History Tobacco Use ??? Smoking status: Current Every Day Smoker Packs/day: 0.25 ??? Smokeless tobacco: Never Used Substance Use Topics ??? Alcohol use: No Social History Substance and Sexual Activity Drug Use Yes ??? Types: Marijuana Comment: a couple times a week No Known Allergies Medications: MAR and/or home medications have been reviewed. Physical Exam: There were no vitals filed for this visit. There is no height or weight on file to calculate BMI. Airway Assessment: Mallampati: I TM distance: >3 FB Neck ROM: full Cardiovascular Assessment: Rhythm: regular Pulmonary Assessment: breath sounds clear to auscultation Dental Assessment: Misc Assessment: Patient is wearing No contact(s). IV access: Peripheral line Anesthesia Plan: ASA 2 general, with a(n) intravenous induction 33 yo, 72 kg female presenting for surgical extractions under anesthesia. PMH significant for current smoker and MJ use . She was unable to tolerate extractions in the office. Anesthesia issues: none Airway records: easy MV, mac 3 gr 1 Pt denies CP/SOB/Active ALAINA ss/Acute illness Appears and feels well today Plan: GETA, nasal CAROLEE/FLORENCIA/VA and IV maint/p op pacu care and IV pain control as needed w local provided by surgical service. Antiemetics The patient was informed of the risks, benefits and alternatives of anesthesia. These risks included, but were not limited to, post-operative nausea and/or vomiting, pain, sore throat, dental/lip trauma, and other rare but serious complications such as major organ damage, awareness, severe allergicreactions, position-related nerve injuries, and need blood transfusions. All questions were sought and answered. Consent was signed and placed in chart. Region - Other Informed Consent: Anesthetic plan and risks discussed with patient. Plan discussed with NYLON OPERATOR. PAT Clinic Note documented in this encounter Plan of Treatment Not on file documented as of this encounter Visit Diagnoses Not on filedocumented in this encounter Administered Medications Inactive Administered Medications - up to 3 most recent administrations Medication Order MAR Action Action Date Dose Rate Site cefTRIAXone (ROCEPHIN) 1 g vial attach to sodium chloride 0.9% 50 mL Mini-Bag Plus 1 g, Intravenous, EVERY 24 HOURS SCHEDULED (Daily), First dose (after last modification) on Tue05/21/19 at 0745, Until Discontinued, Administer over 30 Minutes, Attach to 50 mL sodium chloride 0.9% Mini-Bag Plus , Indication for (Active or Suspected): Prophylaxis New Bag 05/21/2019 7:45 AM EST 1 g dexamethasone (DECADRON) injection PRN, Starting on Tue05/21/19 at 0745, Until Tue05/21/19 at 0859, Anesthesia Intra-op, Routine Given 05/21/2019 7:45 AM EST 8 mg fentaNYL 50 mcg/mL multi-dose injection PRN, Starting on Tue05/21/19 at 0753, Until Tue05/21/19 at 0859, Anesthesia Intra-op, Routine Given 05/21/2019 8:56 AM EST 25 mcg Given 05/21/2019 7:53 AM EST 25 mcg glycopyrrolate (ROBINUL) multi-dose injection PRN, Starting on Tue05/21/19 at 0842, Until Tue05/21/19 at 0913, Anesthesia Intra-op, Routine Given 05/21/2019 8:42 AM EST 0.4 mg ketorolac (TORADOL) injection PRN, Starting on Tue05/21/19 at 0842, Until Tue05/21/19 at 0913, Anesthesia Intra-op, Routine Given 05/21/2019 8:42 AM EST 15 mg lidocaine (PF) (XYLOCAINE) 100 mg/5 mL (2 %) injection PRN, Starting on Tue05/21/19 at 0738, Until Tue05/21/19 at 0859, Anesthesia Intra-op, Routine Given 05/21/2019 7:38 AM EST 50 mg metroNIDAZOLE (FLAGYL) 500 mg in sodium chloride 0.9% 100 mL 500 mg, Intravenous, EVERY 8 HOURS SCHEDULED, First dose on Tue05/21/19 at 0730, Until Discontinued, Administer over 30 Minutes, Indication for (Active or Suspected): Prophylaxis Given 05/21/2019 7:45 AM EST 500 mg midazolam (PF) (VERSED) multi-dose injection PRN, Starting on Tue05/21/19 at 0734, Until Tue05/21/19 at 0859, Anesthesia Intra-op, Routine Given 05/21/2019 7:34 AM EST 2 mg neostigmine (BLOXIVERZ) injection PRN, Starting on Tue05/21/19 at 0842, Until Tue05/21/19 at 0913, Anesthesia Intra-op, Routine Given 05/21/2019 8:42 AM EST 2 mg ondansetron (ZOFRAN) injection PRN, Starting on Tue05/21/19 at 0842, Until Tue05/21/19 at 0913, Anesthesia Intra-op, Routine Given 05/21/2019 8:42 AM EST 8 mg propofol (DIPRIVAN) 10 mg/mL bolus injection (Anesthesia) PRN, Starting on Tue05/21/19 at 0738, Until Tue05/21/19 at 0859, Anesthesia Intra-op Given 05/21/2019 7:39 AM EST 10 mg Given 05/21/2019 7:38 AM EST 10 mg documented in this encounter Care Teams Cloud Architect Relationship Specialty Start Date End Date Renetta Flores, ANNA MARIE [address] [facility] [place] [address] PCP - General Family Medicine 06/25/16 documented as of this encounter
--- OUTSIDE RECORDS SUMMARY | 2024-04-12 15:35 | XMS_ITS | Encounter Summary ---
[place] [address] Care Team Providers Care Safety Equipment Tester Name Role Phone Umu Birch Laurent THRASHER Primary Care Provider [phone] Reason for Visit * Reason Comments Positive Screen For Down Syndrome Encounter Details Date Type Department Care Team (Late st Contact Info) Description 01/15/2014 9:30 AM EDT Office Visit Obstetrics [place] [address] Alejandra Donis MS Abnormal quad screen (Primary Dx) Social History Tobacco Use Types [...] - Inhaled Oxygen Concentration - - Weight 81.9 kg (180 lb 8 oz) 01/15/2014 12:39 PM EDT Height 152.4 cm (5') 01/15/2014 12:39 PM EDT Body Mass Index 35.25 01/15/2014 12:39 PM EDT documented in this encounter Progress Notes * Alejandra Donis MS - 01/15/2014 12:41 PM EDT GENETIC COUNSELING NOTE Neva Shields was referred to the Diagnosis Program by Rand Moy CNM. I met with Neva for a 30 minute genetic counseling visit. She was accompanied to the visit by her partner, Faustino. Chief Complaint Patient presents with ??? Positive Screen For Down Syndrome Family History Problem (# of Occurrences) Relation (Name,Age of Onset) Down Syndrome (1) Father of Baby Relative: FOB's paternal half-brother Faustino reported that he has a paternal half-brother with Down syndrome. Upon further questioning, it is not completely clear if this relative does indeed have Down syndrome. Faustino has no contact with him, has only seen one picture of him 15+ years ago (and was not certain if he had features suggestiveof Down syndrome), and has very limited information. More information would be needed about the specific diagnosis of this relative's issues to accurately comment on recurrence risk. A three-generation pedigree was obtained and will be scanned into Neva's electronic medical record. OB History Grav Para Term Abortions TAB SAB Ect Mult Living 3 2 2 2 Patient's last menstrual period was 09/11/2013. Estimated Date of Delivery: 06/18/14 based on LMP. Screening Results Test Result ??? Quad screen Screen positive for Down syndrome ??? Open neural tube defect risk 1:9200 ??? Down syndrome risk 1:143 ? ? Trisomy 18 risk <1:10,000 ??? Cystic fibrosis carrier screen Screen negative for 23 mutations ??? Thalassemia screen MCV within normal limits (87 fL) Discussion 1. Positive Screen for Down Syndrome: We addressed the implications of a positive quad screen. We reviewed the risks from screening for Down syndrome (1:143) and trisomy 18 (<1:10,000). We discussed the options available to Neva, including ultrasound, non-invasive testing (NIPT) and am niocentesis, and each of their risks, benefits, and limitations. After our discussion, Neva declined additional testing. documented in this encounter Miscellaneous Notes * Miscellaneous - Provider, Scanning - 01/29/2014 11:43 AM EDT documented in this encounter Plan of Treatment Not on file documented as of this encounter Visit Diagnoses Diagnosis Abnormal quad screen- Primary Abnormal findings on screening documented in this encounter Care Teams Safety Equipment Tester Relationship Specialty Start Date End Date Umu Birch APRN [facility] [address] [place] [address] PCP - General 01/08/14 06/24/16 documented as of this encounter
--- OUTSIDE RECORDS SUMMARY | 2024-04-12 15:35 | XMS_ITS | Encounter Summary ---
Author Organization [facility] Address [facility] [place] [address] Care Team Providers Care Memorial Adviser Name Role Phone Umu Birch Laurent THRASHER Primary Care Provider [phone] Encounter Details Date Type Department Care Team (Latest Contact Info) Description 06/24/2016 12:05 AM EST - 06/24/2016 11:59 PM EST Hospital Encounter Radiology Library at [facility] [place] [address] Hugo Sousa MD [facility] [place] [address] Pain Discharge Disposition: Home Social History Tobacco [...] Tablet Take 10 mg by mouth daily. Ijbbsxhd-Kx-Rgj-Fe-FA Tablet Take by mouth. documented as of this encounter Plan of Treatment Not on file documented as of this encounter Procedures Procedure Name Priority Date/Time Associated Diagnosis Comments FILM LIBRARY STORAGE ONLY ULTRASOUND STUDY Routine 06/24/2016 12:05 AM EST Pain documented in this encounter Results * Film Library- Storage Only Ultrasound Study (06/24/2016 12:05 AM EST) Narrative [facility] - 06/25/2016 9:13 AM EST This exam is for storage only and is auto-finalizing. Hugo Sousa MD IMG FILM LIBRARY ORD ERABLES [place], [place] documented in this encounter Visit Diagnoses Diagnosis Pain Generalized pain documented in this encounter Care Teams Memorial Adviser Relationship Specialty Start Date End Date Umu Birch APRN [facility] [address] [place] [address] PCP - General 01/08/14 06/24/16 documented as of this encounter
--- OUTSIDE RECORDS SUMMARY | 2024-04-12 15:35 | XMS_ITS | Referral Summary ---
Author Organization [facility] Address [address] [place] [address] Care Team Providers Care International Accounting Manager Name Role Phone TatydanielRenetta nichols YOUSUF Primary Care Provider [phone] Social History Tobacco Use Types Packs/Day Years Used Date Smoking Tobacco: Never Assessed Interpersonal Safety Answer Date Record ed Physically Hurt Never 11/25/2019 Verbally Threaten Not on file 11/25/2019 Comments Unknown Sex and Gender Information Value Date Recorded Sex Assigned at Not on file Legal Sex Female 18:36 EST Gender Identity Not on file Sexual Orientation Not on file Plan of Treatment Not on file Procedures Procedure Name Priority Date/Time Associated Diagnosis Comments HEPATITIS C AB W REFLEX TO HCV RNA BY PCR Routine 12/18/2021 14:11 EDT from Last 3 Months or Most Recently Relevant to Health Maintenance Results * HEPATITIS C AB W REFLEX TO HCV RNA BY PCR (12/18/2021 14:11 EDT) Hep C Antibody Negative Negative 12/21/2021 11:02 EDT [facility] Blood VENOUS BLOOD / Unknown 12/18/2021 14:11 EDT 12/18/2021 21:24 EDT us Provider Outr Resulting Lab CHEMISTRY & BLOOD GA S ORDERABLES Final Result [facility] [address] [place] [address] from Last 3 Months or Most Recently Relevant to Health Maintenance Insurance MEDICAID [place] Care Teams International Accounting Manager Relationship Specialty Start Date End Date Renetta Flores NP [address] [place] [address] PCP - General 06/29/16
--- OUTSIDE RECORDS SUMMARY | 2024-04-12 15:35 | XMS_ITS | Encounter Summary ---
Author Organization [facility] Address [address] [place] [address] Care Team Providers Care Farmworker Fruit Name Role Phone Arlyn Rodriguez SENIOR AUDITOR Primary Care Provider Encounter Details Date Type Department Care Team (Latest Contact Info) Description 06/12/2014 16:03 EST - 06/12/2014 23:59 EST Hospital Encounter [address] [address] Unknown, Provider, MD Discharge Disposition: Home or Self Care Social History Tobacco Use Types Packs/Day Years Used Date Smoking Tobacco: Never Assessed Comments Unknown Sex and Gender Information Value Date Recorded Sex Assigned at Not on file Legal Sex Female 18:36 EST Gender Identity Not on file Sexual Orientation Not on file documented as of this encounter Discharge Disposition Disposition Code Departure Means Destination Home or Self Skilled Nursing documented in this encounter Plan of Treatment Not on file documented as of this encounter Visit Diagnoses Not on filedocumented in this encounter Care Teams Farmworker Fruit Relationship Specialty Start Date End Date Arlyn Rodriguez NP [facility] [address] [place] [address] PCP - General 01/27/10 06/12/14 documented as of this encounter
--- OUTSIDE RECORDS SUMMARY | 2024-04-12 15:35 | XMS_ITS | Encounter Summary ---
Author Organization [facility] Address [address] [place] [address] Care Team Providers Care Float Operator Name Role Phone Umu Birch IVF EMBRYOLOGIST Primary Care Provider [phone] Encounter Details Date Type Department Care Team (Latest Contact Info) Description 06/24/2016 7:33 EST - 06/24/2016 23:59 EST Hospital Encounter [address] [address] Unknown, Provider, MD Discharge Disposition: Home or [...] Code Departure Means Destination Home or Self Senior Living documented in this encounter Plan of Treatment Not on file documented as of this encounter Visit Diagnoses Not on filedocumented in this encounter Care Teams Float Operator Relationship Specialty Start Date End Date Umu Birch NP [address] [place] [id number] PCP - General 06/13/14 06/28/16 documented as of this encounter
--- OUTSIDE RECORDS SUMMARY | 2024-04-12 15:35 | XMS_ITS | Encounter Summary ---
Author Organization [facility] Address [facility] [place] [address] Care Team Providers Care Marketing Administrator Name Role Phone Renetta Flores ANNA MARIE [...] Expiration Date Visits Re quested Visits Authorized [id number] 1 1 Encounter Details Date Type Department Care Team (Late st Contact Info) Description 05/21/2019 6:40 AM EST - 05/21/2019 10:06 AM EST Hospital Encounter [place] [address] Nemesio Campuzano MD [facility] [place] [address] Discharge Disposition: Home Social History Tobacco Use [...] closest emergency room or call the hospital silo operator at [phone] and ask for physician demolition crane operator covering for your physician. Questions or problems after 5pm or on a weekend: Call the [facility] silo operator at and ask for the physician demolition crane operator covering for your doctor. * Patient Instructions* [...] may be helpful. Most swelling will occur [id number] hours following the procedure. Mouth Rinse: Vigorous [...] can be reached during office hours at [phone]. If you have questions atnight or on weekends, Dr. Campuzano can be reached at [phone]. documented in this encounter Medications at Time of Discharge Medication Sig Dispensed Refills Start Date End Date HYDROcodone-acetaminoph en ([place]) 5-325 mg Tablet Take 1 tablet by mouth every 4 hours as needed for Pain for up to 15 doses. 15 tablet 05/21/2019 prazosin (Minipress) 1 mg Capsule Take 1 mg by mouth nightly. Started on this on 05/08/2019 for depression 05/08/2019 citalopram (CELEXA) 10 mg Tablet Take 10 mg by mouth daily. Hcrahzdz-Re-Mew-Fe-FA Tablet Take by mouth. documented as of [...] MD INTERVAL H&P CC: carious teeth S: Neav Shields's condition is unchanged since H&P originally performed. Denies any new ED visits, hospitalizations, trauma, or new events. Has been overall doing well. History reviewed. No pertinent past medical history. Past Surgical History: Procedure Laterality Date ??? SECTION x 2 ??? PRO ERCP,DIAGNOSTIC N/A 06/25/2016 ERCP performed by Danial De La Paz MD at [facility] No Known Allergies No current facility-administered medications on file prior to encounter. Current Outpatient Medications on File Prior to Encounter Medication Sig Dispense Refill ??? prazosin (Minipress) 1 mg Capsule Take 1 mg by mouth nightly. Started on this on 05/08/2019 for depression ??? citalopram (CELEXA) 10 mg Tablet Take 10 mg by mouth daily. ??? Ttsxurvl-Yd-Mmz-Fe-FA Tablet Take by mouth. Family History Problem Relation Age of Onset ??? Down Syndrome Father of Baby Relative OWEN's paternal half-brother Social History Socioeconomic History ??? [...] file Gets together: Not on file Attends [employer] service: Not on file Active member of [...] TOOTH (WRVU 1.09) No flowsheet data found. [place] QUERY DATE: 05/21/19 Risk Assessment Category: [...] No future appointments. Nemesio Campuzano DMD, MD computer technology teacher documented in this encounter Miscellaneous Notes * Op Note - Nemesio Campuzano MD - 05/21/2019 8:52 AM EST [facility] Operative Note Patient Name: Neva Shields : [id number] MR#: [id number] Case Date: 05/21/2019 Surgeon: Surgeon(s) and Role: [...] and draped in the standard fashion for manager floral. The oral cavity was suctioned and an oral pharyngeal pack was placed. 8 cc's of 1% Xylocaine with 1-200,000 epinephrine was used to infiltrate the surgical sites. Surgical extractions involving incision and reflection of mucoperiostuem and removal of bone or division of teeth with the Grabbit drill were performed on teeth: 5, 12, [...] Bag 05/21/2019 7:45 AM EST 1 g ibuprofen (Advil;Motrin) tablet 800 mg 800 mg, [...] 7:10 AM EST 1,000 mLs 100 mL/hr metroNIDAZOLE (FLAGYL) 500 mg in sodium chloride [...] - Provid er: Nemesio Campuzano MD) HYDROcodone-acetaminophen ([place]) 5-325 mg per tablet 1-2 tablet 1-2 [...] MD) documented in this encounter Care Teams Marketing Administrator Relationship Specialty Start Date End Date Renetta Flores APRN [address] [place] [address] PCP - General Family Medicine 06/25/16 documented as of this encounter
--- OUTSIDE RECORDS SUMMARY | 2024-04-12 15:35 | XMS_ITS | Encounter Summary ---
Author Organization [facility] [place] [address] Care Team Providers Care Production Operations Inspector Name Role Phone Renetta Flores APRN Primary Care Provider Reason for Visit * Auth/Cert Specialty Diagnoses / Procedures Referred By Margaret rebollar Referred To Contact Diagnoses Back & Forth Choledocholithasis Procedures PRO ERCP,DIAGNOSTIC ERCP Referral ID Status Reason Start Date Expiration Date Visits Re quested Visits Authorized [id number] 1 1 Encounter Details Date Type Department Care Team (Late st Contact Info) Description 06/25/2016 3:00 PM EST - 06/25/2016 4:00 PM EST Surgery Gastroenterology at [facility] [place] [address] Danial De La Paz MD [facility] [place] [address] ERCP (VU 5.85) Social History Tobacco Use Types Packs/Day Years [...] test. You may use ice chips, popsicles, bxgz-oqv-otkicyn throat lozenges or sprays that may help [...] better as expected Tuesday-Tuesday Same Day Endo [phone] Otherwise contact [phone] and ask to speak to the glass vial filler sales and service consultant The patient reports understanding discharge instructions documented in this encounter Medications at Time of Discharge Medication Sig Dispensed Refills Start Date End Date citalopram (CELEXA) 10 mg Tablet Take 10 mg by mouth daily. Vjzxjexj-Bh-Gan-Fe-FA Tablet Take by mouth. documented as of this encounter Progress Notes * Sona Grissom RN - 06/25/2016 4:38 PM EST Patient report given to Yoli NEAL at [facility]. Patient alert an oriented. documented in this [...] Electronically signed by: Jaiden Altman Gastroenterology Fellow [facility] [place]ager [phone] 06/25/2016 documented in this encounter Plan of [...] Calin Santoyo MD IMG FILM LIBRARY OR DERABLES [place], [place] documented in this encounter Visit Diagnoses Not on filedocumented in this encounter Administered Medications Inactive Administered Medications - up to 3 most recent administrations Medication Order MAR Action Action Date Dose Rate Site EPINEPHrine injection solution ONCE PRN, Starting on Tue06/25/16 at 1529, Until Tue06/25/16 at 1852, Intra-Operative (Intra-Procedure), Routine Given 06/25/2016 3:29 PM EST 0.5 mg fentaNYL (PF) 50 mcg/mL 2mL syringe 50 mcg, Intravenous, EVERY 5 MIN PRN, Pain, for 5-10 pain score, Starting on Tue06/25/16 at 1559, Until Tue06/25/16 at 1652, for 5-10 pain score Hold for respiratory rate less than 10 per minute. Maximum dose: 250 mcg over one hour., PACU Recovery Given 06/25/2016 4:40 PM EST 50 mcg Given 06/25/2016 4:13 PM EST 50 mcg indomethacin (INDOCIN) suppository ONCE PRN, Starting on Tue06/25/16 at 1508, Until Tue06/25/16 at 1852, Intra-Operative (Intra-Procedure), Routine Given 06/25/2016 3:08 PM EST 100 mg lactated ringers infusion 50 mL/hr, Intravenous, [...] Recovery documented in this encounter Care Teams Production Operations Inspector Relationship Specialty Start Date End Date Renetta Flores, ESTIMATOR [employer] [address] [place] [address] PCP - General Family Medicine 06/25/16 documented as of this encounter
--- OUTSIDE RECORDS SUMMARY | 2024-04-12 15:35 | XMS_ITS | Encounter Summary ---
Author Organization [facility] Address [address] [place] [address] Care Team Providers Care Electrical Design Engineer Name Role Phone Arlyn Rodriguez PRODUCTION UTILITY WORKER Primary Care Provider Encounter Details Date Type Department Care Team (Late st Contact Info) Description 08/24/2011 Results Only [facility] - [facility] [place] [address] [place], [place] [id number] Sindy Jerry, [facility] [address] [place] [address] Social History Tobacco Use Types [...] Diagnosis Comments PAP TEST- RESULT ONLY Routine 08/24/2011 0:00 EDT documented in this encounter Results * PAP TEST- RESULT ONLY (08/24/2011 0:00 EDT) Pathology Report: CYTOPATHOLOGY REPORT Reports generated via electronic interface contain original data; however they are lacking the format of the original report. Caution should be taken when reading/interpreti ng unformatted reports. Name: ? LOBO ARCHIBALD ? Accession #: ? [id number] : ? 1985 (Age: 26) ??F ?Collect Date: ? 08/24/2011 Location: ? [facility] ? Receive Date: ? 08/25/2011 Provider: ?SINDY JERRY PEDIATRIC OPHTHALMOLOGIST Copy to: ?AMNA BURT MD ? Specimen/Source: ?Pap Test, Cervix/Endocervix, ThinPrep Imaging System with manual evaluation Last Menstrual Period: ? 08/07/11 Previous Gynecologic Pathology: ? LSIL: 2007 Treatment History: ? Colposcopy Miscellaneous treatment: Biopsy ECC/ benign ? SPECIMEN ADEQUACY ? Satisfactory for Evaluation - transformation zone component absent GENERAL CATEGORIZATION ? Negative for Intraepithelial Lesion or Malignancy INTERPRETATION ? Shift in olivia present suggestive of bacterial vaginosis. ? Document reviewed and electronically signed by: ? Patricia Prieto MD PhD ? Report Date: ??08/27/2011 13:48 End of Report [facility] 08/24/2011 08/25/2011 Sindy Jerry PEDIATRIC OPHTHALMOLOGIST PATHOLOGY ORDERABLES Final R esult [facility] [address] [place] [address] documented in this encounter Visit Diagnoses Not on filedocumented in this encounter Care Teams Electrical Design Engineer Relationship Specialty Start Date End Date Arlyn Rodriguez NP [address] [place] [address] PCP - General 01/27/10 06/12/14 documented as of this encounter
[2024-04-12] MEDS: Buprenorphine/Naloxone 8 mg/2 mg FILM 2 EACH SL (16:11)
[2024-04-12 16:28] LABS: Bilirubin Negative (Negative); Blood Trace-lysed (Negative); Clarity Sl Cloudy (Clear); Glucose Negative (Negative); Ketones Trace mg/dL (Negative); Leukocyte Esterase Negative (Negative); Nitrite Negative (Negative); Specific Gravity 1.015 (1.005-1.025); Urobilinogen 0.2 mg/dL (Up to 0.2); pH 8.5 (5-8)
[2024-04-12 16:30] VITALS: BP 143/84; PULSE 74; RESP 18; RESP 74; TEMP 36.9; O2SAT 98
[2024-04-12 16:45] LABS: Epithelial Cells Many HPF (Negative); Other Cells Negative (Negative)
[2024-04-12 16:46] LABS: Bacteria Few HPF (Negative); C & S Indicated? No/Sq. Contamination; Casts Negative LPF (Negative); Crystals Negative HPF (Negative); Mucus Negative (Negative)
== END 2024-04-12 16:30 | disposition home or self-care (01) ==
PROVIDERS: Emergency Provider Emergency Medicine; PCP Nurse Practitioner Family
DX: R11.2 Nausea with vomiting, unspecified (principal); R10.33 Periumbilical pain; F17.210 Nicotine dependence, cigarettes, uncomplicated
CPT/HCPCS: 80053; 81025; 83690; 96365; 96375; 99285; 74177; 81003; 81015; 83735; 84484; 85025; 99284; J0131; J1200; J1790; J1885; J2405; J3490